=== PATIENT | female | born 1940 | race Caucasian/White ===

== ENCOUNTER → 2017-12-21 10:24 | Outpatient (CLI) | payer MEDICARE, OTHER, SELFPAY ==
--- NOTE | 2017-12-21 12:00 | BRBX_PTH ---
PATIENT: SMITA MANTILLA LOC: [facility] U#:[id number] AGE/SX: 85/F ROOM: RE12/21/[address]: Dr. Waldo Hoskins MD : 1940 BED: DIS: SPEC #: [id number] RECD: 12/21/17 14:39 STATUS: MARIA DE JESUS REGabe #: [id number] APTI: 12/21/17 12:[address]: Waldo Hoskins DEPT: SURGICAL PATHOLOGY RECD BY: Brandon Christianson ENTERED: 12/21/17 14:39 SP TYPE: BREAST BX OTHR DR: Dr. Montez Hernandez MD Tissues: Right breast, NOS Procedures: Surgery Specimen Level IV HEADER OPERATION: Right stereotactic needle core biopsy PRE-OP DIAGNOSIS: Microcalcifications TISSUE SUBMITTED: Right breast ISCHEMIC TIME: 2 minutes FIXATION TIME: 7.5 hours MICROSCOPIC DIAGNOSIS Right breast, stereotactic needle core biopsy: Fat necrosis, fibrosis and associated clustered microcalcifications. No evidence of malignancy. AM:colt 12/22/17 MICROSCOPIC DESCRIPTION Slides are reviewed. GROSS DESCRIPTION Received in fixative is one container labeled with the patient's name and designated right breast. The specimen consists of multiple irregular and elongated fragments of yellow-doty soft tissue that in aggregate measure 3 x 1.5 x 0.2 cm. The specimen is totally submitted in one cassette. / AM:colt 12/21/17 TC:5 CPT: 73369
--- NOTE | 2017-12-21 19:45 | PCM.OPRPT ---
Report of Operation Date of Procedure: 12/21/17 Pre-Operative Diagnosis: right breast microcalcification - superficial Post-Operative Diagnosis: right breast microcalcification - superficial Surgery/Procedure Performed:: right breast stereotactic biopsy, specimen radiograph-need to close skin with sutures due to bleeding. marker clip expelled due to bleeding Type of Anesthesia:: Local Specimen's removed: right breast tissue Description of Procedure: The patient was brought to the stereotactic suite and informed of the plan course of events. The right breast was positioned in the craniocaudal position on the Brooks stereotactic table. the area of abnormality was noted to be the mid aspect of the cluster when reviewed from the previous mammograms. Mammographic image demonstrated the area of abnormality to be located in the center of the radiograph. Stereotactic images were then obtained which demonstrated good positioning of the abnormality for biopsy with good stroke ricardo parameters- the abnormality being quite superficial The breast was cleaned with Betadine area did one percent lidocaine was used to anesthetize the skin and a small stab incision made. An 8-gauge mammotome needle was placed into the pre-fire position. Stereotactic images demonstrated good positioning around the planned biopsy site. Local anesthetic injected deeply in the breast. The needle was deployed. Post deployment images demonstrated good positioning of the planned biopsy site. Multiple vacuum-assisted samples were obtained and [id number] fashion. there was significant bleeding following the biopsies. Specimen radiograph demonstrated micro-calcifications in the sample. A gel marker clip was deployed. but this kept being ejected by the ongoing bleeding. multiple 4-0 nylon sutures were placed to both close the incision and placed more deeply to obtain hemostasis. Post procedure mammogram images were obtained. the patient was checked later and knowing to be doing fine with some though less bruising than expected
== END ==
PROVIDERS: Family Provider Family Medicine; PCP Family Medicine; Visit Provider Surgery
DX: N64.1 Fat necrosis of breast (principal); N60.31 Fibrosclerosis of right breast; R92.0 Mammographic microcalcification found on diagnostic imaging of breast; F41.9 Anxiety disorder, unspecified; J45.909 Unspecified asthma, uncomplicated; Z85.3 Personal history of malignant neoplasm of breast; E11.9 Type 2 diabetes mellitus without complications; K21.9 Gastro-esophageal reflux disease without esophagitis; E03.9 Hypothyroidism, unspecified; Z85.118 Personal history of other malignant neoplasm of bronchus and lung; M19.90 Unspecified osteoarthritis, unspecified site; Z85.828 Personal history of other malignant neoplasm of skin; I49.9 Cardiac arrhythmia, unspecified; R06.02 Shortness of breath; D64.9 Anemia, unspecified; Z90.89 Acquired absence of other organs; Z87.891 Personal history of nicotine dependence; Z79.899 Other long term (current) drug therapy
CPT/HCPCS: 19081; 88305; J7050

== ENCOUNTER → 2018-04-27 12:18 | Outpatient (CLI) | payer MEDICARE, OTHER, SELFPAY ==
--- NOTE | 2018-04-27 12:23 | RAD_ITS ---
STUDY: X-RAY CHEST REASON FOR EXAM: Female, 77 years old. Chest pain, shortness of breath, history of lung and breast cancer TECHNIQUE: PA and lateral views of the chest. COMPARISON: Prior study of 08/26/2016 FINDINGS: Left lung fibrosis is present. On the lateral view is noted a pleural-based density of the posterior left lower lobe measuring 5.3 x 2.1 cm. There is scarring of the left upper lobe. There is no pleural effusion. Normal size heart. Normal mediastinum and lon. Normal visualized pulmonary arteries. Normal visualized aortic arch and descending thoracic aorta. Normal visualized thoracic spine. Normal visualized ribs, clavicles, and shoulders. Surgical clips are seen in the right breast. RAD/Chest PA and Lateral IMPRESSION: 1. Pleural-based density of the posterior left lower lobe measuring 5.3 x 2.1 cm. Differential diagnosis would include postoperative scarring versus recurrent neoplasm. This was not seen on the prior study of 08/26/2016. Further evaluation is recommended. 2. Left upper lobe scarring. Electronically Signed: Jose Durham MD at 20:07 EDT , Service support ,
[2018-04-27 14:12] LABS: Absolute Lymphocyte Count 2.04 X10^3/ul (0.83-4.51); Absolute Neutrophil Count 5.5 X10^3/uL (2.0-7.7); Basophil# 0.06 X10^3/uL; Basophil% 0.7 % (0-1); Eosinophil# 0.18 X10^3/uL; Eosinophils% 2.1 % (0-5); Hematocrit 36.9 % (37-47); Lymphocyte # 2.04 X10^3/ul (4.0); Lymphocyte % 23.9 % (19-41); Mean Corp Hgb Conc 32.5 g/gl (32-36); Mean Corpuscular Hgb 27.6 pg (27.0-32.0); Mean Platelet Vol. 10.1 fl (6.2-12.0); Monocyte# 0.73 X10^3/uL; Monocyte% 8.6 % (0-10); Neutrophil % 64.6 % (47-70); Platelet Count 323 K/mm3 (150-450); RBC Distribution Width CV 13.6 % (11.6-14.6); RBC Distribution Width SD 42.5 fl (35.1-43.9); Red Blood Count 4.34 M/mm3 (4.2-5.4); White Blood Count 8.5 K/mm3 (4.4-11.0)
[2018-04-27 14:13] LABS: POSITIVE COUNT NO; POSITIVE DIFFERENTIAL NO; POSITIVE MORPHOLOGY NO
[2018-04-27 14:33] LABS: BUN 24 mg/dL (7-18); Creatinine, Serum 1.48 mg/dL (0.55-1.02); EST Glomerular Filtration Rate 36 mL/min (>60); Est Glom Filt Rate - Afr Amer 44 mL/min (>60); Glucose 77 mg/dL (74-106)
[2018-04-27 14:34] LABS: ALB/GLOB Ratio 0.9 RATIO (0.9-2.4); AST(SGOT) 17 U/L (15-37); Alanine Aminotransfer ALT/SGPT 24 U/L (13-56); Albumin, Serum 3.6 g/dL (3.2-5.0); Alkaline Phosphatase 68 U/L (45-117); Anion Gap 10 (5-15); BUN/Creat Ratio 16.2 RATIO (10-20); Calcium,Total 9.4 mg/dL (8.5-10.1); Chloride 109 mmol/L (98-107); Globulin 4.1 g/dL (2.2-4.2); Potassium 4.5 mmol/L (3.5-5.1); Protein, Total 7.7 g/dL (6.4-8.2); Sodium Level 142 mmol/L (136-145); Thyroid Stim Hormone (TSH) 1.26 uIU/mL (0.358-3.74)
[2018-04-28 08:55] LABS: Vitamin B12 902 pg/mL (211-911)
== END ==
PROVIDERS: Family Provider Family Medicine; PCP Family Medicine; Visit Provider Family Medicine
DX: R07.9 Chest pain, unspecified (principal); E53.8 Deficiency of other specified B group vitamins; E03.9 Hypothyroidism, unspecified
CPT/HCPCS: 36415; 71046; 80053; 82607; 83735; 84443; 85025

== ENCOUNTER → 2018-05-06 06:29 | Outpatient (CLI) | payer MEDICARE, OTHER, SELFPAY ==
--- NOTE | 2018-05-06 09:54 | STRESSREP ---
Stress Test Report Date: 05/06/2018 Procedure: Pharmacologic stress nuclear imaging study Indications: Chest pain; shortness of breath Consent: Per the patient Procedure: The patient underwent pharmacologic (Regadenoson) evaluation with a peak heart rate of 109 beats per minute (75 predicted maximal heart rate) and a peak blood pressure of 128/72 mmHg. The baseline ECG demonstrated sinus rhythm. The peak pharmacologic ECG demonstrated no obvious ECG changes. There were no cardiac dysrhythmias pretest, during pharmacologic infusion, or recovery. There was no complaint of chest discomfort during pharmacologic infusion or recovery. The examination was discontinued secondary to completion of protocol. Impression: 1. Pharmacologic (Regadenoson) evaluation 2. Peak pharmacologic ECG with no obvious ECG changes. 3. There were no cardiac dysrhythmias pretest, during pharmacologic infusion, or recovery 4. Nuclear images pending Myocardial perfusion imaging study: Technique: The patient was injected with 11.9 millicuries of technetium 99m Cardiolite and subsequently rest SPECT Cardiolite nuclear imaging was obtained in the horizontal long, vertical long, and short axis views. The patient underwent pharmacologic (Regadenoson) evaluation with a peak heart rate of 109 beats per minute (75 % percent predicted maximal heart rate) and a peak blood pressure of 128/72 mmHg. The patient was injected with 32.6 millicuries of technetium 99m Cardiolite and subsequently stress SPECT Cardiolite nuclear imaging was obtained in the horizontal long, vertical long, and short axis views. A gated Cardiolite study at peak stress was obtained. Interpretation: Rest and stress SPECT Cardiolite nuclear imaging status post realignment, normalization, and attenuation correction demonstrate rest the appearance of relative uniform tracer uptake and status post stress notation of diminished tracer uptake in portions of the mid to distal inferolateral segments. There is end systolic thickening and brightening. The gated Cardiolite study demonstrates myocardial thickening and inward wall motion. The reported LVEF is 75 %. Impression: 1. Rest and stress SPECT Cardiolite nuclear imaging demonstrate relative uniform tracer uptake at rest and status post stress and area of diminished tracer uptake in portions of the mid to distal inferolateral segments appearing compatible with an area of stress-induced myocardial ischemia. 2. The gated Cardiolite study reports an LVEF of 75 %. This note was generated with [employer] software. It may contain incorrect words, spelling, and punctuation that were not noted in checking the note before signing.
== END ==
PROVIDERS: Family Provider Family Medicine; PCP Family Medicine; Visit Provider Family Medicine
DX: R07.9 Chest pain, unspecified (principal)
CPT/HCPCS: 78452; 93017; A9500; A4216; J2785

== ENCOUNTER → 2018-05-27 12:26 | Outpatient (CLI) | payer MEDICARE, OTHER, SELFPAY ==
[2018-05-27 12:20] LABS: Absolute Neutrophil Count 4.8 X10^3/uL (2.0-7.7); Basophil# 0.06 X10^3/uL; Basophil% 0.8 % (0-1); Eosinophils% 2.8 % (0-5); Hematocrit 35.5 % (37-47); Hemoglobin 11.3 g/dl (12.0-15.0); Lymphocyte % 23.4 % (19-41); Mean Corp Hgb Conc 31.8 g/gl (32-36); Mean Corpuscular Hgb 28.2 pg (27.0-32.0); Mean Corpuscular Volume 88.5 fL (81-99); Mean Platelet Vol. 10.1 fl (6.2-12.0); Monocyte# 0.53 X10^3/uL; Monocyte% 7.3 % (0-10); Neutrophil # 4.75 X10^3/uL (2.7-7.7); Neutrophil % 65.6 % (47-70); Platelet Count 285 K/mm3 (150-450); RBC Distribution Width CV 14.1 % (11.6-14.6); RBC Distribution Width SD 45.9 fl (35.1-43.9); Red Blood Count 4.01 M/mm3 (4.2-5.4); White Blood Count 7.3 K/mm3 (4.4-11.0)
--- NOTE | 2018-05-27 12:30 | ECHOD_ITS ---
Version 2 Reason For Study: CAD Procedure This was a 2D Doppler, Color Flow transthoracic echocardiogram. Exam performed in department. Left Ventricle Normal LV size. Left ventricular systolic function is normal. The estimated ejection fraction is 60 %. Transmitral diastolic flow velocities suggest mild (stage 1) diastolic dysfunction (reversed pattern). No regional wall motion abnormalities noted. Right Ventricle Normal RV size. Normal systolic function. Atria Normal left atrium. Normal right atrium. Mitral Valve Normal mitral valve. Tricuspid Valve Normal tricuspid valve. Mild tricuspid valve insufficiency. Pulmonary artery systolic pressure is 29 mmHg. Aortic Valve Trisinus/trileaflet aortic valve. Mild focal aortic valve calcification. Pulmonic Valve Normal pulmonic valve. Great Vessels Normal aortic root. The pulmonary artery is normal size. Normal inferior vena cava. Pericardium/Pleural No pericardial effusion. MMode/2D Measurements & Calculations LVIDd: 3.9 cm IVSd: 0.67 cm Ao root diam: 3.1 cm LVIDs: 2.5 cm LVPWd: 0.82 cm RVDd: 3.5 cm FS: 35.1 % LAV(MOD-bp): 38.9 ml LA A4 area: 15.8 cm2 RA A4 area: 10.3 cm2 LAV(MOD-bp) Indexed: 23.9 ml/m2 LAV(MOD-sp2): 31.4 ml LAV(MOD-sp4): 41.7 ml Time Measurements MV dec time: 0.29 sec Doppler Measurements & Calculations MV E max aguilar: 71.3 cm/sec Lat Peak E' Aguilar: 6.6 cm/sec Med Peak E' Aguilar: 5.9 cm/sec MV A max aguilar: 109.0 cm/sec E/E' lat: 10.8 E/E' med: 12.1 MV E/A: 0.65 Ao V2 max: 134.0 cm/sec LV V1 max: 124.1 cm/sec PA V2 max: 85.5 cm/sec Ao max P.2 mmHg LV V1 max P.2 mmHg TR max aguilar: 255.6 cm/sec TR max P.8 mmHg Interpretation Summary Normal LV size. Left ventricular systolic function is normal. The estimated ejection fraction is 60 %. No regional wall motion abnormalities noted. Mild tricuspid valve insufficiency. Pulmonary artery systolic pressure is 29 mmHg. Transmitral diastolic flow velocities suggest mild (stage 1) diastolic dysfunction (reversed pattern). Ordering Physician: Magnus Mcrathur Referring Physician: PAZ ARCE Performed By: Amisha Lopez, BANDAR, RVT
[2018-05-27 12:35] LABS: POSITIVE COUNT NO; POSITIVE DIFFERENTIAL NO; POSITIVE MORPHOLOGY NO
[2018-05-27 12:40] LABS: Anion Gap 6 (5-15); BUN 26 mg/dL (7-18); BUN/Creat Ratio 15.8 RATIO (10-20); Calcium,Total 8.6 mg/dL (8.5-10.1); Chloride 109 mmol/L (98-107); Creatinine, Serum 1.65 mg/dL (0.55-1.02); EST Glomerular Filtration Rate 32 mL/min (>60); Est Glom Filt Rate - Afr Amer 39 mL/min (>60); Glucose 192 mg/dL (74-106); Potassium 4.6 mmol/L (3.5-5.1); Sodium Level 137 mmol/L (136-145)
== END ==
PROVIDERS: Family Provider Family Medicine; PCP Family Medicine; Visit Provider Internal Medicine Cardiovascular Disease
DX: R06.00 Dyspnea, unspecified (principal); R94.39 Abnormal result of other cardiovascular function study
CPT/HCPCS: 36415; 80048; 85025; 93306

== ENCOUNTER → 2018-06-07 06:53 | Day surgery (SDC) | payer MEDICARE, OTHER, SELFPAY ==
[2018-06-04 12:33] VITALS: BMI 27.3
[2018-06-07 07:16] LABS: Bedside Glucose 130 mg/dL (70-110)
--- NOTE | 2018-06-07 10:10 | CL.D_ITS ---
Patient Name: SMITA MANTILLA Study Date: 06/07/2018 Performing: Magnus Mcarthur MD Ht: 61.02 inches 155 cm : 1940 Wt: 145.51 lbs 66 kg Age: 77 Gender: female BSA: 1.65 PROCEDURE(S) PERFORMED [id number] CLINICAL PROFILE AND INDICATIONS Indications: Suspected CAD Heart Failure: None Stress/Imaging Stress Test w/SPECT MPI: Yes Result: Positive Intermediate RiskStress Test with SP ECT MPI: Positive Intermediate Risk Angina Classification Anginal Classification w/in 2 Weeks: CCS III CAD Presentations: Other: Shortness of breath CONCLUSIONS Severe disease involving the proximal and mid left anterior descending artery, and the proximal and d istal right coronary artery and a dominant vessel. Patient has preserved ejection fraction and a kno wn diabetic with moderate renal dysfunction. RECOMMENDATIONS Surgery consult for coronary revascularization DESCRIPTION OF PROCEDURE The patient arrived to the procedure lab. The risks and benefits of the procedure as well as a full d escription of our services here and current unavailability of surgical backup were fully explained to the patient and/or their significant other prior to the catheterization. The Timeout was completed, verifying the correct patient and procedure. The patient's procedural site was prepped and draped in the usual fashion. Local anesthetic was given subcutaneously to right groin region with Lidocaine 2%. Using a modified Seldinger technique, arterial access was obtained via the right femoral artery, a 5 Fr sheath was inserted. Left Coronary Artery selective angiography was performed in multiple views u sing a 5 Fr. JL4 catheter. Right Coronary Artery selective angiography was then performed in multiple views using a 5 Fr. 3DRC (Morgan) catheter. LV to AO pullback pressures were then recorded.Contras t was injected through the sheath and the Right Iliac and Femoral artery were assessed for possible c losure device.The arterial sheath was pulled and manual compression applied until hemostasis is achie rebecca. CORONARY ANGIOGRAPHY DOMINANCE: Right Dominant LEFT HEART ASSESSMENT Left Ventricular Ejection Fraction: by Echo 60 % Normal LV wall motion Normal Left Ventricular systolic function LVEDP: 16 mmHg LEFT MAIN: Mild calcification, Angiographically normal LEFT ANTERIOR DECENDING ARTERY: PROX LAD: Moderate calcification, 40 % Stenosis MID LAD: 80 % Stenosis CIRCUMFLEX ARTERY: Mild luminal irregularities less than 30% RIGHT CORONARY ARTERY: PROX RCA: Diffusely diseased up to 70 % DISTAL RCA: 90 % Stenosis RT PDA: Ostial - 90 % Stenosis COMPLICATIONS No Complications PROCEDURE MEDICATIONS Versed 1 mg IV Versed 1 mg IV Oxygen: 2 L/min via nasal cannula SUMMARY OF HEMODYNAMIC DATA Time AIR REST ECG 07:16:42 AO 133/58 (84) SA 09:42:40 LV 134/0, 13 09:48:49 LV 144/2, 16 09:48:55 LVp 146/0, 15 09:48:59 AOp 141/58 (93) 09:49:04 ECG 10:04:28 Signed By Magnus Mcarthur MD On 06/07/2018 10:09:49 Magnus Mcarthur MD
== END ==
PROVIDERS: Family Provider Family Medicine; PCP Family Medicine; Visit Provider Internal Medicine Cardiovascular Disease
DX: I25.10 Atherosclerotic heart disease of native coronary artery without angina pectoris (principal); R94.39 Abnormal result of other cardiovascular function study; J44.9 Chronic obstructive pulmonary disease, unspecified; E78.5 Hyperlipidemia, unspecified; J45.909 Unspecified asthma, uncomplicated; F32.9 Major depressive disorder, single episode, unspecified; K21.9 Gastro-esophageal reflux disease without esophagitis; E03.9 Hypothyroidism, unspecified; E11.9 Type 2 diabetes mellitus without complications; Z85.3 Personal history of malignant neoplasm of breast; Z85.118 Personal history of other malignant neoplasm of bronchus and lung; Z92.3 Personal history of irradiation; Z90.710 Acquired absence of both cervix and uterus; Z96.649 Presence of unspecified artificial hip joint; Z79.4 Long term (current) use of insulin; Z79.82 Long term (current) use of aspirin; Z79.899 Other long term (current) drug therapy; Z87.891 Personal history of nicotine dependence
CPT/HCPCS: 82962; 93454; 99152; 99153; J7040; Q9967

== ENCOUNTER → 2018-08-11 14:27 | Outpatient (CLI) | payer MEDICARE, OTHER, SELFPAY ==
[2018-08-11 15:35] LABS: Absolute Lymphocyte Count 2.11 X10^3/ul (0.83-4.51); Absolute Neutrophil Count 5.7 X10^3/uL (2.0-7.7); Basophil# 0.06 X10^3/uL; Basophil% 0.7 % (0-1); Eosinophil# 0.37 X10^3/uL; Eosinophils% 4.1 % (0-5); Hematocrit 34.2 % (37-47); Hemoglobin 10.5 g/dl (12.0-15.0); Lymphocyte # 2.11 X10^3/ul (4.0); Lymphocyte % 23.6 % (19-41); Mean Corp Hgb Conc 30.7 g/gl (32-36); Mean Corpuscular Hgb 26.5 pg (27.0-32.0); Mean Corpuscular Volume 86.4 fL (81-99); Mean Platelet Vol. 10.6 fl (6.2-12.0); Monocyte# 0.66 X10^3/uL; Monocyte% 7.4 % (0-10); Neutrophil # 5.72 X10^3/uL (2.7-7.7); Platelet Count 338 K/mm3 (150-450); RBC Distribution Width CV 15.4 % (11.6-14.6); RBC Distribution Width SD 48.8 fl (35.1-43.9); Red Blood Count 3.96 M/mm3 (4.2-5.4); White Blood Count 8.9 K/mm3 (4.4-11.0)
[2018-08-11 15:38] LABS: POSITIVE COUNT NO; POSITIVE DIFFERENTIAL NO; POSITIVE MORPHOLOGY NO
[2018-08-11 16:01] LABS: ALB/GLOB Ratio 0.8 RATIO (0.9-2.4); AST(SGOT) 105 U/L (15-37); Alanine Aminotransfer ALT/SGPT 145 U/L (13-56); Albumin, Serum 3.1 g/dL (3.2-5.0); Alkaline Phosphatase 164 U/L (45-117); Anion Gap 13 (5-15); BUN 19 mg/dL (7-18); Calcium,Total 8.8 mg/dL (8.5-10.1); Chloride 103 mmol/L (98-107); Cholesterol 129 mg/dL (200); Creatinine, Serum 1.27 mg/dL (0.55-1.02); EST Glomerular Filtration Rate 43 mL/min (>60); Est Glom Filt Rate - Afr Amer 53 mL/min (>60); Globulin 3.7 g/dL (2.2-4.2); Glucose 196 mg/dL (74-106); High Density Lipoprotein 69 mg/dL; Potassium 4.1 mmol/L (3.5-5.1); Protein, Total 6.8 g/dL (6.4-8.2); Sodium Level 138 mmol/L (136-145); T4 Free Direct 1.42 ng/dL (0.76-1.46); Thyroid Stim Hormone (TSH) 0.11 uIU/mL (0.358-3.74); Triglycerides 113 mg/dL; Very Low Density Lipoprotein 23 mg/dL (5-40)
== END ==
PROVIDERS: Family Provider Family Medicine; PCP Family Medicine; Visit Provider Family Medicine
DX: E03.9 Hypothyroidism, unspecified (principal); D64.9 Anemia, unspecified; E11.9 Type 2 diabetes mellitus without complications
CPT/HCPCS: 36415; 80053; 80061; 84439; 84443; 85025

== ENCOUNTER → 2018-12-14 12:57 | Outpatient (CLI) | payer MEDICARE, OTHER, SELFPAY ==
[2018-08-20 14:50] VITALS: BMI 25.3
--- NOTE | 2018-12-14 13:06 | RAD_ITS ---
STUDY: X-RAY CHEST REASON FOR EXAM: Female, 78 years old. Bronchitis. TECHNIQUE: PA and lateral views of the chest. COMPARISON: Comparison is made with prior study dated April 27, 2018. FINDINGS: Surgical clips are seen overlying the inferior lateral portion of the right hemithorax. The patient is status post surgery in the left upper lobe with resultant postoperative scarring. The previously seen density in the left midlung has markedly decreased in size. This most like represents postoperative scarring. Stable blunting of the left costophrenic angle. Sternal cerclage wires and vascular clips are present from a prior sternotomy and coronary artery bypass graft procedure (CABG). Normal mediastinum and lon. Normal visualized pulmonary arteries. Normal visualized aortic arch and descending thoracic aorta. Normal visualized thoracic spine. Healing fracture of the anterolateral aspect of the left seventh rib most likely following surgery. There is no demonstrated abnormality of the visualized soft tissue structures of the upper abdomen. RAD/Chest PA and Lateral IMPRESSION: Status post surgery in the left upper lobe with resultant scarring and healing left rib fracture secondary to surgery. The previously seen focal density in the posterior left mid lung has markedly decreased in size. Electronically Signed: Soy Ken MD at 9:37 EST , Service support ,
[2018-12-14 14:05] LABS: Erythrocyte Sedimentation Rate 9 mm/hr (0-30)
[2018-12-14 14:08] LABS: Absolute Lymphocyte Count 1.67 X10^3/ul (0.83-4.51); Absolute Neutrophil Count 4.5 X10^3/uL (2.0-7.7); Basophil# 0.04 X10^3/uL; Basophil% 0.6 % (0-1); Eosinophil# 0.18 X10^3/uL; Eosinophils% 2.5 % (0-5); Hematocrit 35.8 % (37-47); Hemoglobin 11.6 g/dl (12.0-15.0); Lymphocyte # 1.67 X10^3/ul (4.0); Lymphocyte % 23.6 % (19-41); Mean Corp Hgb Conc 32.4 g/gl (32-36); Mean Corpuscular Hgb 28.8 pg (27.0-32.0); Mean Corpuscular Volume 88.8 fL (81-99); Mean Platelet Vol. 10.2 fl (6.2-12.0); Monocyte% 9.9 % (0-10); Neutrophil # 4.48 X10^3/uL (2.7-7.7); Neutrophil % 63.3 % (47-70); POSITIVE COUNT NO; POSITIVE DIFFERENTIAL NO; POSITIVE MORPHOLOGY NO; Platelet Count 256 K/mm3 (150-450); RBC Distribution Width CV 14.2 % (11.6-14.6); RBC Distribution Width SD 46.2 fl (35.1-43.9); Red Blood Count 4.03 M/mm3 (4.2-5.4); White Blood Count 7.1 K/mm3 (4.4-11.0)
[2018-12-14 14:23] LABS: ALB/GLOB Ratio 0.9 RATIO (0.9-2.4); AST(SGOT) 21 U/L (15-37); Alanine Aminotransfer ALT/SGPT 34 U/L (13-56); Albumin, Serum 3.3 g/dL (3.2-5.0); Alkaline Phosphatase 95 U/L (45-117); Anion Gap 11 (5-15); BUN 30 mg/dL (7-18); BUN/Creat Ratio 19.4 RATIO (10-20); Calcium,Total 8.6 mg/dL (8.5-10.1); Chloride 106 mmol/L (98-107); Creatinine, Serum 1.55 mg/dL (0.55-1.02); EST Glomerular Filtration Rate 34 mL/min (>60); Est Glom Filt Rate - Afr Amer 42 mL/min (>60); Globulin 3.8 g/dL (2.2-4.2); Glucose 304 mg/dL (74-106); Potassium 3.9 mmol/L (3.5-5.1); Protein, Total 7.1 g/dL (6.4-8.2); Sodium Level 138 mmol/L (136-145); T4 Free Direct 1.07 ng/dL (0.76-1.46); Thyroid Stim Hormone (TSH) 1.26 uIU/mL (0.358-3.74)
== END ==
PROVIDERS: Family Provider Family Medicine; PCP Family Medicine; Referring Provider Family Medicine; Visit Provider Family Medicine
DX: J40 Bronchitis, not specified as acute or chronic (principal); E03.9 Hypothyroidism, unspecified; R19.7 Diarrhea, unspecified
CPT/HCPCS: 36415; 71046; 80053; 84439; 84443; 85025; 85652

== ENCOUNTER → 2018-12-30 10:44 | Outpatient (CLI) | payer MEDICARE, OTHER, SELFPAY ==
[2018-12-23 14:55] VITALS: BMI 26.8
[2018-12-31 17:17] LABS: Giardia Lamblia, Stool EIA Negative (Negative)
== END ==
PROVIDERS: Family Provider Family Medicine; PCP Family Medicine; Referring Provider Family Medicine; Visit Provider Family Medicine
DX: R19.7 Diarrhea, unspecified (principal)
CPT/HCPCS: 82274; 83630; 87177; 87209; 87329; 87493

== ENCOUNTER → 2019-01-18 12:05 | Outpatient (CLI) | payer MEDICARE, OTHER, SELFPAY ==
[2018-12-23 14:55] VITALS: BMI 26.8
== END ==
PROVIDERS: Family Provider Family Medicine; PCP Family Medicine; Referring Provider Family Medicine; Visit Provider Family Medicine
DX: R19.7 Diarrhea, unspecified (principal)
CPT/HCPCS: 87506

== ENCOUNTER 2019-10-30 12:05 | Inpatient (IN) | payer MEDICARE, OTHER, SELFPAY ==
[2018-12-23 14:55] VITALS: BMI 26.8
[2019-10-30 12:07] VITALS: BP 143/76; PULSE 72; RESP 17; TEMP 36.8; O2SAT 99; BMI 28.7
--- NOTE | 2019-10-30 12:39 | CT_ITS ---
STUDY: CT ABDOMEN AND PELVIS WITHOUT CONTRAST REASON FOR EXAM: Female, 79 years old. ABD PAIN, N/V SINCE THIS AM, GERD,DB, HX-BREAST CA WITH LUMPECTOMY, CHEMO AND RAD TX, LUNG CA WITH SURG AND GAMMA KNIFE TX, HUMA/BSO, APPY RADIATION DOSAGE (If Supplied By Facility): CTDIvol = ( 11.24 ) mGy, DLP = ( 488.61 ) mGycm TECHNIQUE: Transaxial images were obtained from the dome of the diaphragm to the symphysis pubis without oral contrast, and without intravenous contrast. Sagittal and coronal images were reconstructed. Individualized dose optimization techniques were used for this CT. COMPARISON: None. FINDINGS: The lung bases demonstrate no evidence for consolidative process. Bibasilar platelike atelectasis. Moderate size hiatal hernia. No pericardial effusion. Liver and spleen demonstrate no focal lesions. The gallbladder slightly distended. Parenchymal calcifications in the spleen and liver seen likely prior granulomatous disease. Mild atrophy of the pancreas Adrenal glands appear unremarkable. Nonobstructive bowel gas pattern. No evidence for acute appendicitis. No evidence for acute diverticulitis. Uncomplicated colonic diverticulosis. No free fluid in the pelvis. No drainable fluid collections. Degenerative changes of the sacroiliac joints. No evidence for hydronephrosis. No evidence for ureterolithiasis. Left-sided hip prostheses. IMPRESSION: No evidence for acute appendicitis. No evidence for acute diverticulitis. No evidence for obstructive uropathy. Uncomplicated diverticulosis. Somewhat heterogeneous appearance of the head of the pancreas likely a chronic changes however subtle acute pancreatitis is not excluded. Please correlate with amylase and lipase. Electronically Signed: Greg Doty, at 13:37 EST Tel , Service support , CT/Abdomen/Pelvis without Cont
--- NOTE | 2019-10-30 12:41 | ED.VISSUMM ---
- ER Visit Summary Date of Service: 10/30/19 Chief Complaint: Abdominal pain History of Present Illness: The patient is a 79 F who presents with right upper abdominal pain that began today. Patient states the pain is worse over the upper abdomen. Patient states her pain is diffuse however. Patient admits to an episode of nausea and vomiting today. Patient denies any hematemesis or coffee-ground emesis. Patient states her pain is worse when she lays down. Patient states nothing has improved her pain. Patient denies any diarrhea, melena, or hematochezia. Patient denies any dysuria or hematuria. Physical Examination: Vital signs are stable. Patient is afebrile. Patient is in no acute distress. Oral mucosa is pink and moist. Neck is supple. Trachea is midline. There is no JVD. Heart was regular rate and rhythm. Lungs are clear and equal bilaterally. Abdomen is soft. Bowel sounds are normal. There is upper abdominal tenderness, worse on the right. There is no rebound or guarding noted. Cranial nerves II through XII are intact. There are no focal motor or sensory deficits noted. Test Results: CBC shows a leukocytosis of 20.1. Creatinine was slightly elevated at 1.54 and BUN was 30. Lipase was elevated at 35,323. CT scan of the abdomen pelvis shows heterogeneous appearance of the head of the pancreas. Emergency Department Course and Treatment: Patient was given morphine, and Zofran. Patient was given a repeat dose of morphine. Patient was advised of her results. Case was discussed with the hospitalist. She will admit the patient to her service. Patient and family understood and were agreeable with the plan. All questions were answered. Disposition: Admit to hospital Impression: 1. Acute pancreatitis This note was generated with [employer] dictation software. It may contain incorrect words, spelling, and punctuation that were not noted in review of the chart prior to signing ED Disposition - Plan for ED Patient: Disposition: Acute Care Hospital [facility] Diagnosis: Acute pancreatitis Referrals: Jez Hernandez MD [Primary Care Provider] -
[2019-10-30] MEDS: Ondansetron 4 MG/2 ML Vial IV ×2 (12:50→17:23)
[2019-10-30] MEDS: Morphine 4 MG/ML Syringe IV ×2 (12:51→14:30)
[2019-10-30 12:59] LABS: Absolute Lymphocyte Count 3.54 X10^3/uL (0.83-4.51); Absolute Neutrophil Count 14.5 X10^3/uL (2.0-7.7); Basophil# 0.12 X10^3/uL; Basophil% 0.6 % (0-1); Eosinophil# 0.36 X10^3/uL; Eosinophils% 1.8 % (0-5); Hematocrit 38.2 % (37-47); Hemoglobin 12.8 g/dL (12.0-15.0); Lymphocyte # 3.54 X10^3/ul (4.0); Lymphocyte % 17.6 % (19-41); Mean Corp Hgb Conc 33.5 g/dL (32-36); Mean Corpuscular Hgb 29.2 pg (27.0-32.0); Mean Platelet Vol. 10.1 fl (6.2-12.0); Monocyte# 1.45 X10^3/uL; Monocyte% 7.2 % (0-10); NRBC Flagged by Analyzer 0 % (0-5); Neutrophil # 14.53 X10^3/uL (2.7-7.7); Neutrophil % 72.1 % (47-70); Platelet Count 311 K/mm3 (150-450); RBC Distribution Width CV 13.2 % (11.6-14.6); RBC Distribution Width SD 42.1 fl (35.1-43.9); Red Blood Count 4.39 M/mm3 (4.2-5.4); White Blood Count 20.1 K/mm3 (4.4-11.0)
[2019-10-30 13:28] LABS: ALB/GLOB Ratio 1.1 RATIO (0.9-2.4); AST(SGOT) 30 U/L (15-37); Alanine Aminotransfer ALT/SGPT 24 U/L (13-56); Albumin, Serum 3.9 g/dL (3.2-5.0); Alkaline Phosphatase 108 U/L (45-117); Anion Gap 9 (5-15); BUN 30 mg/dL (7-18); BUN/Creat Ratio 19.5 RATIO (10-20); Calcium,Total 9.6 mg/dL (8.5-10.1); Chloride 112 mmol/L (98-107); Creatinine, Serum 1.54 mg/dL (0.55-1.02); EST Glomerular Filtration Rate 35 mL/min (>60); Est Glom Filt Rate - Afr Amer 42 mL/min (>60); Estimated Creatinine Clearance 21.63 ml/min; Globulin 3.7 g/dL (2.2-4.2); Glucose 105 mg/dL (74-106); Lipase 35323 U/L (73-393); Potassium 3.9 mmol/L (3.5-5.1); Protein, Total 7.6 g/dL (6.4-8.2); Sodium Level 141 mmol/L (136-145)
[2019-10-30 14:40] VITALS: BP 142/68; PULSE 68; RESP 18; O2SAT 99
--- NOTE | 2019-10-30 15:11 | NURSING ---
MED SURG YENNI ACUTE PANCREATITIS
--- NOTE | 2019-10-30 15:12 | US_ITS ---
STUDY: ABDOMINAL ULTRASOUND - RIGHT UPPER QUADRANT REASON FOR VISIT: Female, 79 years old N/V SINCE THIS MORNING TECHNIQUE: Ultrasound evaluation of the right upper quadrant was performed with real-time and static mooney-scale imaging. TECHNICAL QUALITY: Limited. Examination limited by bowel gas. COMPARISON: None. FINDINGS: Liver: The liver measures 14 cm. There is normal echogenicity of the liver. The bile ducts are within normal limits. There is hepatic color flow. The direction of portal flow is hepatopetal. There is no demonstrated mass lesion. Gallbladder: Normal distended gallbladder. The gallbladder wall measures 4.2 mm. There is a positive sonographic Urbina''s sign. There is pericholecystic fluid. There is biliary sludge dependent within the gallbladder. Common Bile Duct (C.B.D.): The common bile duct measures 2.2 mm. Pancreas: There is diffuse atrophy of the pancreas. There is increased echogenicity of the pancreas. Hypoechoic area adjacent to the head of the pancreas measuring 2 x 2.1 x 1.5 cm. Right Kidney: There is atrophy of the right kidney. The right kidney measures 8.8 cm. There is thinning of the renal cortex. The right cortex measures 0.8 cm. There is no demonstrated renal mass or cyst. There is no right hydronephrosis. US/Abdomen Limited IMPRESSION: Dilated gallbladder with positive sonographic Urbina and surrounding pericholecystic fluid as well as gallbladder sludge with wall thickening. Findings are suggestive of acute cholecystitis. Hypoechoic area in the region of head of the pancreas. Echogenic pancreas. Possible pancreatitis. Electronically Signed: Fab Jenkins DO at 18:49 EST Tel , Service support ,
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
[2019-10-30 15:47] LABS: Cholesterol 167 mg/dL (200); High Density Lipoprotein 106 mg/dL; Triglycerides 70 mg/dL; Very Low Density Lipoprotein 14 mg/dL (5-40)
[2019-10-30 16:31] VITALS: BMI 29.1
[2019-10-30] MEDS: HYDROmorphone 0.5 MG/0.5 ML SYRINGE IV (17:22)
[2019-10-30] MEDS: Lactated Ringers 1,000 ML 150 ML IV (17:23)
[2019-10-30 18:00] LABS: Bedside Glucose 166 mg/dL (70-110)
[2019-10-30] MEDS: HYDROmorphone 1 MG/ML Syringe IV ×2 (18:26→22:34)
[2019-10-30 18:56] VITALS: BP 142/68; PULSE 68
[2019-10-30] MEDS: Metoprolol Tartrate 5 MG/5 ML Vial 2.5 MG IV (18:56)
[2019-10-30] MEDS: Insulin Lispro 100 UNIT/ML INSULN.PEN SC (19:04)
[2019-10-30 20:30] VITALS: BP 137/69; PULSE 97; RESP 18; TEMP 36.8; O2SAT 88
[2019-10-30 20:35] VITALS: RESP 18; O2SAT 95
[2019-10-30 20:56] VITALS: O2SAT 97
[2019-10-30] MEDS: Fluticasone 0.05% 1 SPRAY NASAL.SRY NASAL (21:21)
[2019-10-30] MEDS: 0.9% Saline Lock 10 ML Syringe IV ×2 (21:21→22:38)
[2019-10-30] MEDS: Heparin Injection (Vial) 5,000 UNIT/ML VIAL 5000 UNIT SC (21:26)
[2019-10-30 21:41] LABS: Bacteria 0 SEEN /hpf (None Seen); Mucous, Urine 0 SEEN /hpf (<or=2+); White Blood Cells 0 SEEN /hpf (0-5)
[2019-10-30 21:43] LABS: Color, Urine Yellow (Yellow); Glucose, Dipstick 50 mg/dl (Normal); Ketone-Dipstick 5 mg/dl (Negative); Leukocyte Esterase-Dipstick Negative /ul (Negative); Nitrite-Dipstick Negative (Negative); Occult Blood-Urine 10 /ul (Negative); Protein-Dipstick 30 mg/dl (Negative); Specific Gravity, Urine 1.025 (1.002-1.030); Urine Bilirubin Dipstick Negative (Negative); Urine Clarity Sl. Cloudy (Clear); Urine Urobilinogen 1 mg/dl (Normal)
[2019-10-30 21:54] LABS: Red Blood Cells-Urine 0-5 SEEN /hpf (0-5); Squamous Epithelial Cells - UA 0-5 SEEN /hpf (5-10)
[2019-10-31] VITALS (23 sets, daily range): BP systolic 98–142; BP diastolic 51–68; PULSE 90–117; RESP 16–28; TEMP 36.8–37.3; O2SAT 92–96; BMI 29.5; BMI 29.1
--- NOTE | 2019-10-31 | GALL_PTH ---
PATIENT: SMITA MANTILLA LOC: MS3 U#:[id number] AGE/SX: 79/F ROOM: MS312 RE10/30/[address]: Dr. Rufina Gamboa MD : 1940 BED: 1 DIS: 11/04/2019 SPEC #: [id number] RECD: 10/31/19 15:38 STATUS: MARIA DE JESUS REGabe #: [id number] PATI: 10/31/19 00:[address]: Oly Avery DEPT: SURGICAL PATHOLOGY RECD BY: Brandon Christianson ENTERED: 11/01/19 08:41 SP TYPE: GALLBLADDE OTHR DR: MD Dr. Montez Belle MD Dr. Kathryn Lee, DO Dr. Tamera Robotham, MD Tissues: Gallbladder, NOS Procedures: Surgery Specimen Level III Comments: @ Ordering doctor for SUIII edited from to @ by ANIL at 11/01/19923 @ Submitting doctor edited from to @ by RGOOD at 11/01/19923 HEADER OPERATION: Laparoscopic cholecystectomy PRE-OP DIAGNOSIS: Acute cholecystitis, pancreatitis TISSUE SUBMITTED: Gallbladder MICROSCOPIC DIAGNOSIS Gallbladder, cholecystectomy: Chronic cholecystitis. Acute serositis with fat necrosis. AM:colt 11/03/19 COMMENT Clinical correlation is necessary. MICROSCOPIC DESCRIPTION Slides are reviewed. GROSS DESCRIPTION Received is one container labeled with the patient's name and designated gallbladder. The specimen consists of a gallbladder measuring 6 cm in length and 3 cm in diameter. The external surface is pink-doty, smooth and glistening for the most part. Focally it is granular, hemorrhagic and contains cautery artifact. The gallbladder contains small amount of green-yellow mucoid bile. No stones are identified in the container or in the gallbladder. The mucosa is bile-stained and without any mass lesions. The gallbladder wall measures up to 0.3 cm in thickness. Machine Package Sealer sections from the gallbladder and the cystic duct are submitted in one cassette. / SJ:colt 11/01/19 TC:2 CPT: 47814
[2019-10-31] MEDS: Metoprolol Tartrate 5 MG/5 ML Vial 2.5 MG IV ×3 (01:07→17:33)
[2019-10-31] MEDS: Insulin Lispro 100 UNIT/ML INSULN.PEN SC ×4 (01:22→23:57)
[2019-10-31] MEDS: Lactated Ringers 1,000 ML 150 ML IV ×3 (01:35→14:43)
[2019-10-31 02:41] LABS: Bedside Glucose 199 mg/dL (70-110)
[2019-10-31] MEDS: HYDROmorphone 1 MG/ML Syringe IV ×5 (02:42→22:03)
[2019-10-31] MEDS: 0.9% Saline Lock 10 ML Syringe IV ×6 (02:45→22:02)
[2019-10-31 06:01] LABS: Absolute Lymphocyte Count 1.25 X10^3/uL (0.83-4.51); Absolute Neutrophil Count 22.6 X10^3/uL (2.0-7.7); Basophil# 0.04 X10^3/uL; Basophil% 0.2 % (0-1); Eosinophil# 0.09 X10^3/uL; Eosinophils% 0.3 % (0-5); Hemoglobin 12.4 g/dL (12.0-15.0); Lymphocyte # 1.25 X10^3/ul (4.0); Lymphocyte % 4.8 % (19-41); Mean Corp Hgb Conc 31.8 g/dL (32-36); Mean Corpuscular Hgb 29.2 pg (27.0-32.0); Mean Corpuscular Volume 91.8 fL (81-99); Mean Platelet Vol. 10.3 fl (6.2-12.0); Monocyte% 7.3 % (0-10); NRBC Flagged by Analyzer 0 % (0-5); Neutrophil # 22.58 X10^3/uL (2.7-7.7); Neutrophil % 86.7 % (47-70); POSITIVE DIFFERENTIAL YES; POSITIVE MORPHOLOGY YES; Platelet Count 263 K/mm3 (150-450); RBC Distribution Width CV 13.3 % (11.6-14.6); RBC Distribution Width SD 44.8 fl (35.1-43.9); Red Blood Count 4.25 M/mm3 (4.2-5.4); White Blood Count 26.1 K/mm3 (4.4-11.0)
[2019-10-31 06:18] LABS: International Normalized Ratio 1.2; Prothrombin Time (Protime)PT. 14.9 SECONDS (11.7-14.9)
[2019-10-31 06:20] LABS: ALB/GLOB Ratio 0.9 RATIO (0.9-2.4); AST(SGOT) 59 U/L (15-37); Alanine Aminotransfer ALT/SGPT 44 U/L (13-56); Albumin, Serum 3.1 g/dL (3.2-5.0); Alkaline Phosphatase 67 U/L (45-117); Anion Gap 8 (5-15); BUN 30 mg/dL (7-18); BUN/Creat Ratio 16.5 RATIO (10-20); Calcium,Total 8.1 mg/dL (8.5-10.1); Chloride 108 mmol/L (98-107); Creatinine, Serum 1.82 mg/dL (0.55-1.02); EST Glomerular Filtration Rate 29 mL/min (>60); Est Glom Filt Rate - Afr Amer 35 mL/min (>60); Globulin 3.3 g/dL (2.2-4.2); Glucose 218 mg/dL (74-106); Lipase 6910 U/L (73-393); Magnesium 1.7 mg/dL (1.6-2.6); Potassium 4.9 mmol/L (3.5-5.1); Protein, Total 6.4 g/dL (6.4-8.2); Sodium Level 139 mmol/L (136-145)
[2019-10-31 06:35] LABS: Differential Indicated SCAN CRITERIA MET
[2019-10-31 07:01] LABS: Bedside Glucose 195 mg/dL (70-110)
[2019-10-31 07:15] LABS: Differential Comment SCANNED
--- NOTE | 2019-10-31 08:11 | PN_ITS ---
Patient Problems: Active and Suspected Problems (Last Reviewed 10/30/19 @ 16:17 by Rekha Dumont DO) Acute pancreatitis (Acute) Subjective: Pain is a bit better today. No longer radiating to her back but is having R shoulder pain. Suspect some of her R shld pain is related to her GB. Still requiring Dilaudid every 4 hrs and pain is not controlled in the last hour. Denies SOB/CP. Not much flatus and c/o a lot of belching and some nausea. Vitals/I&O's: Vital Signs Temp Pulse Resp BP Pulse Ox 99.2 F H 102 H 20 H 118/59 L 93 10/31/19 05:00 10/31/19 05:24 10/31/19 05:00 10/31/19 05:24 10/31/19 07:50 Oxygen Flow Rate (L/min) 1 Oxygen Delivery Method Nasal Cannula Weight: 68.2 kg Body Mass Index (BMI) 29.1 Intake and Output for Last 24 Hours 10/29/19 10/30/19 10/31/19 23:59 23:59 23:59 Intake Total 160 / 160 1000 / 1000 Output Total 150 / 150 Balance 160 / 160 850 / 850 General: Alert, Oriented x3, Cooperative, No apparent distress - but looks uncomfortable, Well developed, Well nourished HEENT: Atraumatic, PERRLA, EOMI, Normocephalic, EAC Clear Oral: No Gingival or Mucosal Lesions/ Ulcerations, Dry Mucosa Neck: Supple, No JVD, Negative Carotid Bruits, Negative Hepatojugular Reflux, No Nodes, No Nuchal Rigidity, Trachea Midline, Thyroid Normal Size and Texture Lungs: Normal air movement, No rhonchi, No wheeze, No rales, - - Few crackles at bases that improve with deep breathing Cardiovascular: Regular rate, Regular Rhythm, Normal S1, Normal S2, Murmur - 2/6 SM, No rub noted, No Gallop Abdomen: Bowel Sounds Present, Soft, Non-Distended, Hypoactive Bowel Sounds, Guarding, Rebound Tenderness - RUQ, Tender, No hernias noted Extremities: No clubbing, No cyanosis, No edema, Capillary Refill Less than 3 Seconds Skin: No rashes, No breakdown Musculoskeletal: No Tenderness to Palpation of Joints or Extremities, No Muscle Wasting, Arthritic Changes Lymphatic: No Cervical, Supraclavicular, or Inguinal Adenopathy Neurological: Cranial nerves II-XII grossly intact, Deep Tendon Reflexes 2+/4 and Symmetrical, Neuro grossly intact, Motor Exam 5/5 strength throughout Psych/Mental Status: Normal Affect, - - pleasant but appears uncomfortable, Alert and oriented to time, place, person, mood and affect Laboratory Results 10/30/19 12:49: WBC 20.1 H, RBC 4.39, Hgb 12.8, Hct 38.2, MCV 87.0, MCH 29.2, MCHC 33.5, RDW Std Deviation 42.1, RDW Coeff of Katelyn 13.2, Plt Count 311, MPV 10.1, Immature Gran % (Auto) 0.700, Neut % (Auto) 72.1 H, Lymph % (Auto) 17.6 L, [place] % (Auto) 7.2, Eos % (Auto) 1.8, Baso % (Auto) 0.6, Absolute Neuts (auto) 14.5 H, Absolute Lymphs (auto) 3.54, Nucleated RBC % 0 10/30/19 12:49: Sodium 141, Potassium 3.9, Chloride 112 H, Carbon Dioxide 20.0 L , Anion Gap 9, BUN 30 H, Creatinine 1.54 H, Estim Creat Clear Calc 21.63, Est GFR (MDRD) Af Amer 42 L, Est GFR (MDRD) Non-Af 35 L, BUN/Creatinine Ratio 19.5, Glucose 105, Calcium 9.6, Total Bilirubin 0.40, AST 30, ALT 24, Alkaline Phosphatase 108, Total Protein 7.6, Albumin 3.9, Globulin 3.7, Albumin/Globulin Ratio 1.1, Lipase 67809 H 10/30/19 12:49: Triglycerides 70, Cholesterol 167, LDL Cholesterol 47, VLDL Cholesterol 14, HDL Cholesterol 106 10/30/19 17:05: POC Glucose 166 H 10/30/19 21:00: Urine Color Yellow, Urine Clarity Sl. Cloudy, Urine pH 5.0, Ur Specific [place] 1.025, Urine Protein 30 H, Urine Glucose (UA) 50 H, Urine Ketones 5 H, Urine Occult Blood 10 H, Urine Nitrite Negative, Urine Bilirubin Negative, Urine Urobilinogen 1 H, Ur Leukocyte Esterase Negative, Urine RBC 0-5 SEEN, Urine WBC 0 SEEN, Ur Squamous Epith Cells 0-5 SEEN, Urine Bacteria 0 SEEN, Urine Mucus 0 SEEN 10/31/19 01:21: POC Glucose 199 H 10/31/19 05:29: POC Glucose 195 H 10/31/19 05:34: WBC 26.1 H, RBC 4.25, Hgb 12.4, Hct 39.0, MCV 91.8 D, MCH 29.2, MCHC 31.8 L, RDW Std Deviation 44.8 H, RDW Coeff of Katelyn 13.3, Plt Count 263, MPV 10.3, Immature Gran % (Auto) 0.700, Neut % (Auto) 86.7 H, Lymph % (Auto) 4.8 L, [place] % (Auto) 7.3, Eos % (Auto) 0.3, Baso % (Auto) 0.2, Absolute Neuts (auto) 22.6 H, Absolute Lymphs (auto) 1.25, Nucleated RBC % 0, Differential Comment SCANNED, Diff Path Review March10/31/19 05:34: PT 14.9, INR 1.2 10/31/19 05:34: Sodium 139, Potassium 4.9, Chloride 108 H, Carbon Dioxide 23.0, Anion Gap 8, BUN 30 H, Creatinine 1.82 H, Estim Creat Clear Calc 18.30, Est GFR (MDRD) Af Amer 35 L, Est GFR (MDRD) Non-Af 29 L, BUN/Creatinine Ratio 16.5, Glucose 218 H, Calcium 8.1 L, Phosphorus 5.0 H, Magnesium 1.7, Total Bilirubin 0.80, AST 59 H, ALT 44, Alkaline Phosphatase 67, Total Protein 6.4, Albumin 3.1 L, Globulin 3.3, Albumin/Globulin Ratio 0.9, Lipase 6910 H Current Medications Aspirin (Ecotrin) 81 mg PO DAILYCM [facility] Atorvastatin Calcium (Lipitor) 40 mg PO QHS [facility] Last Admin: 10/30/19 21:22 Dose: Not Given Documented by: Citalopram Hydrobromide (Celexa) 20 mg PO DAILY [facility] Fluticasone Propionate (Flonase Nasal [place]) 1 spray NASAL BID [facility] Last Admin: 10/30/19 21:21 Dose: 1 spray Documented by: Glucagon () 1 mg IM .X1 PRN PRN Reason: Hypoglycemia Heparin Sodium (Porcine) (Heparin Na) 5,000 unit SC Q12 [facility] Last Admin: 10/30/19 21:26 Dose: 5,000 unit Documented by: Hydralazine HCl (Apresoline Iv) 5 mg IV Q6H PRN PRN PRN Reason: SBP GREATER THAN 170 Hydromorphone HCl (Dilaudid Inj) 1 mg IV Q3H PRN PRN PRN Reason: Pain Score 4-10/10 Pantoprazole Sodium 40 mg/ (Sodium Chloride) 110 mls @ 330 mls/hr IV Q24 [facility] Last Infusion: 10/30/19 17:36 Dose: Infused Documented by: Lactated Ringer's () 1,000 mls @ 150 mls/hr IV .Q6H40M [facility] Last Admin: 10/31/19 01:35 Dose: 150 mls/hr Documented by: Sodium Chloride () 250 mls @ 15 mls/hr IV .E30S28G PRN PRN Reason: Saline Flush Sodium Chloride () 250 mls @ 15 mls/hr IV .[id number] PRN PRN Reason: Additional IVPB Infusion Piperacillin Sod/Tazobactam (Sod 3.375 gm/ Sodium Chloride) 50 mls @ 12.5 mls/hr IV Q12 [facility] Last Infusion: 10/30/19 23:00 Dose: Infused Documented by: Dextrose (Dextrose 10%-Water) 250 mls @ 999 mls/hr IV .Q16M PRN; Protocol PRN Reason: HYPOGLYCEMIA Insulin Glargine (Lantus (Bk)) 30 units SC DAILY@1000 FABRIZIO Insulin Human Lispro (Humalog Kwikpen ([facility])) 0 unit SC Q6 [facility]; Protocol Last Admin: 10/31/19 05:31 Dose: 1 units Documented by: Ipratropium [place] (Atrovent) 0.5 mg INHALATION Q6HWA.RT [facility] Last Admin: 10/31/19 07:49 Dose: Not Given Documented by: Levothyroxine Sodium (Synthroid) 88 mcg PO DAILY@0600 [facility] Last Admin: 10/31/19 05:19 Dose: Not Given Documented by: Metoprolol Tartrate (Lopressor (Beta Nisha)) 2.5 mg IV Q6 [facility] Last Admin: 10/31/19 05:24 Dose: 2.5 mg Documented by: Ondansetron HCl (Zofran) 4 mg IV Q8H PRN PRN PRN Reason: NAUSEA/VOMITING Last Admin: 10/30/19 17:23 Dose: 4 mg Documented by: Sodium Chloride () 10 - 40 ml IV UD PRN PRN Reason: SALINE FLUSH Last Admin: 10/31/19 02:45 Dose: 10 ml Documented by: Tamoxifen Citrate (Nolvadex) 20 mg PO DAILY FABRIZIO STROKE Vital Signs/Narrative: Vital Signs Temp Pulse Resp BP Pulse Ox 10/31/19 07:50 93 10/31/19 05:24 102 H 118/59 L 10/31/19 05:00 99.2 F H 102 H 20 H 118/59 L 95 Medical Necessity - Tobacco Use Smoking Status: Former smoker Assessment/Plan All Active Problems (Last Reviewed 10/30/19 @ 16:17 by Rekha Dumont DO) Acute pancreatitis (Acute) H/O coronary artery bypass surgery (Resolved 06/25/18) Acute blood loss anemia (Resolved) Subcapital fracture of left femur (Resolved) Urinary retention (Resolved) Acute Pancreatitis 2/2 suspect gallstone -continue LR at 150 cc/hr and hold home diuretic -NPO except for occasional ice chips and meds -increase dilaudid to 1 mg q 3 hrs for pain -was on 1 mg q 4 and the last hour was getting bad for her -Lipids done and Trig is 70 -pt doesn't drink EtOH -RUQ US showed acute cholecystitis with normal caliber CBD and pancreas with diffuse atrophy and hypoechoic area adjacent to pancreatic head -consult Dr. Carvalho for General Surgery -IS to prevent BLL atelectasis -lipase down to 6910 from 35,323 -no need to trend any further -with that rapid of a drop suspect gallstone passed -trend calciums and bolus as needed->8.1 this am -LFT stable Leukocytosis -up to 26.1 but suspect all reactive -will continue Zosyn for now to cover intraabdominal infections shiela with US read of GB Nausea and Belching -BS are hypoactive -concern for developing ileus with acute abdominal issues -check KUB ROSEANNA on CKD stage 3-4 -creatinine up a bit today -continue LR at 150 for now -monitor creatinine and UO -avoid nephrotoxins--> Zosyn is renally dosed -use Dilaudid rather than morphine DM-2 -on 60 units of basal insulin at baseline -increase basal insulin to 40 units and change to Mod-high dosed SSI GERD -IV protonix for now HTN/HPL/CAD s/p CABG x 4 06/2018 -hold statin as long as lipids ok -IV metoprolol 2.5 q 6 hrs -hold ACEI for now -prn hydralazine for SBP > 170 Hypothyroidism -continue Synthroid H/O Breast Cancer -restart tamoxifen for now H/O lung cancer -no current issues Depression -restart citalopram Asthma -continue inhalers DVT Prophylaxis -Heparin q 12 hrs CODE STATUS: FULL CODE Code Visit Inpatient E&M: 35078 Subs Hosp L3
--- NOTE | 2019-10-31 08:50 | RAD_ITS ---
STUDY: X-RAY - ABDOMEN/PELVIS REASON FOR EXAM: Female, 79 years old. ABDOMINAL PAIN TECHNIQUE: Single AP view of the abdomen / pelvis. COMPARISON: None. FINDINGS: Normal visualized lung bases. There is an unremarkable bowel gas pattern. The visualized liver, spleen and kidneys are grossly normal in size and morphology. Normal soft tissue structures. Left hip hemiarthroplasty. RAD/Abdomen Single View (Portable) IMPRESSION: Normal x-ray examination of the abdomen and pelvis. Electronically Signed: Waldo Reynoso MD at 13:26 EST Tel , Service support ,
[2019-10-31] MEDS: 0.9% Normal Saline 1,000 ML 999 ML IV (09:11)
--- NOTE | 2019-10-31 10:01 | NURSING ---
[address] RENDON, INFORMED BLADDER SCAN WAS DONE FOR 428, HAVE AN ORDER TO PLACE A ZARAGOZA, DO YOU WANT THE BOLUS GIVEN. SHE ORDERED TO GIVE ONLY A 500 CC BOLUS.
--- NOTE | 2019-10-31 10:03 | NURSING ---
Daughter, Rachel Dominguez called in requesting update on patient's plan of care. Notified that primary RN was busy and unable to speak at that time. This RN called Rachel back, after consent from patient. Notified of surgery time today of 1235. Daughter was surprised and states she had no idea surgery was even an option. Dr. Avery texted and notified of family request to have return call. Dr. Avery responded that she will but is coming to speak with pt now.
--- NOTE | 2019-10-31 10:07 | EKG12_ITS ---
Test Reason : PRE OP Blood Pressure : / mmHG Vent. Rate : 113 BPM Atrial Rate : 113 BPM P-R Int : 160 ms QRS Dur : 054 ms QT Int : 310 ms P-R-T Axes : 072 071 090 degrees QTc Int : 425 ms Sinus tachycardia Nonspecific ST abnormality Abnormal ECG Confirmed by MICHELLE MORA, JIM ([id number]), video tape editor GARCÍA ASTORGA ([id number]) on 11/01/2019 9:48:09 AM Referred By: Rekha Dumont Confirmed By:JIM MARTINEZ MD
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
[2019-10-31 11:31] LABS: Bedside Glucose 212 mg/dL (70-110)
--- NOTE | 2019-10-31 11:38 | NURSING ---
Pt taken from unit at this time for surgery with Dr. Avery.
[2019-10-31 11:58] LABS: Partial Thromboplast Time 27.9 Seconds (24.1-36.2)
[2019-10-31 12:03] LABS: Hemoglobin A1c 9.9 % (4.2-6.3)
[2019-10-31 12:07] LABS: Thyroid Stim Hormone (TSH) 9.58 uIU/mL (0.358-3.74)
--- NOTE | 2019-10-31 12:50 | CASEMGMT ---
Case Management Progress Note: This junior underwriter went to patient bedside to complete initial assessment, patient currently at procedure and not at bedside. RNCM to continue to follow for assessment and DC care coordination needs. Esther Krishna RNCM
[2019-10-31] MEDS: Bupivacaine Mpf 0.5% 30 ML VIAL (13:30)
--- NOTE | 2019-10-31 13:30 | PCA ---
pt off floor
--- NOTE | 2019-10-31 13:53 | OP.PCM_ITS ---
Report of Operation Date of Procedure: 10/31/19 Pre-Operative Diagnosis: Acute cholecystitis, gallstone pancreatitis Post-Operative Diagnosis: Acute perforated gangrenous cholecystitis, gallstone pancreatitis Surgery/Procedure Performed:: Laparoscopic cholecystectomy Type of Anesthesia:: General/Supplemental Anesthesiologist: Kevin Vu Special Medications: Zosyn 3.375 g IV x1, patient is also on Zosyn on the floor for acute cholecystitis Specimen's removed: Gallbladder Drains: UOP- 100 cc Estimated Blood Loss (mL): <10 cc Fluids Replaced: 1100 Description of Procedure: Indications this is a 79 year-old male who developed abdominal pain/nausea/vomiting and on workup was found to have acute cholecystitis, gallbladder sludge, white blood count 26, with a normal common bile duct. Laparoscopic cholecystectomy was elected. Description procedure: The patient was placed on operating table in supine position. General Anesthesia was induced. A timeout was completed verifying correct patient, procedure, site, position and special equipment prior to begin alexei procedure. The abdomen was prepped and draped in usual sterile fashion. An incision was made in the natural skin line above the umbilicus. The fascia was elevated and incised. The peritoneum was elevated and incised. Entry into the peritoneum was confirmed visually and no bowel was noted in the vicinity of the incision. Olsen trocar was placed. The abdomen was insufflated with carbon dioxide to a pressure of 12-15 mmHg. Patient tolerated insufflation well. The laparoscope was then inserted and abdomen inspected. No injuries from initial trocar placement were noted. There is noted to be free bile in the right upper quadrant and some in the right lower quadrant. Additional trochars were then inserted in the following locations 5 mm trocar in the epigastrium and 2 more 5 mm trochars along the right costal margin. The bile was suctioned irrigated. The gallbladder is noted to be gangrenous at the medial fundus and mid gallbladder. The table is placed in reverse Trendelenburg position with the right side up. The adhesions between the gallbladder and omentum were lysed sharply. The dome of the gallbladder was grasped with atraumatic grasper passed through the later al port and retracted over the dome of the liver. Infundibulum was then grasped with atraumatic grasper through the midclavicular port and retracted to the right lower quadrant. This maneuver exposed Calot's triangle. The peritoneum overlying the gallbladder infundibulum was then incised and cystic duct and artery identified and circumferentially dissected. Did attempt to do cholangiogram with a Rodriguez catheter however due to leakage of the contrast unable to obtain possibly due to the gangrenous gallbladder.. The gallbladder then dissected from its peritoneal attachments by electrocautery . Hemostasis was checked and the gallbladder was removed using the endoscopic retrieval bag through the umbilical port. The gallbladder is passed off table as specimen. The gallbladder fossa was copiously irrigated with saline and hemostasis obtained. There is no evidence of bleeding from the gallbladder fossa or cystic artery leakage of bile from the cystic duct stump. 15 [place]i round NANDO was placed in the gallbladder fossa exiting from the lateral trocar site. It was sutured with 3-0 nylon. Secondary trochars removed under direct vision. No bleeding was noted the trocar sites. The laparoscope was withdrawn and umbilical trocar removed. The abdomen was allowed to collapse. The fascia of the 12 mm trocar was closed with a [id number] 0 Vicryl suture. The skin was closed with sutures of 4-0 Monocryl and Steri-Strips. The orogastric tube was removed and the patient was extubated. The patient tolerated procedure well and was taken to the postanesthesia care unit in stable condition. - Complications None
[2019-10-31 14:41] LABS: Bedside Glucose 188 mg/dL (70-110)
--- NOTE | 2019-10-31 15:40 | PCA ---
pt off floor
--- NOTE | 2019-10-31 16:35 | RAD_ITS ---
STUDY: X-RAY CHEST REASON FOR EXAM: Female, 79 years old. SHORTNESS OF BREATH, ACUTE PANCREATITIS TECHNIQUE: Single AP portable view of the chest. COMPARISON: December 14, 2018 FINDINGS: Mild hazy edema is present in the right lower lobe. Chronic interstitial scarring and postoperative suture material and related changes reidentified in the left upper lobe. Surgical clips of the bilateral breast reidentified There is no demonstrated pleural abnormality. Sternal cerclage wires and vascular clips are present from a prior sternotomy and coronary artery bypass graft procedure (CABG). Stable visualized osseous and mediastinal structures. A catheter is seen in the right upper quadrant. RAD/Chest 1 View (Portable) IMPRESSION: Mild pulmonary edema of the right lower lobe Electronically Signed: Diogenes Mcdonald MD at 21:48 EST , Service support ,
[2019-10-31] MEDS: Ipratropium 0.5 MG/2.5 ML SOLUTION INHALATION (17:07)
[2019-10-31] MEDS: Furosemide 40 MG/4 ML Vial IV (17:17)
[2019-10-31] MEDS: Ondansetron 4 MG/2 ML Vial IV (17:41)
[2019-10-31 18:20] LABS: Bedside Glucose 231 mg/dL (70-110)
[2019-10-31] MEDS: Lactated Ringers 1,000 ML 100 ML IV (21:50)
[2019-10-31] MEDS: Heparin Injection (Vial) 5,000 UNIT/ML VIAL 5000 UNIT SC (21:50)
[2019-10-31] MEDS: Fluticasone 0.05% 1 SPRAY NASAL.SRY NASAL (21:50)
[2019-10-31] MEDS: Atorvastatin Calcium 40 MG Tablet PO (21:50)
[2019-11-01] VITALS (22 sets, daily range): BP systolic 99–136; BP diastolic 48–67; PULSE 100–131; RESP 18–24; TEMP 36.7–37.2; O2SAT 93–97
[2019-11-01 00:06] LABS: Bedside Glucose 180 mg/dL (70-110)
[2019-11-01] MEDS: HYDROmorphone 1 MG/ML Syringe IV (02:32)
[2019-11-01] MEDS: Metoprolol Tartrate 5 MG/5 ML Vial 2.5 MG IV ×3 (05:11→17:38)
[2019-11-01 05:16] LABS: Absolute Lymphocyte Count 1.01 X10^3/uL (0.83-4.51); Absolute Neutrophil Count 9.2 X10^3/uL (2.0-7.7); Basophil# 0.02 X10^3/uL; Basophil% 0.2 % (0-1); Eosinophil# 0.07 X10^3/uL; Eosinophils% 0.6 % (0-5); Hematocrit 33.1 % (37-47); Hemoglobin 10.9 g/dL (12.0-15.0); Lymphocyte # 1.01 X10^3/ul (4.0); Lymphocyte % 9.2 % (19-41); Mean Corp Hgb Conc 32.9 g/dL (32-36); Mean Corpuscular Volume 91.2 fL (81-99); Mean Platelet Vol. 10.2 fl (6.2-12.0); Monocyte# 0.63 X10^3/uL; Monocyte% 5.7 % (0-10); NRBC Flagged by Analyzer 0 % (0-5); Neutrophil # 9.23 X10^3/uL (2.7-7.7); POSITIVE MORPHOLOGY YES; Platelet Count 206 K/mm3 (150-450); RBC Distribution Width CV 13.5 % (11.6-14.6); RBC Distribution Width SD 44.8 fl (35.1-43.9); Red Blood Count 3.63 M/mm3 (4.2-5.4)
[2019-11-01 05:18] LABS: Differential Indicated SCAN CRITERIA MET
[2019-11-01 05:39] LABS: ALB/GLOB Ratio 0.6 RATIO (0.9-2.4); AST(SGOT) 75 U/L (15-37); Alanine Aminotransfer ALT/SGPT 49 U/L (13-56); Alkaline Phosphatase 35 U/L (45-117); Anion Gap 6 (5-15); BUN 33 mg/dL (7-18); BUN/Creat Ratio 17.6 RATIO (10-20); Calcium,Total 7.6 mg/dL (8.5-10.1); Chloride 111 mmol/L (98-107); Creatinine, Serum 1.87 mg/dL (0.55-1.02); EST Glomerular Filtration Rate 28 mL/min (>60); Est Glom Filt Rate - Afr Amer 34 mL/min (>60); Estimated Creatinine Clearance 17.81 ml/min; Globulin 3.2 g/dL (2.2-4.2); Glucose 163 mg/dL (74-106); Lipase 359 U/L (73-393); Potassium 4.2 mmol/L (3.5-5.1); Protein, Total 5.2 g/dL (6.4-8.2); Sodium Level 141 mmol/L (136-145)
--- NOTE | 2019-11-01 05:55 | RAD_ITS ---
STUDY: X-RAY CHEST REASON FOR EXAM: Female, 79 years old. sob -- cough TECHNIQUE: Single AP portable view of the chest. COMPARISON: 10/31/2019 FINDINGS: Mild bibasilar subsegmental atelectasis versus infiltrate, improved on the right and new since prior on the left. Prior left upper lung surgery. Unremarkable pulmonary vascularity. There is no demonstrated pleural effusion on the chest radiograph. Normal size heart. Prior median sternotomy. Normal mediastinum and lon. Normal visualized pulmonary arteries. Normal visualized aortic arch and descending thoracic aorta. There are diffuse degenerative changes of the visualized thoracic spine. Normal visualized ribs, clavicles, and shoulders. There is no demonstrated abnormality of the visualized soft tissue structures of the upper abdomen. RAD/Chest 1 View (Portable) IMPRESSION: Mild bibasilar subsegmental atelectasis versus infiltrate, improved on the right and new since prior on the left. No evidence of pulmonary vascular congestion. Prior left upper lung surgery. Electronically Signed: Elmo Lan MD at 9:44 EST Tel [phone], Service support ,
[2019-11-01] MEDS: Insulin Lispro 100 UNIT/ML INSULN.PEN SC ×2 (06:10→16:49)
[2019-11-01] MEDS: Levothyroxine 88 MCG Tablet PO (06:10)
[2019-11-01] MEDS: Lactated Ringers 1,000 ML 100 ML IV (06:11)
[2019-11-01 06:26] LABS: Bedside Glucose 171 mg/dL (70-110)
[2019-11-01 06:33] LABS: Differential Comment SCANNED
--- NOTE | 2019-11-01 06:38 | PCM.PN.SRG ---
Patient Problems: Active and Suspected Problems (Last Reviewed 10/30/19 @ 16:17 by Rekha Dumont DO) Acute pancreatitis (Acute) Subjective: Patient's pain is improved, tolerating sips of clears, white blood count down to 11 from 26, LFTs within normal limits except for a slight elevation in the AST, lipase within normal limits. - Physical Exam Vitals/I&O's: Vital Signs Temp Pulse Resp BP Pulse Ox 98.1 F 101 H 24 H 115/57 L 95 11/01/19 05:58 11/01/19 05:58 11/01/19 05:58 11/01/19 05:58 11/01/19 05:58 Oxygen Flow Rate (L/min) 2 Oxygen Delivery Method Nasal Cannula Weight: 152 lb 8.958 oz Body Mass Index (BMI) 29.5 Finger Stick Blood Glucose 188 Intake and Output for Last 24 Hours 10/30/19 10/31/19 11/01/19 23:59 23:59 23:59 Intake Total 160 / 160 5005.42 / 5035.42 1015 / 1015 Output Total 710 / 1520 1065 / 1065 Balance 160 / 160 4295.42 / 3515.42 -50 / -50 General: Alert, Oriented x3, Cooperative, No apparent distress Lungs: Normal air movement Cardiovascular: Tachycardic Abdomen: Soft, Distended - Mild, Tender - Mild diffuse increase near incisions, incision clean dry and intact, NANDO site slight bilious drainage around with serosanguineous in the drain Laboratory Results 10/31/19 05:29: POC Glucose 195 H 10/31/19 05:34: Differential Comment SCANNED, Diff Path Review March10/31/19 05:34: PT 14.9, INR 1.2 10/31/19 11:07: POC Glucose 212 H 10/31/19 11:30: APTT 27.9 10/31/19 11:30: Hemoglobin A1c 9.9 H 10/31/19 11:30: TSH 9.58 H 10/31/19 14:35: POC Glucose 188 H 10/31/19 17:11: POC Glucose 231 H 10/31/19 23:57: POC Glucose 180 H 11/01/19 05:04: WBC 11.0, RBC 3.63 L, Hgb 10.9 L, Hct 33.1 L, MCV 91.2, MCH 30.0, MCHC 32.9, RDW Std Deviation 44.8 H, RDW Coeff of Katelyn 13.5, Plt Count 206, MPV 10.2, Immature Gran % (Auto) 0.300, Neut % (Auto) 84.0 H, Lymph % (Auto) 9.2 L, [place] % (Auto) 5.7, Eos % (Auto) 0.6, Baso % (Auto) 0.2, Absolute Neuts (auto) 9.2 H, Absolute Lymphs (auto) 1.01, Nucleated RBC % 0, Differential Comment SCANNED 11/01/19 05:04: Sodium 141, Potassium 4.2, Chloride 111 H, Carbon Dioxide 24.0, Anion Gap 6, BUN 33 H, Creatinine 1.87 H, Estim Creat Clear Calc 17.81, Est GFR (MDRD) Af Amer 34 L, Est GFR (MDRD) Non-Af 28 L, BUN/Creatinine Ratio 17.6, Glucose 163 H, Calcium 7.6 L, Total Bilirubin 0.80, AST 75 H, ALT 49, Alkaline Phosphatase 35 L, Total Protein 5.2 L, Albumin 2.0 L, Globulin 3.2, Albumin/Globulin Ratio 0.6 L, Lipase 359 11/01/19 06:09: POC Glucose 171 H Current Medications Acetaminophen (Tylenol) 650 mg PO Q6H PRN PRN PRN Reason: Pain Score 1-3/10 Aspirin (Ecotrin) 81 mg PO DAILYCM [facility] Last Admin: 10/31/19 08:54 Dose: Not Given Documented by: Atorvastatin Calcium (Lipitor) 40 mg PO QHS [facility] Last Admin: 10/31/19 21:50 Dose: 40 mg Documented by: Citalopram Hydrobromide (Celexa) 20 mg PO DAILY [facility] Last Admin: 10/31/19 08:54 Dose: Not Given Documented by: Fluticasone Propionate (Flonase Nasal [place]) 1 spray NASAL BID [facility] Last Admin: 10/31/19 21:50 Dose: 1 spray Documented by: Glucagon () 1 mg IM .X1 PRN PRN Reason: Hypoglycemia Heparin Sodium (Porcine) (Heparin Na) 5,000 unit SC Q12 [facility] Last Admin: 10/31/19 21:50 Dose: 5,000 unit Documented by: Hydralazine HCl (Apresoline Iv) 5 mg IV Q6H PRN PRN PRN Reason: SBP GREATER THAN 170 Hydromorphone HCl (Dilaudid Inj) 0.5 - 1 mg IV Q3H PRN PRN PRN Reason: Pain Score 4-10/10 Last Admin: 11/01/19 02:32 Dose: 0.5 mg Documented by: Hydromorphone HCl (Dilaudid Inj) 0.25 - 0.5 mg IV Q3H PRN PRN PRN Reason: Pain Score 4-10/10 Pantoprazole Sodium 40 mg/ (Sodium Chloride) 110 mls @ 330 mls/hr IV Q24 [facility] Last Infusion: 10/31/19 13:56 Dose: Infused Documented by: Sodium Chloride () 250 mls @ 15 mls/hr IV .[id number] PRN PRN Reason: Saline Flush Last Infusion: 11/01/19 01:50 Dose: 15 mls/hr Documented by: Sodium Chloride () 250 mls @ 15 mls/hr IV .[id number] PRN PRN Reason: Additional IVPB Infusion Piperacillin Sod/Tazobactam (Sod 3.375 gm/ Sodium Chloride) 50 mls @ 12.5 mls/hr IV Q12 [facility] Last Infusion: 11/01/19 01:50 Dose: Infused Documented by: Dextrose (Dextrose 10%-Water) 250 mls @ 999 mls/hr IV .Q16M PRN; Protocol PRN Reason: HYPOGLYCEMIA Lactated Ringer's () 1,000 mls @ 100 mls/hr IV .Q10H [facility] Last Admin: 11/01/19 06:11 Dose: 100 mls/hr Documented by: Insulin Glargine (Lantus (Bk)) 40 units SC DAILY@1000 [facility] Last Admin: 10/31/19 11:35 Dose: Not Given Documented by: Insulin Human Lispro (Humalog Kwikpen ([facility])) 0 unit SC Q6 [facility]; Protocol Last Admin: 11/01/19 06:10 Dose: 2 units Documented by: Ipratropium [place] (Atrovent) 0.5 mg INHALATION Q6HWA.RT [facility] Last Admin: 10/31/19 23:22 Dose: Not Given Documented by: Levothyroxine Sodium (Synthroid) 88 mcg PO DAILY@0600 [facility] Last Admin: 11/01/19 06:10 Dose: 88 mcg Documented by: Metoprolol Tartrate (Lopressor (Beta Nisha)) 2.5 mg IV Q6 [facility] Last Admin: 11/01/19 05:11 Dose: 2.5 mg Documented by: Ondansetron HCl (Zofran) 4 mg IV Q8H PRN PRN PRN Reason: NAUSEA/VOMITING Last Admin: 10/31/19 17:41 Dose: 4 mg Documented by: Oxycodone HCl (Oxyir) 5 - 10 mg PO Q4H PRN PRN PRN Reason: Pain Score 6-10/10 Sodium Chloride () 10 - 40 ml IV UD PRN PRN Reason: SALINE FLUSH Last Admin: 10/31/19 22:02 Dose: 10 ml Documented by: Tamoxifen Citrate (Nolvadex) 20 mg PO DAILY [facility] Last Admin: 10/31/19 11:24 Dose: Not Given Documented by: Medical Necessity - Tobacco Use Smoking Status: Former smoker Assessment/Plan All Active Problems (Last Reviewed 10/30/19 @ 16:17 by Rekha Dumont DO) Acute pancreatitis (Acute) H/O coronary artery bypass surgery (Resolved 06/25/18) Acute blood loss anemia (Resolved) Subcapital fracture of left femur (Resolved) Urinary retention (Resolved) 79-year-old female with acute cholecystitis/perforated gangrenous cholecystitis/bile peritonitis, acute pancreatitis-resolved, postop day 1 laparoscopic cholecystectomy 1. Patient's white blood cell count is improved patient is on IV Zosyn due to bowel peritonitis from perforated gangrenous gallbladder. 2. Patient on sips of clears continue clears until patient has bowel function. 3. Continue pain control 4. Elevated creatinine continue to monitor continue IV fluids. Patient did need Lasix yesterday for rhonchi. 5. LFTs within normal limits except for slight elevation AST, NANDO serosanguineous with just some bilious drainage around the drain likely from surgery unable to be completely evacuated. Does not look like patient would need an ERCP. Oly Avery M.D. Pager: [phone] [facility] [address] [place] [address], [facility], [address] [place] [address] Office: [phone]
[2019-11-01] MEDS: Acetaminophen 325 MG Tablet 650 MG PO (07:14)
[2019-11-01] MEDS: Ipratropium 0.5 MG/2.5 ML SOLUTION INHALATION ×2 (07:49→13:39)
[2019-11-01] MEDS: Citalopram 20 MG Tablet PO (08:21)
[2019-11-01] MEDS: Fluticasone 0.05% 1 SPRAY NASAL.SRY NASAL ×2 (08:21→21:31)
[2019-11-01] MEDS: Aspirin E.C. 81 MG Tablet PO (08:21)
[2019-11-01] MEDS: Tamoxifen 10 MG Tablet 20 MG PO (08:23)
--- NOTE | 2019-11-01 10:21 | PN_ITS ---
Patient Problems: Active and Suspected Problems (Last Reviewed 10/30/19 @ 16:17 by Rekha Dumont DO) Acute pancreatitis (Acute) Cholecystitis with gangrene of gallbladder (Acute) Reason for Visit: Acute gallstone pancreatitis/perforated gangrenous cholecystitis Subjective: Patient was seen and examined. No acute events overnight. Denies any fever or chills. 2 L of oxygen. Pain is controlled. Objective: Physical exam: Vitals/I&O's: Vital Signs Temp Pulse Resp BP Pulse Ox 98.6 F 100 20 H 136/56 H 94 11/01/19 08:25 11/01/19 08:32 11/01/19 08:25 11/01/19 08:25 11/01/19 08:25 Oxygen Flow Rate (L/min) 3 Oxygen Delivery Method Nasal Cannula Weight: 69.2 kg Body Mass Index (BMI) 29.5 Finger Stick Blood Glucose 188 Intake and Output for Last 24 Hours 10/30/19 10/31/19 11/01/19 23:59 23:59 23:59 Intake Total 160 / 160 5005.42 / 5035.42 1383.33 / 1383.33 Output Total 710 / 1520 1065 / 1065 Balance 160 / 160 4295.42 / 3515.42 318.33 / 318.33 General: Alert, Oriented x3, Cooperative, No apparent distress, - - On 2 L of oxygen HEENT: Atraumatic, PERRLA, EOMI, Normocephalic Oral: Moist Mucosa Neck: Supple Lungs: Diminished - at the lung bases Cardiovascular: Regular rate, Regular Rhythm, Normal S1, Normal S2, No murmurs Abdomen: Bowel Sounds Present, Soft, Non-Distended, No Hepato-splenomegaly, Tender - Over the right upper quadrant, dressing in place, NANDO drain contains serosanguineous fluid Extremities: No edema Skin: No rashes Musculoskeletal: No Tenderness to Palpation of Joints or Extremities Lymphatic: No Cervical, Supraclavicular, or Inguinal Adenopathy Neurological: Cranial nerves II-XII grossly intact, Neuro grossly intact Psych/Mental Status: Normal Affect, Appropriate Laboratory Results 10/31/19 11:07: POC Glucose 212 H 10/31/19 11:30: APTT 27.9 10/31/19 11:30: Hemoglobin A1c 9.9 H 10/31/19 11:30: TSH 9.58 H 10/31/19 14:35: POC Glucose 188 H 10/31/19 17:11: POC Glucose 231 H 10/31/19 23:57: POC Glucose 180 H 11/01/19 05:04: WBC 11.0, RBC 3.63 L, Hgb 10.9 L, Hct 33.1 L, MCV 91.2, MCH 30.0, MCHC 32.9, RDW Std Deviation 44.8 H, RDW Coeff of Katelyn 13.5, Plt Count 206, MPV 10.2, Immature Gran % (Auto) 0.300, Neut % (Auto) 84.0 H, Lymph % (Auto) 9.2 L, [place] % (Auto) 5.7, Eos % (Auto) 0.6, Baso % (Auto) 0.2, Absolute Neuts (auto) 9.2 H, Absolute Lymphs (auto) 1.01, Nucleated RBC % 0, Differential Comment SCANNED 11/01/19 05:04: Sodium 141, Potassium 4.2, Chloride 111 H, Carbon Dioxide 24.0, Anion Gap 6, BUN 33 H, Creatinine 1.87 H, Estim Creat Clear Calc 17.81, Est GFR (MDRD) Af Amer 34 L, Est GFR (MDRD) Non-Af 28 L, BUN/Creatinine Ratio 17.6, Glucose 163 H, Calcium 7.6 L, Total Bilirubin 0.80, AST 75 H, ALT 49, Alkaline Phosphatase 35 L, Total Protein 5.2 L, Albumin 2.0 L, Globulin 3.2, Albumin/Globulin Ratio 0.6 L, Lipase 359 11/01/19 06:09: POC Glucose 171 H Current Medications Acetaminophen (Tylenol) 650 mg PO Q6H PRN PRN PRN Reason: Pain Score 1-3/10 Last Admin: 11/01/19 07:14 Dose: 650 mg Documented by: [facility] Last Admin: 11/01/19 08:21 Dose: 81 mg Documented by: Atorvastatin Calcium (Lipitor) 40 mg PO QHS [facility] Last Admin: 10/31/19 21:50 Dose: 40 mg Documented by: Citalopram Hydrobromide (Celexa) 20 mg PO DAILY [facility] Last Admin: 11/01/19 08:21 Dose: 20 mg Documented by: Fluticasone Propionate (Flonase Nasal [place]) 1 spray NASAL BID [facility] Last Admin: 11/01/19 08:21 Dose: 1 spray Documented by: Glucagon () 1 mg IM .X1 PRN PRN Reason: Hypoglycemia Heparin Sodium (Porcine) (Heparin Na) 5,000 unit SC Q12 [facility] Last Admin: 10/31/19 21:50 Dose: 5,000 unit Documented by: Hydralazine HCl (Apresoline Iv) 5 mg IV Q6H PRN PRN PRN Reason: SBP GREATER THAN 170 Hydromorphone HCl (Dilaudid Inj) 0.5 - 1 mg IV Q3H PRN PRN PRN Reason: Pain Score 4-10/10 Last Admin: 11/01/19 02:32 Dose: 0.5 mg Documented by: Hydromorphone HCl (Dilaudid Inj) 0.25 - 0.5 mg IV Q3H PRN PRN PRN Reason: Pain Score 4-10/10 Pantoprazole Sodium 40 mg/ (Sodium Chloride) 110 mls @ 330 mls/hr IV Q24 [facility] Last Infusion: 11/01/19 09:05 Dose: Infused Documented by: Sodium Chloride () 250 mls @ 15 mls/hr IV .[id number] PRN PRN Reason: Saline Flush Last Infusion: 11/01/19 01:50 Dose: 15 mls/hr Documented by: Sodium Chloride () 250 mls @ 15 mls/hr IV .[id number] PRN PRN Reason: Additional IVPB Infusion Piperacillin Sod/Tazobactam (Sod 3.375 gm/ Sodium Chloride) 50 mls @ 12.5 mls/hr IV Q12 [facility] Last Infusion: 11/01/19 01:50 Dose: Infused Documented by: Dextrose (Dextrose 10%-Water) 250 mls @ 999 mls/hr IV .Q16M PRN; Protocol PRN Reason: HYPOGLYCEMIA Lactated Ringer's () 1,000 mls @ 100 mls/hr IV .Q10H [facility] Last Infusion: 11/01/19 09:05 Dose: 100 mls/hr Documented by: Insulin Glargine (Lantus (Bkc)) 40 units SC DAILY@1000 [facility] Last Admin: 10/31/19 11:35 Dose: Not Given Documented by: Insulin Human Lispro (Humalog Kwikpen (Bkc)) 0 unit SC Q6 [facility]; Protocol Last Admin: 11/01/19 06:10 Dose: 2 units Documented by: Ipratropium [place] (Atrovent) 0.5 mg INHALATION Q6HWA.RT [facility] Last Admin: 11/01/19 07:49 Dose: 0.5 mg Documented by: Levothyroxine Sodium (Synthroid) 88 mcg PO DAILY@0600 [facility] Last Admin: 11/01/19 06:10 Dose: 88 mcg Documented by: Metoprolol Tartrate (Lopressor (Beta Nisha)) 2.5 mg IV Q6 [facility] Last Admin: 11/01/19 05:11 Dose: 2.5 mg Documented by: Nutritional Formula (Lactose Free) (Ensure Clear) 120 ml PO TIDCM [facility] Ondansetron HCl (Zofran) 4 mg IV Q8H PRN PRN PRN Reason: NAUSEA/VOMITING Last Admin: 10/31/19 17:41 Dose: 4 mg Documented by: Oxycodone HCl (Oxyir) 5 - 10 mg PO Q4H PRN PRN PRN Reason: Pain Score 6-10/10 Sodium Chloride () 10 - 40 ml IV UD PRN PRN Reason: SALINE FLUSH Last Admin: 10/31/19 22:02 Dose: 10 ml Documented by: Tamoxifen Citrate (Nolvadex) 20 mg PO DAILY [facility] Last Admin: 11/01/19 08:23 Dose: 20 mg Documented by: STROKE Vital Signs/Narrative: Vital Signs Temp Pulse Resp BP Pulse Ox 11/01/19 08:32 100 11/01/19 08:25 98.6 F 106 H 20 H 136/56 H 94 11/01/19 07:49 103 H 21 H 94 Medical Necessity - Tobacco Use Smoking Status: Former smoker Assessment/Plan All Active Problems (Last Reviewed 10/30/19 @ 16:17 by Rekha Dumont DO) Acute pancreatitis (Acute) Cholecystitis with gangrene of gallbladder (Acute) H/O coronary artery bypass surgery (Resolved 06/25/18) Acute blood loss anemia (Resolved) Subcapital fracture of left femur (Resolved) Urinary retention (Resolved) 1. POD #1 status post emergent laparoscopic cholecystectomy for acute per forated gangrenous cholecystitis Patient remains stable, WBC count 11.0, continue on clear liquid diet On IV Zosyn, ID following 2. Acute gallstone pancreatitis, improving 3. ROSEANNA on CKD stage III, creatinine seems to have plateaued, continue on gentle IV fluids and oral intake With I's and O's, repeat blood work in a.m. 4. Type II DM, blood sugars are fairly controlled, Will hold long-acting insulin until oral intake is established Continue with blood glucose checks and insulin sliding scale 5. GERD, on PPI 6. Hypertension/hyperlipidemia/CAD status post CABG, continue on aspirin, sta tin 7. Hypothyroidism, continue on Synthroid 8. History of breast CA, continue tamoxifen 9. DVT PPx- on Heparin SC Code Visit Inpatient E&M: 25865 Subs Hosp L2
[2019-11-01] MEDS: Heparin Injection (Vial) 5,000 UNIT/ML VIAL 5000 UNIT SC ×2 (10:32→21:29)
[2019-11-01 10:36] LABS: Bedside Glucose 139 mg/dL (70-110)
[2019-11-01] MEDS: Ensure Clear 120 ML Liquid PO (10:40)
[2019-11-01] MEDS: oxyCODONE 5 MG Tablet PO ×2 (10:40→16:46)
--- NOTE | 2019-11-01 10:40 | CASEMGMT ---
RN TOM Face to Face with patient for initial transition planning/care coordination assessment. RN CM introduced self and role at [facility]. Patient lying in bed, alert and oriented, family at bedside. Patient willing to participate in assessment and is able to answer all questions appropriately. Care providers, pharmacy, and demographics verified. Patient wishes to discharge home, denies need for home health at this time. Patient states she has no further needs or concerns at this time. CM to follow for discharge planning needs that may arise. PCP: David Ramos Pharmacy: [facility] Insurance: [facility] [place], [place]IR[place] Prescription Benefit: yes Living Will/HPOA: yes, daughter Natasha Gallegos LNOK: daughter, son, DIL Living Arrangements: Patient lives alone in single story home with 3-4 steps and railing to enter the home. Transportation: self/family DME/HHC: Patient has shower chair, BSC, Cane, grab bars, wlaker, nebulizer at home. [facility] HHC in the past. Patient is denying HHC at this time but if therapy is recommending would like [facility] Disposition Plan: Patient to discharge home with family support and follow-up plans in place. Will monitor for HHC. Aileen LOVELACE, RN, CM
--- NOTE | 2019-11-01 11:00 | CASEMGMT ---
Social Work Note Advanced directives are not on file at [facility]. SW asked RN CM to update pt that advanced directives are not on file when RN CM does assessment. Aileen Scott HEAD OF INSIGHT, SMALL BOAT ENGINEER
[2019-11-01 11:30] LABS: Pathologist Review Reviewed
--- NOTE | 2019-11-01 12:23 | PCM.HP.ID ---
Problem List (1) Cholecystitis with gangrene of gallbladder Status: Acute Reason for Consult: cholecystitis Consulted by: Dr. Dumont History of Present Illness: The patient is a 79 year old F with breast cancer, on tamoxifen, presented 2 days ago with sudden onset of severe RUQ pain, associated with chills, nausea. No prior gallbladder problems. Came to ED, found to have gangrenous cholecystitis. Started on zosyn, taken to OR 10/[address] Avery for lap david. Feeling better, eating some sips of clears, mild pain and nausea. Family at bedside. Full ROS performed and neg except as noted above. - Medical History Past Medical History (Chronic Problems): Chronic Problems (Last Reviewed 10/30/19 @ 16:17 by Rekha Dumont DO) Atherosclerosis of coronary artery of [place] heart without angina pectoris (Chronic) CABG x 4 MATTHEW-LAD, SVG-D1, SVG-PDA, SVG-RPLB 06/25/18 Hyperlipidemia (Chronic) Allergies/Adverse Reactions: Allergies azithromycin [From Zithromax] Adverse Reaction (Verified 10/30/19 12:06) DOES NOT WORK-EVER FOR ME STATES JUST DOESNT WORK FOR ME Home Medications: Ambulatory Orders Medication Instructions Recorded Cholecalciferol (VIT D3) [Vitamin 1,000 unit PO DAILY 08/26/16 D3] Fluticasone 0.05% [Flonase Nasal 1 spray NASAL BID 08/26/16 [place]] Montelukast [Singulair] 10 mg PO DAILY 08/26/16 Omeprazole [Prilosec] 20 mg PO DAILY 08/26/16 Saxagliptin Hydrochloride [Onglyza] 2.5 mg PO DAILY 08/26/16 Acetaminophen [Tylenol Tablet] 650 mg PO Q6H PRN PRN #0 tab 08/31/16 Iron Polysaccharide Complex 150 mg PO DAILYCM #30 cap 09/11/16 [Ferrex 150] aspirin 81 mg tablet,delayed 81 mg PO QDAY #30 tab 05/19/18 release tamoxifen 20 mg tablet 20 mg PO QDAY 05/19/18 atorvastatin 40 mg tablet 40 mg PO QHS tab 08/19/18 citalopram 20 mg tablet 20 mg PO DAILY 08/19/18 furosemide 20 mg tablet 20 mg PO DAILY PRN 08/20/18 levothyroxine 88 mcg capsule 88 mcg PO DAILY 08/20/18 lisinopril 2.5 mg tablet 2.5 mg PO DAILY #90 tab 08/29/19 metoprolol tartrate 25 mg tablet 25 mg PO BID #180 tab 10/14/19 Fluticasone/Salmeterol [Advair Hfa 2 puff IH DAILY 10/30/19 230-21 Mcg Inhaler] Insulin Aspart [Novolog Flexpen] See Protocol SUBCUT BREAKFAST 10/30/19 Insulin Detemir [Levemir FlexPen] 60 units SUBCUT DAILY@1000 10/30/19 Tiotropium [place] [Spiriva 18 MCG] 1 puff INHALATION DAILY 10/30/19 - Social History SMOKING STATUS:: Former smoker Vital Signs Temp Pulse Resp BP Pulse Ox 98.6 F 100 20 H 136/56 H 94 11/01/19 08:25 11/01/19 08:32 11/01/19 08:25 11/01/19 08:25 11/01/19 08:25 Oxygen Flow Rate (L/min) 3 Oxygen Delivery Method Nasal Cannula Weight: 69.2 kg Body Mass Index (BMI) 29.5 Finger Stick Blood Glucose 188 Laboratory Tests Past 24 Hrs 10/31/19 11/01/19 11/01/19 05:34 05:04 05:04 WBC 11.0 RBC 3.63 L Hgb 10.9 L Hct 33.1 L MCV 91.2 MCH 30.0 MCHC 32.9 RDW Std Deviation 44.8 H RDW Coeff of Katelyn 13.5 Plt Count 206 MPV 10.2 Immature Gran % (Auto) 0.300 Neut % (Auto) 84.0 H Lymph % (Auto) 9.2 L [place] % (Auto) 5.7 Eos % (Auto) 0.6 Baso % (Auto) 0.2 Absolute Neuts (auto) 9.2 H Absolute Lymphs (auto) 1.01 Nucleated RBC % 0 Differential Comment SCANNED Diff Path Review Reviewed Sodium 141 Potassium 4.2 Chloride 111 H Carbon Dioxide 24.0 Anion Gap 6 BUN 33 H Creatinine 1.87 H Estim Creat Clear Calc 17.81 Est GFR (MDRD) Af Amer 34 L Est GFR (MDRD) Non-Af 28 L BUN/Creatinine Ratio 17.6 Glucose 163 H Calcium 7.6 L Total Bilirubin 0.80 AST 75 H ALT 49 Alkaline Phosphatase 35 L Total Protein 5.2 L Albumin 2.0 L Globulin 3.2 Albumin/Globulin Ratio 0.6 L Lipase 359 - Other Studies Radiology: [] reviewed Other Studies: [] Route of nutrition/ use of supplements: [] Nutritional Intake: [] IV Site: [] Concepcion Catheter: [] - Physical Exam General: Alert, Oriented x3, Cooperative, No apparent distress HEENT: Atraumatic, PERRLA, EOMI Neck: Supple, No Nodes Lungs: Clear to auscultation, Normal air movement Cardiovascular: Regular rate, Regular Rhythm Abdomen: Soft, Non Tender, Non-Distended Extremities: No edema Skin: Incision - incisions and drain in abd IV Site: Peripheral, without redness Musculoskeletal: No Tenderness to Palpation of Joints or Extremities Neurological: Cranial nerves II-XII grossly intact - Assessment/Plan Antibiotics: [] Assessment/Plan: [] Active and Suspected Problems (Last Reviewed 10/30/19 @ 16:17 by Rekha Dumont DO) Acute pancreatitis (Acute) gangrenous cholecystitis, now s/p lap david by Dr. Avery 10/31. Feeling better, wbc much improved. Has had good source control, but given complicated infection and concern for peritonitis, plan on 4-5 days of iv abx post-op, planned stop date 11/04. Will follow, thank you.
[2019-11-01] MEDS: Lactated Ringers 1,000 ML 75 ML IV (16:47)
[2019-11-01] MEDS: 0.9% Saline Lock 10 ML Syringe IV (17:40)
[2019-11-01 17:51] LABS: Bedside Glucose 180 mg/dL (70-110)
[2019-11-01] MEDS: Atorvastatin Calcium 40 MG Tablet PO (21:32)
[2019-11-01 21:40] LABS: Bedside Glucose 127 mg/dL (70-110)
[2019-11-02] VITALS (14 sets, daily range): BP systolic 139–149; BP diastolic 66–73; PULSE 79–100; RESP 16–20; TEMP 36.8–37.3; O2SAT 95–99
[2019-11-02] MEDS: Metoprolol Tartrate 5 MG/5 ML Vial 2.5 MG IV ×2 (00:38→06:16)
[2019-11-02] MEDS: 0.9% Saline Lock 10 ML Syringe IV ×6 (00:40→22:39)
--- NOTE | 2019-11-02 03:22 | NURSING ---
This nurse has encouraged pt to get out of bed and walk several times this shift. pt has responded to leave her alone. Pt states she wants to sleep and she will do whatever we want her to do later. Pt did walk to the bathroom several times this shift. Will continue to try to get pt to walk in the diaz. Encouraged IS & fluid intake.
[2019-11-02 03:41] LABS: Bedside Glucose 119 mg/dL (70-110)
[2019-11-02] MEDS: Lactated Ringers 1,000 ML 75 ML IV (06:10)
[2019-11-02] MEDS: Levothyroxine 88 MCG Tablet PO (06:16)
[2019-11-02 06:19] LABS: Absolute Lymphocyte Count 1.45 X10^3/uL (0.83-4.51); Absolute Neutrophil Count 8.8 X10^3/uL (2.0-7.7); Basophil# 0.02 X10^3/uL; Basophil% 0.2 % (0-1); Eosinophil# 0.05 X10^3/uL; Eosinophils% 0.5 % (0-5); Hematocrit 30.3 % (37-47); Hemoglobin 9.8 g/dL (12.0-15.0); Lymphocyte # 1.45 X10^3/ul (4.0); Lymphocyte % 13.1 % (19-41); Mean Corp Hgb Conc 32.3 g/dL (32-36); Mean Corpuscular Hgb 29.2 pg (27.0-32.0); Mean Corpuscular Volume 90.2 fL (81-99); Mean Platelet Vol. 10.5 fl (6.2-12.0); Monocyte# 0.66 X10^3/uL; NRBC Flagged by Analyzer 0 % (0-5); Neutrophil % 79.7 % (47-70); Platelet Count 195 K/mm3 (150-450); RBC Distribution Width CV 13.3 % (11.6-14.6); Red Blood Count 3.36 M/mm3 (4.2-5.4)
[2019-11-02 06:36] LABS: Bedside Glucose 96 mg/dL (70-110)
[2019-11-02 06:45] LABS: ALB/GLOB Ratio 0.5 RATIO (0.9-2.4); AST(SGOT) 66 U/L (15-37); Alanine Aminotransfer ALT/SGPT 42 U/L (13-56); Albumin, Serum 1.8 g/dL (3.2-5.0); Alkaline Phosphatase 49 U/L (45-117); Anion Gap 7 (5-15); BUN 22 mg/dL (7-18); BUN/Creat Ratio 16.8 RATIO (10-20); Calcium,Total 7.8 mg/dL (8.5-10.1); Chloride 110 mmol/L (98-107); Creatinine, Serum 1.31 mg/dL (0.55-1.02); EST Glomerular Filtration Rate 42 mL/min (>60); Est Glom Filt Rate - Afr Amer 51 mL/min (>60); Estimated Creatinine Clearance 25.42 ml/min; Globulin 3.5 g/dL (2.2-4.2); Glucose 88 mg/dL (74-106); Potassium 3.6 mmol/L (3.5-5.1); Protein, Total 5.3 g/dL (6.4-8.2); Sodium Level 141 mmol/L (136-145)
--- NOTE | 2019-11-02 07:30 | PN.SURG_ITS ---
Patient Problems: Active and Suspected Problems (Last Reviewed 10/30/19 @ 16:17 by Rekha Dumont DO) Acute pancreatitis (Acute) Cholecystitis with gangrene of gallbladder (Acute) Subjective: Patient tolerating clears, denies any flatus, denies any abdominal pain, NANDO serosanguineous - Physical Exam Vitals/I&O's: Vital Signs Temp Pulse Resp BP Pulse Ox 98.2 F 91 20 H 145/68 H 98 11/02/19 06:13 11/02/19 06:16 11/02/19 06:13 11/02/19 06:16 11/02/19 06:13 Oxygen Flow Rate (L/min) 1 Oxygen Delivery Method Nasal Cannula Weight: 156 lb 4.924 oz Body Mass Index (BMI) 29.5 Finger Stick Blood Glucose 188 Intake and Output for Last 24 Hours 10/31/19 11/01/19 11/02/19 23:59 23:59 23:59 Intake Total 5005.42 / 5035.42 3143.58 / 3143.58 1323.75 / 1323.75 Output Total 710 / 1520 1555 / 1555 515 / 515 Balance 4295.42 / 3515.42 1588.58 / 1588.58 808.75 / 808.75 General: Alert, Oriented x3, Cooperative, No apparent distress HEENT: Atraumatic Lungs: Normal air movement Cardiovascular: Regular rate Abdomen: Soft, Distended - Mild, Tender - At incisions clean dry and intact, NANDO serosanguineous Neurological: Cranial nerves II-XII grossly intact Psych/Mental Status: Normal Affect Laboratory Results 10/31/19 05:34: Diff Path Review Reviewed 11/01/19 10:26: POC Glucose 139 H 11/01/19 16:44: POC Glucose 180 H 11/01/19 21:26: POC Glucose 127 H 11/02/19 00:35: POC Glucose 119 H 11/02/19 05:20: WBC 11.0, RBC 3.36 L, Hgb 9.8 L, Hct 30.3 L, MCV 90.2, MCH 29.2, MCHC 32.3, RDW Std Deviation 44.0 H, RDW Coeff of Katelyn 13.3, Plt Count 195, MPV 10.5, Immature Gran % (Auto) 0.500, Neut % (Auto) 79.7 H, Lymph % (Auto) 13.1 L, [place] % (Auto) 6.0, Eos % (Auto) 0.5, Baso % (Auto) 0.2, Absolute Neuts (auto) 8.8 H, Absolute Lymphs (auto) 1.45, Nucleated RBC % 0 11/02/19 05:20: Sodium 141, Potassium 3.6, Chloride 110 H, Carbon Dioxide 24.0, Anion Gap 7, BUN 22 H, Creatinine 1.31 H, Estim Creat Clear Calc 25.42, Est GFR (MDRD) Af Amer 51 L, Est GFR (MDRD) Non-Af 42 L, BUN/Creatinine Ratio 16.8, Glucose 88, Calcium 7.8 L, Total Bilirubin 0.50, AST 66 H, ALT 42, Alkaline Phosphatase 49, Total Protein 5.3 L, Albumin 1.8 L, Globulin 3.5, Albumin/Brandy bulin Ratio 0.5 L 11/02/19 06:12: POC Glucose 96 Current Medications Acetaminophen (Tylenol) 650 mg PO Q6H PRN PRN PRN Reason: Pain Score 1-3/10 Last Admin: 11/01/19 07:14 Dose: 650 mg Documented by: [facility] ([facility]) [facility] Last Admin: 11/01/19 08:21 Dose: 81 mg Documented by: Atorvastatin Calcium (Lipitor) 40 mg PO QHS [facility] Last Admin: 11/01/19 21:32 Dose: 40 mg Documented by: Citalopram Hydrobromide (Celexa) 20 mg PO DAILY [facility] Last Admin: 11/01/19 08:21 Dose: 20 mg Documented by: Fluticasone Propionate (Flonase Nasal [place]) 1 spray NASAL BID [facility] Last Admin: 11/01/19 21:31 Dose: 1 spray Documented by: Glucagon () 1 mg IM .X1 PRN PRN Reason: Hypoglycemia Heparin Sodium (Porcine) (Heparin Na) 5,000 unit SC Q12 [facility] Last Admin: 11/01/19 21:29 Dose: 5,000 unit Documented by: Hydralazine HCl (Apresoline Iv) 5 mg IV Q6H PRN PRN PRN Reason: SBP GREATER THAN 170 Hydromorphone HCl (Dilaudid Inj) 0.5 - 1 mg IV Q3H PRN PRN PRN Reason: Pain Score 4-10/10 Last Admin: 11/01/19 02:32 Dose: 0.5 mg Documented by: Hydromorphone HCl (Dilaudid Inj) 0.25 - 0.5 mg IV Q3H PRN PRN PRN Reason: Pain Score 4-10/10 Pantoprazole Sodium 40 mg/ (Sodium Chloride) 110 mls @ 330 mls/hr IV Q24 FABRIZIO Last Infusion: 11/01/19 09:05 Dose: Infused Documented by: Sodium Chloride () 250 mls @ 15 mls/hr IV .[id number] PRN PRN Reason: Saline Flush Last Infusion: 11/02/19 06:18 Dose: 0 mls/hr Documented by: Sodium Chloride () 250 mls @ 15 mls/hr IV .[id number] PRN PRN Reason: Additional IVPB Infusion Piperacillin Sod/Tazobactam (Sod 3.375 gm/ Sodium Chloride) 50 mls @ 12.5 mls/hr IV Q12 FABRIZIO Last Infusion: 11/02/19 01:23 Dose: Infused Documented by: Dextrose (Dextrose 10%-Water) 250 mls @ 999 mls/hr IV .Q16M PRN; Protocol PRN Reason: HYPOGLYCEMIA Lactated Ringer's () 1,000 mls @ 75 mls/hr IV .[id number] FABRIZIO Last Admin: 11/02/19 06:10 Dose: 75 mls/hr Documented by: Insulin Human Lispro (Humalog Kwikpen (Bkc)) 0 unit SC Q6 [facility]; Protocol Last Admin: 11/02/19 06:12 Dose: Not Given Documented by: Ipratropium [place] (Atrovent) 0.5 mg INHALATION Q6HWA.RT [facility] Last Admin: 11/01/19 13:39 Dose: 0.5 mg Documented by: Levothyroxine Sodium (Synthroid) 88 mcg PO DAILY@0600 [facility] Last Admin: 11/02/19 06:16 Dose: 88 mcg Documented by: Metoprolol Tartrate (Lopressor (Beta Nisha)) 2.5 mg IV Q6 [facility] Last Admin: 11/02/19 06:16 Dose: 2.5 mg Documented by: Nutritional Formula (Lactose Free) (Ensure Clear) 120 ml PO TIDCM [facility] Last Admin: 11/01/19 16:46 Dose: Not Given Documented by: Ondansetron HCl (Zofran) 4 mg IV Q8H PRN PRN PRN Reason: NAUSEA/VOMITING Last Admin: 10/31/19 17:41 Dose: 4 mg Documented by: Oxycodone HCl (Oxyir) 5 - 10 mg PO Q4H PRN PRN PRN Reason: Pain Score 6-10/10 Last Admin: 11/01/19 16:46 Dose: 5 mg Documented by: Sodium Chloride () 10 - 40 ml IV UD PRN PRN Reason: SALINE FLUSH Last Admin: 11/02/19 06:18 Dose: 10 ml Documented by: Tamoxifen Citrate (Nolvadex) 20 mg PO DAILY [facility] Last Admin: 11/01/19 08:23 Dose: 20 mg Documented by: Medical Necessity - Tobacco Use Smoking Status: Former smoker Assessment/Plan All Active Problems (Last Reviewed 10/30/19 @ 16:17 by Rekha Dumont DO) Acute pancreatitis (Acute) Cholecystitis with gangrene of gallbladder (Acute) H/O coronary artery bypass surgery (Resolved 06/25/18) Acute blood loss anemia (Resolved) Subcapital fracture of left femur (Resolved) Urinary retention (Resolved) 79-year-old female with acute cholecystitis/perforated gangrenous cholecystitis/bile peritonitis, acute pancreatitis-resolved, postop day 2 laparoscopic cholecystectomy 1. Continue the IV Zosyn due to bile peritonitis/perforated gangrenous gallbladder, ID consulted recommend antibiotics until the 2. Patient on clears continue clears until patient has bowel function. 3. Continue pain control, encourage ambulation in the halls 4. Creatinine improved to 1.3 patient's baseline may be about 1.5 5. Continue NANDO likely removed tomorrow. Oly Avery M.D. Pager: [phone] [facility] [address] [place] [address], [facility], [address] [place] [address] Office: [phone]
--- NOTE | 2019-11-02 07:51 | PCM.PROGNOTE ---
Patient Problems: Active and Suspected Problems (Last Reviewed 10/30/19 @ 16:17 by Rekha Dumont DO) Acute pancreatitis (Acute) Cholecystitis with gangrene of gallbladder (Acute) Subjective: Postoperative day #2-cholecystectomy for acute pancreatitis and cholecystitis with gangrene of the gallbladder Zosyn day #4 Afebrile. Vital signs are stable. Current blood pressure is 145/68. She is 95% saturated on a 2 L nasal cannula. Fluid balance is positive almost 7 L since admission. Urine output for 11/01/2019 was 1480. The weight has increased from 149 pounds and 4 ounces at admission to 156 pounds and 4 ounces. All lab was personally reviewed. The white blood cell count today is 11 with 79.7% neutrophils. Hemoglobin is 9.8 and platelets are within normal limits. Creatinine has improved and is 1.31 today, down from 1.87 on 11/01/2019. Hemoglobin A1c was 9.9. TSH was elevated at 9.58. Calcium corrected for hypoalbuminemia is within normal limits. The blood sugar record was reviewed and blood sugars are well managed. She has been advanced to a clear liquid diet by Dr. Avery. Medication list was reviewed. She is on heparin 5000 units IV every 12 hours for DVT prophylaxis. IV rate is been decreased by Dr. Avery. - Physical Exam Vitals/I&O's: Vital Signs Temp Pulse Resp BP Pulse Ox 98.2 F 91 20 H 145/68 H 95 11/02/19 06:13 11/02/19 06:16 11/02/19 06:13 11/02/19 06:16 11/02/19 07:40 Oxygen Flow Rate (L/min) 2 Oxygen Delivery Method Nasal Cannula Weight: 156 lb 4.924 oz Body Mass Index (BMI) 29.5 Finger Stick Blood Glucose 188 Intake and Output for Last 24 Hours 10/31/19 11/01/19 11/02/19 23:59 23:59 23:59 Intake Total 5005.42 / 5035.42 3143.58 / 3143.58 1323.75 / 1323.75 Output Total 710 / 1520 1555 / 1555 515 / 515 Balance 4295.42 / 3515.42 1588.58 / 1588.58 808.75 / 808.75 General: Alert, Oriented x3, Cooperative, - - Sitting in the recliner at the bedside, does not appear to be in any distress. Not pASSING any flatus HEENT: Atraumatic, PERRLA, Normocephalic Oral: Dry Mucosa Neck: Supple, No JVD, No Nodes, Trachea Midline Lungs: Clear to auscultation, No rhonchi, No wheeze, No rales Cardiovascular: Regular rate, Regular Rhythm, Normal S1, Normal S2, No Gallop Abdomen: Soft, Distended, Tender, - - very quiet...I did not hear any BS's Extremities: No edema, No Calf Tenderness Skin: No rashes Neurological: Cranial nerves II-XII grossly intact, Neuro grossly intact Psych/Mental Status: Normal Affect, Appropriate Laboratory Results 10/31/19 05:34: Diff Path Review Reviewed 11/01/19 10:26: POC Glucose 139 H 11/01/19 16:44: POC Glucose 180 H 11/01/19 21:26: POC Glucose 127 H 11/02/19 00:35: POC Glucose 119 H 11/02/19 05:20: WBC 11.0, RBC 3.36 L, Hgb 9.8 L, Hct 30.3 L, MCV 90.2, MCH 29.2, MCHC 32.3, RDW Std Deviation 44.0 H, RDW Coeff of Katelyn 13.3, Plt Count 195, MPV 10.5, Immature Gran % (Auto) 0.500, Neut % (Auto) 79.7 H, Lymph % (Auto) 13.1 L, [place] % (Auto) 6.0, Eos % (Auto) 0.5, Baso % (Auto) 0.2, Absolute Neuts (auto) 8.8 H, Absolute Lymphs (auto) 1.45, Nucleated RBC % 0 11/02/19 05:20: Sodium 141, Potassium 3.6, Chloride 110 H, Carbon Dioxide 24.0, Anion Gap 7, BUN 22 H, Creatinine 1.31 H, Estim Creat Clear Calc 25.42, Est GFR (MDRD) Af Amer 51 L, Est GFR (MDRD) Non-Af 42 L, BUN/Creatinine Ratio 16.8, Glucose 88, Calcium 7.8 L, Total Bilirubin 0.50, AST 66 H, ALT 42, Alkaline Phosphatase 49, Total Protein 5.3 L, Albumin 1.8 L, Globulin 3.5, Albumin/Globulin Ratio 0.5 L 11/02/19 06:12: POC Glucose 96 Current Medications Acetaminophen (Tylenol) 650 mg PO Q6H PRN PRN PRN Reason: Pain Score 1-3/10 Last Admin: 11/01/19 07:14 Dose: 650 mg Documented by: Aspirin (Ecotrin) 81 mg PO DAILYCM [facility] Last Admin: 11/01/19 08:21 Dose: 81 mg Documented by: Atorvastatin Calcium (Lipitor) 40 mg PO QHS [facility] Last Admin: 11/01/19 21:32 Dose: 40 mg Documented by: Citalopram Hydrobromide (Celexa) 20 mg PO DAILY [facility] Last Admin: 11/01/19 08:21 Dose: 20 mg Documented by: Fluticasone Propionate (Flonase Nasal [place]) 1 spray NASAL BID [facility] Last Admin: 11/01/19 21:31 Dose: 1 spray Documented by: Glucagon () 1 mg IM .X1 PRN PRN Reason: Hypoglycemia Heparin Sodium (Porcine) (Heparin Na) 5,000 unit SC Q12 [facility] Last Admin: 11/01/19 21:29 Dose: 5,000 unit Documented by: Hydralazine HCl (Apresoline Iv) 5 mg IV Q6H PRN PRN PRN Reason: SBP GREATER THAN 170 Pantoprazole Sodium 40 mg/ (Sodium Chloride) 110 mls @ 330 mls/hr IV Q24 [facility] Last Infusion: 11/01/19 09:05 Dose: Infused Documented by: Sodium Chloride () 250 mls @ 15 mls/hr IV .[id number] PRN PRN Reason: Saline Flush Last Infusion: 11/02/19 06:18 Dose: 0 mls/hr Documented by: Sodium Chloride () 250 mls @ 15 mls/hr IV .[id number] PRN PRN Reason: Additional IVPB Infusion Piperacillin Sod/Tazobactam (Sod 3.375 gm/ Sodium Chloride) 50 mls @ 12.5 mls/hr IV Q12 [facility] Last Infusion: 11/02/19 01:23 Dose: Infused Documented by: Dextrose (Dextrose 10%-Water) 250 mls @ 999 mls/hr IV .Q16M PRN; Protocol PRN Reason: HYPOGLYCEMIA Lactated Ringer's () 1,000 mls @ 50 mls/hr IV .Q20H [facility] Last Admin: 11/02/19 06:10 Dose: 75 mls/hr Documented by: Insulin Human Lispro (Humalog Kwikpen (Bkc)) 0 unit SC Q6 [facility]; Protocol Last Admin: 11/02/19 06:12 Dose: Not Given Documented by: Ipratropium [place] (Atrovent) 0.5 mg INHALATION Q6HWA.RT [facility] Last Admin: 11/02/19 07:41 Dose: Not Given Documented by: Levothyroxine Sodium (Synthroid) 88 mcg PO DAILY@0600 [facility] Last Admin: 11/02/19 06:16 Dose: 88 mcg Documented by: Metoprolol Tartrate (Lopressor (Beta Nisha)) 2.5 mg IV Q6 [facility] Last Admin: 11/02/19 06:16 Dose: 2.5 mg Documented by: Nutritional Formula (Lactose Free) (Ensure Clear) 120 ml PO TIDCM [facility] Last Admin: 11/01/19 16:46 Dose: Not Given Documented by: Ondansetron HCl (Zofran) 4 mg IV Q8H PRN PRN PRN Reason: NAUSEA/VOMITING Last Admin: 10/31/19 17:41 Dose: 4 mg Documented by: Oxycodone HCl (Oxyir) 5 - 10 mg PO Q4H PRN PRN PRN Reason: Pain Score 6-10/10 Last Admin: 11/01/19 16:46 Dose: 5 mg Documented by: Sodium Chloride () 10 - 40 ml IV UD PRN PRN Reason: SALINE FLUSH Last Admin: 11/02/19 06:18 Dose: 10 ml Documented by: Tamoxifen Citrate (Nolvadex) 20 mg PO DAILY [facility] Last Admin: 11/01/19 08:23 Dose: 20 mg Documented by: Medical Necessity - Tobacco Use Smoking Status: Former smoker Assessment/Plan All Active Problems (Last Reviewed 10/30/19 @ 16:17 by Rekha Dumont DO) Acute pancreatitis (Acute) Cholecystitis with gangrene of gallbladder (Acute) H/O coronary artery bypass surgery (Resolved 06/25/18) Acute blood loss anemia (Resolved) Subcapital fracture of left femur (Resolved) Urinary retention (Resolved) Impressions 1. POD #2 S/P cholecystectomy with a gangrenous GB and gallstone pancreatitis 2. Acute gallstone pancreatitis 3. 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 HTN 5. DM II wth borderline hypoglycemia this AM - change the SSI to a medium scale. Change the IV to D5NS with KCL at 60 cc/hr. Transition to oral Lopressor today Continue Zosyn Enocurage use of the IS hourly while awake and also encourage ambulation Recheck the LAb in the AM, including Mag and phos Code Visit Inpatient E&M: 50224 Subs Hosp L2
[2019-11-02] MEDS: Citalopram 20 MG Tablet PO (08:32)
[2019-11-02] MEDS: Aspirin E.C. 81 MG Tablet PO (08:32)
[2019-11-02] MEDS: Fluticasone 0.05% 1 SPRAY NASAL.SRY NASAL ×2 (08:33→22:32)
[2019-11-02] MEDS: Tamoxifen 10 MG Tablet 20 MG PO (08:33)
[2019-11-02] MEDS: Metoprolol Tartrate 25 MG Tablet PO ×2 (10:49→22:32)
[2019-11-02] MEDS: Ondansetron 4 MG/2 ML Vial IV ×2 (10:49→18:29)
[2019-11-02] MEDS: Heparin Injection (Vial) 5,000 UNIT/ML VIAL 5000 UNIT SC ×2 (10:50→22:32)
--- NOTE | 2019-11-02 11:14 | NURSING ---
6 oz of cranberry juice given for blood glucose of 78.
[2019-11-02 11:15] LABS: Bedside Glucose 78 mg/dL (70-110)
[2019-11-02 12:35] LABS: Bedside Glucose 167 mg/dL (70-110)
[2019-11-02 16:41] LABS: Bedside Glucose 153 mg/dL (70-110)
[2019-11-02] MEDS: Potassium Chloride 10 MEQ in Dextrose 5%/0.9% NaCl 1,000 ML 60 MEQ IV (20:20)
[2019-11-02 21:03] LABS: Anion Gap 6 (5-15); BUN 18 mg/dL (7-18); BUN/Creat Ratio 15.1 RATIO (10-20); Calcium,Total 8.5 mg/dL (8.5-10.1); Chloride 108 mmol/L (98-107); Creatinine, Serum 1.19 mg/dL (0.55-1.02); EST Glomerular Filtration Rate 47 mL/min (>60); Est Glom Filt Rate - Afr Amer 56 mL/min (>60); Estimated Creatinine Clearance 27.99 ml/min; Glucose 186 mg/dL (74-106); Potassium 3.7 mmol/L (3.5-5.1); Sodium Level 140 mmol/L (136-145)
[2019-11-02] MEDS: Atorvastatin Calcium 40 MG Tablet PO (22:32)
--- NOTE | 2019-11-02 22:45 | NURSING ---
encouraged pt to walk in diaz, refused at this time-did ambulate to bathroom with cmo & president
[2019-11-02] MEDS: Insulin Lispro 100 UNIT/ML INSULN.PEN SC (22:51)
[2019-11-02 23:01] LABS: Bedside Glucose 202 mg/dL (70-110)
[2019-11-03] VITALS (9 sets, daily range): BP systolic 132–160; BP diastolic 53–83; PULSE 75–103; RESP 16–20; TEMP 36.7–37.1; O2SAT 93–99
[2019-11-03] MEDS: Ondansetron 4 MG/2 ML Vial IV ×2 (00:37→07:56)
[2019-11-03] MEDS: 0.9% Saline Lock 10 ML Syringe IV ×2 (00:37→07:56)
[2019-11-03 05:59] LABS: Hematocrit 32.5 % (37-47); Hemoglobin 10.7 g/dL (12.0-15.0); Mean Corp Hgb Conc 32.9 g/dL (32-36); Mean Corpuscular Hgb 29.5 pg (27.0-32.0); Mean Corpuscular Volume 89.5 fL (81-99); Mean Platelet Vol. 10.1 fl (6.2-12.0); Platelet Count 217 K/mm3 (150-450); RBC Distribution Width CV 12.9 % (11.6-14.6); RBC Distribution Width SD 42.4 fl (35.1-43.9); Red Blood Count 3.63 M/mm3 (4.2-5.4); White Blood Count 14.9 K/mm3 (4.4-11.0)
[2019-11-03 06:14] LABS: Phosphorus 1.6 mg/dL (2.5-4.9)
[2019-11-03] MEDS: Levothyroxine 88 MCG Tablet PO (06:31)
[2019-11-03] MEDS: Insulin Lispro 100 UNIT/ML INSULN.PEN SC ×4 (06:32→23:21)
[2019-11-03 06:40] LABS: Bedside Glucose 213 mg/dL (70-110)
[2019-11-03] MEDS: Ipratropium 0.5 MG/2.5 ML SOLUTION INHALATION (06:54)
--- NOTE | 2019-11-03 07:12 | RAD_ITS ---
STUDY: X-RAY - ABDOMEN/PELVIS REASON FOR EXAM: Female, 79 years old. ABD PAIN TECHNIQUE: 1 view COMPARISON: Prior abdomen of October 31, 2019. Prior abdomen and pelvic CT exam of October 30, 2019. FINDINGS: Normal visualized lung bases. Nondistended stomach. Mild gaseous distention of nondependent central portions of the colon and small bowel without substantial stool collection. Grossly negative for organomegaly. Normal soft tissue structures. Mild degenerative changes of the lumbar spine. Status post left hip arthroplasty. RAD/Abdomen Single View (Portable) IMPRESSION: Mild gaseous distention of nondependent portions of the colon and small bowel without substantial stool collection. Findings are compatible with a nonobstructive ileus. Electronically Signed: Marlena Medina MD at 19:54 EST , Service support ,
--- NOTE | 2019-11-03 07:19 | RAD_ITS ---
STUDY: X-RAY CHEST REASON FOR EXAM: Female, 79 years old. Abnormal WBC TECHNIQUE: Single frontal view of the chest. COMPARISON: November 01, 2019 FINDINGS: There is no new focal consolidation. There is minimal scarring and/or atelectasis within the right lower lung. There are surgical sutures projecting over the left upper lung. There are surgical clips projecting over the left mid and lower lung. Sternal cerclage wires are present from a prior sternotomy. The cardiac silhouette is within normal limits. Normal mediastinum and lon. Normal visualized pulmonary arteries. Normal visualized aortic arch and descending thoracic aorta. Normal visualized thoracic spine. There is a stable left posterior rib deformity consistent with a healed fracture. There is no demonstrated abnormality of the visualized soft tissue structures of the upper abdomen. RAD/Chest 1 View (Portable) IMPRESSION: No acute cardiopulmonary process. Electronically Signed: Isela Alston MD at 22:21 EST Tel , Service support ,
--- NOTE | 2019-11-03 07:35 | PCM.PN.SRG ---
Patient Problems: Active and Suspected Problems (Last Reviewed 10/30/19 @ 16:17 by Rekha Dumont DO) Acute pancreatitis (Acute) Cholecystitis with gangrene of gallbladder (Acute) Subjective: Pt had some N last night, denies this AM, +flatus/BM, denies abd pain, only walked a little in the diaz yesterday - Physical Exam Vitals/I&O's: Vital Signs Temp Pulse Resp BP Pulse Ox 98.1 F 81 20 H 160/83 H 99 11/03/19 07:17 11/03/19 07:17 11/03/19 07:17 11/03/19 07:17 11/03/19 07:17 Oxygen Flow Rate (L/min) 2 Oxygen Delivery Method Nasal Cannula Weight: 153 lb 7.068 oz Body Mass Index (BMI) 29.5 Finger Stick Blood Glucose 188 Intake and Output for Last 24 Hours 11/01/19 11/02/19 11/03/19 23:59 23:59 23:59 Intake Total 3143.58 / 3143.58 2994.58 / 2994.58 150 / 150 Output Total 1555 / 1555 1888 / 1888 460 / 460 Balance 1588.58 / 1588.58 1106.58 / 1106.58 -310 / -310 General: Alert, Oriented x3, Cooperative, No apparent distress Lungs: Rhonchi - in bases bilaterally Cardiovascular: Regular rate Abdomen: Soft, Non-Distended, Tender - mild at incisions c/d/i, NANDO serous- removed at bedside and gauze placed. Laboratory Results 11/02/19 10:57: POC Glucose 78 11/02/19 12:26: POC Glucose 167 H 11/02/19 16:37: POC Glucose 153 H 11/02/19 20:40: Sodium 140, Potassium 3.7, Chloride 108 H, Carbon Dioxide 26.0, Anion Gap 6, BUN 18, Creatinine 1.19 H, Estim Creat Clear Calc 27.99, Est GFR (MDRD) Af Amer 56 L, Est GFR (MDRD) Non-Af 47 L, BUN/Creatinine Ratio 15.1, Glucose 186 H, Calcium 8.5 11/02/19 22:51: POC Glucose 202 H 11/03/19 05:24: WBC 14.9 H, RBC 3.63 L, Hgb 10.7 L, Hct 32.5 L, MCV 89.5, MCH 29.5, MCHC 32.9, RDW Std Deviation 42.4, RDW Coeff of Katelyn 12.9, Plt Count 217, MPV 10.1 11/03/19 05:24: Phosphorus 1.6 L, Magnesium 2.0 11/03/19 05:24: Total Bilirubin Pending, Direct Bilirubin Pending, AST Pending, ALT Pending, Alkaline Phosphatase Pending, Total Protein Pending, Albumin Pending 11/03/19 06:32: POC Glucose 213 H Current Medications Acetaminophen (Tylenol) 650 mg PO Q6H PRN PRN PRN Reason: Pain Score 1-3/10 Last Admin: 11/01/19 07:14 Dose: 650 mg Documented by: Aspirin (Ecotrin) 81 mg PO DAILYCM [facility] Last Admin: 11/02/19 08:32 Dose: 81 mg Documented by: Atorvastatin Calcium (Lipitor) 40 mg PO QHS [facility] Last Admin: 11/02/19 22:32 Dose: 40 mg Documented by: Citalopram Hydrobromide (Celexa) 20 mg PO DAILY [facility] Last Admin: 11/02/19 08:32 Dose: 20 mg Documented by: Fluticasone Propionate (Flonase Nasal [place]) 1 spray NASAL BID [facility] Last Admin: 11/02/19 22:32 Dose: 1 spray Documented by: Glucagon () 1 mg IM .X1 PRN PRN Reason: Hypoglycemia Heparin Sodium (Porcine) (Heparin Na) 5,000 unit SC Q12 [facility] Last Admin: 11/02/19 22:32 Dose: 5,000 unit Documented by: Hydralazine HCl (Apresoline Iv) 5 mg IV Q6H PRN PRN PRN Reason: SBP GREATER THAN 170 Pantoprazole Sodium 40 mg/ (Sodium Chloride) 110 mls @ 330 mls/hr IV Q24 [facility] Last Infusion: 11/02/19 11:15 Dose: Infused Documented by: Sodium Chloride () 250 mls @ 15 mls/hr IV .[id number] PRN PRN Reason: Saline Flush Last Infusion: 11/03/19 02:32 Dose: 15 mls/hr Documented by: Sodium Chloride () 250 mls @ 15 mls/hr IV .[id number] PRN PRN Reason: Additional IVPB Infusion Piperacillin Sod/Tazobactam (Sod 3.375 gm/ Sodium Chloride) 50 mls @ 12.5 mls/hr IV Q12 [facility] Last Infusion: 11/03/19 02:32 Dose: Infused Documented by: Dextrose (Dextrose 10%-Water) 250 mls @ 999 mls/hr IV .Q16M PRN; Protocol PRN Reason: HYPOGLYCEMIA Potassium Chloride 10 meq/ (Dextrose/Sodium Chloride) 1,005 mls @ 60 mls/hr IV .[id number] [facility] Last Admin: 11/02/19 20:20 Dose: 60 mls/hr Documented by: Insulin Human Lispro (Humalog Kwikpen (Bkc)) 0 unit SC Q6 [facility]; Protocol Last Admin: 11/03/19 06:32 Dose: 2 units Documented by: Ipratropium [place] (Atrovent) 0.5 mg INHALATION Q6HWA.RT [facility] Last Admin: 11/03/19 06:54 Dose: 0.5 mg Documented by: Levothyroxine Sodium (Synthroid) 88 mcg PO DAILY@0600 [facility] Last Admin: 11/03/19 06:31 Dose: 88 mcg Documented by: Metoprolol Tartrate (Lopressor (Beta Nisha)) 25 mg PO BID [facility] Last Admin: 11/02/19 22:32 Dose: 25 mg Documented by: Nutritional Formula (Lactose Free) (Ensure Clear) 120 ml PO TIDCM [facility] Last Admin: 11/02/19 16:38 Dose: Not Given Documented by: Ondansetron HCl (Zofran) 4 mg IV Q6H PRN PRN PRN Reason: NAUSEA/VOMITING Last Admin: 11/03/19 00:37 Dose: 4 mg Documented by: Oxycodone HCl (Oxyir) 5 - 10 mg PO Q4H PRN PRN PRN Reason: Pain Score 6-10/10 Last Admin: 11/01/19 16:46 Dose: 5 mg Documented by: Sodium Chloride () 10 - 40 ml IV UD PRN PRN Reason: SALINE FLUSH Last Admin: 11/03/19 00:37 Dose: 10 ml Documented by: Tamoxifen Citrate (Nolvadex) 20 mg PO DAILY [facility] Last Admin: 11/02/19 08:33 Dose: 20 mg Documented by: Medical Necessity - Tobacco Use Smoking Status: Former smoker Assessment/Plan All Active Problems (Last Reviewed 10/30/19 @ 16:17 by Rekha Dumont DO) Acute pancreatitis (Acute) Cholecystitis with gangrene of gallbladder (Acute) H/O coronary artery bypass surgery (Resolved 06/25/18) Acute blood loss anemia (Resolved) Subcapital fracture of left femur (Resolved) Urinary retention (Resolved) 79-year-old female with acute cholecystitis/perforated gangrenous cholecystitis/bile peritonitis, acute pancreatitis-resolved, postop day 3 laparoscopic cholecystectomy 1. Continue the IV Zosyn due to bile peritonitis/perforated gangrenous gallbladder, ID consulted recommend antibiotics until the 2. Patient on clears continue clears patient have flatus and small bowel movement likely advance we will check KUB first 3. Continue pain control, encourage ambulation in the halls 4. Elevated white blood cell count 14.9 we will check chest x-ray, KUB, UA--addendum: CXR & KUB ok- +additional BM this AM, UA pending 5. NANDO was serous removed this morning. Oly Avery M.D. Pager: [phone] [facility] [address] [place] [address], [facility], [address] [place] [address] Office: [phone]
[2019-11-03 07:41] LABS: AST(SGOT) 46 U/L (15-37); Alanine Aminotransfer ALT/SGPT 37 U/L (13-56); Albumin, Serum 1.8 g/dL (3.2-5.0); Alkaline Phosphatase 61 U/L (45-117); Bilirubin, Direct 0.23 mg/dL (0.00-0.30); Globulin 3.6 g/dL (2.2-4.2); Protein, Total 5.4 g/dL (6.4-8.2)
[2019-11-03] MEDS: Ensure Clear 120 ML Liquid PO (07:51)
[2019-11-03] MEDS: Aspirin E.C. 81 MG Tablet PO (07:51)
--- NOTE | 2019-11-03 08:57 | PCM.PN.HOSP ---
Patient Problems: Active and Suspected Problems (Last Reviewed 10/30/19 @ 16:17 by Rekha Dumont DO) Acute pancreatitis (Acute) Cholecystitis with gangrene of gallbladder (Acute) Reason for Visit: Follow-up on acute gallstone pancreatitis Subjective: Was seen and examined. Denied any new complaints. She feels much improved. No fevers or chills. Objective: Physical exam: General: Alert, Oriented x3, Cooperative, No apparent distress, - - On 2 L of oxygen HEENT: Atraumatic, PERRLA, EOMI, Normocephalic Oral: Moist Mucosa Neck: Supple Lungs: Diminished - at the lung bases Cardiovascular: Regular rate, Regular Rhythm, Normal S1, Normal S2, No murmurs Abdomen: Bowel Sounds Present, Soft, Non-Distended, No Hepato-splenomegaly, Tender - Over the right upper quadrant, dressing in place Extremities: No edema Skin: No rashes Musculoskeletal: No Tenderness to Palpation of Joints or Extremities Lymphatic: No Cervical, Supraclavicular, or Inguinal Adenopathy Neurological: Cranial nerves II-XII grossly intact, Neuro grossly intact Psych/Mental Status: Normal Affect, Appropriate Vitals/I&O's: Vital Signs Temp Pulse Resp BP Pulse Ox 98.1 F 81 20 H 160/83 H 95 11/03/19 07:17 11/03/19 07:17 11/03/19 07:17 11/03/19 07:17 11/03/19 07:47 Oxygen Flow Rate (L/min) 2 Oxygen Delivery Method Nasal Cannula Weight: 69.6 kg Body Mass Index (BMI) 29.5 Finger Stick Blood Glucose 188 Intake and Output for Last 24 Hours 11/01/19 11/02/19 11/03/19 23:59 23:59 23:59 Intake Total 3143.58 / 3143.58 2994.58 / 2994.58 150 / 150 Output Total 1555 / 1555 1888 / 1888 460 / 460 Balance 1588.58 / 1588.58 1106.58 / 1106.58 -310 / -310 Laboratory Results 11/02/19 10:57: POC Glucose 78 11/02/19 12:26: POC Glucose 167 H 11/02/19 16:37: POC Glucose 153 H 11/02/19 20:40: Sodium 140, Potassium 3.7, Chloride 108 H, Carbon Dioxide 26.0, Anion Gap 6, BUN 18, Creatinine 1.19 H, Estim Creat Clear Calc 27.99, Est GFR (MDRD) Af Amer 56 L, Est GFR (MDRD) Non-Af 47 L, BUN/Creatinine Ratio 15.1, Glucose 186 H, Calcium 8.5 11/02/19 22:51: POC Glucose 202 H 11/03/19 05:24: WBC 14.9 H, RBC 3.63 L, Hgb 10.7 L, Hct 32.5 L, MCV 89.5, MCH 29.5, MCHC 32.9, RDW Std Deviation 42.4, RDW Coeff of Katelyn 12.9, Plt Count 217, MPV 10.1 11/03/19 05:24: Phosphorus 1.6 L, Magnesium 2.0 11/03/19 05:24: Total Bilirubin 0.60, Direct Bilirubin 0.23, AST 46 H, ALT 37, Alkaline Phosphatase 61, Total Protein 5.4 L, Albumin 1.8 L, Globulin 3.6 11/03/19 06:32: POC Glucose 213 H Current Medications Acetaminophen (Tylenol) 650 mg PO Q6H PRN PRN PRN Reason: Pain Score 1-3/10 Last Admin: 11/01/19 07:14 Dose: 650 mg Documented by: [facility]) [facility] Last Admin: 11/03/19 07:51 Dose: 81 mg Documented by: Atorvastatin Calcium (Lipitor) 40 mg PO QHS [facility] Last Admin: 11/02/19 22:32 Dose: 40 mg Documented by: Citalopram Hydrobromide (Celexa) 20 mg PO DAILY [facility] Last Admin: 11/02/19 08:32 Dose: 20 mg Documented by: Fluticasone Propionate (Flonase Nasal [place]) 1 spray NASAL BID [facility] Last Admin: 11/02/19 22:32 Dose: 1 spray Documented by: Glucagon () 1 mg IM .X1 PRN PRN Reason: Hypoglycemia Heparin Sodium (Porcine) (Heparin Na) 5,000 unit SC Q12 [facility] Last Admin: 11/02/19 22:32 Dose: 5,000 unit Documented by: Hydralazine HCl (Apresoline Iv) 5 mg IV Q6H PRN PRN PRN Reason: SBP GREATER THAN 170 Pantoprazole Sodium 40 mg/ (Sodium Chloride) 110 mls @ 330 mls/hr IV Q24 [facility] Last Infusion: 11/02/19 11:15 Dose: Infused Documented by: Sodium Chloride () 250 mls @ 15 mls/hr IV .[id number] PRN PRN Reason: Saline Flush Last Infusion: 11/03/19 02:32 Dose: 15 mls/hr Documented by: Sodium Chloride () 250 mls @ 15 mls/hr IV .[id number] PRN PRN Reason: Additional IVPB Infusion Piperacillin Sod/Tazobactam (Sod 3.375 gm/ Sodium Chloride) 50 mls @ 12.5 mls/hr IV Q12 [facility] Last Infusion: 11/03/19 02:32 Dose: Infused Documented by: Dextrose (Dextrose 10%-Water) 250 mls @ 999 mls/hr IV .Q16M PRN; Protocol PRN Reason: HYPOGLYCEMIA Potassium Chloride 10 meq/ (Dextrose/Sodium Chloride) 1,005 mls @ 60 mls/hr IV .[id number] [facility] Last Admin: 11/02/19 20:20 Dose: 60 mls/hr Documented by: Insulin Human Lispro (Humalog Kwikpen (Bkc)) 0 unit SC Q6 [facility]; Protocol Last Admin: 11/03/19 06:32 Dose: 2 units Documented by: Ipratropium [place] (Atrovent) 0.5 mg INHALATION Q6HWA.RT [facility] Last Admin: 11/03/19 06:54 Dose: 0.5 mg Documented by: Levothyroxine Sodium (Synthroid) 88 mcg PO DAILY@0600 [facility] Last Admin: 11/03/19 06:31 Dose: 88 mcg Documented by: Metoprolol Tartrate (Lopressor (Beta Nisha)) 25 mg PO BID [facility] Last Admin: 11/02/19 22:32 Dose: 25 mg Documented by: Nutritional Formula (Lactose Free) (Ensure Clear) 120 ml PO TIDCM [facility] Last Admin: 11/03/19 07:51 Dose: 120 ml Documented by: Ondansetron HCl (Zofran) 4 mg IV Q6H PRN PRN PRN Reason: NAUSEA/VOMITING Last Admin: 11/03/19 07:56 Dose: 4 mg Documented by: Oxycodone HCl (Oxyir) 5 - 10 mg PO Q4H PRN PRN PRN Reason: Pain Score 6-10/10 Last Admin: 11/01/19 16:46 Dose: 5 mg Documented by: Sodium Chloride () 10 - 40 ml IV UD PRN PRN Reason: SALINE FLUSH Last Admin: 11/03/19 07:56 Dose: 10 ml Documented by: Tamoxifen Citrate (Nolvadex) 20 mg PO DAILY [facility] Last Admin: 11/02/19 08:33 Dose: 20 mg Documented by: STROKE Vital Signs/Narrative: Vital Signs Temp Pulse Resp BP Pulse Ox 11/03/19 07:47 95 11/03/19 07:41 93 11/03/19 07:17 98.1 F 81 20 H 160/83 H 99 11/03/19 07:15 103 H 19 H Medical Necessity - Tobacco Use Smoking Status: Former smoker Assessment/Plan All Active Problems (Last Reviewed 10/30/19 @ 16:17 by Rekha Dumont DO) Acute pancreatitis (Acute) Cholecystitis with gangrene of gallbladder (Acute) H/O coronary artery bypass surgery (Resolved 06/25/18) Acute blood loss anemia (Resolved) Subcapital fracture of left femur (Resolved) Urinary retention (Resolved) 1. POD #2 status post emergent laparoscopic cholecystectomy for acute perforated gangrenous cholecystitis WBC slightly elevated, patient is clinically much improved, doubt any new source of infection, will monitor WBC Encourage use of incentive spirometer On IV Zosyn, ID following 2. Acute gallstone pancreatitis, improving 3. ROSEANNA on CKD stage III, creatinine is improved Baseline 1.22 to 1.5; Creatinine today is 1.19 Continue on gentle IV fluids and oral intake 4. Hypophosphatemia, replaced, recheck in am 6. Type II DM, blood sugars are fairly controlled, On Onglyza at home as well as ISS Will continue with blood glucose checks and med-high insulin sliding scale 7. GERD, on PPI 8. Hypertension/hyperlipidemia/CAD status post CABG, continue on aspirin, statin 9. Hypothyroidism, continue on Synthroid 10. History of breast CA, continue tamoxifen 11. DVT PPx- on Heparin SC Code Visit Inpatient E&M: 07550 Subs Hosp L2
--- NOTE | 2019-11-03 10:25 | CASEMGMT ---
YANIV SANTOS NOTE: PT/OT evals reviewed. Additional therapy recommended. To room to talk with pt. Pt agreeable to [facility] and states 1st choice is still [facility]. Call placed to Kavita @ [facility] and referral made. Made aware anticipate discharge tomorrow. She states they are able to accept pt. Iesha LOVELACE RN CM
[2019-11-03] MEDS: Fluticasone 0.05% 1 SPRAY NASAL.SRY NASAL ×2 (10:31→23:04)
[2019-11-03] MEDS: Heparin Injection (Vial) 5,000 UNIT/ML VIAL 5000 UNIT SC ×2 (10:31→23:04)
[2019-11-03] MEDS: Citalopram 20 MG Tablet PO (10:31)
[2019-11-03] MEDS: Metoprolol Tartrate 25 MG Tablet PO ×2 (10:32→23:05)
[2019-11-03] MEDS: Tamoxifen 10 MG Tablet 20 MG PO (10:34)
[2019-11-03 13:45] LABS: Bacteria 0 SEEN /hpf (None Seen); Mucous, Urine 0 SEEN /hpf (<or=2+); Red Blood Cells-Urine 0 SEEN /hpf (0-5); White Blood Cells 0 SEEN /hpf (0-5)
[2019-11-03 14:00] LABS: Bedside Glucose 267 mg/dL (70-110)
[2019-11-03] MEDS: Glucerna Shake 120 ML LIQUID PO ×2 (14:15→17:19)
[2019-11-03] MEDS: Na Biphos/Potassium Phosphate PACKET 1 PACKET PO ×3 (14:15→23:10)
[2019-11-03 14:17] LABS: Color, Urine Yellow (Yellow); Glucose, Dipstick 1000 mg/dl (Normal); Ketone-Dipstick Negative (Negative); Leukocyte Esterase-Dipstick Negative /ul (Negative); Nitrite-Dipstick Negative (Negative); Occult Blood-Urine 25 /ul (Negative); Protein-Dipstick 100 mg/dl (Negative); Urine Bilirubin Dipstick Negative (Negative); Urine Clarity Clear (Clear); Urine Urobilinogen Normal (Normal)
[2019-11-03 14:25] LABS: Squamous Epithelial Cells - UA 0-5 SEEN /hpf (5-10)
[2019-11-03 16:31] LABS: Bedside Glucose 259 mg/dL (70-110)
[2019-11-03] MEDS: Potassium Chloride 10 MEQ in Dextrose 5%/0.9% NaCl 1,000 ML 60 MEQ IV (18:08)
[2019-11-03] MEDS: Atorvastatin Calcium 40 MG Tablet PO (23:05)
[2019-11-04 02:16] LABS: Bedside Glucose 230 mg/dL (70-110)
[2019-11-04 03:19] VITALS: BP 147/85; PULSE 78; RESP 18; TEMP 36.7; O2SAT 99
[2019-11-04 06:23] LABS: Albumin, Serum 1.9 g/dL (3.2-5.0); BUN 13 mg/dL (7-18); BUN/Creat Ratio 10.7 RATIO (10-20); Calcium,Total 7.6 mg/dL (8.5-10.1); Chloride 109 mmol/L (98-107); Creatinine, Serum 1.22 mg/dL (0.55-1.02); EST Glomerular Filtration Rate 45 mL/min (>60); Est Glom Filt Rate - Afr Amer 55 mL/min (>60); Glucose 225 mg/dL (74-106); Phosphorus 1.7 mg/dL (2.5-4.9); Potassium 3.6 mmol/L (3.5-5.1); Sodium Level 141 mmol/L (136-145)
[2019-11-04] MEDS: Levothyroxine 88 MCG Tablet PO (06:54)
[2019-11-04] MEDS: Insulin Lispro 100 UNIT/ML INSULN.PEN SC ×3 (06:56→16:57)
[2019-11-04 07:10] LABS: Bedside Glucose 218 mg/dL (70-110)
--- NOTE | 2019-11-04 07:18 | PN.SURG_ITS ---
Patient Problems: Active and Suspected Problems (Last Reviewed 10/30/19 @ 16:17 by Rekha Dumont DO) Acute pancreatitis (Acute) Cholecystitis with gangrene of gallbladder (Acute) Subjective: Patient tolerated bolus, having bowel function denies abdominal pain and ambulating/up to the chair. Patient still on 1 L O2 - Physical Exam Vitals/I&O's: Vital Signs Temp Pulse Resp BP Pulse Ox 98.1 F 78 18 147/85 H 99 11/04/19 03:19 11/04/19 03:19 11/04/19 03:19 11/04/19 03:19 11/04/19 03:19 Oxygen Flow Rate (L/min) 1 Oxygen Delivery Method Nasal Cannula Weight: 153 lb 7.068 oz Body Mass Index (BMI) 29.5 Finger Stick Blood Glucose 188 Intake and Output for Last 24 Hours 11/02/19 11/03/19 11/04/19 23:59 23:59 23:59 Intake Total 2994.58 / 2994.58 1550.5 / 1550.5 150 / 150 Output Total 1888 / 1888 1010 / 1010 Balance 1106.58 / 1106.58 540.5 / 540.5 150 / 150 General: Alert, Oriented x3, Cooperative, No apparent distress HEENT: Atraumatic Lungs: Normal air movement Cardiovascular: Regular rate Abdomen: Soft, Non Tender, Non-Distended, - - Incision is clean dry and intact with Steri-Strips, lateral previous drain site still draining serous drainage on dressing Neurological: Cranial nerves II-XII grossly intact Psych/Mental Status: Normal Affect Laboratory Results 11/03/19 05:24: Total Bilirubin 0.60, Direct Bilirubin 0.23, AST 46 H, ALT 37, Alkaline Phosphatase 61, Total Protein 5.4 L, Albumin 1.8 L, Globulin 3.6 11/03/19 11:43: POC Glucose 267 H 11/03/19 13:35: Urine Color Yellow, Urine Clarity Clear, Urine pH 6.0, Ur Specific [place] 1.010, Urine Protein 100 H, Urine Glucose (UA) 1000 H, Urine Ketones Negative, Urine Occult Blood 25 H, Urine Nitrite Negative, Urine Bilirubin Negative, Urine Urobilinogen Normal, Ur Leukocyte Esterase Negative, Urine RBC 0 SEEN, Urine WBC 0 SEEN, Ur Squamous Epith Cells 0-5 SEEN, Urine Bacteria 0 SEEN, Urine Mucus 0 SEEN 11/03/19 16:18: POC Glucose 259 H 11/03/19 23:21: POC Glucose 230 H 11/04/19 05:25: Sodium 141, Potassium 3.6, Chloride 109 H, Carbon Dioxide 27.0, BUN 13, Creatinine 1.22 H, Estim Creat Clear Calc 27.30, Est GFR (MDRD) Af Amer 55 L, Est GFR (MDRD) Non-Af 45 L, BUN/Creatinine Ratio 10.7, Glucose 225 H, Calcium 7.6 L, Phosphorus 1.7 L, Albumin 1.9 L 11/04/19 06:55: POC Glucose 218 H Current Medications Acetaminophen (Tylenol) 650 mg PO Q6H PRN PRN PRN Reason: Pain Score 1-3/10 Last Admin: 11/01/19 07:14 Dose: 650 mg Documented by: Aspirin (Ecotrin) 81 mg PO DAILYCM [facility] Last Admin: 11/03/19 07:51 Dose: 81 mg Documented by: Atorvastatin Calcium (Lipitor) 40 mg PO QHS [facility] Last Admin: 11/03/19 23:05 Dose: 40 mg Documented by: Citalopram Hydrobromide (Celexa) 20 mg PO DAILY [facility] Last Admin: 11/03/19 10:31 Dose: 20 mg Documented by: Fluticasone Propionate (Flonase Nasal [place]) 1 spray NASAL BID [facility] Last Admin: 11/03/19 23:04 Dose: 1 spray Documented by: Glucagon () 1 mg IM .X1 PRN PRN Reason: Hypoglycemia Heparin Sodium (Porcine) (Heparin Na) 5,000 unit SC Q12 [facility] Last Admin: 11/03/19 23:04 Dose: 5,000 unit Documented by: Hydralazine HCl (Apresoline Iv) 5 mg IV Q6H PRN PRN PRN Reason: SBP GREATER THAN 170 Pantoprazole Sodium 40 mg/ (Sodium Chloride) 110 mls @ 330 mls/hr IV Q24 [facility] Last Infusion: 11/03/19 17:10 Dose: Infused Documented by: Sodium Chloride () 250 mls @ 15 mls/hr IV .[id number] PRN PRN Reason: Saline Flush Last Infusion: 11/03/19 18:38 Dose: Infused Documented by: Sodium Chloride () 250 mls @ 15 mls/hr IV .[id number] PRN PRN Reason: Additional IVPB Infusion Piperacillin Sod/Tazobactam (Sod 3.375 gm/ Sodium Chloride) 50 mls @ 12.5 mls/hr IV Q12 [facility] Last Infusion: 11/04/19 03:13 Dose: Infused Documented by: Dextrose (Dextrose 10%-Water) 250 mls @ 999 mls/hr IV .Q16M PRN; Protocol PRN Reason: HYPOGLYCEMIA Potassium Chloride 10 meq/ (Dextrose/Sodium Chloride) 1,005 mls @ 60 mls/hr IV .[id number] [facility] Last Admin: 11/03/19 18:08 Dose: 60 mls/hr Documented by: Insulin Human Lispro (Humalog Kwikpen (Bkc)) 0 unit SC ACHS [facility]; Protocol Last Admin: 11/04/19 06:56 Dose: 4 u Documented by: Ipratropium [place] (Atrovent) 0.5 mg INHALATION Q6HWA.RT [facility] Last Admin: 11/03/19 19:40 Dose: Not Given Documented by: Levothyroxine Sodium (Synthroid) 88 mcg PO DAILY@0600 [facility] Last Admin: 11/04/19 06:54 Dose: 88 mcg Documented by: Metoprolol Tartrate (Lopressor (Beta Nisha)) 25 mg PO BID [facility] Last Admin: 11/03/19 23:05 Dose: 25 mg Documented by: Nutritional Formula (Lactose Free) (Glucerna Shake) 120 ml PO 4X/DAY [facility] Last Admin: 11/03/19 23:12 Dose: Not Given Documented by: Ondansetron HCl (Zofran) 4 mg IV Q6H PRN PRN PRN Reason: NAUSEA/VOMITING Last Admin: 11/03/19 07:56 Dose: 4 mg Documented by: Oxycodone HCl (Oxyir) 5 - 10 mg PO Q4H PRN PRN PRN Reason: Pain Score 6-10/10 Last Admin: 11/01/19 16:46 Dose: 5 mg Documented by: Potassium Phos/Sodium Phos (Neutra-Phos Packet) 1 packet PO 4X/DAY [facility] Last Admin: 11/03/19 23:10 Dose: 1 packet Documented by: Sodium Chloride () 10 - 40 ml IV UD PRN PRN Reason: SALINE FLUSH Last Admin: 11/03/19 07:56 Dose: 10 ml Documented by: Tamoxifen Citrate (Nolvadex) 20 mg PO DAILY [facility] Last Admin: 11/03/19 10:34 Dose: 20 mg Documented by: Medical Necessity - Tobacco Use Smoking Status: Former smoker Assessment/Plan All Active Problems (Last Reviewed 10/30/19 @ 16:17 by Rekha Dumont DO) Acute pancreatitis (Acute) Cholecystitis with gangrene of gallbladder (Acute) H/O coronary artery bypass surgery (Resolved 06/25/18) Acute blood loss anemia (Resolved) Subcapital fracture of left femur (Resolved) Urinary retention (Resolved) 79-year-old female with acute cholecystitis/perforated gangrenous cholecystitis/ bile peritonitis, acute pancreatitis-resolved, postop day 3 laparoscopic cholecystectomy 1. Continue the IV Zosyn due to bile peritonitis/perforated gangrenous gallbladder, ID consulted recommend antibiotics until the 2. Steele to an ADA diet this morning 3. Continue pain control, encourage ambulation in the halls 4. Patient is able to be weaned from O2 tolerates diet would be okay for discharge today. Oly Avery M.D. Pager: [phone] [facility] [address] [place] [address], [facility], [address] [place] [address] Office: [phone]
[2019-11-04 07:30] VITALS: PULSE 80; RESP 20; O2SAT 98
[2019-11-04] MEDS: Ipratropium 0.5 MG/2.5 ML SOLUTION INHALATION ×2 (07:31→14:01)
[2019-11-04] MEDS: Potassium Chloride 10 MEQ in Dextrose 5%/0.9% NaCl 1,000 ML 60 MEQ IV (08:06)
[2019-11-04] MEDS: Fluticasone 0.05% 1 SPRAY NASAL.SRY NASAL (08:10)
[2019-11-04] MEDS: Citalopram 20 MG Tablet PO (08:10)
[2019-11-04] MEDS: Aspirin E.C. 81 MG Tablet PO (08:10)
[2019-11-04 08:11] VITALS: BP 143/69; PULSE 73
[2019-11-04] MEDS: Na Biphos/Potassium Phosphate PACKET 1 PACKET PO ×3 (08:11→17:49)
[2019-11-04] MEDS: Tamoxifen 10 MG Tablet 20 MG PO (08:11)
[2019-11-04] MEDS: Metoprolol Tartrate 25 MG Tablet PO (08:11)
[2019-11-04 08:16] VITALS: BP 143/69; PULSE 73; RESP 18; TEMP 36.6; O2SAT 99
--- NOTE | 2019-11-04 08:16 | NURSING ---
OXYGEN DC'D - WILL MONITOR O2 SAT
[2019-11-04 08:22] LABS: Absolute Lymphocyte Count 1.71 X10^3/uL (0.83-4.51); Absolute Neutrophil Count 9.9 X10^3/uL (2.0-7.7); Basophil# 0.07 X10^3/uL; Basophil% 0.5 % (0-1); Eosinophil# 0.19 X10^3/uL; Eosinophils% 1.4 % (0-5); Hematocrit 32.8 % (37-47); Hemoglobin 10.7 g/dL (12.0-15.0); Lymphocyte # 1.71 X10^3/ul (4.0); Mean Corp Hgb Conc 32.6 g/dL (32-36); Mean Corpuscular Volume 88.9 fL (81-99); Mean Platelet Vol. 10.6 fl (6.2-12.0); Monocyte# 1.19 X10^3/uL; Monocyte% 9.1 % (0-10); NRBC Flagged by Analyzer 0 % (0-5); Neutrophil # 9.86 X10^3/uL (2.7-7.7); Neutrophil % 75.2 % (47-70); Platelet Count 240 K/mm3 (150-450); RBC Distribution Width CV 12.9 % (11.6-14.6); RBC Distribution Width SD 42.5 fl (35.1-43.9); Red Blood Count 3.69 M/mm3 (4.2-5.4); White Blood Count 13.1 K/mm3 (4.4-11.0)
--- NOTE | 2019-11-04 10:33 | PCM.DC ---
- Discharge Diagnoses Current Active Problems: Current Active and Chronic Problems (Last Reviewed 10/30/19 @ 16:17 by Rekha Dumont DO) Acute pancreatitis (Acute) Cholecystitis with gangrene of gallbladder (Acute) Reason(s) for Visit for Discharge Instructions: Abdominal pain You will use the following diet at home:: Calorie/Carbohydrate Controlled (specify 1200, 1400, etc), Cardiac Your food should be the consistency of: Regular Your liquids should be the consistency of: Regular/Thin Discharge Activity: Return to Normal Activity Additional Instructions: Take note of changes to your medications. You are encouraged to continue to use your incentive spirometer. Follow-up with your primary care doctor within 1-2 weeks. Note changes to your medications. Your Onglyza has been stopped because it can be a cause of your pancreatitis. Your Levemir insulin has been decreased to 30 units. Follow-up with your primary care doctor to have that titrated up if your blood sugars remain uncontrolled. Allergies/Adverse Reactions: Allergies azithromycin [From Zithromax] Adverse Reaction (Verified 10/30/19 12:06) DOES NOT WORK-EVER FOR ME STATES JUST DOESNT WORK FOR ME Medications to take at Discharge Cholecalciferol (VIT D3) [Vitamin D3] 1,000 unit PO DAILY 08/26/16 Fluticasone 0.05% [Flonase Nasal [place]] 1 spray NASAL BID 08/26/16 Montelukast [Singulair] 10 mg PO DAILY 08/26/16 Omeprazole [Prilosec] 20 mg PO DAILY 08/26/16 Acetaminophen [Tylenol Tablet] 650 mg PO Q6H PRN PRN #0 tab 08/31/16 Iron Polysaccharide Complex [Ferrex 150] 150 mg PO DAILYCM #30 cap 09/11/16 aspirin 81 mg tablet,delayed release 81 mg PO QDAY #30 tab 05/19/18 tamoxifen 20 mg tablet 20 mg PO QDAY 05/19/18 atorvastatin 40 mg tablet 40 mg PO QHS tab 08/19/18 citalopram 20 mg tablet 20 mg PO DAILY 08/19/18 levothyroxine 88 mcg capsule 88 mcg PO DAILY 08/20/18 metoprolol tartrate 25 mg tablet 25 mg PO BID #180 tab 10/14/19 Fluticasone/Salmeterol [Advair Hfa 230-21 Mcg Inhaler] 2 puff IH DAILY 10/30/19 Insulin Aspart [Novolog Flexpen] See Protocol SUBCUT BREAKFAST 10/30/19 Tiotropium [place] [Spiriva 18 MCG] 1 puff INHALATION DAILY 10/30/19 Glucerna Shake 120 ml PO 4X/DAY #120 liquid 11/04/19 Insulin Detemir [Levemir (BKC)] 30 units SUBCUT DAILY #1 flexpen 11/04/19 Na Biphos/Potassium Phosphate [Neutra-Phos Packet] 1 packet PO 4X/DAY #8 packet 11/04/19 The following prescriptions were given: Glucerna Shake 120 ml PO 4X/DAY #120 liquid Transmission Status: Received by [id number] Insulin Detemir [Levemir (BKC)] 30 units SUBCUT DAILY #1 flexpen Transmission Status: Received by [id number] Na Biphos/Potassium Phosphate [Neutra-Phos Packet] 1 packet PO 4X/DAY #8 packet Transmission Status: Received by [id number] Primary Care Physician: Jez Hernandez MD [Primary Care Provider] - Please follow up with your Primary Care Physician in: within 1-2 weeks Test Results: Test results from this visit will be discussed in further detail at your follow-up appointment, if applicable. Please Follow Up With: Oly Avery MD When: in 2 weeks Proposed Discharge Date: 11/04/19
--- NOTE | 2019-11-04 10:38 | DS.PCM_ITS ---
Discharge Date and Diagnosis - Problem List Patient Problems: Active and Suspected Problems (Last Reviewed 10/30/19 @ 16:17 by Rekha Dumont DO) Acute pancreatitis (Acute) Cholecystitis with gangrene of gallbladder (Acute) Date of Admission: 10/30/19 Date of Discharge: 11/04/19 - Primary Discharge Diagnosis Active and Suspected Problems (Last Reviewed 10/30/19 @ 16:17 by Rekha Dumont DO) Acute pancreatitis (Acute) Cholecystitis with gangrene of gallbladder (Acute) - Secondary Discharge Diagnosis Chronic Problems (Last Reviewed 10/30/19 @ 16:17 by Rekha Dumont DO) Atherosclerosis of coronary artery of [place] heart without angina pectoris (Chronic) CABG x 4 MATTHEW-LAD, SVG-D1, SVG-PDA, SVG-RPLB 06/25/18 Hyperlipidemia (Chronic) Hospital Course and Treatment Imaging Results: Clinical Impression(s) from Imaging Studies Abdomen/Pelvis CT 10/30/19 12:39 Abdomen Ultrasound 10/30/19 15:12 IMPRESSION: Dilated gallbladder with positive sonographic [place] and surrounding pericholecystic fluid as well as gallbladder sludge with wall thickening. Findings are suggestive of acute cholecystitis. Hypoechoic area in the region of head of the pancreas. Echogenic pancreas. Possible pancreatitis. Electronically Signed: Fab Jenkins DO at 18:49 EST Tel , Service support , KUB X-Ray 10/31/19 08:50 IMPRESSION: Normal x-ray examination of the abdomen and pelvis. Electronically Signed: Waldo Reynoso MD at 13:26 EST Tel , Service support , Chest X-Ray 10/31/19 16:35 IMPRESSION: Mild pulmonary edema of the right lower lobe Electronically Signed: Diogenes Mcdonald MD at 21:48 EST , Service support , Chest X-Ray 11/01/19 05:55 IMPRESSION: Mild bibasilar subsegmental atelectasis versus infiltrate, improved on the right and new since prior on the left. No evidence of pulmonary vascular congestion. Prior left upper lung surgery. Electronically Signed: Elmo Lan MD at 9:44 EST Tel [phone], Service support , KUB X-Ray 11/03/19 07:12 IMPRESSION: Mild gaseous distention of nondependent portions of the colon and small bowel without substantial stool collection. Findings are compatible with a nonobstructive ileus. Electronically Signed: Marlena Medina MD at 19:54 EST , Service support , Chest X-Ray 11/03/19 07:19 IMPRESSION: No acute cardiopulmonary process. Electronically Signed: Isela Alston MD at 22:21 EST Tel , Service support , ID General surgery Operations: cholecystecomy - laparoscopic cystectomy done on 10/31/29, - - right lumpectomy SLNBx Procedures: None Summary of Care Provided: The patient is a 79 year old F has medical history of CAD status post CABG, hypertension, hyperlipidemia, hypothyroidism who was admitted with abdominal pain. Her pain has started in the right upper quadrant and epigastric region and later became diffuse. It was constant with no relieving factors. This radiated to her back. CT of the abdomen and pelvis showed pancreatitis. Her a dmitting lipase was 35,323. Her liver function tests was within normal limits. Patient denied any use of alcohol. [facility] and started on IV fluids. Her lipase was trending down. Upper quadrant ultrasound showed acute cholecystitis with normal caliber common bile duct, diffuse atrophy of the pancreas with a hypoechoic area adjacent to the pancreas. Patient had progressive pain 10 out of 10. General surgery was consulted. Patient underwent laparoscopic cholecystectomy and findings intraoperatively showed acute perforated gangrenous cholecystitis, gallstone pancreatitis. Postoperatively, patient continued to improve. She was on oxygen for short while and that was weaned off. She was continued on IV Zosyn. ID was consulted. Patient completed antibiotics on 11/04/19. Her surgical drains were removed. She was able to ambulate. Patient Problems: Active and Suspected Problems (Last Reviewed 10/30/19 @ 16:17 by Zenia Clarke) Acute pancreatitis (Acute) Cholecystitis with gangrene of gallbladder (Acute) Subjective: On the day of discharge, patient was seen and examined. Denied any new compl aints. No fevers or chills. Objective: Physical exam: General: Alert, Oriented x3, Cooperative, No apparent distress, - - On 2 L of oxygen HEENT: Atraumatic, PERRLA, EOMI, Normocephalic Oral: Moist Mucosa Neck: Supple Lungs: Diminished - at the lung bases Cardiovascular: Regular rate, Regular Rhythm, Normal S1, Normal S2, No murmurs Abdomen: Bowel Sounds Present, Soft, Non-Distended, No Hepato-splenomegaly, Tender - Over the right upper quadrant, dressing in place Extremities: No edema Skin: No rashes Musculoskeletal: No Tenderness to Palpation of Joints or Extremities Lymphatic: No Cervical, Supraclavicular, or Inguinal Adenopathy Neurological: Cranial nerves II-XII grossly intact, Neuro grossly intact Psych/Mental Status: Normal Affect, Appropriate - Physical Exam Vitals/I&O's: Vital Signs Temp Pulse Resp BP Pulse Ox 97.9 F 73 18 143/69 H 99 11/04/19 08:16 11/04/19 08:16 11/04/19 08:16 11/04/19 08:16 11/04/19 08:16 Oxygen Flow Rate (L/min) 1 Oxygen Delivery Method Nasal Cannula Weight: 69.6 kg Body Mass Index (BMI) 29.5 Finger Stick Blood Glucose 188 Intake and Output for Last 24 Hours 11/02/19 11/03/19 11/04/19 23:59 23:59 23:59 Intake Total 2994.58 / 2994.58 1550.5 / 1550.5 988 / 988 Output Total 1888 / 1888 1010 / 1010 Balance 1106.58 / 1106.58 540.5 / 540.5 988 / 988 Laboratory Results 11/03/19 11:43: POC Glucose 267 H 11/03/19 13:35: Urine Color Yellow, Urine Clarity Clear, Urine pH 6.0, Ur Specific [place] 1.010, Urine Protein 100 H, Urine Glucose (UA) 1000 H, Urine Ketones Negative, Urine Occult Blood 25 H, Urine Nitrite Negative, Urine Bilirubin Negative, Urine Urobilinogen Normal, Ur Leukocyte Esterase Negative, Urine RBC 0 SEEN, Urine WBC 0 SEEN, Ur Squamous Epith Cells 0-5 SEEN, Urine Bacteria 0 SEEN, Urine Mucus 0 SEEN 11/03/19 16:18: POC Glucose 259 H 11/03/19 23:21: POC Glucose 230 H 11/04/19 05:25: Sodium 141, Potassium 3.6, Chloride 109 H, Carbon Dioxide 27.0, BUN 13, Creatinine 1.22 H, Estim Creat Clear Calc 27.30, Est GFR (MDRD) Af Amer 55 L, Est GFR (MDRD) Non-Af 45 L, BUN/Creatinine Ratio 10.7, Glucose 225 H, Calcium 7.6 L, Phosphorus 1.7 L, Albumin 1.9 L 11/04/19 05:25: WBC 13.1 H, RBC 3.69 L, Hgb 10.7 L, Hct 32.8 L, MCV 88.9, MCH 29.0, MCHC 32.6, RDW Std Deviation 42.5, RDW Coeff of Katelyn 12.9, Plt Count 240, MPV 10.6, Immature Gran % (Auto) 0.800, Neut % (Auto) 75.2 H, Lymph % (Auto) 13.0 L, [place] % (Auto) 9.1, Eos % (Auto) 1.4, Baso % (Auto) 0.5, Absolute Neuts (auto) 9.9 H, Absolute Lymphs (auto) 1.71, Nucleated RBC % 0 11/04/19 06:55: POC Glucose 218 H Current Medications Acetaminophen (Tylenol) 650 mg PO Q6H PRN PRN PRN Reason: Pain Score 1-3/10 Last Admin: 11/01/19 07:14 Dose: 650 mg Documented by: [facility]ir[facility] (Ecot[facility]) [facility] Last Admin: 11/04/19 08:10 Dose: 81 mg Documented by: Atorvastatin Calcium (Lipitor) 40 mg PO QHS [facility] Last Admin: 11/03/19 23:05 Dose: 40 mg Documented by: Citalopram Hydrobromide (Celexa) 20 mg PO DAILY [facility] Last Admin: 11/04/19 08:10 Dose: 20 mg Documented by: Fluticasone Propionate (Flonase Nasal [place]) 1 spray NASAL BID [facility] Last Admin: 11/04/19 08:10 Dose: 1 spray Documented by: Glucagon () 1 mg IM .X1 PRN PRN Reason: Hypoglycemia Heparin Sodium (Porcine) (Heparin Na) 5,000 unit SC Q12 [facility] Last Admin: 11/03/19 23:04 Dose: 5,000 unit Documented by: Hydralazine HCl (Apresoline Iv) 5 mg IV Q6H PRN PRN PRN Reason: SBP GREATER THAN 170 Sodium Chloride () 250 mls @ 15 mls/hr IV .[id number] PRN PRN Reason: Saline Flush Last Admin: 11/04/19 08:07 Dose: 15 mls/hr Documented by: Sodium Chloride () 250 mls @ 15 mls/hr IV .[id number] PRN PRN Reason: Additional IVPB Infusion Piperacillin Sod/Tazobactam (Sod 3.375 gm/ Sodium Chloride) 50 mls @ 12.5 mls/hr IV Q12 [facility] Stop: 11/04/19 13:59 Last Infusion: 11/04/19 03:13 Dose: Infused Documented by: Dextrose (Dextrose 10%-Water) 250 mls @ 999 mls/hr IV .Q16M PRN; Protocol PRN Reason: HYPOGLYCEMIA Potassium Chloride 10 meq/ (Dextrose/Sodium Chloride) 1,005 mls @ 60 mls/hr IV .[id number] [facility] Last Admin: 11/04/19 08:06 Dose: 60 mls/hr Documented by: Piperacillin Sod/Tazobactam (Sod 3.375 gm/ Sodium Chloride) 50 mls @ 100 mls/hr IV X1 ONE Stop: 11/04/19 18:29 Insulin Human Lispro (Humalog Kwikpen (Bkc)) 0 unit SC ACHS [facility]; Protocol Last Admin: 11/04/19 06:56 Dose: 4 u Documented by: Ipratropium [place] (Atrovent) 0.5 mg INHALATION Q6HWA.RT [facility] Last Admin: 11/04/19 07:31 Dose: 0.5 mg Documented by: Levothyroxine Sodium (Synthroid) 88 mcg PO DAILY@0600 [facility] Last Admin: 11/04/19 06:54 Dose: 88 mcg Documented by: Metoprolol Tartrate (Lopressor (Beta Nisha)) 25 mg PO BID [facility] Last Admin: 11/04/19 08:11 Dose: 25 mg Documented by: Nutritional Formula (Lactose Free) (Glucerna Shake) 120 ml PO 4X/DAY [facility] Last Admin: 11/04/19 08:11 Dose: Not Given Documented by: Ondansetron HCl (Zofran) 4 mg IV Q6H PRN PRN PRN Reason: NAUSEA/VOMITING Last Admin: 11/03/19 07:56 Dose: 4 mg Documented by: Oxycodone HCl (Oxyir) 5 - 10 mg PO Q4H PRN PRN PRN Reason: Pain Score 6-10/10 Last Admin: 11/01/19 16:46 Dose: 5 mg Documented by: Pantoprazole Sodium (Protonix) 40 mg PO DAILY [facility] Potassium Phos/Sodium Phos (Neutra-Phos Packet) 1 packet PO 4X/DAY [facility] Last Admin: 11/04/19 08:11 Dose: 1 packet Documented by: Sodium Chloride () 10 - 40 ml IV UD PRN PRN Reason: SALINE FLUSH Last Admin: 11/03/19 07:56 Dose: 10 ml Documented by: Tamoxifen Citrate (Nolvadex) 20 mg PO DAILY [facility] Last Admin: 11/04/19 08:11 Dose: 20 mg Documented by: Discharge Diet: Low fat/ Low Cholesterol, 2000 mg Sodium Diet, Carb Control Diet Discharge Activity: Return to Normal Activity Home Medications: Medications to take at Discharge Cholecalciferol (VIT D3) [Vitamin D3] 1,000 unit PO DAILY 08/26/16 Fluticasone 0.05% [Flonase Nasal [place]] 1 spray NASAL BID 08/26/16 Montelukast [Singulair] 10 mg PO DAILY 08/26/16 Omeprazole [Prilosec] 20 mg PO DAILY 08/26/16 Acetaminophen [Tylenol Tablet] 650 mg PO Q6H PRN PRN #0 tab 08/31/16 Iron Polysaccharide Complex [Ferrex 150] 150 mg PO DAILYCM #30 cap 09/11/16 aspirin 81 mg tablet,delayed release 81 mg PO QDAY #30 tab 05/19/18 tamoxifen 20 mg tablet 20 mg PO QDAY 05/19/18 atorvastatin 40 mg tablet 40 mg PO QHS tab 08/19/18 citalopram 20 mg tablet 20 mg PO DAILY 08/19/18 levothyroxine 88 mcg capsule 88 mcg PO DAILY 08/20/18 metoprolol tartrate 25 mg tablet 25 mg PO BID #180 tab 10/14/19 Fluticasone/Salmeterol [Advair Hfa 230-21 Mcg Inhaler] 2 puff IH DAILY 10/30/19 Insulin Aspart [Novolog Flexpen] See Protocol SUBCUT BREAKFAST 10/30/19 Tiotropium [place] [Spiriva 18 MCG] 1 puff INHALATION DAILY 10/30/19 Glucerna Shake 120 ml PO 4X/DAY #120 liquid 11/04/19 Insulin Detemir [Levemir (BKC)] 30 units SUBCUT DAILY #1 flexpen 11/04/19 Na Biphos/Potassium Phosphate [Neutra-Phos Packet] 1 packet PO 4X/DAY #8 packet 11/04/19 Following Prescrptions Were Given to Patient: Glucerna Shake 120 ml PO 4X/DAY #120 liquid Transmission Status: Received by [id number] Insulin Detemir [Levemir (BKC)] 30 units SUBCUT DAILY #1 flexpen Transmission Status: Received by [id number] Na Biphos/Potassium Phosphate [Neutra-Phos Packet] 1 packet PO 4X/DAY #8 packet Transmission Status: Received by [id number] Primary Care Physician: Jez Hernandez MD [Primary Care Provider] - Please follow up with your Primary Care Physician in: within 1-2 weeks Please Follow Up With: Oly Avery MD When: in 2 weeks Disposition: Home with Home Health Minutes spent on discharge:: 40 Patient Condition:: Stable Medical Necessity - Tobacco Use Smoking Status: Former smoker Tobacco Use: Non-smoker Meaningful Use Info Meaningful Use Diagnoses (Choose all that apply): None applicable Code Visit Inpatient E&M: 51364 Disch Hosp
--- NOTE | 2019-11-04 11:04 | CASEMGMT ---
YANIV SANTOS in to confirm discharge needs with patient. Patient states that [facility] has already called her to confirm start of care. Patient denies further needs at this time. YANIV SANTOS updated [facility] of patient planned discharge, [facility] confimed start of care over the weekend.
[2019-11-04 11:56] LABS: Bedside Glucose 245 mg/dL (70-110)
[2019-11-04] MEDS: Heparin Injection (Vial) 5,000 UNIT/ML VIAL 5000 UNIT SC (12:17)
[2019-11-04] MEDS: Pantoprazole Sodium 40 MG Tablet PO (12:17)
--- NOTE | 2019-11-04 13:48 | PN.ID_ITS ---
Patient Problems: Active and Suspected Problems (Last Reviewed 10/30/19 @ 16:17 by Rekha Dumont DO) Acute pancreatitis (Acute) Cholecystitis with gangrene of gallbladder (Acute) Subjective: Feeling well, no fever, no abd pain, no nausea. Little appetite. - Physical Exam Vitals/I&O's: Vital Signs Temp Pulse Resp BP Pulse Ox 97.9 F 73 18 143/69 H 99 11/04/19 08:16 11/04/19 08:16 11/04/19 08:16 11/04/19 08:16 11/04/19 08:16 Oxygen Flow Rate (L/min) 1 Oxygen Delivery Method Nasal Cannula Weight: 69.6 kg Body Mass Index (BMI) 29.5 Finger Stick Blood Glucose 188 Intake and Output for Last 24 Hours 11/02/19 11/03/19 11/04/19 23:59 23:59 23:59 Intake Total 2994.58 / 2994.58 1550.5 / 1550.5 1392.5 / 1392.5 Output Total 1888 / 1888 1010 / 1010 Balance 1106.58 / 1106.58 540.5 / 540.5 1392.5 / 1392.5 General: Alert, Cooperative, No apparent distress Lungs: Clear to auscultation, Normal air movement Cardiovascular: Regular rate, Regular Rhythm Abdomen: Soft, Non Tender, Non-Distended Skin: No rashes, Incision Laboratory Results 11/03/19 11:43: POC Glucose 267 H 11/03/19 13:35: Urine Color Yellow, Urine Clarity Clear, Urine pH 6.0, Ur Specific [place] 1.010, Urine Protein 100 H, Urine Glucose (UA) 1000 H, Urine Ketones Negative, Urine Occult Blood 25 H, Urine Nitrite Negative, Urine Bilirubin Negative, Urine Urobilinogen Normal, Ur Leukocyte Esterase Negative, Urine RBC 0 SEEN, Urine WBC 0 SEEN, Ur Squamous Epith Cells 0-5 SEEN, Urine Bacteria 0 SEEN, Urine Mucus 0 SEEN 11/03/19 16:18: POC Glucose 259 H 11/03/19 23:21: POC Glucose 230 H 11/04/19 05:25: Sodium 141, Potassium 3.6, Chloride 109 H, Carbon Dioxide 27.0, BUN 13, Creatinine 1.22 H, Estim Creat Clear Calc 27.30, Est GFR (MDRD) Af Amer 55 L, Est GFR (MDRD) Non-Af 45 L, BUN/Creatinine Ratio 10.7, Glucose 225 H, Calcium 7.6 L, Phosphorus 1.7 L, Albumin 1.9 L 11/04/19 05:25: WBC 13.1 H, RBC 3.69 L, Hgb 10.7 L, Hct 32.8 L, MCV 88.9, MCH 29.0, MCHC 32.6, RDW Std Deviation 42.5, RDW Coeff of Katelyn 12.9, Plt Count 240, MPV 10.6, Immature Gran % (Auto) 0.800, Neut % (Auto) 75.2 H, Lymph % (Auto) 13.0 L, [place] % (Auto) 9.1, Eos % (Auto) 1.4, Baso % (Auto) 0.5, Absolute Neuts (auto) 9.9 H, Absolute Lymphs (auto) 1.71, Nucleated RBC % 0 11/04/19 06:55: POC Glucose 218 H 11/04/19 11:50: POC Glucose 245 H Current Medications Acetaminophen (Tylenol) 650 mg PO Q6H PRN PRN PRN Reason: Pain Score 1-3/10 Last Admin: 11/01/19 07:14 Dose: 650 mg Documented by: [facility] ([facility]) [facility] Last Admin: 11/04/19 08:10 Dose: 81 mg Documented by: Atorvastatin Calcium (Lipitor) 40 mg PO QHS [facility] Last Admin: 11/03/19 23:05 Dose: 40 mg Documented by: Citalopram Hydrobromide (Celexa) 20 mg PO DAILY [facility] Last Admin: 11/04/19 08:10 Dose: 20 mg Documented by: Fluticasone Propionate (Flonase Nasal [place]) 1 spray NASAL BID [facility] Last Admin: 11/04/19 08:10 Dose: 1 spray Documented by: Glucagon () 1 mg IM .X1 PRN PRN Reason: Hypoglycemia Heparin Sodium (Porcine) (Heparin Na) 5,000 unit SC Q12 [facility] Last Admin: 11/04/19 12:17 Dose: 5,000 unit Documented by: Hydralazine HCl (Apresoline Iv) 5 mg IV Q6H PRN PRN PRN Reason: SBP GREATER THAN 170 Sodium Chloride () 250 mls @ 15 mls/hr IV .[id number] PRN PRN Reason: Saline Flush Last Infusion: 11/04/19 11:45 Dose: 0 mls/hr Documented by: Sodium Chloride () 250 mls @ 15 mls/hr IV .[id number] PRN PRN Reason: Additional IVPB Infusion Piperacillin Sod/Tazobactam (Sod 3.375 gm/ Sodium Chloride) 50 mls @ 12.5 mls/hr IV Q12 [facility] Stop: 11/04/19 13:59 Last Admin: 11/04/19 11:43 Dose: 12.5 mls/hr Documented by: Dextrose (Dextrose 10%-Water) 250 mls @ 999 mls/hr IV .Q16M PRN; Protocol PRN Reason: HYPOGLYCEMIA Potassium Chloride 10 meq/ (Dextrose/Sodium Chloride) 1,005 mls @ 60 mls/hr IV .[id number] [facility] Last Admin: 11/04/19 08:06 Dose: 60 mls/hr Documented by: Piperacillin Sod/Tazobactam (Sod 3.375 gm/ Sodium Chloride) 50 mls @ 100 mls/hr IV X1 ONE Stop: 11/04/19 18:29 Insulin Human Lispro (Humalog Kwikpen (Bkc)) 0 unit SC ACHS [facility]; Protocol Last Admin: 11/04/19 12:18 Dose: 4 u Documented by: Ipratropium [place] (Atrovent) 0.5 mg INHALATION Q6HWA.RT [facility] Last Admin: 11/04/19 07:31 Dose: 0.5 mg Documented by: Levothyroxine Sodium (Synthroid) 88 mcg PO DAILY@0600 [facility] Last Admin: 11/04/19 06:54 Dose: 88 mcg Documented by: Metoprolol Tartrate (Lopressor (Beta Nisha)) 25 mg PO BID [facility] Last Admin: 11/04/19 08:11 Dose: 25 mg Documented by: Nutritional Formula (Lactose Free) (Glucerna Shake) 120 ml PO 4X/DAY [facility] Last Admin: 11/04/19 08:11 Dose: Not Given Documented by: Ondansetron HCl (Zofran) 4 mg IV Q6H PRN PRN PRN Reason: NAUSEA/VOMITING Last Admin: 11/03/19 07:56 Dose: 4 mg Documented by: Oxycodone HCl (Oxyir) 5 - 10 mg PO Q4H PRN PRN PRN Reason: Pain Score 6-10/10 Last Admin: 11/01/19 16:46 Dose: 5 mg Documented by: Pantoprazole Sodium (Protonix) 40 mg PO DAILY [facility] Last Admin: 11/04/19 12:17 Dose: 40 mg Documented by: Potassium Phos/Sodium Phos (Neutra-Phos Packet) 1 packet PO 4X/DAY [facility] Last Admin: 11/04/19 08:11 Dose: 1 packet Documented by: Sodium Chloride () 10 - 40 ml IV UD PRN PRN Reason: SALINE FLUSH Last Admin: 11/03/19 07:56 Dose: 10 ml Documented by: Tamoxifen Citrate (Nolvadex) 20 mg PO DAILY [facility] Last Admin: 11/04/19 08:11 Dose: 20 mg Documented by: Medical Necessity - Tobacco Use Smoking Status: Former smoker Route of nutrition/ use of supplements: [] Nutritional Intake: [] IV Site: [] Concepcion Catheter: [] - Assessment/Plan Antibiotics: [] Assessment/Plan: [] Active and Suspected Problems (Last Reviewed 10/30/19 @ 16:17 by Rekha Dumont DO) Acute pancreatitis (Acute) gangrenous cholecystitis, now s/p lap david by Dr. Avery 10/31. Feeling better, wbc much improved. Has had good source control, but given complicated infection and concern for peritonitis, plan on 4 days of iv abx post-op, planned stop date 11/04. Ok for discharge today from ID perspective. Will follow as needed
[2019-11-04 14:00] VITALS: BP 135/70; PULSE 78; RESP 18; TEMP 36.7; O2SAT 96
[2019-11-04 14:06] VITALS: PULSE 73; RESP 20
[2019-11-04 17:05] LABS: Bedside Glucose 252 mg/dL (70-110)
== END 2019-11-04 19:32 | disposition home health service (06) | DRG 417 ==
LOC: ED 14:47 → MS3 15:30
PROVIDERS: Internal Medicine; Surgery; Admitting Provider Internal Medicine; Emergency Provider Emergency Medicine; Family Provider Family Medicine; PCP Family Medicine; Referring Provider Internal Medicine; Visit Provider Internal Medicine
PROC: 0FT44ZZ Resection of Gallbladder, Percutaneous Endoscopic Approach (ICD-10-PCS; CPT 47610; principal; 2019-10-31 12:15)
DX: K81.0 Acute cholecystitis (principal); K85.10 Biliary acute pancreatitis without necrosis or infection; K82.A2 Perforation of gallbladder in cholecystitis; N17.9 Acute kidney failure, unspecified; K82.A1 Gangrene of gallbladder in cholecystitis; E03.9 Hypothyroidism, unspecified; K21.9 Gastro-esophageal reflux disease without esophagitis; E11.22 Type 2 diabetes mellitus with diabetic chronic kidney disease; N18.3 Chronic kidney disease, stage 3 (moderate); I12.9 Hypertensive chronic kidney disease with stage 1 through stage 4 chronic kidney disease, or unspecified chronic kidney disease; E78.5 Hyperlipidemia, unspecified; I25.10 Atherosclerotic heart disease of native coronary artery without angina pectoris; C50.919 Malignant neoplasm of unspecified site of unspecified female breast; Z87.891 Personal history of nicotine dependence; Z85.118 Personal history of other malignant neoplasm of bronchus and lung; Z79.810 Long term (current) use of selective estrogen receptor modulators (SERMs); Z79.4 Long term (current) use of insulin; Z95.1 Presence of aortocoronary bypass graft
CPT/HCPCS: 36415; 71045; 74018; 74176; 76705; 80048; 80053; 80061; 80069; 80076; 81001; 82962; 83036; 83690; 83735; 84100; 84443; 85025; 85027; 85610; 85730; 88304; 93005; 94640; 94667; 97116; 97162; 97166; 97530; 97535; 99251; 99284; J7030; J7050; J7120; A4216; G0463; J1940; J2405

== ENCOUNTER → 2020-08-28 13:33 | Outpatient (CLI) | payer MEDICARE, OTHER, SELFPAY ==
[2020-02-10 10:56] VITALS: BMI 26.4
[2020-08-28 15:06] LABS: Hematocrit 35.7 % (37-47); Hemoglobin 11.4 g/dL (12.0-15.0); Mean Corp Hgb Conc 31.9 g/dL (32-36); Mean Corpuscular Hgb 29.6 pg (27.0-32.0); Mean Corpuscular Volume 92.7 fL (81-99); Mean Platelet Vol. 10.6 fl (6.2-12.0); Platelet Count 303 K/mm3 (150-450); RBC Distribution Width CV 12.6 % (11.6-14.6); RBC Distribution Width SD 42.8 fl (35.1-43.9); Red Blood Count 3.85 M/mm3 (4.2-5.4); White Blood Count 9.4 K/mm3 (4.4-11.0)
[2020-08-28 15:20] LABS: Vitamin D,25 Hydroxy 40.4 ng/mL
[2020-08-28 15:29] LABS: ALB/GLOB Ratio 0.9 RATIO (0.9-2.4); AST(SGOT) 18 U/L (15-37); Alanine Aminotransfer ALT/SGPT 22 U/L (13-56); Albumin, Serum 3.2 g/dL (3.2-5.0); Alkaline Phosphatase 91 U/L (45-117); Anion Gap 8 (5-15); BUN 23 mg/dL (7-18); BUN/Creat Ratio 15.2 RATIO (10-20); Calcium,Total 9.2 mg/dL (8.5-10.1); Chloride 104 mmol/L (98-107); Cholesterol 150 mg/dL (200); Creatinine, Serum 1.51 mg/dL (0.55-1.02); EST Glomerular Filtration Rate 35 mL/min (>60); Est Glom Filt Rate - Afr Amer 43 mL/min (>60); Globulin 3.4 g/dL (2.2-4.2); Glucose 314 mg/dL (74-106); High Density Lipoprotein 83 mg/dL; Potassium 4.8 mmol/L (3.5-5.1); Protein, Total 6.6 g/dL (6.4-8.2); Sodium Level 135 mmol/L (136-145); Thyroid Stim Hormone (TSH) 1.87 uIU/mL (0.358-3.74); Triglycerides 138 mg/dL; Very Low Density Lipoprotein 28 mg/dL (5-40)
== END ==
PROVIDERS: PCP Family Medicine; Referring Provider Family Medicine; Visit Provider Family Medicine
DX: R53.83 Other fatigue (principal); E11.9 Type 2 diabetes mellitus without complications; E03.9 Hypothyroidism, unspecified; E55.9 Vitamin D deficiency, unspecified
CPT/HCPCS: 36415; 80053; 80061; 82306; 84443; 85027

== ENCOUNTER 2020-09-27 15:32 | Emergency (ER) | payer MEDICARE, OTHER, SELFPAY ==
[2020-02-10 10:56] VITALS: BMI 26.4
[2020-09-27] VITALS (7 sets, daily range): BP systolic 110–126; BP diastolic 54–63; PULSE 71–79; RESP 11–18; TEMP 36.3; O2SAT 96–100; BMI 29.8
[2020-09-27 16:51] LABS: Bedside Glucose 59 mg/dL (70-110)
[2020-09-27] MEDS: dexAMETHasone 10 MG/ML Vial IV (17:29)
[2020-09-27 17:35] LABS: Absolute Lymphocyte Count 2.56 X10^3/uL (0.83-4.51); Absolute Neutrophil Count 5.7 X10^3/uL (2.0-7.7); Basophil# 0.14 X10^3/uL; Basophil% 1.2 % (0-1); Eosinophils% 20.5 % (0-5); Hematocrit 35.9 % (37-47); Hemoglobin 11.6 g/dL (12.0-15.0); Lymphocyte # 2.56 X10^3/ul (4.0); Lymphocyte % 21.1 % (19-41); Mean Corp Hgb Conc 32.3 g/dL (32-36); Mean Corpuscular Hgb 29.7 pg (27.0-32.0); Mean Corpuscular Volume 92.1 fL (81-99); Mean Platelet Vol. 10.2 fl (6.2-12.0); Monocyte# 1.15 X10^3/uL; Monocyte% 9.5 % (0-10); NRBC Flagged by Analyzer 0 % (0-5); Neutrophil # 5.74 X10^3/uL (2.7-7.7); Neutrophil % 47.4 % (47-70); POSITIVE DIFFERENTIAL YES; Platelet Count 262 K/mm3 (150-450); RBC Distribution Width CV 12.7 % (11.6-14.6); RBC Distribution Width SD 42.4 fl (35.1-43.9); White Blood Count 12.1 K/mm3 (4.4-11.0)
[2020-09-27 17:35] LABS: Bedside Glucose 107 mg/dL (70-110)
--- NOTE | 2020-09-27 17:45 | RAD_ITS ---
STUDY: X-RAY CHEST REASON FOR EXAM: Female, 80 years old. C/O SOB, COUGH FOR 3-4 WEEKS, PT WAS PLACED ON PREDNISONE 2 WEEKS AGO FOR ALLERGIES. C/O CONGESTION and amp; FATIGUE. TECHNIQUE: Single AP portable view of the chest. COMPARISON: 11/03/2019. FINDINGS: The lungs are clear and expanded. Prior surgery to the left upper lobe. There is no demonstrated pleural abnormality. Normal size heart. Sternotomy wires are present. Normal mediastinum and lon. Normal visualized pulmonary arteries. Normal visualized aortic arch and descending thoracic aorta. Old healed left rib fracture versus thoracotomy defect. Soft tissues and bony structures are otherwise unremarkable. RAD/Chest 1 View (Portable) IMPRESSION: No acute findings. Electronically Signed: Candy Mayorga MD at 19:15 EST Tel , Service support ,
[2020-09-27 17:52] LABS: ALB/GLOB Ratio 0.9 RATIO (0.9-2.4); AST(SGOT) 22 U/L (15-37); Alanine Aminotransfer ALT/SGPT 26 U/L (13-56); Albumin, Serum 3.2 g/dL (3.2-5.0); Alkaline Phosphatase 80 U/L (45-117); Anion Gap 4 (5-15); BUN 27 mg/dL (7-18); BUN/Creat Ratio 15.3 RATIO (10-20); Calcium,Total 9.2 mg/dL (8.5-10.1); Chloride 111 mmol/L (98-107); Creatinine, Serum 1.77 mg/dL (0.55-1.02); EST Glomerular Filtration Rate 29 mL/min (>60); Est Glom Filt Rate - Afr Amer 36 mL/min (>60); Estimated Creatinine Clearance 18.51 ml/min; Globulin 3.6 g/dL (2.2-4.2); Glucose 108 mg/dL (74-106); Potassium 5.1 mmol/L (3.5-5.1); Protein, Total 6.8 g/dL (6.4-8.2); Sodium Level 140 mmol/L (136-145)
[2020-09-27] MEDS: Ipratropium/Albuterol Sulfate 3 ML AMPUL.NEB INHALATION (17:56)
[2020-09-27] MEDS: Albuterol 2.5 MG/3 ML VIAL.NEB. INHALATION (17:56)
[2020-09-27 17:58] LABS: Eosinophil# 2.49 X10^3/uL
[2020-09-27 17:59] LABS: Differential Indicated SCAN CRITERIA MET
[2020-09-27 18:06] LABS: Anisocytosis RARE; Macrocytosis RARE; Platelet Estimate ADEQUATE (ADEQ); Red Cell Morphology N CHROM NORMAL (NORM C&C)
--- NOTE | 2020-09-27 18:09 | ED.VIS.GEN ---
History of Present Illness Chief Complaint: Shortness of Breath Informant: Patient, Family Onset: Weeks - Onset of illness 3 to 4 weeks Context: Sudden Onset Timing: Continuous Quality: Shortness of breath, dyspnea exertion and wheezing Location: Respiratory Current Severity: Mild Maximum Severity: Severe Worsened by: Cough, exertion Relieved by: Better after burst of prednisone Associated Symptoms: No constitutional symptoms, no URI symptoms and no chest pain Narrative: Patient is a 80-year-old woman with history of asthma/COPD who presents with shortness of breath, wheezing, dyspnea on exertion for the past 3 to 4 weeks. She completed a 5-day burst of prednisone approximately 1 to 2 weeks ago. She states she got better but did not have returned to baseline. She denies headache. Denies visual, ocular auditory symptoms. She denies rhinorrhea, congestion or postnasal drainage. Denies sore throat. She denies exposure to anyone with Covid to her knowledge. She denies nausea, vomiting diarrhea. She denies leg pain, swelling discoloration. She has not noted a rash. Prior similar symptoms: Yes Recent Illness/Hospitalization: Yes - Past Medical History (1) History of COPD Status: Chronic (2) Atherosclerosis of coronary artery of circle heart without angina pectoris Status: Chronic (3) Breast cancer Status: Chronic (4) Hyperlipidemia Status: Chronic (5) Lung cancer Status: Chronic (6) H/O coronary artery bypass surgery Status: Resolved Comment: CABG x 4 MATTHEW-LAD, SVG-D1, SVG-PDA, SVG-RPLB 06/25/18 @ [facility] Past Medical History - Allergies and Home Meds Allergies/Adverse Reactions: Allergies azithromycin [From Zithromax] Adverse Reaction (Verified 02/10/20 10:57) DOES NOT WORK-EVER FOR ME STATES JUST DOESNT WORK FOR ME Primary Care Physician: Jez Hernandez MD [Primary Care Provider] - Prior records reviewed: Yes Surgical History: appendectomy, hysterectomy, - Lives: Alone Smoking Status: Never smoker Alcohol: None Drugs: None - Family History Paternal Family History: Family History (Last Reviewed 02/10/20 @ 11:[address] Magnus Mcarthur MD) Father Heart disease Family History: Reports: Heart Disease Maternal Family History: Family History (Last Reviewed 02/10/20 @ 11:[address] Magnus Mcarthur MD) Father Heart disease Family History: Reports: - - Noncontributory Review of Systems General: Denies: Chills, Fever, Malaise, Subjective, Sweats Eyes: Denies: Visual changes - bilaterally, Blurred Vision - bilaterally ENT: Denies: Bilateral ear pain, Rhinorrhea, Sore throat Cardiovascular: Denies: Chest pain, Palpitations Respiratory: Reports: Dyspnea, Cough, Dyspnea on exertion. Denies: Sputum, Orthopnea, Paroxysmal nocturnal dyspnea Gastrointestinal: Denies: Abdominal pain, Nausea, Vomiting, Diarrhea, Melena, Hematochezia Genitourinary: Denies: Dysuria, Hematuria, Frequency Musculoskeletal: Denies: Myalgias, Arthralgias, Neck pain, Back pain, Swelling, Extremity Pain, -, - Skin: Denies: Rash, Wounds Neurological: Denies: Headache, Parasthesia, Numbness Endocrine: Denies: Polyuria, Polydipsia Hematologic: Denies: Easy bruising, Easy bleeding Physical Exam Vital Signs/Narrative: Vital Signs Temp Pulse Resp BP Pulse Ox 09/27/20 18:06 73 11 L 110/61 100 09/27/20 17:33 71 12 115/54 L 98 09/27/20 15:36 97.3 F L 72 16 126/63 H 97 09/27/20 15:33 97.3 F L 79 16 126/63 H 97 Inital Vital Signs reviewed: Yes General: Well nourished, Well developed, No Acute Distress Head: Normocephalic, Atraumatic Eyes: Perrl, EOMI. Negative for: Pale conjunctiva, Scleral icterus ENT: Moist mucous membranes, No rhinorrhea, TM's clear Neck: Supple, Nontender, No lymphadenopathy, No JVD, - - Trachea is midline. There is no inspiratory expiratory stridor. Cardiovascular: Regular rate, Regular rhythm, No murmurs, Normal S1 Respiratory: No distress, Rales - Also noted both the right and left base. Greater left base., Diminished, Decreased Air Movement. Negative for: CTA bilaterally, Chest nontender Abdomen: Soft, Nontender, Nondistended, Normal bowel sounds Back: Nontender, Normal Inspection Extremities: Nontender, No edema Skin: Normal color, No rash, No Trauma. Negative for: Cyanosis, Diaphoresis, Jaundice Neurological: Alert, Oriented x3, Cranial nerves II-XII grossly intact, Normal Strength, Normal Sensation Psychological: Normal affect Diagnostic/Tx/Re-eval Chest X-Ray - ED: 1 View, Read by ED Physician, Normal, Heart, Lungs - There is no infiltrate, effusion or evidence of congestive heart failure., Mediastinum, Bony Structures - There is evidence of a prior left rib fracture., No Acute Disease, - - Single view chest x-ray was interpreted by me at 1809 Impressions Chest X-Ray 09/27/20 17:45 IMPRESSION: No acute findings. Electronically Signed: Candy Mayorga MD at 19:15 EST Tel , Service support , 09/27/20 17:45 Chest 1 View (Portable) [RAD] Stat Laboratory Results 09/27/20 09/27/20 09/27/20 16:44 17:15 17:15 WBC 12.1 H RBC 3.90 L Hgb 11.6 L Hct 35.9 L MCV 92.1 MCH 29.7 MCHC 32.3 RDW Std Deviation 42.4 RDW Coeff of Katelyn 12.7 Plt Count 262 MPV 10.2 Immature Gran % (Auto) 0.300 Neut % (Auto) 47.4 Lymph % (Auto) 21.1 [place] % (Auto) 9.5 Eos % (Auto) 20.5 H Baso % (Auto) 1.2 H Absolute Neuts (auto) 5.7 Absolute Lymphs (auto) 2.56 Nucleated RBC % 0 Differential Comment SEE COMMENT Diff Path Review May foll Platelet Estimate ADEQUATE RBC Morphology N CHROM Anisocytosis RARE Macrocytosis RARE Sodium 140 Potassium 5.1 Chloride 111 H Carbon Dioxide 25.0 Anion Gap 4 L BUN 27 H Creatinine 1.77 H Estim Creat Clear Calc 18.51 Est GFR (MDRD) Af Amer 36 L Est GFR (MDRD) Non-Af 29 L BUN/Creatinine Ratio 15.3 Glucose 108 H Lactic Acid Calcium 9.2 Total Bilirubin 0.20 AST 22 ALT 26 Alkaline Phosphatase 80 Total Protein 6.8 Albumin 3.2 Globulin 3.6 Albumin/Globulin Ratio 0.9 COVID-19 (VAISHNAVI) POC Glucose 59 L 09/27/20 09/27/20 09/27/20 17:15 17:26 17:29 WBC RBC Hgb Hct MCV MCH MCHC RDW Std Deviation RDW Coeff of Katelyn Plt Count MPV Immature Gran % (Auto) Neut % (Auto) Lymph % (Auto) [place] % (Auto) Eos % (Auto) Baso % (Auto) Absolute Neuts (auto) Absolute Lymphs (auto) Nucleated RBC % Differential Comment Diff Path Review Platelet Estimate RBC Morphology Anisocytosis Macrocytosis Sodium Potassium Chloride Carbon Dioxide Anion Gap BUN Creatinine Estim Creat Clear Calc Est GFR (MDRD) Af Amer Est GFR (MDRD) Non-Af BUN/Creatinine Ratio Glucose Lactic Acid 1.5 Calcium Total Bilirubin AST ALT Alkaline Phosphatase Total Protein Albumin Globulin Albumin/Globulin Ratio COVID-19 (VAISHNAVI) Negative POC Glucose 107 White count is slightly elevated. Lactate is normal. Covid test is negative. Chest x-ray reveals no obvious abnormality. Plan doxycycline and long tapering dose of prednisone since she is still wheezing. - Medical Decision Making Patient presents with respiratory symptoms with audible wheezing. She was given a dose of Decadron in the event this is Covid. Also to treat her COPD. She also received DuoNeb and albuterol. [facility] blood work was obtained to assess white count, rule out anemia, rule out renal dysfunction and chest x-ray to evaluate for pneumonia, pneumothorax and congestive heart failure. ED Disposition - Plan for ED Patient: Disposition: Home or Assisted Living Diagnosis: COPD with acute exacerbation, Bronchospasm, acute Instructions: ED COPD Flare Prescriptions: Doxycycline 100 mg PO BID #14 cap Transmission Status: Pending to [id number] Prednisone 10 mg PO UD #33 tab Transmission Status: Pending to [id number] Referrals: Jez Hernandez MD [Primary Care Provider] - 1 Week if not improving
[2020-09-27 18:13] LABS: Lactic Acid 1.5 mmol/L (0.4-1.9)
[2020-09-27 19:13] LABS: Probe Check PASS; Specimen Processing Control PASS
[2020-09-27] MEDS: Doxycycline 100 MG CAPSULE PO (20:03)
[2020-09-28 13:49] LABS: Pathologist Review Reviewed
== END 2020-09-27 20:07 | disposition home or self-care (01) ==
PROVIDERS: Emergency Provider Emergency Medicine; PCP Family Medicine
DX: J44.1 Chronic obstructive pulmonary disease with (acute) exacerbation (principal); J98.01 Acute bronchospasm; I25.10 Atherosclerotic heart disease of native coronary artery without angina pectoris; E78.5 Hyperlipidemia, unspecified; Z85.3 Personal history of malignant neoplasm of breast; Z85.118 Personal history of other malignant neoplasm of bronchus and lung; Z95.1 Presence of aortocoronary bypass graft; Z79.82 Long term (current) use of aspirin; Z79.899 Other long term (current) drug therapy
CPT/HCPCS: 71045; 80053; 82962; 83605; 85025; 87633; 87635; 96374; 99284; A4216; U0002

== ENCOUNTER 2022-01-22 15:14 | Outpatient (CLI) | payer MEDICARE, OTHER, SELFPAY ==
[2022-01-22 18:07] LABS: Vitamin B12 1162 pg/mL (211-911)
[2022-01-22 18:16] LABS: AST(SGOT) 24 U/L (15-37); Alanine Aminotransfer ALT/SGPT 24 U/L (13-56); Albumin, Serum 3.5 g/dL (3.2-5.0); Alkaline Phosphatase 76 U/L (45-117); Anion Gap 7 (5-15); BUN 30 mg/dL (7-18); BUN/Creat Ratio 16.9 RATIO (10-20); Calcium,Total 9.3 mg/dL (8.5-10.1); Chloride 108 mmol/L (98-107); Cholesterol 165 mg/dL (200); Creatinine, Serum 1.78 mg/dL (0.55-1.02); EST Glomerular Filtration Rate 29 mL/min (>60); Est Glom Filt Rate - Afr Amer 35 mL/min (>60); Globulin 3.5 g/dL (2.2-4.2); Glucose 113 mg/dL (74-106); High Density Lipoprotein 97 mg/dL; Potassium 4.5 mmol/L (3.5-5.1); Sodium Level 140 mmol/L (136-145); Thyroid Stim Hormone (TSH) 4.92 uIU/mL (0.358-3.74); Triglycerides 71 mg/dL; Very Low Density Lipoprotein 14 mg/dL (5-40)
== END 2022-01-22 23:59 | disposition home or self-care (01) ==
LOC: MFPLAB 15:18
PROVIDERS: PCP Family Medicine; Referring Provider Family Medicine; Visit Provider Family Medicine
DX: E11.22 Type 2 diabetes mellitus with diabetic chronic kidney disease (principal); N18.9 Chronic kidney disease, unspecified
CPT/HCPCS: 36415; 80053; 80061; 82607; 84443

== ENCOUNTER → 2022-05-06 | Outpatient (CLI) | payer MEDICARE, OTHER, SELFPAY ==
--- NOTE | 2022-05-06 16:40 | RAD_ITS ---
STUDY: XR Chest 2 Views 05/06/2022 4:42 PM REASON FOR EXAM: Female, 81 years old. CHEST PAIN Dyspnea, Cough COMPARISON: None TECHNIQUE: XR Chest 2 Views FINDINGS: There is no demonstrated pleural abnormality. There are multiple median sternotomy wires. Right-sided electronic device. Normal heart size. Normal mediastinum. Normal lon. Prominent appearing increased interstitial lung markings. Normal visualized pulmonary arteries. There is atherosclerotic calcification of the aortic arch with tortuosity. There are diffuse degenerative changes of the visualized thoracic spine. There is degenerative osteoarthritis of the bilateral shoulders. There is no demonstrated abnormality of the visualized soft tissue structures of the upper abdomen. RAD/Chest PA and Lateral IMPRESSION: There are no acute findings. Electronically Signed: Kenji Bailey MD at 16:57 EDT ,
[2022-05-06 17:23] LABS: Absolute Lymphocyte Count 3.73 X10^3/uL (0.83-4.51); Absolute Neutrophil Count 6.2 X10^3/uL (2.0-7.7); Basophil% 0.9 % (0-1); Eosinophil# 0.04 X10^3/uL; Eosinophils% 0.4 % (0-5); Hematocrit 35.7 % (37-47); Hemoglobin 11.7 g/dL (12.0-15.0); Lymphocyte # 3.73 X10^3/ul (0.83-4.51); Lymphocyte % 33.2 % (19-41); Mean Corp Hgb Conc 32.8 g/dL (32-36); Mean Corpuscular Hgb 29.4 pg (27.0-32.0); Mean Corpuscular Volume 89.7 fL (81-99); Mean Platelet Vol. 9.7 fl (6.2-12.0); Monocyte# 1.15 X10^3/uL; Monocyte% 10.2 % (0-10); NRBC Flagged by Analyzer 0 % (0-5); Neutrophil # 6.17 X10^3/uL (2.7-7.7); Platelet Count 318 K/mm3 (150-450); RBC Distribution Width CV 13.2 % (11.6-14.6); RBC Distribution Width SD 43.5 fl (35.1-43.9); Red Blood Count 3.98 M/mm3 (4.2-5.4); White Blood Count 11.2 K/mm3 (4.4-11.0)
[2022-05-06 17:44] LABS: BNP,B-Type NATRIURETIC PEPTIDE 123.5 pg/mL (0-100)
[2022-05-06 18:25] LABS: Anion Gap 8 (5-15); BUN 27 mg/dL (7-18); BUN/Creat Ratio 18.8 RATIO (10-20); Chloride 112 mmol/L (98-107); Creatinine, Serum 1.44 mg/dL (0.55-1.02); EST Glomerular Filtration Rate 37 mL/min (>60); Est Glom Filt Rate - Afr Amer 45 mL/min (>60); Glucose 66 mg/dL (74-106); Potassium 3.9 mmol/L (3.5-5.1); Sodium Level 141 mmol/L (136-145)
== END | disposition home or self-care (01) ==
PROVIDERS: PCP Family Medicine; Referring Provider Nurse Practitioner Gerontology; Visit Provider Nurse Practitioner Gerontology
DX: R06.00 Dyspnea, unspecified (principal)
CPT/HCPCS: 36415; 71046; 80048; 83880; 85025

== ENCOUNTER 2022-06-04 14:24 | Outpatient (CLI) | payer MEDICARE, OTHER, SELFPAY ==
[2022-06-04 18:08] LABS: Anion Gap 5 (5-15); BUN 29 mg/dL (7-18); BUN/Creat Ratio 18.8 RATIO (10-20); Calcium,Total 9.4 mg/dL (8.5-10.1); Chloride 107 mmol/L (98-107); Creatinine, Serum 1.54 mg/dL (0.55-1.02); EST Glomerular Filtration Rate 34 mL/min (>60); Est Glom Filt Rate - Afr Amer 42 mL/min (>60); Glucose 295 mg/dL (74-106); Sodium Level 137 mmol/L (136-145); T4 Free Direct 1.32 ng/dL (0.76-1.46); Thyroid Stim Hormone (TSH) 1.08 uIU/mL (0.358-3.74)
[2022-06-04 18:10] LABS: Hemoglobin A1c 7.8 % (3.8-5.6)
== END 2022-06-04 23:59 | disposition home or self-care (01) ==
LOC: MFPLAB 14:28
PROVIDERS: PCP Family Medicine; Referring Provider Family Medicine; Visit Provider Family Medicine
DX: E11.9 Type 2 diabetes mellitus without complications (principal); E03.9 Hypothyroidism, unspecified
CPT/HCPCS: 36415; 80048; 83036; 84439; 84443

== ENCOUNTER → 2022-09-10 | Outpatient (CLI) | payer MEDICARE, OTHER, SELFPAY ==
--- NOTE | 2022-09-10 15:55 | RAD_ITS ---
INDICATION: Pneumonia, unspecified organism EXAMINATION/TECHNIQUE: X-RAY - XR Chest 2 Views COMPARISON: May 06 2022. FINDINGS: LINES/DEVICES: None. LUNGS: No consolidation, edema or effusion. Lungs are mildly hyperexpanded. Medial left upper lung pulmonary suture noted. No pneumothorax. MEDIASTINUM AND CARDIOVASCULAR STRUCTURES: Cardiac silhouette not enlarged. BONES AND SOFT TISSUES: Sternotomy wires are midline and intact. Left lateral mid rib sequela of old fracture or postsurgical change. RAD/Chest PA and Lateral IMPRESSION: No radiographic evidence of acute cardiopulmonary disease. Findings compatible with chronic obstructive pulmonary disease. Electronically Signed: Nikhil Holguin MD at 16:14 EDT Reading Location ID and State: [facility] / [place] Tel , Service support ,
[2022-09-10 17:58] LABS: Absolute Lymphocyte Count 1.83 X10^3/uL (0.83-4.51); Absolute Neutrophil Count 9.6 X10^3/uL (2.0-7.7); Basophil# 0.06 X10^3/uL; Basophil% 0.5 % (0-1); Hematocrit 37.3 % (37-47); Hemoglobin 12.2 g/dL (12.0-15.0); Lymphocyte # 1.83 X10^3/ul (0.83-4.51); Lymphocyte % 14.3 % (19-41); Mean Corp Hgb Conc 32.7 g/dL (32-36); Mean Corpuscular Hgb 30.2 pg (27.0-32.0); Mean Corpuscular Volume 92.3 fL (81-99); Mean Platelet Vol. 10.4 fl (6.2-12.0); Monocyte# 1.28 X10^3/uL; NRBC Flagged by Analyzer 0 % (0-5); Neutrophil # 9.56 X10^3/uL (2.7-7.7); Neutrophil % 74.9 % (47-70); Platelet Count 290 K/mm3 (150-450); RBC Distribution Width CV 12.5 % (11.6-14.6); RBC Distribution Width SD 42.6 fl (35.1-43.9); Red Blood Count 4.04 M/mm3 (4.2-5.4); White Blood Count 12.8 K/mm3 (4.4-11.0)
== END | disposition home or self-care (01) ==
LOC: MTLAB 15:49
PROVIDERS: PCP Family Medicine; Referring Provider Family Medicine; Visit Provider Family Medicine
DX: J18.9 Pneumonia, unspecified organism (principal); R05.9 Cough, unspecified
CPT/HCPCS: 36415; 71046; 85025

== ENCOUNTER → 2022-12-30 | Outpatient (CLI) | payer MEDICARE, OTHER, SELFPAY ==
--- NOTE | 2022-12-30 14:25 | RAD_ITS ---
INDICATION: chronic obstructive asthma EXAMINATION/TECHNIQUE: X-RAY - XR Chest 2 Views COMPARISON: 09/10/2022 FINDINGS: The lungs are clear. Sternal cerclage wires and vascular clips are present from a prior sternotomy and coronary artery bypass graft procedure (CABG). The heart is not enlarged. Tortuous and calcified thoracic aorta. No pleural effusion or pneumothorax. Degenerative changes of the thoracic spine and shoulders. Left lateral mid rib sequela of old fracture or postsurgical change. RAD/Chest PA and Lateral IMPRESSION: No acute radiographic abnormalities. COPD. Electronically Signed: Montez Parikh MD at 17:59 EST ,
[2022-12-30 17:31] LABS: Absolute Lymphocyte Count 2.02 X10^3/uL (0.83-4.51); Absolute Neutrophil Count 6.9 X10^3/uL (2.0-7.7); Basophil# 0.06 X10^3/uL; Basophil% 0.6 % (0-1); Eosinophil# 0.09 X10^3/uL; Eosinophils% 0.9 % (0-5); Hematocrit 33.9 % (37-47); Hemoglobin 10.6 g/dL (12.0-15.0); Lymphocyte # 2.02 X10^3/ul (0.83-4.51); Lymphocyte % 20.2 % (19-41); Mean Corp Hgb Conc 31.3 g/dL (32-36); Mean Corpuscular Hgb 29.4 pg (27.0-32.0); Mean Corpuscular Volume 93.9 fL (81-99); Mean Platelet Vol. 10.1 fl (6.2-12.0); Monocyte# 0.91 X10^3/uL; Monocyte% 9.1 % (0-10); NRBC Flagged by Analyzer 0 % (0-5); Neutrophil # 6.87 X10^3/uL (2.7-7.7); Neutrophil % 68.7 % (47-70); Platelet Count 299 K/mm3 (150-450); RBC Distribution Width CV 13.1 % (11.6-14.6); RBC Distribution Width SD 44.8 fl (35.1-43.9); Red Blood Count 3.61 M/mm3 (4.2-5.4)
[2022-12-30 18:05] LABS: BNP,B-Type NATRIURETIC PEPTIDE 67.3 pg/mL (0-100)
[2022-12-30 18:12] LABS: AST(SGOT) 20 U/L (15-37); Alanine Aminotransfer ALT/SGPT 33 U/L (13-56); Albumin, Serum 3.2 g/dL (3.2-5.0); Alkaline Phosphatase 70 U/L (45-117); Anion Gap 9 (5-15); BUN 42 mg/dL (7-18); BUN/Creat Ratio 25.6 RATIO (10-20); Calcium,Total 9.1 mg/dL (8.5-10.1); Chloride 106 mmol/L (98-107); Cholesterol 167 mg/dL (200); Creatinine, Serum 1.64 mg/dL (0.55-1.02); EST Glomerular Filtration Rate 32 mL/min (>60); Est Glom Filt Rate - Afr Amer 39 mL/min (>60); Globulin 3.1 g/dL (2.2-4.2); Glucose 273 mg/dL (74-106); High Density Lipoprotein 92 mg/dL; Potassium 4.9 mmol/L (3.5-5.1); Protein, Total 6.3 g/dL (6.4-8.2); Sodium Level 137 mmol/L (136-145); Thyroid Stim Hormone (TSH) 1.92 uIU/mL (0.358-3.74); Triglycerides 128 mg/dL; Very Low Density Lipoprotein 26 mg/dL (5-40)
[2022-12-31 10:45] LABS: Ferritin 34 ng/mL (8-252); Iron 157 ug/dL (50-170); Iron Binding Capacity,Total 283 ug/dL (250-450); PERCENT IRON SATURATION 55.5 % (15.0-55.0)
== END | disposition home or self-care (01) ==
LOC: MTLAB 14:21
PROVIDERS: PCP Family Medicine; Referring Provider Family Medicine; Visit Provider Family Medicine
DX: Z95.1 Presence of aortocoronary bypass graft (principal); J44.9 Chronic obstructive pulmonary disease, unspecified; E11.9 Type 2 diabetes mellitus without complications; D64.9 Anemia, unspecified; R06.02 Shortness of breath
CPT/HCPCS: 36415; 71046; 80053; 80061; 82728; 83540; 83550; 83880; 84443; 85025

== ENCOUNTER → 2023-01-01 | Outpatient (CLI) | payer MEDICARE, OTHER, SELFPAY ==
[2023-01-01 10:17] LABS: Platelet Count 324 K/mm3 (150-450); Reticulocyte Count 2.21 % (0.5-1.5)
[2023-01-01 10:52] LABS: Ferritin 33 ng/mL (8-252); Iron 52 ug/dL (50-170); Iron Binding Capacity,Total 326 ug/dL (250-450)
== END | disposition home or self-care (01) ==
LOC: LAB 09:16
PROVIDERS: PCP Family Medicine; Referring Provider Family Medicine; Visit Provider Family Medicine
DX: D64.9 Anemia, unspecified (principal)
CPT/HCPCS: 36415; 82728; 83540; 83550; 85045

== ENCOUNTER → 2023-01-19 | Outpatient (CLI) | payer MEDICARE, OTHER, SELFPAY ==
--- NOTE | 2023-01-19 12:51 | ECHOD_ITS ---
Reason For Study: CHF Procedure This was a 2D Doppler, Color Flow transthoracic echocardiogram. Exam performed in department. Left Ventricle Normal LV size. Left ventricular systolic function is normal. The estimated ejection fraction is 65 %. Stage 1 diastolic dysfunction. No regional wall motion abnormalities noted. Right Ventricle Normal RV size. Normal systolic function. Atria Normal left atrium. Normal right atrium. Mitral Valve Normal mitral valve. Tricuspid Valve Normal tricuspid valve. Moderate (2+) tricuspid valve insufficiency. Pulmonary artery systolic pressure is 60 mmHg. Moderate pulmonary hypertension. Aortic Valve Normal aortic valve. Pulmonic Valve Normal pulmonic valve. Great Vessels Normal aortic root. The pulmonary artery is normal size. Normal inferior vena cava. Pericardium/Pleural No pericardial effusion. MMode/2D Measurements & Calculations LVIDd: 4.1 cm IVSd: 1.0 cm Ao root diam: 2.9 cm LVIDs: 2.1 cm LVPWd: 0.94 cm FS: 47.3 % LAV(MOD-sp4): 53.7 ml RVOT diam: 2.9 cm LVAd ap4: 17.5 cm2 LVLd ap4: 6.7 cm EDV(MOD-sp4): 38.0 ml EDV(sp4-el): 39.0 ml LVAs ap4: 8.3 cm2 LVLs ap4: 5.3 cm ESV(MOD-sp4): 11.5 ml ESV(sp4-el): 11.1 ml EF(MOD-sp4): 69.8 % EF(sp4-el): 71.6 % SV(MOD-sp4): 26.6 ml SV(sp4-el): 27.9 ml LA A4 area: 18.6 cm2 LA dimension(2D): 3.7 cm RA A4 area: 10.0 cm2 Time Measurements MV dec time: 0.20 sec Doppler Measurements & Calculations MV E max aguilar: 90.3 cm/sec Lat Peak E' Aguilar: 11.1 cm/sec Med Peak E' Aguilar: 6.6 cm/sec MV A max aguilar: 118.6 cm/sec E/E' lat: 8.1 E/E' med: 13.6 MV E/A: 0.76 MV V2 max: 118.2 cm/sec Ao V2 max: 179.1 cm/sec MV max P.6 mmHg MV dec slope: 485.0 cm/sec2 Ao max P.8 mmHg MV V2 mean: 80.0 cm/sec Ao V2 mean: 124.8 cm/sec MV mean P.8 mmHg Ao mean P.0 mmHg MV V2 VTI: 28.0 cm Ao V2 VTI: 33.6 cm AV (velocity ratio): 0.70 LV V1 max: 141.3 cm/sec PA V2 max: 127.7 cm/sec TR max aguilar: 369.5 cm/sec LV V1 max P.0 mmHg PA V2 mean: 92.9 cm/sec TR max P.6 mmHg LV V1 mean P.4 mmHg LV V1 mean: 99.5 cm/sec LV V1 VTI: 23.4 cm ECHO/Echo Complete Interpretation Summary Normal LV size. Left ventricular systolic function is normal. The estimated ejection fraction is 65 %. Stage 1 diastolic dysfunction. Pulmonary artery systolic pressure is 60 mmHg. Moderate pulmonary hypertension. Ordering Physician: Paulino Ferro Referring Physician: Paulino Ferro Performed By: [facility]CS
== END | disposition home or self-care (01) ==
PROVIDERS: PCP Family Medicine; Referring Provider Internal Medicine Critical Care Medicine; Visit Provider Internal Medicine Critical Care Medicine
DX: I25.10 Atherosclerotic heart disease of native coronary artery without angina pectoris (principal); J44.9 Chronic obstructive pulmonary disease, unspecified
CPT/HCPCS: 93306

== ENCOUNTER → 2023-01-22 | Outpatient (CLI) | payer MEDICARE, OTHER, SELFPAY ==
[2023-01-22 15:35] LABS: Anion Gap 6 (5-15); BUN 30 mg/dL (7-18); Calcium,Total 9.8 mg/dL (8.5-10.1); Chloride 108 mmol/L (98-107); Creatinine, Serum 1.76 mg/dL (0.55-1.02); EST Glomerular Filtration Rate 29 mL/min (>60); Est Glom Filt Rate - Afr Amer 36 mL/min (>60); Glucose 124 mg/dL (74-106); Potassium 4.6 mmol/L (3.5-5.1); Sodium Level 141 mmol/L (136-145)
[2023-01-22 15:40] LABS: BNP,B-Type NATRIURETIC PEPTIDE 52.6 pg/mL (0-100)
== END | disposition home or self-care (01) ==
LOC: LAB 14:25
PROVIDERS: PCP Family Medicine; Referring Provider Internal Medicine Cardiovascular Disease; Visit Provider Internal Medicine Cardiovascular Disease
DX: R06.00 Dyspnea, unspecified (principal); Z95.1 Presence of aortocoronary bypass graft
CPT/HCPCS: 36415; 80048; 83880

== ENCOUNTER → 2023-02-02 | Outpatient (CLI) | payer MEDICARE, OTHER, SELFPAY ==
--- NOTE | 2023-02-02 17:51 | STRESSREP ---
Stress Test Report Pharmacologic myocardial perfusion stress test. 82-year-old lady with a history of coronary artery disease Resting EKG demonstrates normal sinus rhythm with a rate of 82 bpm. Resting blood pressure is 118/58 mmHg. 0.4 mg of regadenoson was infused per usual protocol followed by rapid intravenous saline flush injection. Continuous EKG monitoring was performed. The maximum heart rate was 106 bpm which was 76% of max impacted heart rate the maximum workload was 1 metabolic equivalent. At rest there were no ST or T wave changes noted to suggest ischemia and at peak infusion nonspecific ST changes were noted which did not meet the criteria for ischemia. No clinical angina is noted. The final blood pressure was 128/58 mmHg. Myocardial perfusion protocol. 11.8 mCi of technetium 99m sestamibi was injected at rest. 0.4 mg of regadenoson was infused per usual protocol. At peak infusion 33.7 mCi of technetium 99m sestamibi was injected stress images were obtained stress and rest images were reconstructed and compared in the short axis vertical long and horizontal long axis. Gated images were also obtained. Perfusion SPECT analysis: Review of the stress images demonstrate normal uptake of tracer noted in all areas of the myocardium. The resting images similar demonstrated normal uptake of tracer noted in all areas of the myocardium. No areas of reversibility are noted to suggest ischemia and no previous infarct is noted. Gated SPECT analysis: The gated ejection fraction is 51%. Conclusion: Normal pharmacologic myocardial perfusion stress test. Preserved ejection fraction.
== END | disposition home or self-care (01) ==
LOC: CVS 07:14
PROVIDERS: PCP Family Medicine; Visit Provider Internal Medicine Cardiovascular Disease
DX: Z95.1 Presence of aortocoronary bypass graft (principal)
CPT/HCPCS: 78452; 93017; A9500; A4216; J2785

== ENCOUNTER → 2023-02-09 | Outpatient (CLI) | payer MEDICARE, OTHER, SELFPAY ==
--- NOTE | 2023-02-09 12:32 | CT_ITS ---
INDICATION: Dyspnea. EXAMINATION: CT Chest W/ Contrast Injection TECHNIQUE: Helically acquired images were obtained of the chest following IV contrast. A radiation dose optimization technique was used for this scan. IV Contrast dosage and agent: 75 mL Isovue-300. COMPARISON: CT chest November 15, 2013. PET/CT imaging march 20, 2014. . December 30, 2022 chest x-ray, report only FINDINGS: LUNGS, PLEURA AND LARGE AIRWAYS: Surgical clip in the left midlung-lung base, staple line in the left perihilar region and upper lobe, and scarring in the left upper lobe and left lower lobe. There is asymmetric soft tissue density in the right suprahilar region/medial upper lobe with a spiculated appearance. This measures approximately 2.3 x 1.8 x 1.8 cm. Centrilobular emphysematous changes. No pleural effusion or thickening. No pneumothorax. THYROID: No thyroid lesions. HEART AND PERICARDIUM: Median sternotomy, CABG. Normal heart size. No pericardial effusion. [place] coronary artery calcification. VESSELS: Thoracic aorta is not dilated. No aortic dissection. No obvious central pulmonary embolism although this study was not performed with the pulmonary embolism protocol. MEDIASTINUM AND HELIO: No mediastinal or hilar adenopathy. Esophagus is unremarkable. Moderate sized hiatal hernia. UPPER ABDOMEN: No acute pathology. BONES: No suspicious lytic or blastic abnormality. Degenerative changes without acute osseous injury. CT/Chest WITH Contrast IMPRESSION: Postoperative changes, centrilobular emphysematous changes, and new spiculated density in the right upper lobe concerning for neoplasm. PET/CT imaging is recommended. Moderate-sized hiatal hernia. CABG. Electronically Signed: Donnell Garcia MD at 12:41 EDT ,
[2023-02-09 12:42] VITALS: BP 115/85; PULSE 86; RESP 14; TEMP 36.3; O2SAT 96; BMI 31.2
== END | disposition home or self-care (01) ==
PROVIDERS: PCP Family Medicine; Referring Provider Radiology Radiation Oncology; Visit Provider Family Medicine
DX: R06.00 Dyspnea, unspecified (principal)
CPT/HCPCS: 71260; J7040; Q9967

== ENCOUNTER → 2023-03-23 | Outpatient (CLI) | payer MEDICARE, OTHER, SELFPAY ==
--- NOTE | 2023-03-24 07:24 | PFT ---
INTRODUCTION: The patient is an 82-year-old female who presents for pulmonary function studies secondary to a diagnosis of COPD. Respiratory therapy reported good patient effort. Bronchodilators were used during testing. INTERPRETATION: Forced expiration spirometry demonstrates the presence of a mild large airways obstructive ventilatory defect. There was no significant response to aerosolized bronchodilators. Spirograms are of good quality but do not plateau indicating slow emptying of the lungs. Body plethysmography was performed and revealed lung volumes to be within normal limits. Diffusing capacity by single breath CO was reduced to 56% of predicted. IMPRESSION: Irreversible mild large airways obstructive ventilatory defect with symmetric reduction in diffusing capacity.
== END | disposition home or self-care (01) ==
PROVIDERS: PCP Family Medicine; Referring Provider Internal Medicine Critical Care Medicine; Visit Provider Internal Medicine Critical Care Medicine
DX: J44.9 Chronic obstructive pulmonary disease, unspecified (principal)
CPT/HCPCS: 94060; 94726; 94729

== ENCOUNTER → 2023-04-15 | Outpatient (CLI) | payer MEDICARE, OTHER, SELFPAY ==
[2023-04-15 14:08] LABS: Platelet Count 358 K/mm3 (150-450)
[2023-04-15 14:41] LABS: International Normalized Ratio 1.2
[2023-04-15 14:42] LABS: Partial Thromboplast Time 28.3 Seconds (24.1-36.2)
== END | disposition home or self-care (01) ==
LOC: LAB 13:37
PROVIDERS: PCP Family Medicine; Visit Provider Nurse Practitioner Acute Care
DX: I48.91 Unspecified atrial fibrillation (principal); R06.00 Dyspnea, unspecified
CPT/HCPCS: 36415; 85049; 85610; 85730

== ENCOUNTER → 2023-07-16 | Outpatient (CLI) | payer MEDICARE, OTHER, SELFPAY ==
[2023-07-16 15:34] LABS: Absolute Lymphocyte Count 2.55 X10^3/uL (0.83-4.51); Absolute Neutrophil Count 6.9 X10^3/uL (2.0-7.7); Basophil# 0.13 X10^3/uL; Basophil% 1.2 % (0-1); Eosinophil# 0.33 X10^3/uL; Hematocrit 36.7 % (37-47); Hemoglobin 11.6 g/dL (12.0-15.0); Lymphocyte # 2.55 X10^3/ul (0.83-4.51); Lymphocyte % 23.4 % (19-41); Mean Corp Hgb Conc 31.6 g/dL (32-36); Mean Corpuscular Hgb 29.1 pg (27.0-32.0); Mean Platelet Vol. 10.4 fl (6.2-12.0); Monocyte# 0.99 X10^3/uL; Monocyte% 9.1 % (0-10); NRBC Flagged by Analyzer 0 % (0-5); Neutrophil # 6.86 X10^3/uL (2.7-7.7); Neutrophil % 62.8 % (47-70); Platelet Count 377 K/mm3 (150-450); RBC Distribution Width CV 13.3 % (11.6-14.6); RBC Distribution Width SD 45.1 fl (35.1-43.9); Red Blood Count 3.99 M/mm3 (4.2-5.4); White Blood Count 10.9 K/mm3 (4.4-11.0)
[2023-07-16 15:47] LABS: AST(SGOT) 25 U/L (15-37); Alanine Aminotransfer ALT/SGPT 29 U/L (13-56); Albumin, Serum 3.9 g/dL (3.2-5.0); Alkaline Phosphatase 86 U/L (45-117); Anion Gap 7 (5-15); BUN 42 mg/dL (7-18); BUN/Creat Ratio 21.6 RATIO (10-20); Calcium,Total 9.9 mg/dL (8.5-10.1); Chloride 108 mmol/L (98-107); Creatinine, Serum 1.94 mg/dL (0.55-1.02); EST Glomerular Filtration Rate 26 mL/min (>60); Est Glom Filt Rate - Afr Amer 32 mL/min (>60); Ferritin 38 ng/mL (8-252); Glucose 51 mg/dL (74-106); Iron 189 ug/dL (50-170); Protein, Total 7.9 g/dL (6.4-8.2); Sodium Level 139 mmol/L (136-145)
== END | disposition home or self-care (01) ==
LOC: MFPLAB 12:28
PROVIDERS: PCP Family Medicine; Visit Provider Family Medicine
DX: R11.2 Nausea with vomiting, unspecified (principal); D64.9 Anemia, unspecified
CPT/HCPCS: 36415; 80053; 82728; 83540; 85025

== ENCOUNTER → 2024-01-11 | Outpatient (CLI) | payer MEDICARE, OTHER, SELFPAY ==
[2024-01-11 15:51] LABS: Vitamin D,25 Hydroxy 38.6 ng/mL
[2024-01-11 16:05] LABS: AST(SGOT) 19 U/L (15-37); Alanine Aminotransfer ALT/SGPT 23 U/L (13-56); Albumin, Serum 3.7 g/dL (3.2-5.0); Alkaline Phosphatase 94 U/L (45-117); Anion Gap 7 (5-15); BUN 45 mg/dL (7-18); Calcium,Total 9.7 mg/dL (8.5-10.1); Chloride 108 mmol/L (98-107); Cholesterol 175 mg/dL (200); Creatinine, Serum 1.96 mg/dL (0.55-1.02); EST Glomerular Filtration Rate 26 mL/min (>60); Est Glom Filt Rate - Afr Amer 31 mL/min (>60); Globulin 3.8 g/dL (2.2-4.2); Glucose 137 mg/dL (74-106); High Density Lipoprotein 85 mg/dL; Potassium 3.9 mmol/L (3.5-5.1); Protein, Total 7.5 g/dL (6.4-8.2); Sodium Level 139 mmol/L (136-145); Thyroid Stim Hormone (TSH) 3.56 uIU/mL (0.358-3.74); Triglycerides 83 mg/dL; Very Low Density Lipoprotein 17 mg/dL (5-40)
--- OUTSIDE RECORDS SUMMARY | 2024-01-11 16:15 | XMS RPT_ITS | CCD ---
Author Name Unknown Address [address] [place] [address] Organization [facility] Care Team Providers Care Soil Conservation Aide Name Role Phone Paz Hernandez MD Primary Care Provider Tim MORA MD, Calderonesung Unavailable Blue, Magnus S Unavailable Paz Hernandez MD Primary Care Provider Tim MORA MD, Calderonesung Unavailable Blue, Chadwick S Unavailable Paulino Ferro Unavailable Paz Hernandez MD Primary Care Provider Blue, Chadwick S Unavailable Paulino Ferro Unavailable Paulino Ferro MD Unavailable [phone] Blue MORA, Chadwick S Unavailable PAZ HERNANDEZ Primary Care Unavailnathanael THOMPSON SEE-GHANSHYAM Referring Unavailable JESE HAMLIN Attending Unavailable PAZ HERNANDEZ Primary Care Unavailabl ron THOMPSON SEE-GHANSHYAM Referring Unavailable JESE HAMLIN Attending Unavailable PAZ HERNANDEZ Primary Care Unavailabl JESE Del Real Referring Unavailable PAZ HERNANDEZ Primary Care Unavailabl JESE Del Real Referring Unavailable JESE HAMLIN Attending Unavailable PAZ HERNANDEZ Primary Care Unavailabl e MICHELE RIVERA Attending Unavailable Paz Hernandez MD Primary Care Provider Kira Hyman MD Unavailable KIRA HYMAN Referring Unavailable KIRA HYMAN Attending Unavailable [facility] Unavailabl e [facility] Unavailabl e LOW, SEE-GHANSHYAM Admitting Unavailable LOW, SEE-GHANSHYAM Attending Unavailable TIM DAYASHIRAUNG Referring Unavailable [facility] Unavailabl e [facility] Unavailabl e JESE HAMLIN Referring Unavailable TIMKIRA Attending Unavailable [facility] Unavailabl e MACHUZAK, CAROL S Referring Unavailable [facility] Unavailabl e MACHUZAK, CAROL S Referring Unavailable MACHUZAK, CAROL S Referring Unavailable [facility] Unavailabl e LOW, SEE-GHANSHYAM Attending Unavailable [facility] Unavailabl e POP ALLISON A Referring Unavailable [facility] Unavailabl e ALLISONPOP A Attending Unavailable [facility] Unavailabl e MAURO, LAURA Referring Unavailable [facility] Unavailabl e JUANITA, LAURA Attending Unavailable MAURO, LAURA Referring Unavailable [facility] Unavailabl e TIM DADIXON Attending Unavailable [facility] Unavailabl e Allergies Allergy Classification Reported Allergen(s) Allergy Type Date of Onset Reaction(s) Facility (20 sources) Cat; Translations: [CATS] Propensity to adverse reactions 07-19-2014 Intolerance [facility] (20 sources) House dust mite; Translations: [DUST MITES] Propensity to adverse reactions 07-19-2014 Intolerance [facility] Medications Completed/Discontinued Medications Medication Drug Class(es) Dates Sig (Normalized) Sig (Original) [id number] 200 actuat albuterol 0.09 mg/actuat metered dose inhaler (20 sources) beta2-Adrenergic Agonist Start: 09-13-2020 End: 03-03-2023 take 2 puff(s) by inhalation every four hours as needed for cough albuterol HFA (PROVENTIL HFA, VENTOLIN HFA) 90 mcg/actuation inhaler Inhale 2 Puffs as instructed every 4 hours as needed (for cough, wheezing, chest tightness or shortness of breath. Use with a spacer.). 18 g 1 03/03/2023 Active Problems Active Problems Problem Classification Problem Date Documented Da te Episodic/Chronic Anxiety disorders (20 sources) Anxiety; Translations: [Anxiety disorder, unspecified] Onset: 08-22-2014 Chronic Asthma (20 sources) Uncomplicated severe persistent asthma; Translations: [Severe persistent asthma, uncomplicated] Onset: 06-21-2014 Chronic Cancer of breast (20 sources) Primary malignant neoplasm of breast; Translations: [Malignant neoplasm of unspecified site of unspecified female breast] Onset: 05-23-2015 11-04-2021 Chronic Cancer of bronchus; lung (20 sources) Malignant tumor of lung; Translations: [Malignant neoplasm of unspecified part of unspecified bronchus or lung] Onset: 08-21-2014 12-02-2016 Chronic Chronic obstructive pulmonary disease and bronchiectasis (20 sources) Chronic obstructive lung disease; Translations: [Chronic obstructive pulmonary disease, unspecified] Onset: 06-06-2013 11-04-2021 Chronic Coronary atherosclerosis and other heart disease (20 sources) Coronary arteriosclerosis; Translations: [Atherosclerotic heart disease of [place] coronary artery without angina pectoris] Onset: 06-07-2018 07-05-2018 Chronic Diabetes mellitus without complication (20 sources) Type 2 diabetes mellitus; Translations: [Type 2 diabetes mellitus without complications] Onset: 08-22-2014 11-04-2021 Chronic E Codes: Natural/environment (1 source) Bitten by cat, initial encounter; Translations: [Cat bite of left hand, initial encounter] Onset: 08-31-2023 Episodic Mood disorders (20 sources) Depressive disorder; Translations: [Depression] Onset: 07-13-2018 07-13-2018 Chronic Open wounds of extremities (1 source) Open bite of left hand, initial encounter; Translations: [Cat bite of left hand, initial encounter] Onset: 08-31-2023 Episodic Other aftercare (1 source) Radiotherapy follow-up; Translations: [Encounter for follow-up examination after completed treatment for conditions other than malignant neoplasm] 12-10-2023 Episodic Other lower respiratory disease (3 sources) Asthma; 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] Episodic Other lower respiratory disease (1 source) Multiple nodules of lung; Translations: [Other nonspecific abnormal finding of lung field] Episodic Other upper respiratory disease (20 sources) Allergic rhinitis; Translations: [Allergic rhinitis, unspecified] Onset: 05-24-2014 05-24-2014 Chronic Other upper respiratory disease (20 sources) Allergic rhinitis due to house dust mite; Translations: [Other allergic rhinitis] Onset: 05-10-2019 05-10-2019 Chronic Other upper respiratory disease (20 sources) Allergic rhinitis due to animals; Translations: [Allergic rhinitis due to animal (cat) (dog) hair and dander] Onset: 05-10-2019 05-10-2019 Chronic Thyroid disorders (20 sources) Hypothyroidism; Translations: [Hypothyroidism, unspecified] Onset: 08-22-2014 11-04-2021 Chronic Unclassified (20 sources) DISPOSITION AND FOLLOW-UP Onset: 08-22-2014 Past or Other Problems Problem Classification Problem Date Documented Date Episodic/Chronic Abdominal hernia (20 sources) Paraesophageal hernia; Translations: [Diaphragmatic hernia without obstruction or gangrene] Onset: 04-16-2016 04-16-2016 Episodic Cancer of bronchus; lung (3 sources) History of malignant neoplasm of thoracic cavity structure; Translations: [Personal history of other malignant neoplasm of bronchus and lung] Onset: 05-14-2023 Episodic Immunizations and screening for infectious disease (20 sources) Increased immunoglobulin; Translations: [Other specified abnormal immunological findings in serum] Onset: 01-02-2021 01-02-2021 Episodic Other aftercare (20 sources) Drug therapy finding; Translations: [Other ferry terminal agent (current) drug therapy] Onset: 08-22-2014 Episodic Other lower respiratory disease (20 sources) Nodule of lung; Translations: [Solitary pulmonary nodule] Onset: 08-08-2014 Episodic Other lower respiratory disease (3 sources) Solitary pulmonary nodule; Translations: [Nodule of right lung] Onset: 11-05-2021 Episodic Other nervous system disorders (20 sources) Postoperative pain ; Translations: [Other acute postprocedural pain] Onset: 08-23-2014 11-04-2021 Episodic Other screening for suspected conditions (not mental disorders or infectious disease) (20 sources) Mammography abnormal; Translations: [Other abnormal and inconclusive findings on diagnostic imaging of breast] Onset: 08-14-2014 08-14-2014 Episodic Other upper respiratory disease (1 source) Other diseases of bronchus, not elsewhere classified; Translations: [Bronchiolar disease] Onset: 05-18-2023 Episodic Residual codes; unclassified (15 sources) Patient encounter status; Translations: [Encounter for prophylactic measures, unspecified] Onset: 08-22-2014 Episodic Skin and subcutaneous tissue infections (20 sources) Cellulitis of left ankle; Translations: [Cellulitis of left lower limb] Onset: 07-13-2018 07-13-2018 Episodic Results Test Name Value Interpretation Reference Range Facil ity Vital Signs Date Time Vital Sign Value Performing Clinician Faci lity 08-24-2023 13:29-0400 Body temperature 97.39 [degF] Kira Hyman MD, MD Work Phone: [facility] 08-24-2023 13:29-0400 Body weight 69.17 kg Kira Hyman MD, MD Work Phone: [facility] 08-24-2023 13:29-0400 Diastolic blood pressure 71 mm[Hg] Kira Hyman MD, MD Work Phone: [facility] 08-24-2023 13:29-0400 Heart rate 74 /min Kira Hyman MD, MD Work Phone: [facility] 08-24-2023 13:29-0400 Respiratory rate 19 /min Kira Hyman MD, MD Work Phone: [facility] 08-24-2023 13:29-0400 SaO2% (BldA) [Mass fraction] 95 % Kira Hyman MD, MD Work Phone: [facility] 08-24-2023 13:29-0400 Systolic blood pressure 124 mm[Hg] Kira Hyman MD, MD Work Phone: [facility] 08-19-2023 13:24-0400 Body height 152.4 cm Jese Hamlin MD Work Phone: [facility] 08-19-2023 13:24-0400 Body temperature 96.91 [degF] Jese Hamlin MD Work Phone: [facility] 08-19-2023 13:24-0400 Body weight 69.58 kg Jese Hamlin MD Work Phone: [facility] 08-19-2023 13:24-0400 Diastolic blood pressure 59 mm[Hg] Jese Hamlin MD Work Phone: [facility] 08-19-2023 13:24-0400 Heart rate 78 /min Jese Hamlin MD Work Phone: [facility] 08-19-2023 13:24-0400 Respiratory rate 18 /min Jese Hamlin MD Work Phone: [facility] 08-19-2023 13:24-0400 SaO2% (BldA) [Mass fraction] 98 % Jese Hamlin MD Work Phone: [facility] 08-19-2023 13:24-0400 Systolic blood pressure 125 mm[Hg] Jese Hamlin MD Work Phone: [facility] 05-14-2023 12:40-0400 Body height 153.7 cm Umm Thompson MD Work Phone: [facility] 05-14-2023 12:40-0400 Body temperature 98.2 [degF] Umm Thompson MD Work Phone: [facility] 05-14-2023 12:40-0400 Body weight 70.76 kg Umm Thompson MD Work Phone: [facility] 05-14-2023 12:40-0400 Diastolic blood pressure 50 mm[Hg] Umm Thompson MD Work Phone: [facility] 05-14-2023 12:40-0400 Heart rate 71 /min Umm Thompson MD Work Phone: [facility] 05-14-2023 12:40-0400 Respiratory rate 14 /min Umm Thompson MD Work Phone: [facility] 05-14-2023 12:40-0400 SaO2% (BldA) [Mass fraction] 96 % Umm Thompson MD Work Phone: [facility] 05-14-2023 12:40-0400 Systolic blood pressure 130 mm[Hg] Umm Thompson MD Work Phone: [facility] 03-03-2023 14:26-0400 Body weight 74.93 kg Pop Allison MD Work Phone: [facility] 03-03-2023 14:26-0400 Diastolic blood pressure 64 mm[Hg] Pop Allison MD Work Phone: [facility] 03-03-2023 14:26-0400 Heart rate 80 /min Pop Allison MD Work Phone: [facility] 03-03-2023 14:26-0400 SaO2% (BldA) [Mass fraction] 94 % Pop Allison MD Work Phone: [facility] 03-03-2023 14:26-0400 Systolic blood pressure 128 mm[Hg] Pop Allison MD Work Phone: [facility] 02-20-2023 09:42-0400 Body height 154 cm [place] Mauro BOILER TESTER.COMMERCIAL LOAN ANALYST Work Phone: [facility] 02-20-2023 09:42-0400 Body temperature 97.7 [degF] Laura Mauro BOILER TESTER.COMMERCIAL LOAN ANALYST Work Phone: [facility] 02-20-2023 09:42-0400 Body weight 73.03 kg Laura Mauro BOILER TESTER.COMMERCIAL LOAN ANALYST Work Phone: [facility] 02-20-2023 09:42-0400 Diastolic blood pressure 56 mm[Hg] [place] Mauro BOILER TESTER.COMMERCIAL LOAN ANALYST Work Phone: [facility] 02-20-2023 09:42-0400 Heart rate 79 /min [place] Mauro BOILER TESTER.COMMERCIAL LOAN ANALYST Work Phone: [facility] 02-20-2023 09:42-0400 SaO2% (BldA) [Mass fraction] 98 % Laura Mauro BOILER TESTER.COMMERCIAL LOAN ANALYST Work Phone: [facility] 02-20-2023 09:42-0400 Systolic blood pressure 111 mm[Hg] Laura Mauro BOILER TESTER.COMMERCIAL LOAN ANALYST Work Phone: [facility] 02-18-2023 13:22-0400 Body temperature 99 [degF] Kira Hyman MD, MD Work Phone: [facility] 02-18-2023 13:22-0400 Body weight 72.8 kg Kira Hyman MD, MD Work Phone: [facility] 02-18-2023 13:22-0400 Diastolic blood pressure 59 mm[Hg] Kira Hyman MD, MD Work Phone: [facility] 02-18-2023 13:22-0400 Heart rate 86 /min Kira Hyman MD, MD Work Phone: [facility] 02-18-2023 13:22-0400 SaO2% (BldA) [Mass fraction] 98 % Kira Hyman MD, MD Work Phone: [facility] 02-18-2023 13:22-0400 Systolic blood pressure 124 mm[Hg] Kira Hyman MD, MD Work Phone: [facility] 11-04-2022 13:21-0500 Diastolic blood pressure 69 mm[Hg] Nurse Work Phone: [facility] 11-04-2022 13:21-0500 Heart rate 80 /min Nurse Work Phone: [facility] 11-04-2022 13:21-0500 SaO2% (BldA) [Mass fraction] 98 % Nurse Work Phone: [facility] 11-04-2022 13:21-0500 Systolic blood pressure 134 mm[Hg] Nurse Mc Work Phone: [facility] 07-03-2022 13:25-0400 Diastolic blood pressure 68 mm[Hg] Nurse Mc Work Phone: [facility] 07-03-2022 13:25-0400 Heart rate 106 /min Nurse Mc Work Phone: [facility] 07-03-2022 13:25-0400 SaO2% (BldA) [Mass fraction] 96 % Nurse Mc Work Phone: [facility] 07-03-2022 13:25-0400 Systolic blood pressure 144 mm[Hg] Nurse Work Phone: [facility] 06-05-2022 16:11-0400 Body weight 72.12 kg Pop Allison MD Work Phone: [facility] 06-05-2022 16:11-0400 Diastolic blood pressure 59 mm[Hg] Pop Allison MD Work Phone: [facility] 06-05-2022 16:11-0400 SaO2% (BldA) [Mass fraction] 96 % Pop Allison MD Work Phone: [facility] 06-05-2022 16:11-0400 Systolic blood pressure 140 mm[Hg] Pop Allison MD Work Phone: [facility] 05-07-2022 13:46-0400 Diastolic blood pressure 62 mm[Hg] Nurse Work Phone: [facility] 05-07-2022 13:46-0400 Heart rate 84 /min Nurse Work Phone: [facility] 05-07-2022 13:46-0400 SaO2% (BldA) [Mass fraction] 96 % Nurse Work Phone: [facility] 05-07-2022 13:46-0400 Systolic blood pressure 135 mm[Hg] Nurse Work Phone: [facility] 03-26-2022 13:19-0400 Diastolic blood pressure 49 mm[Hg] Nurse Work Phone: [facility] 03-26-2022 13:19-0400 Heart rate 84 /min Nurse Work Phone: [facility] 03-26-2022 13:19-0400 SaO2% (BldA) [Mass fraction] 98 % Nurse Work Phone: [facility] 03-26-2022 13:19-0400 Systolic blood pressure 137 mm[Hg] Nurse Work Phone: [facility] 02-19-2022 13:25-0400 Diastolic blood pressure 48 mm[Hg] Nurse Work Phone: [facility] 02-19-2022 13:25-0400 Heart rate 74 /min Nurse Work Phone: [facility] 02-19-2022 13:25-0400 SaO2% (BldA) [Mass fraction] 97 % Nurse Work Phone: [facility] 02-19-2022 13:25-0400 Systolic blood pressure 113 mm[Hg] Nurse Work Phone: [facility] Encounters Encounter Date Encounter Type Care Provider Facility Start: 12-10-2023 End: 12-10-2023 ambulatory KIRA HYMAN Facility:[facility] Start: 12-10-2023 End: 12-10-2023 Follow-up encounter Kira Hyman MD Work Phone: Radiation Oncology Procedures Date Procedure Procedure Detail Performing Clinician Start: 02-20-2023 Screening mammograph y bi 2-view breast inc david Mauro BOILER TESTER.COMMERCIAL LOAN ANALYST Work Phone: Start: 04-17-2022 Ct thorax w/o contra st material Jese Hamlin MD Work Phone: Start: 07-05-2018 History of coronary artery bypass grafting S/P CABG (coronary artery bypass graft) Nurse Work Phone: Plan of Treatment Date Care Activity Detail Author Start: 08-31-2033 Urine microalbumin profile DTaP,Tdap,Td Vaccine (2 - Td or Tdap) [facility] Start: 06-09-2024 End: 01-08-2025 Ct thorax w/o contrast material CT CHEST WO IVCON Radiology Routine Malignant neoplasm of unspecified part of unspecified bronchus or lung (HCC) Expected: 06/09/2024 (Approximate), Expires: 01/08/2025 [facility] Work Phone: Immunizations Immunization Date Immunization Notes Care Provider Fa cili 08-31-2023 tetanus toxoid, redu virginie diphtheria toxoid, and acellular pertussis vaccine, adsorbed Kira Hyman MD, MD Work Phone: [place] [id number] influenza virus vacc ine, unspecified formulation Pop Allison MD Work Phone: [facility] 12-27-2020 COVID-19 vaccine, ag e 12+ yr (PFIZER-BIONTECH - PURPLE TOP) Nurse Work Phone: [facility] 12-07-2020 COVID-19 vaccine, ag e 12+ yr (PFIZER-BIONTECH - PURPLE TOP) Nurse Work Phone: [facility] 08-23-2019 influenza, high dose seasonal, preservative-free Nurse Work Phone: [facility] 08-21-2018 influenza, high dose seasonal, preservative-free Nurse Work Phone: [facility] 08-24-2014 influenza, injectabl e, quadrivalent, preservative free Nurse Work Phone: [facility] 08-09-2013 pneumococcal polysaccharide vaccine, 23 valent Nurse Work Phone: [facility] Work Phone: 2010 pneumococcal polysaccharide vaccine, 23 valent Nurse Work Phone: [facility] Payers Date Payer Category Payer Private Health Insurance [facility] SUPPLEMENT [id number] 2017-Present [phone] [address] [place] [address] Indemnity [id number] 2017 Private Health Insurance [facility] AARP SUPPLEMENT [id number] 2017-Present [phone] [address] [place] [address] Indemnity [id number] 2017 Unknown [id number] 2006 Medicare MEDICARE MEDICAR E A AND B [id number] 2006-Present [phone] [place] [address] Medicare [id number] 2006 Medicare MEDICARE MEDICAR E A AND B [id number] 2006-Present [phone] [place] [address] Medicare [id number] 2006 Medicare [id number] Social History Date Type Detail Facility Start: 02-02-2014 End: 03-03-2023 Tobacco smoking status NHIS Ex-smoker [facility] Start: 11-09-1956 End: 11-09-2003 History of tobacco use Current smoker [facility] Start: [birth year]-09-1957 End: 11-09-2003 History of tobacco use Cigarette Smoker [facility] Start: 02-02-2014 End: 03-31-2023 Cigarettes smoked current (pack per day) - Reported 1 [facility] Start: 02-02-2014 End: 03-03-2023 Tobacco use and exposure Smokeless tobacco non-user [facility] Start: 08-22-2021 End: 08-31-2023 Alcohol intake Current drinker of alcohol (finding) [facility] Start: 07-19-2014 History SDOH Alcohol Comment Occasionally. 1x/month [facility] Start: 02-02-2014 End: 03-03-2023 Tobacco Comment Both parents smoked in childhood home. 1st spouse of 21 years was smoker. 2nd spouse non-smoker. [facility] Start: 1940 Sex Assigned At Female [facility] Start: 02-08-2022 End: 07-03-2022 Exposure to SARS-CoV-2 (event) Not sure [facility] Start: 04-08-2022 End: 04-18-2022 Exposure to SARS-CoV-2 (event) Unable to assess [facility] Work Phone: Start: 03-31-2023 End: 05-14-2023 Tobacco use panel [facility] PHQ2 Score [facility] Start: 02-19-2022 Gender identity Identifies as female gender (finding) [facility] Clinical Notes 08-17-2014 to 12-10-2023 Kira Hyman MD, - 12/10/2023 3:09 PM ESTTelephone Encounter - Lizzette Long - 12/09/2023 12:04 PM Kira Iqbal MD, - 08/24/2023 1:40 PM EDTStoHanh avila RN - 08/24/2023 1:31 PM EDT Note Date & Type Note Facility 12-10-2023 Note HNO ID: [id number] Author: KIRA HYMAN MD Service: ? Author Type: Physician Type: Progress Notes Filed: 12/10/2023 15:15 Note Text: AMBULATORY TELEPHONE VISIT Mildred Dover has consented to this telephone encounter. Persons Present: patient Chief Complaint/Reason: follow-up HPI: 1. Clinical stage I right upper lung cancer, s/p SBRT finished on 08/14/21. Now with suspicious local recurrence. 2. 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 3. history of stage IA adenocarcinoma of the lung and an adenocarcinoma in situ in 2013 and underwent a left VATS upper lobe wedge resection x 2 on 08/11/14. 4. history of Stage I, T1bN0, invasive ductal carcinoma of the right breast s/p lumpectomy and sentinel node biopsy, s/p adjuvant chemotherapy with TC x 4 cycles, s/p radiation treatment to the right breast with 50Gy in 25 fractions finished on 03/28/15. She is doing well without any specific new complaints. She denies any changes in her respiratory symptoms. CT chest on 12/02/23 showed, Unchanged size of a treated mass in the right upper lobe. Unchanged posttreatment appearance of the left lung.Stable appearance of bilateral groundglass nodules. No new suspicious pulmonary nodules.No thoracic lymphadenopathy Data Reviewed: Most recent imaging Assessment: Clinically stable. Plan: Follow-up CT in six months. Total Time Spent: 5 minutes Kira Hyman MD [facility] 12-10-2023 History of Presen t illness Narrative AMBULATORY TELEPHONE VISIT Mildred Dover has consented to this telephone encounter. Persons Present: patient Chief Complaint/Reason: follow-up HPI: 1. Clinical stage I right upper lung cancer, s/p SBRT finished on 08/14/21. Now with suspicious local recurrence. 2. 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 3. history of stage IA adenocarcinoma of the lung and an adenocarcinoma in situ in 2013 and underwent a left VATS upper lobe wedge resection x 2 on 08/11/14. 4. history of Stage I, T1bN0, invasive ductal carcinoma of the right breast s/p lumpectomy and sentinel node biopsy, s/p adjuvant chemotherapy with TC x 4 cycles, s/p radiation treatment to the right breast with 50Gy in 25 fractions finished on 03/28/15. She is doing well without any specific new complaints. She denies any changes in her respiratory symptoms. CT chest on 12/02/23 showed, Unchanged size of a treated mass in the right upper lobe. Unchanged posttreatment appearance of the left lung.Stable appearance of bilateral groundglass nodules. No new suspicious pulmonary nodules.No thoracic lymphadenopathy Data Reviewed: Most recent imaging Assessment: Clinically stable. Plan: Follow-up CT in six months. Total Time Spent: 5 minutes Kira Hyman MD documented in this encounter [facility] 12-09-2023 Miscellaneous Notes Per phone conversation, needs a phone follow up on 12/10 or 12/[address] results with the patient. Left message for patient to return call. Lizzette Long documented in this encounter [facility] 12-02-2023 Note HNO ID: [id number] Author: ANDREW BOURNE, RT(R) Service: ? Author Type: Travelift Operator Type: Progress Notes Filed: 12/02/2023 15:58 Note Text: Radiology Service Progress Note PATIENT NAME: Mildred Dover DATE OF SERVICE: December 02, 2023 TIME: 3:58 PM PATIENT IDENTITY VERIFICATION COMPLETED USING TWO (2) IDENTIFIERS: Name and Date of confirmed by patient verbally. FALL SCREENING: Has the patient had 2 falls in the last year or 1 fall with injury or currently using an Ambulatory Assistive Device (Walker, Cane, Wheelchair, Crutches, etc.)? No PATIENT GENDER DATA: Female. status: : No status: NO. PATIENT RELEVANT IMPLANT DATA REVIEWED: Yes RADIOLOGY DEPARTMENT: CT; Exam(s) Completed: Chest PERIPHERAL IV DATA: Not applicable SIGNED BY: RT Chris(R) December 02, 2023 3:58 PM [facility] 08-24-2023 Note HNO ID: [id number] Author: Kira Hyman MD, MD Service: ? Author Type: Physician Type: Progress Notes Filed: 08/27/2023 10:27 AM Note Text: Radiation Oncology - New Patient/Consult Note PATIENT NAME: Mildred Dover PATIENT REQUESTING PROVIDER: Dr. Jese Hamlin DIAGNOSIS: 1. Clinical stage I right upper lung cancer, s/p SBRT finished on 08/14/21. Now with suspicious local recurrence. 2. 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 3. history of stage IA adenocarcinoma of the lung and an adenocarcinoma in situ in 2013 and underwent a left VATS upper lobe wedge resection x 2 on 08/11/14. 4. history of Stage I, T1bN0, invasive ductal carcinoma of the right breast s/p lumpectomy and sentinel node biopsy, s/p adjuvant chemotherapy with TC x 4 cycles, s/p radiation treatment to the right breast with 50Gy in 25 fractions finished on 03/28/15. Cancer Staging Lung cancer (HCC) Staging form: Cancer of the Lung - Clinical: No stage assigned - Unsigned - Pathologic: Stage IA (T1a, N0, cM0) - Signed by Donnell Farias on 09/12/2014 HPI: 82 year old female who presents with above diagnosis, for an opinion regarding the role of radiation therapy in the management of the patient's disease. Final recommendations will be communicated back to the requesting physician by way of the shared medical record, or letter to requesting physician via [place] mail. 82 year old woman with history of stage IA adenocarcinoma of the left upper lung and an adenocarcinoma in situ in 2013 and underwent a left VATS upper lobe wedge resection x 2 on 08/11/14. She also has history of Stage I, T1bN0, invasive ductal carcinoma of the right breast s/p lumpectomy and sentinel node biopsy, s/p adjuvant chemotherapy with TC x 4 cycles, s/p radiation treatment to the right breast with 50Gy in 25 fractions finished on 03/28/15. 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 breast cancer. . Chronic rhinitis 06/16/2013 05/24/2014 documented as of this encounter (statuses as of 04/27/2023) [facility] of Past illness Narrative* Problem Noted Date Resolved Date Breast cancer, right 08/17/2014 05/23/2015 Overview: Followed by Dr. Hoskins (last seen 08/17/14). Abnormal mammogram on 07/26/14 showed a 1 x 1.1cm spiculated lesion at right breast. Ultrasound guided core biopsy of the right breast nodule was positive for invasive ductal carcinoma, intermediate grade, ER and MI receptor positive, HER-2/osvaldo-equivocal. Because of the simultaneous diagnosis of lung cancer, it was decided that she proceed with lung resection first. She is now status post VATS lung wedge resection 08/21/14. PLAN: -Follow up on lung pathology results -Follow up with Dr. Hoskins after discharge to discuss treatment options for breast cancer. . Chronic rhinitis 06/16/2013 05/24/2014 documented as of this encounter (statuses as of 04/29/2023) [facility] of Past illness Narrative* Problem Noted Date Resolved Date Breast cancer, right 08/17/2014 05/23/2015 Overview: Followed by Dr. Hoskins (last seen 08/17/14). Abnormal mammogram on 07/26/14 showed a 1 x 1.1cm spiculated lesion at right breast. Ultrasound guided core biopsy of the right breast nodule was positive for invasive ductal carcinoma, intermediate grade, ER and MI receptor positive, HER-2/osvaldo-equivocal. Because of the simultaneous diagnosis of lung cancer, it was decided that she proceed with lung resection first. She is now status post VATS lung wedge resection 08/21/14. PLAN: -Follow up on lung pathology results -Follow up with Dr. Hoskins after discharge to discuss treatment options for breast cancer. . Chronic rhinitis 06/16/2013 05/24/2014 documented as of this encounter (statuses as of 05/15/2023) [facility] of Past illness Narrative* Problem Noted Date Resolved Date Breast cancer, right 08/17/2014 05/23/2015 Overview: Followed by Dr. Hoskins (last seen 08/17/14). Abnormal mammogram on 07/26/14 showed a 1 x 1.1cm spiculated lesion at right breast. Ultrasound guided core biopsy of the right breast nodule was positive for invasive ductal carcinoma, intermediate grade, ER and MI receptor positive, HER-2/osvaldo-equivocal. Because of the simultaneous diagnosis of lung cancer, it was decided that she proceed with lung resection first. She is now status post VATS lung wedge resection 08/21/14. PLAN: -Follow up on lung pathology results -Follow up with Dr. Hoskins after discharge to discuss treatment options for breast cancer. . Chronic rhinitis 06/16/2013 05/24/2014 documented as of this encounter (statuses as of 05/15/2023) [facility] of Past illness Narrative* Problem Noted Date Diagnosed Date Resolved Date Breast cancer, right 08/17/2014 015 Overview: Followed by Dr. Hoskins (last seen 08/17/14). Abnormal mammogram on 07/26/14 showed a 1 x 1.1cm spiculated lesion at right breast. Ultrasound guided core biopsy of the right breast nodule was positive for invasive ductal carcinoma, intermediate grade, ER and MI receptor positive, HER-2/osvaldo-equivocal. Because of the simultaneous diagnosis of lung cancer, it was decided that she proceed with lung resection first. She is now status post VATS lung wedge resection 08/21/14. PLAN: -Follow up on lung pathology results -Follow up with Dr. Hoskins after discharge to discuss treatment options for breast cancer. . Chronic rhinitis 06/16/2013 05/24/2014 documented as of this encounter (statuses as of 05/21/2023) [facility] of Past illness Narrative* Problem Noted Date Diagnosed Date Resolved Date Breast cancer, right 08/17/2014 015 Overview: Followed by Dr. Hoskins (last seen 08/17/14). Abnormal mammogram on 07/26/14 showed a 1 x 1.1cm spiculated lesion at right breast. Ultrasound guided core biopsy of the right breast nodule was positive for invasive ductal carcinoma, intermediate grade, ER and MI receptor positive, HER-2/osvaldo-equivocal. Because of the simultaneous diagnosis of lung cancer, it was decided that she proceed with lung resection first. She is now status post VATS lung wedge resection 08/21/14. PLAN: -Follow up on lung pathology results -Follow up with Dr. Hoskins after discharge to discuss treatment options for breast cancer. . Chronic rhinitis 06/16/2013 05/24/2014 documented as of this encounter (statuses as of 05/22/2023) [facility] History of Past illness Narrative* Problem Noted Date Diagnosed Date Resolved Date Breast cancer, right 08/17/2014 015 Overview: Followed by Dr. Hoskins (last seen 08/17/14). Abnormal mammogram on 07/26/14 showed a 1 x 1.1cm spiculated lesion at right breast. Ultrasound guided core biopsy of the right breast nodule was positive for invasive ductal carcinoma, intermediate grade, ER and MI receptor positive, HER-2/osvaldo-equivocal. Because of the simultaneous diagnosis of lung cancer, it was decided that she proceed with lung resection first. She is now status post VATS lung wedge resection 08/21/14. PLAN: -Follow up on lung pathology results -Follow up with Dr. Hoskins after discharge to discuss treatment options for breast cancer. . Chronic rhinitis 06/16/2013 05/24/2014 documented as of this encounter (statuses as of 06/23/2023) [facility] of Past illness Narrative* Problem Noted Date Diagnosed Date Resolved Date Breast cancer, right 08/17/2014 015 Overview: Followed by Dr. Hoskins (last seen 08/17/14). Abnormal mammogram on 07/26/14 showed a 1 x 1.1cm spiculated lesion at right breast. Ultrasound guided core biopsy of the right breast nodule was positive for invasive ductal carcinoma, intermediate grade, ER and MI receptor positive, HER-2/osvaldo-equivocal. Because of the simultaneous diagnosis of lung cancer, it was decided that she proceed with lung resection first. She is now status post VATS lung wedge resection 08/21/14. PLAN: -Follow up on lung pathology results -Follow up with Dr. Hoskins after discharge to discuss treatment options for breast cancer. . Chronic rhinitis 06/16/2013 05/24/2014 documented as of this encounter (statuses as of 07/09/2023) [facility] of Past illness Narrative* Problem Noted Date Diagnosed Date Resolved Date Breast cancer, right 08/17/2014 015 Overview: Followed by Dr. Hoskins (last seen 08/17/14). Abnormal mammogram on 07/26/14 showed a 1 x 1.1cm spiculated lesion at right breast. Ultrasound guided core biopsy of the right breast nodule was positive for invasive ductal carcinoma, intermediate grade, ER and MI receptor positive, HER-2/osvaldo-equivocal. Because of the simultaneous diagnosis of lung cancer, it was decided that she proceed with lung resection first. She is now status post VATS lung wedge resection 08/21/14. PLAN: -Follow up on lung pathology results -Follow up with Dr. Hoskins after discharge to discuss treatment options for breast cancer. . Chronic rhinitis 06/16/2013 05/24/2014 documented as of this encounter (statuses as of 07/20/2023) [facility] Past illness Narrative* Problem Noted Date Diagnosed Date Resolved Date Breast cancer, right 08/17/2014 015 Overview: Followed by Dr. Hoskins (last seen 08/17/14). Abnormal mammogram on 07/26/14 showed a 1 x 1.1cm spiculated lesion at right breast. Ultrasound guided core biopsy of the right breast nodule was positive for invasive ductal carcinoma, intermediate grade, ER and MI receptor positive, HER-2/osvaldo-equivocal. Because of the simultaneous diagnosis of lung cancer, it was decided that she proceed with lung resection first. She is now status post VATS lung wedge resection 08/21/14. PLAN: -Follow up on lung pathology results -Follow up with Dr. Hoskins after discharge to discuss treatment options for breast cancer. . Chronic rhinitis 06/16/2013 05/24/2014 documented as of this encounter (statuses as of 08/13/2023) [facility] Past illness Narrative* Problem Noted Date Diagnosed Date Resolved Date Breast cancer, right 08/17/2014 015 Overview: Followed by Dr. Hoskins (last seen 08/17/14). Abnormal mammogram on 07/26/14 showed a 1 x 1.1cm spiculated lesion at right breast. Ultrasound guided core biopsy of the right breast nodule was positive for invasive ductal carcinoma, intermediate grade, ER and MI receptor positive, HER-2/osvaldo-equivocal. Because of the simultaneous diagnosis of lung cancer, it was decided that she proceed with lung resection first. She is now status post VATS lung wedge resection 08/21/14. PLAN: -Follow up on lung pathology results -Follow up with Dr. Hoskins after discharge to discuss treatment options for breast cancer. . Chronic rhinitis 06/16/2013 05/24/2014 documented as of this encounter (statuses as of 08/20/2023) [facility] of Past illness Narrative* Problem Noted Date Diagnosed Date Resolved Date Breast cancer, right 08/17/2014 015 Overview: Followed by Dr. Hoskins (last seen 08/17/14). Abnormal mammogram on 07/26/14 showed a 1 x 1.1cm spiculated lesion at right breast. Ultrasound guided core biopsy of the right breast nodule was positive for invasive ductal carcinoma, intermediate grade, ER and MI receptor positive, HER-2/osvaldo-equivocal. Because of the simultaneous diagnosis of lung cancer, it was decided that she proceed with lung resection first. She is now status post VATS lung wedge resection 08/21/14. PLAN: -Follow up on lung pathology results -Follow up with Dr. Hoskins after discharge to discuss treatment options for breast cancer. . Chronic rhinitis 06/16/2013 05/24/2014 documented as of this encounter (statuses as of 08/20/2023) [facility] Narrative* Problem Noted Date Diagnosed Date Resolved Date Breast cancer, right 08/17/2014 015 Overview: Followed by Dr. Hoskins (last seen 08/17/14). Abnormal mammogram on 07/26/14 showed a 1 x 1.1cm spiculated lesion at right breast. Ultrasound guided core biopsy of the right breast nodule was positive for invasive ductal carcinoma, intermediate grade, ER and MI receptor positive, HER-2/osvaldo-equivocal. Because of the simultaneous diagnosis of lung cancer, it was decided that she proceed with lung resection first. She is now status post VATS lung wedge resection 08/21/14. PLAN: -Follow up on lung pathology results -Follow up with Dr. Hoskins after discharge to discuss treatment options for breast cancer. . Chronic rhinitis 06/16/2013 05/24/2014 documented as of this encounter (statuses as of 08/20/2023) [facility] of Past illness Narrative* Problem Noted Date Diagnosed Date Resolved Date Breast cancer, right 08/17/2014 015 Overview: Followed by Dr. Hoskins (last seen 08/17/14). Abnormal mammogram on 07/26/14 showed a 1 x 1.1cm spiculated lesion at right breast. Ultrasound guided core biopsy of the right breast nodule was positive for invasive ductal carcinoma, intermediate grade, ER and MI receptor positive, HER-2/osvaldo-equivocal. Because of the simultaneous diagnosis of lung cancer, it was decided that she proceed with lung resection first. She is now status post VATS lung wedge resection 08/21/14. PLAN: -Follow up on lung pathology results -Follow up with Dr. Hoskins after discharge to discuss treatment options for breast cancer. . Chronic rhinitis 06/16/2013 05/24/2014 documented as of this encounter (statuses as of 08/27/2023) [facility] Past illness Narrative* Problem Noted Date Diagnosed Date Resolved Date Breast cancer, right 08/17/2014 015 Overview: Followed by Dr. Hoskins (last seen 08/17/14). Abnormal mammogram on 07/26/14 showed a 1 x 1.1cm spiculated lesion at right breast. Ultrasound guided core biopsy of the right breast nodule was positive for invasive ductal carcinoma, intermediate grade, ER and MI receptor positive, HER-2/osvaldo-equivocal. Because of the simultaneous diagnosis of lung cancer, it was decided that she proceed with lung resection first. She is now status post VATS lung wedge resection 08/21/14. PLAN: -Follow up on lung pathology results -Follow up with Dr. Hoskins after discharge to discuss treatment options for breast cancer. . Chronic rhinitis 06/16/2013 05/24/2014 documented as of this encounter (statuses as of 09/14/2023) [facility] Narrative* Problem Noted Date Diagnosed Date Resolved Date Breast cancer, right 08/17/2014 015 Overview: Followed by Dr. Hoskins (last seen 08/17/14). Abnormal mammogram on 07/26/14 showed a 1 x 1.1cm spiculated lesion at right breast. Ultrasound guided core biopsy of the right breast nodule was positive for invasive ductal carcinoma, intermediate grade, ER and MI receptor positive, HER-2/osvaldo-equivocal. Because of the simultaneous diagnosis of lung cancer, it was decided that she proceed with lung resection first. She is now status post VATS lung wedge resection 08/21/14. PLAN: -Follow up on lung pathology results -Follow up with Dr. Hoskins after discharge to discuss treatment options for breast cancer. . Chronic rhinitis 06/16/2013 05/24/2014 documented as of this encounter (statuses as of 12/11/2023) [facility] Narrative* Problem Noted Date Diagnosed Date Resolved Date Breast cancer, right 08/17/2014 015 Overview: Followed by Dr. Hoskins (last seen 08/17/14). Abnormal mammogram on 07/26/14 showed a 1 x 1.1cm spiculated lesion at right breast. Ultrasound guided core biopsy of the right breast nodule was positive for invasive ductal carcinoma, intermediate grade, ER and MI receptor positive, HER-2/osvaldo-equivocal. Because of the simultaneous diagnosis of lung cancer, it was decided that she proceed with lung resection first. She is now status post VATS lung wedge resection 08/21/14. PLAN: -Follow up on lung pathology results -Follow up with Dr. Hoskins after discharge to discuss treatment options for breast cancer. . Chronic rhinitis 06/16/2013 05/24/2014 documented as of this encounter (statuses as of 12/28/2023) [facility] E[facility]- Primary Pulmonary eosinophilia Severe persistent asthma without complication [facility] Severe [facility] without complication- Primary [facility] Diagnosis Malignant neoplasm of unspecified part of unspecified bronchus or lung (HCC) [facility] Diagnosis Severe persistent asthma without complication- Primary [facility] Diagnosis Severe persistent asthma without complication- Primary 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 Allergic rhinitis due to animal (cat) (dog) hair and dander Allergic rhinitis due to dust mite [facility] Diagnosis Severe persistent asthma without complication- Primary [facility] Diagnosis Severe persistent asthma without complication- Primary [facility] Diagnosis Lung nodules- Primary Other nonspecific abnormal finding of lung field [facility] Diagnosis Invasive ductal carcinoma of right breast in female (HCC)- Primary Encounter for screening mammogram for high-risk patient Personal history of lung cancer Personal history of malignant neoplasm of bronchus and lung [facility] Diagnosis Severe persistent asthma without complication- Primary 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 Allergic rhinitis due to animal (cat) (dog) hair and dander Allergic rhinitis due to dust mite [facility] Diagnosis Nodule of right lung- Primary Solitary pulmonary nodule [facility] Diagnosis Right upper lobe pulmonary nodule- Primary Uncontrolled persistent asthma Unspecified asthma Bronchiolar disease Other diseases of trachea and bronchus [facility] Diagnosis Lung nodule Solitary pulmonary nodule History of lung cancer Personal history of malignant neoplasm of bronchus and lung Pre-op chest exam Pre-operative respiratory examination Bronchiolar disease Other diseases of trachea and bronchus [facility] Diagnosis Right upper lobe pulmonary nodule- Primary [facility] Diagnosis Nodule of right lung- Primary Solitary pulmonary nodule 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) Chronic obstructive pulmonary disease, unspecified COPD type (HCC) Atherosclerosis of coronary artery of [place] heart with angina pectoris, unspecified vessel or lesion type (HCC) Controlled diabetes mellitus type 2 with complications, unspecified whether custodial insulin use (HCC) Malignant neoplasm of unspecified part of unspecified bronchus or lung (HCC) [facility] Eosinophilic asthma- Primary Pulmonary eosinophilia [facility] Diagnosis Nodule of right lung Solitary pulmonary nodule 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) [facility] Diagnosis Nodule of right lung- Primary Solitary pulmonary nodule Chronic obstructive pulmonary disease, unspecified COPD type (HCC) Controlled diabetes mellitus type 2 with complications, unspecified whether custodial insulin use (HCC) Atherosclerosis of coronary artery of [place] heart with angina pectoris, unspecified vessel or lesion type (HCC) [facility] Nodule of right lung Solitary pulmonary nodule [facility] Diagnosis Invasive ductal carcinoma of right breast in female (HCC) Encounter for screening mammogram for high-risk patient documented in this encounter [facility] note* Diagnosis Radiotherapy follow-up- Primary Radiotherapy follow-up examination Malignant neoplasm of unspecified part of unspecified bronchus or lung (HCC) documented in this encounter [facility] for referral (narrative)* Outpatient Procedure (Routine) - Pending Review Specialty Diagnoses / Procedures Referred By Contac t Referred To Contact [facility] Diagnoses Severe persistent asthma without complication Procedures NITRIC OXIDE, EXHALED NITRIC OXIDE GAS DETERMINATION Pop Allison MD [address] [address] [address] Referral ID Status Reason Start Date Expiration Date Visits Requested Visits Authorized [id number] Pending Review Auto-Generat ed Referral 12/06/2022 07/05/2023 1 1 * Outpatient Procedure (Routine) - Pending Review Specialty Diagnoses / Procedures Referred By Contac t Referred To Contact [facility] Diagnoses Severe persistent asthma without complication Procedures SPIROMETRY - BASELINE AND POST DILATOR BRNCDILAT RSPSE SPMTRY PRE&POST-BRNCDILAT ADMPop Arndt MD [address] [address] Referral ID Status Reason Start Date Expiration Date Visits Requested Visits Authorized [id number] Pending Review Auto-Generat ed Referral 12/06/2022 07/05/2023 1 1 [facility] for referral (narrative)* Diagnostic Procedure Only (Routine) - Authorized Specialty Diagnoses / Procedures Referred By Contac t Referred To Contact [facility] Diagnoses Lung nodules Procedures NM PET/CT SKULL-THIGH SUBSEQUENT PET IMAGING CT ATTENUATION SKULL BASE MID-THIGH Kira Hyman MD, [address] [facility] [place] [address] [facility] [address] [place] [address] Referral ID Status Reason Start Date Expiration Date Visits Requested Visits Authorized [id number] Authorized Auto-Generat ed Referral 02/18/2023 03/19/2024 1 1 [facility] for referral (narrative)* Diagnostic Procedure Only (Routine) - Closed Specialty Diagnoses / Procedures Referred By Contac t Referred To Contact [facility] Diagnoses Invasive ductal carcinoma of right breast in female (HCC) Encounter for screening mammogram for high-risk patient Procedures BULMARO SCREENING SCREENING MAMMOGRAPHY [facility] Laura Barnes APRN.COMMERCIAL LOAN ANALYST [address] [place] [address] Br [facility] [address] [place] [address] Referral ID Status Reason Start Date Expiration Date V isits Requested Visits Authorized [id number] Closed Auto-Generate d Referral 02/20/2023 03/21/2024 1 1 [facility] for referral (narrative)* Outpatient Procedure (Routine) - Pending Review Specialty Diagnoses / Procedures Referred By Contac t Referred To Contact [facility] Diagnoses Eosinophilic asthma Procedures NITRIC OXIDE, EXHALED NITRIC OXIDE GAS DETERMINATION Pop Allison MD [address] [place] [address] Respiratory [place] [address] [place] [address] Referral ID Status Reason Start Date Expiration Date Visits Requested Visits Authorized [id number] Pending Review Auto-Generat ed Referral 3 08/18/2024 1 1 * Outpatient Procedure (Routine) - Pending Review Specialty Diagnoses / Procedures Referred By Contac t Referred To Contact [facility] Diagnoses Eosinophilic asthma Procedures SPIROMETRY - BASELINE AND POST DILATOR BRNCDILAT RSPSE SPMTRY PRE&POST-BRNCDILAT Pop Fuentes MD [address] [place] [address] Respiratory [place] [address] [place] [address] Referral ID Status Reason Start Date Expiration Date Visits Requested Visits Authorized [id number] Pending Review Auto-Generat ed Referral 3 08/18/2024 1 1 [facility] for referral (narrative)* Diagnostic Procedure Only (Routine) - Closed Specialty Diagnoses / Procedures Referred By Contac t Referred To Contact [facility] Diagnoses Invasive ductal carcinoma of right breast in female (HCC) Encounter for screening mammogram for high-risk patient Procedures BULMARO SCREENING SCREENING MAMMOGRAPHY [facility] [employer] Laura Barnes APRN.COMMERCIAL LOAN ANALYST [address] [place] [address] [facility] [address] [place] [address] Referral ID Status Reason Start Date Expiration Date V isits Requested Visits Authorized [id number] Closed Auto-Generate d Referral 02/20/2023 03/21/2024 1 1 [facility] for visit Narrative* Diagnostic Procedure Only (Routine) - Closed Specialty Diagnoses / Procedures Referred By Carolac tiffanie Referred To Contact [facility] Diagnoses Invasive ductal carcinoma of right breast in female (HCC) Encounter for screening mammogram for high-risk patient Procedures BULMARO SCREENING SCREENING MAMMOGRAPHY [facility] [employer] Laura Barnes, BOILER TESTER.COMMERCIAL LOAN ANALYST [address] [place] [address] [facility] [address] [place] [address] Referral ID Status Reason Start Date Expiration Date V isits Requested Visits Authorized [id number] Closed Auto-Generate d Referral 02/20/2023 03/21/2024 1 1 [facility] Summary Purpose Family History No Family History Records FoundNo Family History Records FoundNo Family History Records FoundNo Family History Records Found Advance Directives No Advanced Directives Records FoundDocuments on File Type Date 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 Advance Directive(s) 10/05/2018 12:29 PM Advance Directive(s) 07/05/2018 6:52 PM Advance Directive(s) 06/28/2018 6:38 AM Advance Directive(s) 06/09/2018 12:48 PM Advance Directive(s) 03/28/2018 12:03 PM Documents on File Type Date 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 It is recommended that the individual 100 mg injections be administered at least 5 cm (approximately 2 inches) apart if more than 1 injection is administered at the same site.100 mg doses should be administered into the upper arm, thigh, or abdomen. Given 02/19/2022 1:15 PM EDT 100 mg Arm, Right Active Administered Medications - up to 3 most recent administrations Medication Order MAR Action Action Date Dose Rate Site mepolizumab 100 mg injection (NUCALA) 100 mg, SUBCUTANEOUS, EVERY 4 WEEKS, First dose on Thu01/14/22 at 1330, Until Discontinued, 300 mg doses should be administered as 3 separate injections into the upper arm, thigh, or abdomen. It is recommended that the individual 100 mg injections be administered at least 5 cm (approximately 2 inches) apart if more than 1 injection is administered at the same site.100 mg doses should be administered into the upper arm, thigh, or abdomen. Given 03/26/2022 1:03 PM EDT 100 mg Arm, Left Active Administered Medications - up to 3 most recent administrations Medication Order MAR Action Action Date Dose Rate Site mepolizumab 100 mg injection (NUCALA) 100 mg, SUBCUTANEOUS, EVERY 4 WEEKS, First dose on Thu01/14/22 at 1330, Until Discontinued, 300 mg doses should be administered as 3 separate injections into the upper arm, thigh, or abdomen. It is recommended that the individual 100 mg injections be administered at least 5 cm (approximately 2 inches) apart if more than 1 injection is administered at the same site.100 mg doses should be administered into the upper arm, thigh, or abdomen. Given 05/07/2022 1:05 PM EDT 100 mg Arm, Right Active Administered Medications - up to 3 most recent administrations Medication Order MAR Action Action Date Dose Rate Site mepolizumab 100 mg injection (NUCALA) 100 mg, SUBCUTANEOUS, EVERY 4 WEEKS, First dose on Thu01/14/22 at 1330, Until Discontinued, 300 mg doses should be administered as 3 separate injections into the upper arm, thigh, or abdomen. It is recommended that the individual 100 mg injections be administered at least 5 cm (approximately 2 inches) apart if more than 1 injection is administered at the same site.100 mg doses should be administered into the upper arm, thigh, or abdomen. Given 06/05/2022 4:05 PM EDT 100 mg Arm, Left Active Administered Medications - up to 3 most recent administrations Medication Order MAR Action Action Date Dose Rate Site mepolizumab 100 mg injection (NUCALA) 100 mg, SUBCUTANEOUS, EVERY 4 WEEKS, First dose on Thu01/14/22 at 1330, Until Discontinued, 300 mg doses should be administered as 3 separate injections into the upper arm, thigh, or abdomen. It is recommended that the individual 100 mg injections be administered at least 5 cm (approximately 2 inches) apart if more than 1 injection is administered at the same site.100 mg doses should be administered into the upper arm, thigh, or abdomen. Given 07/03/2022 1:10 PM EDT 100 mg Arm, Right Active Administered Medications - up to 3 most recent administrations Medication Order MAR Action Action Date Dose Rate Site mepolizumab 100 mg injection (NUCALA) 100 mg, SUBCUTANEOUS, EVERY 4 WEEKS, First dose on Thu01/14/22 at 1330, Until Discontinued, 300 mg doses should be administered as 3 separate injections into the upper arm, thigh, or abdomen. It is recommended that the individual 100 mg injections be administered at least 5 cm (approximately 2 inches) apart if more than 1 injection is administered at the same site.100 mg doses should be administered into the upper arm, thigh, or abdomen. Given 11/04/2022 1:22 PM EST 100 mg Arm, Right Reason for Referral Specialty Diagnoses / Procedures Referred By Contac t Referred To Contact CT IMAGING Diagnoses Lung nodule History of lung cancer Pre-op chest exam Procedures CT CHEST WO IVCON DIAGNOSTIC COMPUTED TOMOGRAPHY THORAX W/O Carol Stephens MD [address] [facility] [place] [id number] Ct Imaging Referral ID Status Reason Start Date Expiration Date V isits Requested Visits Authorized [id number] Closed Auto-Generate d Referral 04/23/2023 05/22/2024 1 1 Specialty Diagnoses / Procedures Referred By Contac t Referred To Contact CT IMAGING Diagnoses Right upper lobe pulmonary nodule Procedures CT CHEST WO IVCON DIAGNOSTIC COMPUTED TOMOGRAPHY THORAX W/O CNTUmm Forman MD [address] [place] [address] Ct Imaging Referral ID Status Reason Start Date Expiration Date Visits Requested Visits Authorized [id number] Pending Review Auto-Generat ed Referral 11/20/2023 06/18/2024 1 1 Specialty Diagnoses / Procedures Referred By Contac t Referred To Contact CT IMAGING Diagnoses Nodule of right lung 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) Procedures CT CHEST WO IVCON DIAGNOSTIC COMPUTED TOMOGRAPHY THORAX W/O CNTCHAYOT Jese Hamlin MD [address] [facility] [place] [id number] [facility] [place] [address] Referral ID Status Reason Start Date Expiration Date Visits Requested Visits Authorized [id number] Authorized Auto-Generat ed Referral 08/08/2023 08/07/2024 1 1 Specialty Diagnoses / Procedures Referred By Contac t Referred To Contact Radiation Oncology Diagnoses Nodule of right lung Procedures RAD/ONC CONSULT OFFICE/OUTPATIENT NEW HIGH MDM 60-74 MINUTES Jese Hamlin MD [address] [facility] [place] [id number] Kira Hyman MD, [address] [place] [address] Referral ID Status Reason Start Date Expiration Date Visits Requested Visits Authorized [id number] Authorized PCP Requested Referral 3 08/19/2024 1 1 Specialty Diagnoses / Procedures Referred By Contac t Referred To Contact CT IMAGING Diagnoses Malignant neoplasm of unspecified part of unspecified bronchus or lung (HCC) Procedures CT CHEST WO IVCON DIAGNOSTIC COMPUTED TOMOGRAPHY THORAX W/O CNTRST Kira Hyman MD, [address] [place] [address] [place] [address] Referral ID Status Reason Start Date Expiration Date Visits Requested Visits Authorized [id number] Pending Review Auto-Generat ed Referral 06/09/2024 01/08/2025 1 1 Additional Source Comments INFORMATION SOURCE (unrecogn ized section and content) DATE CREATED AUTHOR AUTHOR'S ORGANIZ ATION 08/25/2023 [facility] DATE CREATED AUTHOR AUTHOR'S ORGANIZ ATION 09/01/2023 [facility] DATE CREATED AUTHOR AUTHOR'S ORGANIZ ATION 12/29/2023 [facility] Source Comments (unrecognize d section and content) In the event this informatio n is protected by the Federal Confidentiality of Alcohol and Drug Abuse Patient Records regulations: The Federal rules restrict any use of the information to criminally investigate or prosecute any alcohol or drug abuse patient.[facility] the event this information is protected by the Federal Confidentiality of Alcohol and Drug Abuse Patient Records regulations: The Federal rules restrict any use of the information to criminally investigate or prosecute any alcohol or drug abuse patient.[facility] the event this information is protected by the Federal Confidentiality of Alcohol and Drug Abuse Patient Records regulations: The Federal rules restrict any use of the information to criminally investigate or prosecute any alcohol or drug abuse patient.[facility] the event this information is protected by the Federal Confidentiality of Alcohol and Drug Abuse Patient Records regulations: The Federal rules restrict any use of the information to criminally investigate or prosecute any alcohol or drug abuse patient.[facility] Center[facility] the event this information is protected by the Federal Confidentiality of Alcohol and Drug Abuse Patient Records regulations: The Federal rules restrict any use of the information to criminally investigate or prosecute any alcohol or drug abuse patient.[facility] the event this information is protected by the Federal Confidentiality of Alcohol and Drug Abuse Patient Records regulations: The Federal rules restrict any use of the information to criminally investigate or prosecute any alcohol or drug abuse patient.[facility] Center[facility] the event this information is protected by the Federal Confidentiality of Alcohol and Drug Abuse Patient Records regulations: The Federal rules restrict any use of the information to criminally investigate or prosecute any alcohol or drug abuse patient.[facility] CenterIn the event this information is protected by the Federal Confidentiality of Alcohol and Drug Abuse Patient Records regulations: The Federal rules restrict any use of the information to criminally investigate or prosecute any alcohol or drug abuse patient.[facility] CenterIn the event this information is protected by the Federal Confidentiality of Alcohol and Drug Abuse Patient Records regulations: The Federal rules restrict any use of the information to criminally investigate or prosecute any alcohol or drug abuse patient.[facility] CenterIn the event this information is protected by the Federal Confidentiality of Alcohol and Drug Abuse Patient Records regulations: The Federal rules restrict any use of the information to criminally investigate or prosecute any alcohol or drug abuse patient.[facility] CenterIn the event this information is protected by the Federal Confidentiality of Alcohol and Drug Abuse Patient Records regulations: The Federal rules restrict any use of the information to criminally investigate or prosecute any alcohol or drug abuse patient.[facility] CenterIn the event this information is protected by the Federal Confidentiality of Alcohol and Drug Abuse Patient Records regulations: The Federal rules restrict any use of the information to criminally investigate or prosecute any alcohol or drug abuse patient.[facility] CenterIn the event this information is protected by the Federal Confidentiality of Alcohol and Drug Abuse Patient Records regulations: The Federal rules restrict any use of the information to criminally investigate or prosecute any alcohol or drug abuse patient.[facility] CenterIn the event this information is protected by the Federal Confidentiality of Alcohol and Drug Abuse Patient Records regulations: The Federal rules restrict any use of the information to criminally investigate or prosecute any alcohol or drug abuse patient.[facility] CenterIn the event this information is protected by the Federal Confidentiality of Alcohol and Drug Abuse Patient Records regulations: The Federal rules restrict any use of the information to criminally investigate or prosecute any alcohol or drug abuse patient.[facility] CenterIn the event this information is protected by the Federal Confidentiality of Alcohol and Drug Abuse Patient Records regulations: The Federal rules restrict any use of the information to criminally investigate or prosecute any alcohol or drug abuse patient.[facility] CenterIn the event this information is protected by the Federal Confidentiality of Alcohol and Drug Abuse Patient Records regulations: The Federal rules restrict any use of the information to criminally investigate or prosecute any alcohol or drug abuse patient.[facility] CenterIn the event this information is protected by the Federal Confidentiality of Alcohol and Drug Abuse Patient Records regulations: The Federal rules restrict any use of the information to criminally investigate or prosecute any alcohol or drug abuse patient.[facility] CenterIn the event this information is protected by the Federal Confidentiality of Alcohol and Drug Abuse Patient Records regulations: The Federal rules restrict any use of the information to criminally investigate or prosecute any alcohol or drug abuse patient.[facility] CenterIn the event this information is protected by the Federal Confidentiality of Alcohol and Drug Abuse Patient Records regulations: The Federal rules restrict any use of the information to criminally investigate or prosecute any alcohol or drug abuse patient.[facility] CenterIn the event this information is protected by the Federal Confidentiality of Alcohol and Drug Abuse Patient Records regulations: The Federal rules restrict any use of the information to criminally investigate or prosecute any alcohol or drug abuse patient.[facility] CenterIn the event this information is protected by the Federal Confidentiality of Alcohol and Drug Abuse Patient Records regulations: The Federal rules restrict any use of the information to criminally investigate or prosecute any alcohol or drug abuse patient.[facility] CenterIn the event this information is protected by the Federal Confidentiality of Alcohol and Drug Abuse Patient Records regulations: The Federal rules restrict any use of the information to criminally investigate or prosecute any alcohol or drug abuse patient.[facility] CenterIn the event this information is protected by the Federal Confidentiality of Alcohol and Drug Abuse Patient Records regulations: The Federal rules restrict any use of the information to criminally investigate or prosecute any alcohol or drug abuse patient.[facility] CenterIn the event this information is protected by the Federal Confidentiality of Alcohol and Drug Abuse Patient Records regulations: The Federal rules restrict any use of the information to criminally investigate or prosecute any alcohol or drug abuse patient.[facility] CenterIn the event this information is protected by the Federal Confidentiality of Alcohol and Drug Abuse Patient Records regulations: The Federal rules restrict any use of the information to criminally investigate or prosecute any alcohol or drug abuse patient.[facility] CenterIn the event this information is protected by the Federal Confidentiality of Alcohol and Drug Abuse Patient Records regulations: The Federal rules restrict any use of the information to criminally investigate or prosecute any alcohol or drug abuse patient.[facility] CenterIn the event this information is protected by the Federal Confidentiality of Alcohol and Drug Abuse Patient Records regulations: The Federal rules restrict any use of the information to criminally investigate or prosecute any alcohol or drug abuse patient.[facility] CenterIn the event this information is protected by the Federal Confidentiality of Alcohol and Drug Abuse Patient Records regulations: The Federal rules restrict any use of the information to criminally investigate or prosecute any alcohol or drug abuse patient.[facility] CenterIn the event this information is protected by the Federal Confidentiality of Alcohol and Drug Abuse Patient Records regulations: The Federal rules restrict any use of the information to criminally investigate or prosecute any alcohol or drug abuse patient.[facility] CenterIn the event this information is protected by the Federal Confidentiality of Alcohol and Drug Abuse Patient Records regulations: The Federal rules restrict any use of the information to criminally investigate or prosecute any alcohol or drug abuse patient.[facility] CenterIn the event this information is protected by the Federal Confidentiality of Alcohol and Drug Abuse Patient Records regulations: The Federal rules restrict any use of the information to criminally investigate or prosecute any alcohol or drug abuse patient.[facility] CenterIn the event this information is protected by the Federal Confidentiality of Alcohol and Drug Abuse Patient Records regulations: The Federal rules restrict any use of the information to criminally investigate or prosecute any alcohol or drug abuse patient.[facility] CenterIn the event this information is protected by the Federal Confidentiality of Alcohol and Drug Abuse Patient Records regulations: The Federal rules restrict any use of the information to criminally investigate or prosecute any alcohol or drug abuse patient.[facility] CenterIn the event this information is protected by the Federal Confidentiality of Alcohol and Drug Abuse Patient Records regulations: The Federal rules restrict any use of the information to criminally investigate or prosecute any alcohol or drug abuse patient.[facility] CenterIn the event this information is protected by the Federal Confidentiality of Alcohol and Drug Abuse Patient Records regulations: The Federal rules restrict any use of the information to criminally investigate or prosecute any alcohol or drug abuse patient.[facility] CenterIn the event this information is protected by the Federal Confidentiality of Alcohol and Drug Abuse Patient Records regulations: The Federal rules restrict any use of the information to criminally investigate or prosecute any alcohol or drug abuse patient.[facility] CenterIn the event this information is protected by the Federal Confidentiality of Alcohol and Drug Abuse Patient Records regulations: The Federal rules restrict any use of the information to criminally investigate or prosecute any alcohol or drug abuse patient.[facility] CenterIn the event this information is protected by the Federal Confidentiality of Alcohol and Drug Abuse Patient Records regulations: The Federal rules restrict any use of the information to criminally investigate or prosecute any alcohol or drug abuse patient.[facility] CenterIn the event this information is protected by the Federal Confidentiality of Alcohol and Drug Abuse Patient Records regulations: The Federal rules restrict any use of the information to criminally investigate or prosecute any alcohol or drug abuse patient.[facility] Reason for Visit (unrecogniz ed section and content) Specialty Diagnoses / Procedures Referred By Carolac t Referred To Contact Radiation Oncology Diagnoses Nodule of right lung Procedures RAD/ONC CONSULT OFFICE/OUTPATIENT [facility] MDM 60-74 MINUTES Jese Hamlin MD [address] [facility] [address] Kira Hyman MD, [address] [place] [address] Referral ID Status Reason Start Date Expiration Date V isits Requested Visits Authorized [id number] Closed PCP Requested Referral 08/20/2023 08/19/2024 1 1 Reason Comments Nucala injection Reason Comments nucala injection Reason Onset Date Comments Refill Request Refill Request 04/10/[address] Reason Comments Refill Request Reason Comments handicap placard Reason Comments Imm/Inj Reason Comments Established Patient annual f/u and nucal a injection Reason Comments Injections Nucala injection Reason Comments Recheck Reason Comments Established Patient Reason Comments Established Patient Annual visit. Last N ucala in 10/2022 Reason Comments dupixent issues Reason Onset Date Comments dupixent copay 04/03/2023 Reason Comments Student Life Coordinator - Other Appointment Orders Reason Comments Patient Question Reason Comments Appointment PreOp Bronch Specialty Diagnoses / Procedures Referred By Contac t Referred To Contact CT IMAGING Diagnoses Lung nodule History of lung cancer Pre-op chest exam Procedures CT CHEST WO IVCON DIAGNOSTIC COMPUTED TOMOGRAPHY THORAX W/O CRISTIANT Carol Vincent MD [address] [place] [address] Ct Imaging Referral ID Status Reason Start Date Expiration Date V isits Requested Visits Authorized [id number] Closed Auto-Generate d Referral 04/23/2023 05/22/2024 1 1 Reason Comments Appointment Student Life Coordinator - Other Reason Comments Dupixent Start Reason Comments Lung Cancer Reason Onset Date Comments Refill Request 07/20/2023 Specialty Diagnoses / Procedures Referred By Contac t Referred To Contact CT IMAGING Diagnoses Nodule of right lung 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) Procedures CT CHEST WO IVCON DIAGNOSTIC COMPUTED TOMOGRAPHY THORAX W/O Jese Sanchez MD [address] [place] [address] [place] [address] Referral ID Status Reason Start Date Expiration Date V isits Requested Visits Authorized [id number] Closed Auto-Generate d Referral 08/08/2023 08/07/2024 1 1 Reason Comments Established Patient Follow-Up Reason Comments Future Appointment Care Teams (unrecognized sec tion and content) Soil Conservation Aide Relationship Specialty Start Date End Date Paz Hernandez MD [address] [facility] [place] [address] PCP - General Family Practice 05/10/13 Kira Hyman MD, [address] [place] [address] Physician Radiation Oncology 12/10/17 Blue, Magnus S [address] [place] [address] Cardiology 07/13/18 Soil Conservation Aide Relationship Specialty Start Date End Date Paz Hernandez MD [address] [place] [address] PCP - General Family Practice 05/10/13 Kira Hyman MD, [address] [place] [address] Physician Radiation Oncology 12/10/17 Blue, Chadwick S [address] [place] [address] Cardiology 07/13/18 Soil Conservation Aide Relationship Specialty Start Date End Date Paz Hernandez MD [address] [place] [address] PCP - General Family Practice 05/10/13 Kira Hyman MD, [address] [place] [address] Physician Radiation Oncology 12/10/17 Blue, Magnus S [address] [place] [address] Cardiology 07/13/18 Soil Conservation Aide Relationship Specialty Start Date End Date Paz Hernandez MD [address] [place] [address] PCP - General Family Practice 05/10/13 Kira Hyman MD, [address] [place] [address] Physician Radiation Oncology 12/10/17 Blue, Chadwick S [address] [place] [address] Cardiology 07/13/18 Soil Conservation Aide Relationship Specialty Start Date End Date Paz Hernandez MD [address] [place] [address] PCP - General Family Practice 05/10/13 Kira Hyman MD, [address] [place] [address] Physician Radiation Oncology 12/10/17 Blue, Chadwick S [address] [place] [address] Cardiology 07/13/18 Soil Conservation Aide Relationship Specialty Start Date End Date Paz Hernandez MD [address] [place] [address] PCP - General Family Practice 05/10/13 Kira Hyman MD, [address] [place] [address] Physician Radiation Oncology 12/10/17 Blue, Chadwick S [address] [place] [address] Cardiology 07/13/18 Soil Conservation Aide Relationship Specialty Start Date End Date Paz Hernandez MD [address] [place] [address] PCP - General Family Practice 05/10/13 Kira Hyman MD, [address] [place] [address] Physician Radiation Oncology 12/10/17 Blue, Chadwick S [address] [place] [address] Cardiology 07/13/18 Soil Conservation Aide Relationship Specialty Start Date End Date Paz Hernandez MD [address] [place] [address] PCP - General Family Practice 05/10/13 Kira Hyman MD, [address] [place] [address] Physician Radiation Oncology 12/10/17 Blue, Chadwick S [address] [place] [address] Cardiology 07/13/18 Soil Conservation Aide Relationship Specialty Start Date End Date Paz Hernandez MD [address] [place] [address] PCP - General Family Practice 05/10/13 Kira Hyman MD, [address] [place] [address] Physician Radiation Oncology 12/10/17 Blue, Chadwick S [address] [place] [address] Cardiology 07/13/18 Soil Conservation Aide Relationship Specialty Start Date End Date Paz Hernandez MD [address] [place] [address] PCP - General Family Medicine 05/10/13 Kira Hyman MD, [address] [place] [address] Physician Radiation Oncology 12/10/17 Blue, Chadwick S [address] [place] [address] Cardiology 07/13/18 Soil Conservation Aide Relationship Specialty Start Date End Date Paz Hernandez MD [address] [place] [address] PCP - General Family Medicine 05/10/13 Kira Hyman MD, [address] [place] [address] Physician Radiation Oncology 12/10/17 Blue, Magnus S [address] [place] [address] Cardiology 07/13/18 Soil Conservation Aide Relationship Specialty Start Date End Date Paz Hernandez MD [address] [place] [address] PCP - General Family Medicine 05/10/13 Kira Hyman MD, [address] [place] [address] Physician Radiation Oncology 12/10/17 Blue, Magnus S [address] [place] [address] Cardiology 07/13/18 Soil Conservation Aide Relationship Specialty Start Date End Date Paz Hernandez MD [address] [place] [address] PCP - General Family Medicine 05/10/13 Kira Hyman MD, [address] [place] [address] Physician Radiation Oncology 12/10/17 Blue, Chadwick S [address] [place] [address] Cardiology 07/13/18 Soil Conservation Aide Relationship Specialty Start Date End Date Paz Hernandez MD [address] [place] [address] PCP - General Family Medicine 05/10/13 Kira Hyman MD, [address] [place] [address] Physician Radiation Oncology 12/10/17 Blue, Magnus S [address] [place] [address] Cardiology 07/13/18 Soil Conservation Aide Relationship Specialty Start Date End Date Paz Hernandez MD [address] [place] [address] PCP - General Family Medicine 05/10/13 Kira Hyman MD, [address] [place] [address] Physician Radiation Oncology 12/10/17 Blue, Magnus S [address] [place] [address] Cardiology 07/13/18 Soil Conservation Aide Relationship Specialty Start Date End Date Paz Hernandez MD [address] [place] [address] PCP - General Family Medicine 05/10/13 Kira Hyman MD, [address] [place] [address] Physician Radiation Oncology 12/10/17 Blue, Chadwick S [address] [place] [address] Cardiology 07/13/18 Paulino Ferro [address] [place] [address] Pulmonary Disease 04/17/23 Soil Conservation Aide Relationship Specialty Start Date End Date Paz Hernandez MD [address] [place] [address] PCP - General Family Medicine 05/10/13 Kira Hyman MD, [address] [place] [address] Physician Radiation Oncology 12/10/17 Blue, Chadwick S [address] [place] [address] Cardiology 07/13/18 Paulino Ferro [address] [place] [address] Pulmonary Disease 04/17/23 Soil Conservation Aide Relationship Specialty Start Date End Date Paz Hernandez MD [address] [place] [address] PCP - General Family Medicine 05/10/13 Kira Hyman MD, [address] [place] [address] Physician Radiation Oncology 12/10/17 Blue, Magnus S [address] [place] [address] Cardiology 07/13/18 Paulino Ferro [address] [place] [address] Pulmonary Disease 04/17/23 Soil Conservation Aide Relationship Specialty Start Date End Date Paz Hernandez MD [address] [place] [address] PCP - General Family Medicine 05/10/13 Kira Hyman MD, [address] [place] [address] Physician Radiation Oncology 12/10/17 Blue, Chadwick S [address] [place] [address] Cardiology 07/13/18 Paulino Ferro [address] [place] [address] Pulmonary Disease 04/17/23 Soil Conservation Aide Relationship Specialty Start Date End Date Paz Hernandez MD [address] [place] [address] PCP - General Family Medicine 05/10/13 Kira Hyman MD, [address] [place] [address] Physician Radiation Oncology 12/10/17 Blue, Magnus S [address] [place] [address] Cardiology 07/13/18 Paulino Ferro [address] [place] [address] Pulmonary Disease 04/17/23 Soil Conservation Aide Relationship Specialty Start Date End Date Paz Hernandez MD [address] [place] [address] PCP - General Family Medicine 05/10/13 Kira Hyman MD, [address] [place] [address] Physician Radiation Oncology 12/10/17 Magnus Mcarthur S [address] [place] [address] Cardiology 07/13/18 Paulino Ferro [address] [place] [address] Pulmonary Disease 04/17/23 Soil Conservation Aide Relationship Specialty Start Date End Date Paz Hernandez MD [address] [place] [address] PCP - General Family Medicine 05/10/13 Kira Hyman MD, [address] [place] [address] Physician Radiation Oncology 12/10/17 Rogelio Mcarthurril S [address] [place] [address] Cardiology 07/13/18 Paulino Ferro [address] [place] [address] Pulmonary Disease 04/17/23 Soil Conservation Aide Relationship Specialty Start Date End Date Paz Hernandez MD [address] [place] [address] PCP - General Family Medicine 05/10/13 Kira Hyman MD, [address] [place] [address] Physician Radiation Oncology 12/10/17 Blue, Magnus S [address] [place] [address] Cardiology 07/13/18 Paulino Ferro [address] [place] [address] Pulmonary Disease 04/17/23 Soil Conservation Aide Relationship Specialty Start Date End Date Paz Hernandez MD [address] [place] [address] PCP - General Family Medicine 05/10/13 Kira Hyman MD, [address] [place] [address] Physician Radiation Oncology 12/10/17 Blue, Magnus S [address] [place] [address] Cardiology 07/13/18 Paulino Ferro MD [address] [place] [address] Pulmonary Disease 04/17/23 Soil Conservation Aide Relationship Specialty Start Date End Date Paz Hernandez MD [address] [place] [address] PCP - General Family Medicine 05/10/13 Kira Hyman MD, [address] [place] [address] Physician Radiation Oncology 12/10/17 Magnus Mcarthur MD [address] [place] [address] Cardiology 07/13/18 Paulino Ferro MD [address] [place] [address] Pulmonary Disease 04/17/23 Soil Conservation Aide Relationship Specialty Start Date End Date Paz Hernandez MD [address] [place] [address] PCP - General Family Medicine 05/10/13 Kira Hyman MD, [address] [place] [address] Physician Radiation Oncology 12/10/17 Magnus Mcarthur MD [address] [place] [address] Cardiology 07/13/18 Paulino Ferro MD [address] [place] [address] Pulmonary Disease 04/17/23 Soil Conservation Aide Relationship Specialty Start Date End Date Paz Hernandez MD [address] [place] [address] PCP - General Family Medicine 05/10/13 Kira Hyman MD, [address] [place] [address] Physician Radiation Oncology 12/10/17 Magnus Mcarthur MD [address] [place] [address] Cardiology 07/13/18 Paulino Ferro MD [address] [place] [address] Pulmonary Disease 04/17/23 Soil Conservation Aide Relationship Specialty Start Date End Date Paz Hernandez MD [address] [place] [address] PCP - General Family Medicine 05/10/13 Kira Hyman MD, [address] [place] [address] Physician Radiation Oncology 12/10/17 Magnus Mcarthur MD [address] [place] [address] Cardiology 07/13/18 Paulino Ferro MD [address] [place] [address] Pulmonary Disease 04/17/23 Soil Conservation Aide Relationship Specialty Start Date End Date Paz Hernandez MD [address] [place] [address] PCP - General Family Medicine 05/10/13 Kira Hyman MD, [address] [place] [address] Physician Radiation Oncology 12/10/17 Magnus Mcarthur MD [address] [place] [address] Cardiology 07/13/18 Paulino Ferro MD [address] [place] [address] Pulmonary Disease 04/17/23 Soil Conservation Aide Relationship Specialty Start Date End Date Paz Hernandez MD [address] [place] [address] PCP - General Family Medicine 05/10/13 Kira Hyman MD, [address] [place] [address] Physician Radiation Oncology 12/10/17 Magnus Mcarthur MD [address] [place] [address] Cardiology 07/13/18 Soil Conservation Aide Relationship Specialty Start Date End Date Paz Hernandez MD [address] [place] [address] PCP - General Family Medicine 05/10/13 Kira Hyman MD, [address] [place] [address] Physician Radiation Oncology 12/10/17 Magnus Mcarthur MD [address] [place] [address] Cardiology 07/13/18 Paulino Ferro MD [address] [place] [address] Pulmonary Disease 04/17/23 Soil Conservation Aide Relationship Specialty Start Date End Date Paz Hernandez MD [address] [place], [place] [address] PCP - General Family Medicine 05/10/13 Kira Hyman MD [address] [facility] [address] [place], [place] [address] Physician Radiation Oncology 12/10/17 Magnus Mcarthur MD [address] [place], [place] [address] Cardiology 07/13/18 Paulino Ferro MD [address] [place], [place] [address] Pulmonary Disease 04/17/23 FOR RECORDS PERTAINING TO PATIENTS WHO ARE OR HAVE BEEN ENROLLED IN A CHEMICAL DEPENDENCY/SUBSTANCEABUSE PROGRAM, SOME INFORMATION MAY BE OMITTED. This clinical summary was aggregated from multiple sources. Caution should be exercised in using it in the provision of clinical care. This summary normalizes information from multiple sources, and as a consequence, information in this document may materially change the coding, format and clinical context of patient data. In addition, data may be omitted in some cases. CLINICAL DECISIONS SHOULD BE BASED ON THE PRIMARY CLINICAL RECORDS. [employer] provides no warranty or guarantee of the accuracy or completeness of information in this document.
== END | disposition home or self-care (01) ==
LOC: MFPLAB 13:54
PROVIDERS: PCP Family Medicine; Visit Provider Family Medicine
DX: E11.9 Type 2 diabetes mellitus without complications (principal); E55.9 Vitamin D deficiency, unspecified
CPT/HCPCS: 36415; 80048; 80053; 80061; 82306; 83036; 84443

== ENCOUNTER → 2024-10-21 | Outpatient (CLI) | payer MEDICARE, OTHER, SELFPAY ==
[2024-10-21 12:41] LABS: Albumin, Serum 3.8 g/dL (3.2-5.0); BUN 47 mg/dL (7-18); BUN/Creat Ratio 23.9 RATIO (10-20); Calcium,Total 9.8 mg/dL (8.5-10.1); Chloride 108 mmol/L (98-107); Creatinine, Serum 1.97 mg/dL (0.55-1.02); EST Glomerular Filtration Rate 26 mL/min (>60); Est Glom Filt Rate - Afr Amer 31 mL/min (>60); Glucose 54 mg/dL (74-106); Phosphorus 3.1 mg/dL (2.5-4.9); Potassium 4.3 mmol/L (3.5-5.1); Sodium Level 137 mmol/L (136-145)
[2024-10-24 22:16] LABS: PTHIN 94.5 pg/mL (18.4-80.1)
== END | disposition home or self-care (01) ==
LOC: LAB 11:41
PROVIDERS: PCP Family Medicine; Referring Provider Internal Medicine Nephrology; Visit Provider Internal Medicine Nephrology
DX: E11.22 Type 2 diabetes mellitus with diabetic chronic kidney disease (principal); N18.4 Chronic kidney disease, stage 4 (severe)
CPT/HCPCS: 36415; 80069; 83970

== ENCOUNTER → 2024-10-26 | Outpatient (CLI) | payer MEDICARE, OTHER, SELFPAY ==
[2024-10-26 11:12] LABS: Mucous, Urine 0 SEEN /hpf (<or=2+); Red Blood Cells-Urine 0 SEEN /hpf (0-5); White Blood Cells 0 SEEN /hpf (0-5)
[2024-10-26 11:36] LABS: Color, Urine Yellow (Yellow); Glucose, Dipstick Normal (Normal); Ketone-Dipstick Negative (Negative); Leukocyte Esterase-Dipstick Negative /ul (Negative); Nitrite-Dipstick Negative (Negative); Occult Blood-Urine Negative /ul (Negative); Protein-Dipstick 30 mg/dl (Negative); Specific Gravity, Urine 1.015 (1.002-1.030); Urine Bilirubin Dipstick Negative (Negative); Urine Clarity Clear (Clear); Urine Urobilinogen Normal (Normal)
[2024-10-26 11:42] LABS: Microalbumin,Random Urine 75.1 mg/L (NO RANGE EST.)
[2024-10-26 11:46] LABS: Bacteria RARE /hpf (None Seen); Squamous Epithelial Cells - UA 0-5 SEEN /hpf (5-10)
== END | disposition home or self-care (01) ==
LOC: POLAB3 11:10
PROVIDERS: PCP Family Medicine; Visit Provider Internal Medicine Nephrology
DX: E11.22 Type 2 diabetes mellitus with diabetic chronic kidney disease (principal); N18.4 Chronic kidney disease, stage 4 (severe)
CPT/HCPCS: 81001; 82043; 82570

== ENCOUNTER 2024-10-28 10:28 | Observation (INO) | payer MEDICARE, OTHER, SELFPAY ==
[2024-10-28] VITALS (13 sets, daily range): BP systolic 88–120; BP diastolic 49–84; PULSE 77–133; RESP 16–94; TEMP 36.5–36.8; O2SAT 95–100; BMI 64.8; BMI 29.1; BMI 26.6
--- NOTE | 2024-10-28 10:31 | ED.VIS.CHEST ---
HPI History of Present Illness Chief Complaint: Chest Pain Informant: patient and family Onset/Context/Timing Onset: Today Activity at onset: sudden Timing: Continuous Quality: Positive for Heaviness Location: Left Chest Worsened By: Nothing Relieved By: Oxygen Associated Symptoms: Positive for Nausea, Dyspnea, Lightheadedness, Acid Reflux and Palpitations; Negative for Vomiting, Diaphoresis, Cough or Fever Narrative Narrative: Patient presents with chest pain and palpitations that began this morning. Patient states she felt like her heart racing. 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 Patient states she has been having some heaviness in her chest with this. Patient states it is over the left upper chest. Patient states nothing makes it worse. Patient states that oxygen did help with it. Patient admits to some nausea but denies any vomiting. Patient admits to some shortness of breath. Patient admits to some lightheadedness and reflux symptoms. Patient denies any fevers or chills. CVD Risk Factors: Positive for Diabetes and Family History 1' </=55; Negative for Hypertension, Hypercholesterolemia or Smoking PE Risk Factors: Positive for Cancer; Negative for Recent Travel/Surgery, Recent Immobilization, Prior DVT or PE or OCP + Smoking + >/=35 PFSH PFSH Medical History Sinus tachycardia CKD (chronic kidney disease), stage IV Former tobacco use COPD with asthma Atherosclerosis of coronary artery of [place] heart without angina pectoris Status post gamma knife treatment Tobacco use Depression Breast cancer Lung cancer Hypothyroidism GERD (gastroesophageal reflux disease) Type 2 diabetes mellitus without complications Hyperlipidemia Home Medications ?Medication ?Instructions ?Recorded ?Last Taken ?Type cholecalciferol (vitamin D3) 25 1,000 unit PO DAILY 08/26/16 08/31/16 History mcg (1,000 unit) tablet fluticasone propionate 50 1 spray NASAL BID 08/26/16 08/31/16 History mcg/actuation nasal spray,suspension montelukast 10 mg tablet 10 mg PO DAILY 08/26/16 08/31/16 History aspirin 81 mg tablet,delayed 81 mg PO QDAY #30 tabs 05/19/18 06/07/18 Rx release (Adult Low Dose Aspirin) citalopram 20 mg tablet (Celexa) 20 mg PO DAILY 08/19/18 Unknown History fluticasone propionate 230 2 puff IH DAILY 10/30/19 Unknown History mcg-salmeterol 21 mcg/actuation HFA inhaler insulin aspart U-100 100 unit/mL See Protocol subcut BREAKFAST 10/30/19 Unknown History (3 mL) subcutaneous pen diabetes insulin detemir U-100 100 unit/mL 30 units subcut DAILY ##1 11/04/19 Unknown Rx (3 mL) subcutaneous pen cyanocobalamin (vitamin B-12) 1,000 mcg PO DAILY 02/10/20 Unknown History 1,000 mcg capsule levothyroxine 88 mcg capsule 100 mcg PO DAILY 05/06/22 Unknown History albuterol sulfate 2.5 mg/3 mL 2.5 mg inhalation Q4H PRN 01/01/23 Unknown History (0.083 %) solution for nebulization shortness of breath or wheezing umeclidinium 62.5 mcg/actuation 1 inh inhalation DAILY 01/01/23 Unknown History blister powder for inhalation (Incruse Ellipta) omeprazole 20 mg capsule,delayed 20 mg PO DAILY 01/22/23 Unknown History release dupilumab 300 mg/2 mL subcutaneous 300 mg subcut Q2W 07/20/23 Unknown History pen injector (Dupixent) atorvastatin 40 mg tablet See Rx Instructions .Route 11/18/23 Unknown Rx .COMPLEX #90 tabs lisinopril 2.5 mg tablet 2.5 mg PO DAILY #90 tabs 12/22/23 Unknown Rx furosemide 40 mg tablet (Lasix) 40 mg PO DAILY #90 tabs 01/13/24 Unknown Rx metoprolol tartrate 25 mg tablet 25 mg PO BID #180 tabs 01/13/24 Unknown Rx Allergy/AdvReac Type Severity Reaction Status Date / Time azithromycin (From Zithromax) AdvReac DOES NOT Verified 10/28/24 10:29 WORK-EVER FOR OR Family History Father Heart disease CAD (coronary artery disease) Hypertension Myocardial infarction Mother Anxiety and depression Thyroid disorder Alzheimer dementia Surgical History History of cholecystectomy (2018) H/O coronary artery bypass surgery (06/25/18) History of left heart catheterization (06/07/18) History of lung surgery (2013) H/O lumpectomy History of lung biopsy (2013) History of hip replacement H/O total hysterectomy History of appendectomy History of tonsillectomy Social History household members: other details: Her grand-daughter has been living with her. Smoking Status: Former smoker how long ago did patient quit smoking: Quit 2002, smoked 1 ppd since teen until quit. alcohol intake: never substance use type: does not use ROS ROS ED Constitutional Constitutional ED: Denies chills or fever(s) Eyes Eyes: Denies blurry vision or change in vision ENT ENT ED: Reports rhinorrhea; Denies sore throat Cardiovascular Cardiovascular: Reports chest pain and palpitations Respiratory/Chest Respiratory/Chest: Reports dyspnea; Denies cough Gastrointestinal Gastrointestinal: Reports nausea; Denies abdominal pain or vomiting Genitourinary Genitourinary ED: Denies dysuria or hematuria Musculoskeletal Musculoskeletal: Reports neck pain; Denies back pain Integumentary Denies abscess or rash Neurologic Neurologic: Denies headache(s) or weakness Allergic/Immunologic Allergic/Immunologic ED: Denies mouth swelling or urticaria EXAM Physical Exam Const Vital Signs: 10/28/24 10:29 10/28/24 10:32 10/28/24 11:20 Temperature 98.2 F Temperature Source Oral Pulse Rate 133 H Respiratory Rate 19 H Blood Pressure 120/57 L Blood Pressure Mean 78 Pulse Ox 95 Oxygen Delivery Method Room Air Room Air 10/28/24 11:29 10/28/24 11:36 10/28/24 12:00 Temperature Temperature Source Pulse Rate 104 H 114 H Respiratory Rate 22 H 18 Blood Pressure 119/64 94/64 99/69 Blood Pressure Mean 82 74 79 Pulse Ox 100 97 Oxygen Delivery Method 10/28/24 13:00 10/28/24 14:00 10/28/24 14:56 Temperature 98.1 F Temperature Source Pulse Rate 120 H 123 H 122 H Respiratory Rate 18 94 H 19 H Blood Pressure 98/84 H Blood Pressure Mean 88 Pulse Ox 98 98 99 Oxygen Delivery Method 10/28/24 15:04 Temperature Temperature Source Pulse Rate 124 H Respiratory Rate 20 H Blood Pressure 91/63 Blood Pressure Mean 72 Pulse Ox 99 Oxygen Delivery Method Positive well nourished and well developed General Appearance ED: well developed and NAD Eyes PERRL and EOMs intact bilaterally Eyes Narrative: There is a small subconjunctival hemorrhage on the right lateral sclera. Neck supple and no JVD Resp normal respiratory effort and clear to auscultation bilaterally Cardio regular rhythm Rate: tachycardic GI soft to palpation, non-tender and non-distended Extremity normal to inspection General Extremety ED: Negative for edema or tenderness General Extremity: Negative for edema Neuro oriented x3, CN's II-XII intact bilaterally and no sensory deficits noted Sensorium / Orientation: awake and alert Motor Exam: strength 5/5 throughout Psych mental status grossly normal Heart Score History: Moderately Suspicious ECG: Nonspecific Repolarization Age: >/= 65 years Risk Factors: >/= 3 Risk Factors or History of CAD Troponin: </= Normal Limit Score: 6 MDM MDM MDM Narrative Medical decision making narrative: Differential diagnosis includes cardiac dysrhythmia, cardiac ischemia, pneumonia, pneumothorax, electrolyte abnormality, pulmonary embolism, and gastroesophageal reflux disease. EKG will be obtained to assess for cardiac dysrhythmia and cardiac ischemia. Chest x-ray will be obtained to assess for pneumonia and pneumothorax. CBC will be obtained to assess for leukocytosis and anemia. Basic metabolic profile will be obtained to assess for electrolyte abnormality and renal function. High-sensitivity troponin will be obtained to assess for cardiac ischemia. 2-hour repeat high-sensitivity troponin will be obtained to assess for ongoing cardiac ischemia. D-dimer will be obtained to assess for pulmonary embolism. Lab Data Attestation: I reviewed the patient's lab results. Lab results narrative: CBC was reviewed. There is a slight anemia with a hemoglobin of 10.4 and hematocrit 32.2. Basic metabolic profile was reviewed. BUN was 52 and creatinine was 1.86. These are consistent with previous results. High-sensitivity troponin was reviewed and was normal at 11. D-dimer was reviewed and was slightly elevated at 0.88. PT with INR and PTT were reviewed. Pro time was 14.7 and INR is 1.2. PTT was normal at 26.6. 2-hour repeat high-sensitivity troponin was reviewed and was normal at 14. Urinalysis was reviewed. There is no evidence of urinary tract infection or hematuria. Labs: Laboratory Results - last 24 hr 10/28/24 10/28/24 10/28/24 10:40 13:18 13:33 WBC 9.0 RBC 3.66 L Hgb 10.4 L Hct 32.2 L MCV 88.0 MCH 28.4 MCHC 32.3 RDW Std Deviation 48.6 H RDW Coeff of Katelyn 15.0 H Plt Count 337 MPV 10.0 Immature Gran % (Auto) 0.300 Neut % (Auto) 57.0 Lymph % (Auto) 25.1 [place] % (Auto) 13.1 H Eos % (Auto) 3.1 Baso % (Auto) 1.4 H Absolute Neuts (auto) 5.1 Absolute Lymphs (auto) 2.26 Nucleated RBC % 0 PT 14.7 INR 1.2 APTT 26.6 D-Dimer Quant (PE/DVT) 0.88 H* Sodium 134 L Potassium 4.6 Chloride 106 Carbon Dioxide 22.0 Anion Gap 7 BUN 52 H Creatinine 1.86 H Estim Creat Clear Calc 31.68 Est GFR (MDRD) Af Amer 33 L Est GFR (MDRD) Non-Af 28 L BUN/Creatinine Ratio 28.0 H Glucose 143 H Calcium 9.6 Magnesium 2.1 Troponin I High Sens 11 14 Urine Color Straw Urine Clarity Clear Urine pH 6.0 Ur Specific [place] 1.010 Urine Protein Negative Urine Glucose (UA) Normal Urine Ketones Negative Urine Occult Blood 10 H Urine Nitrite Negative Urine Bilirubin Negative Urine Urobilinogen Normal Ur Leukocyte Esterase Negative Urine RBC 0-5 SEEN Urine WBC 0-5 SEEN Ur Squamous Epith Cells 0 SEEN Urine Bacteria 1+ Urine Mucus 0 SEEN Radiography Chest X-Ray - ED: 1 View, Read by ED Physician, Read by Radiologist and Chronic Changes Diagnostic Testing: Clinical Impression(s) from Imaging Studies Chest X-Ray 10/28/24 11:24 IMPRESSION: Left pleural thickening or small effusion. Postoperative change. Hiatal hernia. Electronically Signed: Ulysses Mills MD at 11:40 EST , Portable 1 view chest x-ray was obtained. On my independent interpretation, lung piper show chronic changes. There is normal cardiac silhouette. Bony thorax is normal. There is no acute process noted. Radiologist also interpreted the x-ray and agrees. EKG Initial EKG: Attestation: I personally reviewed and interpreted this EKG as follows: Interpretation: Sinus Tachycardia (128) and Non-Specific ST Changes Comments: EKG was obtained. On my independent interpretation, it showed a sinus tachycardia with a rate of 128. VA interval, QRS interval, and QTc intervals were all normal. [place] was normal. There are nonspecific ST-T wave changes. Prior EKG tracings: available for review Prior: Unchanged (08/08/2024) Follow-up EKG: Attestation: I personally reviewed and interpreted this EKG as follows: Interpretation: Sinus Tachycardia (122) and Non-Specific ST Changes Comments: Repeat EKG was obtained. On my independent interpretation, shows sinus tachycardia with a rate of 122. QRS interval was normal at 62 ms. QTc interval is normal at 475 ms. There are no acute ST or T wave changes noted. Prior EKG tracings: available for review Prior: Unchanged Treatment and Re-Evaluation :: Patient was given aspirin. Patient was given sublingual nitroglycerin. Patient's blood pressure dropped to 94/64 after this. Patient was given IV fluids. Patient's blood pressure remained soft in the 90s. Patient did have an episode where her blood pressure dropped to 79/63. This improved to 99/69. Patient was given a second liter of IV fluids. Patient remained afebrile. Patient remained alert and oriented. Patient was advised of her findings. Patient has a HEART score of 6. Case was discussed with the hospitalist. She will admit the patient to PCU. Patient and family understand and are agreeable with the plan. All questions were answered. Discharge Plan Dx/Rx/DC Orders Clinical Impression: Tachycardia, Chest pain, Lung cancer Disposition Disposition: Acute Care Hospital [facility]
--- NOTE | 2024-10-28 11:09 | EKG12_ITS ---
Test Reason : CP Blood Pressure : */* mmHG Vent. Rate : 128 BPM Atrial Rate : * BPM P-R Int : * ms QRS Dur : 60 ms QT Int : 352 ms P-R-T Axes : * 57 90 degrees QTcB Int : 513 ms Accelerated Junctional rhythm Nonspecific ST abnormality Abnormal ECG Confirmed by MICHELLE MORA, JIM ([id number]), tape editor TANVI AMANDA ([id number]) on 10/31/2024 6:35:40 AM Referred By: Confirmed By: JIM MARTINEZ MD
[2024-10-28] MEDS: 0.9% Normal Saline (1000mL) 1,000 ML 999 ML IV (11:18)
[2024-10-28] MEDS: Nitroglycerin SL (ED/IMG/CATH) 0.4 MG TABLET SL (11:18)
[2024-10-28] MEDS: Aspirin 81 MG TAB.CHEW 324 MG PO (11:19)
--- NOTE | 2024-10-28 11:24 | RAD_ITS ---
STUDY: X-RAY CHEST REASON FOR EXAM: Female, 84 years old. Chest pain TECHNIQUE: Single AP portable view of the chest. COMPARISON: December 30, 2022 FINDINGS: There is postoperative change in the left upper lung. There is no focal infiltrate. There is left pleural thickening or small effusion. Sternal cerclage wires are present from a prior sternotomy. There is retrocardiac hiatal hernia. Normal visualized pulmonary arteries. Normal visualized aortic arch and descending thoracic aorta. Normal visualized thoracic spine. There is a stable healed left rib fracture. There is no demonstrated abnormality of the visualized soft tissue structures of the upper abdomen. RAD/Chest 1 View (Portable) IMPRESSION: Left pleural thickening or small effusion. Postoperative change. Hiatal hernia. Electronically Signed: Ulysses Mills MD at 11:40 EST ,
[2024-10-28 11:32] LABS: Absolute Lymphocyte Count 2.26 X10^3/uL (0.83-4.51); Absolute Neutrophil Count 5.1 X10^3/uL (2.0-7.7); Basophil# 0.13 X10^3/uL; Basophil% 1.4 % (0-1); Eosinophil# 0.28 X10^3/uL; Eosinophils% 3.1 % (0-5); Hematocrit 32.2 % (37-47); Hemoglobin 10.4 g/dL (12.0-15.0); Lymphocyte # 2.26 X10^3/ul (0.83-4.51); Lymphocyte % 25.1 % (19-41); Mean Corp Hgb Conc 32.3 g/dL (32-36); Mean Corpuscular Hgb 28.4 pg (27.0-32.0); Monocyte# 1.18 X10^3/uL; Monocyte% 13.1 % (0-10); NRBC Flagged by Analyzer 0 % (0-5); Neutrophil # 5.14 X10^3/uL (2.7-7.7); Platelet Count 337 K/mm3 (150-450); RBC Distribution Width SD 48.6 fl (35.1-43.9); Red Blood Count 3.66 M/mm3 (4.2-5.4)
[2024-10-28 11:39] LABS: International Normalized Ratio 1.2; Partial Thromboplast Time 26.6 Seconds (24.1-36.2); Prothrombin Time (Protime)PT. 14.7 SECONDS (11.7-14.9)
[2024-10-28 11:46] LABS: Anion Gap 7 (5-15); BUN 52 mg/dL (7-18); Calcium,Total 9.6 mg/dL (8.5-10.1); Chloride 106 mmol/L (98-107); Creatinine, Serum 1.86 mg/dL (0.55-1.02); EST Glomerular Filtration Rate 28 mL/min (>60); Est Glom Filt Rate - Afr Amer 33 mL/min (>60); Estimated Creatinine Clearance 31.68 ml/min; Glucose 143 mg/dL (74-106); Potassium 4.6 mmol/L (3.5-5.1); Sodium Level 134 mmol/L (136-145); Troponin-I HS (w/2H Reflex) 11 pg/mL (3.0-54.0)
[2024-10-28 11:49] LABS: D-Dimer Quantitative (DVT/PE) 0.88 FEU/ug/m (0.27-0.49)
[2024-10-28 13:23] LABS: Reflex Troponin-HS? (from REC) Y
[2024-10-28 13:32] LABS: Mucous, Urine 0 SEEN /hpf (<or=2+); Squamous Epithelial Cells - UA 0 SEEN /hpf (5-10)
[2024-10-28] MEDS: 0.9% Normal Saline (1000mL) 1,000 ML 1000 ML IV (13:39)
[2024-10-28 13:48] LABS: Color, Urine Straw (Yellow); Glucose, Dipstick Normal (Normal); Ketone-Dipstick Negative (Negative); Leukocyte Esterase-Dipstick Negative /ul (Negative); Nitrite-Dipstick Negative (Negative); Occult Blood-Urine 10 /ul (Negative); Protein-Dipstick Negative (Negative); Urine Bilirubin Dipstick Negative (Negative); Urine Clarity Clear (Clear); Urine Urobilinogen Normal (Normal)
[2024-10-28 14:06] LABS: Bacteria 1+ /hpf (None Seen); Red Blood Cells-Urine 0-5 SEEN /hpf (0-5); White Blood Cells 0-5 SEEN /hpf (0-5)
[2024-10-28 14:08] LABS: Troponin-I HS 14 pg/mL (3.0-54.0)
--- NOTE | 2024-10-28 14:25 | HP.PCM.HOS_ITS ---
HPI - General General Date of Admission: 10/28/24 Date of Service: 10/28/24 Chief Complaint: Chest pain, dyspnea HPI Narrative The patient is an 84 y/o F w/ PMHx:Chronic sinus tachycardia, CKD stage IV, Chronic anemia, COPD/Asthma with allergic rhinitis, Anxiety and Depression, GERD, Hypothyroidism, HTN, HLD, Diabetes mellitus type II, CAD s/p CABG, Former tobacco use, Hx Breast cancer status postlumpectomy unclear exact location or type found incidentally with evaluation of Lung Cancer with reportedly positive sputum sample with squamous cells in 2013 with gamma knife x [address] [facility] ED on 10/28/2024 with onset of chest discomfort and palpitations starting morning on day of presentation with sensation of heart racing with onset of heaviness primarily in the left upper chest with some improvement with ED initiated oxygen with associated mild nausea without emesis, dyspnea, lightheadedness, dyspepsia prompting eventual ED evaluation. Patient did report upon ED arrival that she was actually supposed to have a cardiology appointment on day of presentation when the symptoms began. Patient notes that initially the pressure was rated 8-9 out of 10 in severity at its worst but currently it is completely resolved. Workup in the ED included T98.2, heart rate 133, BP 120/57, respiratory rate 19, 95% room air with most recent repeat vitals heart rate 120, BP 99/69-->most recent with SBP in the 70s following NG administration-->IVF administration now BP improved into the 90s, respiratory rate 18, 98% on room air, CBC with WBC 9.0, hemoglobin 10.4, MCV 88, platelet 337 without marked shift, coags with D-dimer 0.88 consistent with age, BMP with sodium 134, BUN/creatinine 52/1.82, GFR 28, glucose 143, troponin 11 with repeat delta 14, unremarkable urinalysis, EKG with sinus tachycardia with nonspecific ST-T wave changes unchanged from previous, chest x-ray with left pleural thickening or small effusion with postoperative change with hiatal hernia with no acute cardiopulmonary findings otherwise. In the ED patient ministered 2 L normal saline, full-strength aspirin and sublingual nitroglycerin. [facility] Medical History Sinus tachycardia CKD (chronic kidney disease), stage IV Former tobacco use COPD with asthma Atherosclerosis of coronary artery of [place] heart without angina pectoris Status post gamma knife treatment Tobacco use Depression Breast cancer Lung cancer Hypothyroidism GERD (gastroesophageal reflux disease) Type 2 diabetes mellitus without complications Hyperlipidemia Home Medications ?Medication ?Instructions ?Recorded ?Last Taken ?Type cholecalciferol (vitamin D3) 25 1,000 unit PO DAILY 08/26/16 08/31/16 History mcg (1,000 unit) tablet fluticasone propionate 50 1 spray NASAL BID 08/26/16 08/31/16 History mcg/actuation nasal spray,suspension montelukast 10 mg tablet 10 mg PO DAILY 08/26/16 08/31/16 History aspirin 81 mg tablet,delayed 81 mg PO QDAY #30 tabs 05/19/18 06/07/18 Rx release (Adult Low Dose Aspirin) citalopram 20 mg tablet (Celexa) 20 mg PO DAILY 08/19/18 Unknown History fluticasone propionate 230 2 puff IH DAILY 10/30/19 Unknown History mcg-salmeterol 21 mcg/actuation HFA inhaler insulin aspart U-100 100 unit/mL See Protocol subcut BREAKFAST 10/30/19 Unknown History (3 mL) subcutaneous pen diabetes insulin detemir U-100 100 unit/mL 30 units subcut DAILY ##1 11/04/19 Unknown Rx (3 mL) subcutaneous pen cyanocobalamin (vitamin B-12) 1,000 mcg PO DAILY 02/10/20 Unknown History 1,000 mcg capsule levothyroxine 88 mcg capsule 100 mcg PO DAILY 05/06/22 Unknown History albuterol sulfate 2.5 mg/3 mL 2.5 mg inhalation Q4H PRN 01/01/23 Unknown History (0.083 %) solution for nebulization shortness of breath or wheezing umeclidinium 62.5 mcg/actuation 1 inh inhalation DAILY 01/01/23 Unknown History blister powder for inhalation (Incruse Ellipta) omeprazole 20 mg capsule,delayed 20 mg PO DAILY 01/22/23 Unknown History release dupilumab 300 mg/2 mL subcutaneous 300 mg subcut Q2W 07/20/23 Unknown History pen injector (Dupixent) atorvastatin 40 mg tablet See Rx Instructions .Route 11/18/23 Unknown Rx .COMPLEX #90 tabs lisinopril 2.5 mg tablet 2.5 mg PO DAILY #90 tabs 12/22/23 Unknown Rx furosemide 40 mg tablet (Lasix) 40 mg PO DAILY #90 tabs 01/13/24 Unknown Rx metoprolol tartrate 25 mg tablet 25 mg PO BID #180 tabs 01/13/24 Unknown Rx Allergy/AdvReac Type Severity Reaction Status Date / Time azithromycin (From Zithromax) AdvReac DOES NOT Verified 10/28/24 10:29 [employer] Family History Father Heart disease CAD (coronary artery disease) Hypertension Myocardial infarction Mother Anxiety and depression Thyroid disorder Alzheimer dementia Surgical History History of cholecystectomy (2018) H/O coronary artery bypass surgery (06/25/18) History of left heart catheterization (06/07/18) History of lung surgery (2013) H/O lumpectomy History of lung biopsy (2013) History of hip replacement H/O total hysterectomy History of appendectomy History of tonsillectomy Social History household members: other details: Her grand-daughter has been living with her. Smoking Status: Former smoker how long ago did patient quit smoking: Quit 2002, smoked 1 ppd since teen until quit. alcohol intake: never substance use type: does not use ROS ROS Narrative Admission Review of Systems: CONSTITUTIONAL: No weight loss, fever, chills, + weakness or fatigue. HEENT: + Lightheadedness. Eyes: No visual loss, blurred vision, double vision or yellow sclerae. Ears, Nose, Throat: No hearing loss, sneezing, congestion, runny nose or sore throat. SKIN: No rash or itching, lesions, wounds. CARDIOVASCULAR: + Chest pain, palpitations, lightheadedness. No edema, orthopnea, syncopal events. RESPIRATORY:+ Dyspnea. No marked cough or sputum, wheezing, hemoptysis. GASTROINTESTINAL: + Anorexia, nausea without emesis. No diarrhea, abdominal pain, melena, BRBPR. GENITOURINARY: No dysuria, frequency, urgency or retention. NEUROLOGICAL: + Lightheadedness. No headache, dizziness, syncope, paralysis, ataxia, numbness or tingling in the extremities, focal weakness, change in bowel or bladder control, seizure. MUSCULOSKELETAL: No muscle, back pain, joint pain or stiffness. HEMATOLOGIC: + Chronic anemia, easy bleeding/bruising. LYMPHATICS: No enlarged nodes. No history of splenectomy. PSYCHIATRIC: + History anxiety and depression. ENDOCRINOLOGIC: No reports of sweating, cold or heat intolerance. No polyuria or polydipsia. ALLERGIES: + History of asthma, allergic rhinitis. Vital Signs Vital Signs Vital Signs: 10/28/24 10:29 10/28/24 10:32 10/28/24 11:20 Temperature 98.2 F Temperature Source Oral Pulse Rate 133 H Respiratory Rate 19 H Blood Pressure 120/57 L Blood Pressure Mean 78 Pulse Ox 95 Oxygen Delivery Method Room Air Room Air 10/28/24 11:29 10/28/24 11:36 10/28/24 12:00 Temperature Temperature Source Pulse Rate 104 H 114 H Respiratory Rate 22 H 18 Blood Pressure 119/64 94/64 99/69 Blood Pressure Mean 82 74 79 Pulse Ox 100 97 Oxygen Delivery Method 10/28/24 13:00 Temperature Temperature Source Pulse Rate 120 H Respiratory Rate 18 Blood Pressure Blood Pressure Mean Pulse Ox 98 Oxygen Delivery Method Weight Weight: 332 lb 3.786 oz Body Mass Index (BMI) 64.8 Physical Exam Narrative Physical Examination: General: Awake, alert, oriented x 3 and cooperative, seated upright in the ED bed in no apparent distress, notes chest pain now resolved, notes she feels as though she is back to her baseline. Skin: Normal color, normal turgor, no icterus, no cyanosis. HEENT: AT/NC, EOMI, PERRLA, MMM, no carotid bruits or JVD noted. Lungs: Diminished, greater bases, mildly increased respiratory rate but no distress, no rales, ronchi or wheezing. Heart: Tachycardic with regular rhythm; no gallop, rub audible. Abdomen: Soft, NTTP, ND, mildly hyperactive BS, no HSM. Extremities: No cyanosis, clubbing, or edema. Neurological: Patient awake, alert, oriented as noted, cognitive function intact; pupils equally reactive to light and accommodation, cranial nerves grossly normal, moving all 4 extremities, no focal deficits, strength moderately global decreased Psychiatric: Affect appears mildly fatigued otherwise normal, no acute evidence of depressive or anxiety feelings but does have underlying history. Results Lab / Micro Data 10/28/24 10:40 10/28/24 10:40 Labs: Laboratory Results - last 24 hr 10/28/24 10:40: WBC 9.0, RBC 3.66 L, Hgb 10.4 L, Hct 32.2 L, MCV 88.0, MCH 28.4, MCHC 32.3, RDW Std Deviation 48.6 H, RDW Coeff of Katelyn 15.0 H, Plt Count 337, MPV 10.0, Immature Gran % (Auto) 0.300, Neut % (Auto) 57.0, Lymph % (Auto) 25.1, M edwin % (Auto) 13.1 H, Eos % (Auto) 3.1, Baso % (Auto) 1.4 H, Absolute Neuts (auto) 5.1, Absolute Lymphs (auto) 2.26, Nucleated RBC % 0, PT 14.7, INR 1.2, APTT 26.6, D-Dimer Quant (PE/DVT) 0.88 H*, Sodium 134 L, Potassium 4.6, Chloride 106, Carbon Dioxide 22.0, Anion Gap 7, BUN 52 H, Creatinine 1.86 H, Estim Creat Clear Calc 31.68, Est GFR (MDRD) Af Amer 33 L, Est GFR (MDRD) Non-Af 28 L, B UN/Creatinine Ratio 28.0 H, Glucose 143 H, Calcium 9.6, Troponin I High Sens 11 10/28/24 13:18: Urine Color Straw, Urine Clarity Clear, Urine pH 6.0, Ur Specific [place] 1.010, Urine Protein Negative, Urine Glucose (UA) Normal, Urine Ketones Negative, Urine Occult Blood 10 H, Urine Nitrite Negative, Urine Bilirubin Negative, Urine Urobilinogen Normal, Ur Leukocyte Esterase Negative, Urine RBC 0-5 SEEN, Urine WBC 0-5 SEEN, Ur Squamous Epith Cells 0 SEEN, Urine Bacteria 1+, Urine Mucus 0 SEEN 10/28/24 13:33: Troponin I High Sens 14 Imaging Radiology Impression Chest X-Ray 10/28/24 11:24 IMPRESSION: Left pleural thickening or small effusion. Postoperative change. Hiatal hernia. Electronically Signed: Ulysses Mills MD at 11:40 EST , Assessment & Plan Assessment/Plan (1) Chest pain: PLAN: Plan The patient is an 84 y/o F w/ PMHx: Chronic sinus tachycardia (rate 90-100 baseline), CKD stage IV, Chronic anemia, COPD/Asthma with allergic rhinitis, Anxiety and Depression, GERD, Hypothyroidism, HTN, HLD, Diabetes mellitus type II, CAD s/p CABG, Former tobacco use, Hx Breast cancer status postlumpectomy unclear exact location or type found incidentally with evaluation of Lung Cancer with reportedly positive sputum sample with squamous cells in 2013 with gamma knife x [address] [facility] ED on 10/28/2024 with onset of chest discomfort and palpitations starting morning on day of presentation with sensation of heart racing with onset of heaviness primarily in the left upper chest with some improvement with ED initiated oxygen with associated mild nausea without emesis, dyspnea, lightheadedness, dyspepsia prompting eventual ED evaluation. #1. Chest Pain with post NG-hypotension, improved with IVF with chronic sinus tachycardia: EKG in ED with sinus tachycardia with nonspecific ST-T wave changes with no acute evidence of ischemia, CXR w/ chronic type changes with no acute cardiopulmonary findings otherwise, initial trop 11 with repeat delta 14, D- dimer age equivalent. Will admit to PCU given BP improved following IVFs, had dropped following NG to SBP in the 70s initially, place on a monitored bed to assure no acute myocardial infarction with serial cardiac enzymes and EKGs.if continued serial cardiac enzymes remain unremarkable will pursue a.m. cardiac stress testing. Magnesium level requested. FLP in AM. Continue aspirin. Add back metoprolol and lisinopril once BP improves. Avoid further NG given hypotension following in the ED. #2. CAD: s/p CABG 06/2028 with left internal mammary artery to left anterior descending artery, saphenous vein graft to diagonal branch, posterior descending artery and posterolateral branch, most recent previous echocardiogram noted 01/19/2023 with normal LV size, normal LV systolic function, EF 65%, stage I diastolic dysfunction, PASP 60 mmHg with moderate pulmonary hypertension. Will continue aspirin, statin, as noted temporarily holding metoprolol and lisinopril given hypotension following NG, add back once appropriate. #3. Chronic Kidney Disease Stage IV per GFR trending: Admission BUN/Cr 52/1.86, GFR 28, baseline renal function primarily 1.7-1.9, most recent 10/21/2024 creatinine 1.97, GFR reviewed consistent with stage IV, repeat BMP in AM. #4. Hx Lung Cancer, Hx Breast cancer: Hx Breast cancer status post lumpectomy unclear exact location or type found incidentally with evaluation of Lung Cancer with reportedly positive sputum sample with squamous cells in 2013 with initially wedge resection with eventual follow-up gamma knife x 2, per report considered in remission. #5. Chronic normocytic anemia: Admission hemoglobin 10.4, MCV 88, baseline hemoglobin appears 10-11, will continue to trend. #6. Chronic COPD/asthma with allergic rhinitis: Will hold home inhaler in the interim placed on ATC budesonide therapy especially given tachycardic presentation, PRN albuterol, HOB, IS parameters, continue home fluticasone and montelukast home regimen. #7. Diabetes mellitus type II: Will continue home insulin regimen, ADA diet, accu checks w/ ISS. #8. Hypertension: Given hypotension following NG will temporarily hold hypertensive regimen, add back once appropriate. #9. Hyperlipidemia: Continue home statin regimen. AM FLP. #10. Anxiety and depression: We will continue patient home citalopram regimen. #11. Hypothyroidism: We will continue patient on levothyroxine regimen. #12. GERD: We will continue patient on PPI. #13. DVT prophylaxis: Heparin. #14. CODE status: Patient MARTÍN is her daughers and daughter in law and living will is currently in place. Discussed CODE status at length including difference between FULL code, DNR-CCA and DNR-CC status. Following discussions about the differences in these status, requested Full Code status. Advanced Care Planning Face to Face Time: 16 minutes. Charges/Coding Visit Charges Inpatient E&M: 25183 Init Hosp L2 Procedures Hospitalists Procedures: 00400 Advncd Care Plan 30 Min
--- NOTE | 2024-10-28 14:41 | EKG12_ITS ---
Test Reason : REPEAT Blood Pressure : */* mmHG Vent. Rate : 122 BPM Atrial Rate : * BPM P-R Int : * ms QRS Dur : 62 ms QT Int : 334 ms P-R-T Axes : * 47 66 degrees QTcB Int : 475 ms Accelerated Junctional rhythm Abnormal ECG Confirmed by MICHELLE MORA, JIM ([id number]), photo editor TANVI AMANDA ([id number]) on 10/31/2024 6:36:09 AM Referred By: Confirmed By: JIM MARTINEZ MD
[2024-10-28 15:24] LABS: Magnesium 2.1 mg/dL (1.6-2.6)
--- NOTE | 2024-10-28 15:56 | EKG12_ITS ---
Test Reason : Blood Pressure : */* mmHG Vent. Rate : 127 BPM Atrial Rate : * BPM P-R Int : * ms QRS Dur : 60 ms QT Int : 332 ms P-R-T Axes : * 51 85 degrees QTcB Int : 482 ms Accelerated Junctional rhythm Nonspecific ST and T wave abnormality Abnormal ECG When compared with ECG of 28-Oct-2024 15:02, MANUAL COMPARISON REQUIRED DATA IS UNCONFIRMED Confirmed by MICHELLE MORA, JIM ([id number]), editor city TANVI AMANDA ([id number]) on 10/31/2024 8:35:53 AM Referred By: DARLIN Confirmed By: JIM MARTINEZ MD
[2024-10-28] MEDS: 0.9% Normal Saline (1000mL) 1,000 ML 100 ML IV (16:42)
[2024-10-28 17:12] LABS: Troponin-I HS 18 pg/mL (3.0-54.0)
[2024-10-28 17:23] LABS: Bedside Glucose 93 mg/dL (74-106)
--- NOTE | 2024-10-28 18:34 | ECHOD_ITS ---
Reason For Study: CAD/ASHD Procedure This was a 2D Doppler, Color Flow transthoracic echocardiogram. Exam performed portable in patient room. Left Ventricle Normal LV size. Left ventricular systolic function is normal. The left ventricular ejection fraction is 65 %. Stage 1 diastolic dysfunction. No regional wall motion abnormalities noted. Right Ventricle Normal RV size. Normal systolic function. Atria Normal left atrium. Normal right atrium. Mitral Valve Normal mitral valve. Tricuspid Valve Normal tricuspid valve. Mild (1+) tricuspid valve insufficiency. Pulmonary artery systolic pressure is 28 mmHg. Aortic Valve Trisinus/trileaflet aortic valve. Pulmonic Valve Normal pulmonic valve. Great Vessels Normal aortic root. The pulmonary artery is normal size. Normal inferior vena cava. Pericardium/Pleural No pericardial effusion. MMode/2D Measurements & Calculations LVIDd: 3.4 cm IVSd: 1.0 cm LVOT diam: 2.0 cm LVIDs: 2.0 cm LVPWd: 0.84 cm LVOT area: 3.2 cm2 FS: 41.7 % Ao root diam: 3.2 cm LAV(MOD-bp): 34.1 ml LVAd ap4: 17.3 cm2 LAV(MOD-bp) Indexed: 21.2 ml/m2 LVLd ap4: 6.6 cm LAV(MOD-sp2): 34.7 ml EDV(MOD-sp4): 37.6 ml LAV(MOD-sp4): 30.4 ml EDV(sp4-el): 38.5 ml LVAs ap4: 8.9 cm2 LVLs ap4: 5.4 cm ESV(MOD-sp4): 13.5 ml ESV(sp4-el): 12.3 ml EF(MOD-sp4): 64.2 % EF(sp4-el): 68.1 % SV(MOD-sp4): 24.2 ml SV(sp4-el): 26.2 ml LA A4 area: 13.8 cm2 SI(MOD-sp4): 15.0 ml/m2 LA dimension(2D): 3.5 cm RA A4 area: 14.5 cm2 Time Measurements MV dec time: 0.22 sec Doppler Measurements & Calculations MV E max aguilar: 103.3 cm/sec Lat Peak E' Aguilar: 11.5 cm/sec Med Peak E' Aguilar: 8.0 cm/sec MV A max aguilar: 111.4 cm/sec E/E' lat: 9.0 E/E' med: 12.9 MV E/A: 0.93 MV V2 max: 118.0 cm/sec Ao V2 max: 137.3 cm/sec MV max P.6 mmHg MV dec slope: 484.2 cm/sec2 Ao max P.5 mmHg MV V2 mean: 82.0 cm/sec Ao V2 mean: 90.6 cm/sec MV mean P.0 mmHg Ao mean P.8 mmHg MV V2 VTI: 30.6 cm Ao V2 VTI: 30.0 cm AV (velocity ratio): 0.89 MVA(VTI): 2.8 cm2 OLEKSANDR(I,D): 2.8 cm2 OLEKSANDR(V,D): 3.1 cm2 LV V1 max: 134.5 cm/sec SV(LVOT): 85.4 ml PA V2 max: 82.3 cm/sec LV V1 max P.2 mmHg PA V2 mean: 59.2 cm/sec LV V1 mean P.9 mmHg LV V1 mean: 92.3 cm/sec LV V1 VTI: 26.7 cm TR max aguilar: 248.1 cm/sec TR max P.6 mmHg ECHO/Echo Complete Interpretation Summary Normal LV size. Left ventricular systolic function is normal. The left ventricular ejection fraction is 65 %. Stage 1 diastolic dysfunction. Structurally normal valves. Ordering Physician: Ellen Sim Referring Physician: MIHAI MULLEN Performed By: [facility]
[2024-10-28] MEDS: Budesonide Respules 0.5 MG/2 ML AMPUL.NEB. INHALATION (19:41)
[2024-10-28] MEDS: Heparin Injection (Vial) 5,000 UNIT/ML VIAL 5000 UNIT SC (20:40)
[2024-10-28] MEDS: Fluticasone 0.05% 1 SPRAY NASAL.SRY NASAL (20:40)
[2024-10-28] MEDS: Atorvastatin Calcium 40 MG Tablet PO (20:41)
[2024-10-28] MEDS: Citalopram 20 MG Tablet PO (20:44)
[2024-10-28] MEDS: Insulin Lispro 100 UNIT/ML INSULN.PEN SC (20:53)
[2024-10-28 21:14] LABS: Bedside Glucose 159 mg/dL (74-106)
[2024-10-29 03:00] VITALS: BP 105/41; PULSE 68; RESP 16; TEMP 36.7; O2SAT 95
[2024-10-29 04:11] VITALS: BMI 27.5
[2024-10-29 05:49] LABS: Absolute Lymphocyte Count 1.96 X10^3/uL (0.83-4.51); Absolute Neutrophil Count 2.3 X10^3/uL (2.0-7.7); Basophil# 0.09 X10^3/uL; Basophil% 1.6 % (0-1); Eosinophils% 3.6 % (0-5); Hematocrit 27.7 % (37-47); Hemoglobin 8.9 g/dL (12.0-15.0); Lymphocyte # 1.96 X10^3/ul (0.83-4.51); Lymphocyte % 35.4 % (19-41); Mean Corp Hgb Conc 32.1 g/dL (32-36); Mean Corpuscular Hgb 28.5 pg (27.0-32.0); Mean Corpuscular Volume 88.8 fL (81-99); Mean Platelet Vol. 10.1 fl (6.2-12.0); Monocyte% 18.1 % (0-10); NRBC Flagged by Analyzer 0 % (0-5); Neutrophil # 2.27 X10^3/uL (2.7-7.7); Neutrophil % 40.9 % (47-70); Platelet Count 295 K/mm3 (150-450); RBC Distribution Width CV 15.4 % (11.6-14.6); Red Blood Count 3.12 M/mm3 (4.2-5.4); White Blood Count 5.5 K/mm3 (4.4-11.0)
--- NOTE | 2024-10-29 05:55 | EKG12_ITS ---
Test Reason : CP Blood Pressure : */* mmHG Vent. Rate : 72 BPM Atrial Rate : 72 BPM P-R Int : 168 ms QRS Dur : 66 ms QT Int : 448 ms P-R-T Axes : * 57 19 degrees QTcB Int : 490 ms Normal sinus rhythm Prolonged QT Abnormal ECG When compared with ECG of 28-Oct-2024 16:42, MANUAL COMPARISON REQUIRED DATA IS UNCONFIRMED Confirmed by MICHELLE MORA, JIM ([id number]), design editor TANVI AMANDA ([id number]) on 10/31/2024 8:35:32 AM Referred By: Confirmed By: JIM MARTINEZ MD
[2024-10-29] MEDS: Aspirin E.C. 81 MG Tablet PO (06:10)
[2024-10-29] MEDS: Levothyroxine 100 MCG Tablet PO (06:11)
[2024-10-29 06:54] LABS: Bedside Glucose 71 mg/dL (74-106)
[2024-10-29 07:10] LABS: ALB/GLOB Ratio 0.9 RATIO (0.9-2.4); AST(SGOT) 23 U/L (15-37); Alanine Aminotransfer ALT/SGPT 14 U/L (13-56); Albumin, Serum 3.1 g/dL (3.2-5.0); Alkaline Phosphatase 71 U/L (45-117); Anion Gap 5 (5-15); BUN 53 mg/dL (7-18); BUN/Creat Ratio 28.2 RATIO (10-20); Calcium,Total 9.1 mg/dL (8.5-10.1); Chloride 113 mmol/L (98-107); Cholesterol 144 mg/dL (200); Creatinine, Serum 1.88 mg/dL (0.55-1.02); EST Glomerular Filtration Rate 27 mL/min (>60); Est Glom Filt Rate - Afr Amer 33 mL/min (>60); Estimated Creatinine Clearance 18.93 ml/min; Globulin 3.3 g/dL (2.2-4.2); Glucose 78 mg/dL (74-106); High Density Lipoprotein 64 mg/dL; Potassium 4.6 mmol/L (3.5-5.1); Protein, Total 6.4 g/dL (6.4-8.2); Sodium Level 141 mmol/L (136-145); Triglycerides 114 mg/dL; Very Low Density Lipoprotein 23 mg/dL (5-40)
[2024-10-29 07:14] LABS: Bedside Glucose 94 mg/dL (74-106)
[2024-10-29 07:24] VITALS: PULSE 94; RESP 18; O2SAT 96
[2024-10-29] MEDS: Budesonide Respules 0.5 MG/2 ML AMPUL.NEB. INHALATION (07:24)
[2024-10-29 08:37] LABS: Ferritin 32 ng/mL (8-252); Iron 28 ug/dL (50-170); Iron Binding Capacity,Total 255 ug/dL (250-450)
[2024-10-29] MEDS: Acetaminophen 325 MG Tablet 650 MG PO (09:41)
[2024-10-29 09:42] VITALS: BP 123/63; PULSE 82; RESP 17; TEMP 36.7; O2SAT 99
--- NOTE | 2024-10-29 09:46 | STRESSREP ---
Stress Test Report Pharmacologic myocardial perfusion stress test. 84-year-old lady with a history of chest pain Resting EKG demonstrates sinus rhythm with a rate of 73 bpm. Resting blood pressure is 126/59 mmHg. 0.4 mg of regadenoson was infused per usual protocol followed by rapid intravenous saline flush injection. Continuous EKG monitoring was performed. The maximum heart rate was 93 bpm which was 67% of max impacted heart rate the maximum workload was 1 metabolic equivalent. At rest there were no ST or T wave changes noted to suggest ischemia and at peak infusion nonspecific ST changes were noted which did not meet the criteria for ischemia. No clinical angina is noted. The final blood pressure was 120/50 mmHg. Myocardial perfusion protocol. 10.6 mCi of technetium 99m sestamibi was injected at rest. 0.4 mg of regadenoson was infused per usual protocol. At peak infusion 34.8 mCi of technetium 99m sestamibi was injected stress images were obtained stress and rest images were reconstructed and compared in the short axis vertical long and horizontal long axis. Gated images were also obtained. Perfusion SPECT analysis: Review of the stress images demonstrate normal uptake of tracer noted in all areas of the myocardium. There is significant GI uptake noted on the stress and resting images. The resting images similar demonstrated normal uptake of tracer noted in all areas of the myocardium. No areas of reversibility are noted to suggest ischemia and no previous infarct is noted. Gated SPECT analysis: The gated ejection fraction is 80%.+ Conclusion: Normal pharmacologic myocardial perfusion stress test. Preserved ejection fraction.
[2024-10-29] MEDS: Fluticasone 0.05% 1 SPRAY NASAL.SRY NASAL (10:33)
[2024-10-29] MEDS: Pantoprazole Sodium 20 MG Tablet PO (10:34)
[2024-10-29] MEDS: Montelukast 10 MG Tablet PO (10:34)
[2024-10-29] MEDS: Heparin Injection (Vial) 5,000 UNIT/ML VIAL 5000 UNIT SC (10:34)
[2024-10-29] MEDS: Insulin Glargine-YFGN 100 UNIT/ML Pen 30 UNIT SC (10:35)
--- NOTE | 2024-10-29 11:41 | DCINST_ITS ---
Discharge Instructions Diet Discharge Diet: No restrictions DC O2, CPAP, BIPAP needs Home O2 Discharge instructions: No Dressing / Incision Discharge Activity: No Restrictions Follow Up Care Test Results: Test results from this visit will be discussed in further detail at your follow- up appointment, if applicable. Discharge Plan Admission Admit Date/Time: 10/28/24 14:56 Primary Reason for Your Visit: Chest pain Attending Provider: Harry Rowe Primary Care Provider: Montez Hernandez Consulting Providers: Ellen Sim Instructions Additional Instructions / Restrictions: ? Continue all home medications as normal. Discharge Orders/Prescriptions Prescriptions: Continued aspirin [Adult Low Dose Aspirin] 81 mg tablet,delayed release (DR/EC) 81 mg PO QDAY Qty: 30 3RF levothyroxine 88 mcg capsule 100 mcg PO DAILY citalopram [Celexa] 20 mg tablet 20 mg PO DAILY cyanocobalamin (vitamin B-12) 1,000 mcg capsule 1,000 mcg PO DAILY Incruse Ellipta 62.5 mcg/actuation blister with device 1 inh inhalation DAILY albuterol sulfate 2.5 mg /3 mL (0.083 %) solution for nebulization 2.5 mg inhalation Q4H PRN (Reason: shortness of breath or wheezing) omeprazole 20 mg capsule,delayed release(DR/EC) 20 mg PO DAILY Dupixent Pen 300 mg/2 mL pen injector 300 mg subcut Q2W montelukast 10 MG tablet 10 mg PO DAILY Patient Comments: ALLERGIES fluticasone propionate 1 SPRAY spray,suspension 1 spray NASAL BID Patient Comments: ALLERGIES cholecalciferol (vitamin D3) 1,000 UNIT tablet 1,000 unit PO DAILY Patient Comments: SUPPLEMENT fluticasone propion-salmeterol 1 PUFF inhaler 2 puff IH DAILY Patient Comments: INHALE 2 PUFFS INSTRUCTED TWICE DAILY. USE WITH SPACER. RINSE MOUTHOUT AFTER USE. insulin aspart U-100 100 UNITS/ML insulin pen See Protocol subcut BREAKFAST Protocol: 3. Sliding Scale Insulin Med Dosing Condition: 150-189 mg/dl = 1 unit Condition: 190-229 mg/dl = 2 units Condition: 230-269 mg/dl = 3 units Condition: 270-309 mg/dl = 4 units Condition: 310-349 mg/dl = 5 units Condition: 350-399 mg/dl = 6 units Condition: 400-449 mg/dl = 7 units Condition: Greater than 449 call physician Protocol Text: - Use for Total Daily Dose of Insulin 37-55 units - Obsese, infected, or steroid patients MEDIUM DOSING ALGORITHIM Patient Comments: BLOOD SUGAR Rx Instructions: took 10units this am insulin detemir U-100 100 UNITS/ML insulin pen 30 units subcut DAILY Qty: 1 1RF atorvastatin 40 mg tablet See Rx Instructions .ROUTE .COMPLEX Qty: 90 3RF Dose Instruction: TAKE 1 TABLET BY MOUTH EVERYDAY AT BEDTIME Rx Instructions: TAKE 1 TABLET BY MOUTH EVERYDAY AT BEDTIME lisinopril 2.5 mg tablet 2.5 mg PO DAILY Qty: 90 3RF Patient Comments: TAKE 1 TABLET BY MOUTH EVERY DAY furosemide [Lasix] 40 mg tablet 40 mg PO DAILY Qty: 90 3RF metoprolol tartrate 25 mg tablet 25 mg PO BID Qty: 180 3RF Referrals / Follow Up: Montez Hernandez MD [Primary Care Provider] - Disposition Disposition (needs filled in before D/C Order can be placed): Home, Self Care
--- NOTE | 2024-10-29 11:44 | DS.PCM_ITS ---
Providers Date of Admission: 10/28/24 Date of Discharge: 10/29/24 Primary Care Physician: Dr. Montez Hernandez MD Reason For Visit: CHEST PAIN Diagnosis Discharge Diagnosis (1) Chest pain: Status: Acute Code(s): R07.9 - Chest pain, unspecified Medications at Discharge Home Medications cholecalciferol (vitamin D3) 25 mcg (1,000 unit) tablet 1,000 unit PO DAILY 08/26/16 fluticasone propionate 50 mcg/actuation nasal spray,suspension 1 spray NASAL BID 08/26/16 montelukast 10 mg tablet 10 mg PO DAILY 08/26/16 aspirin 81 mg tablet,delayed release (Adult Low Dose Aspirin) 81 mg PO QDAY #30 tabs 05/19/18 citalopram 20 mg tablet (Celexa) 20 mg PO DAILY 08/19/18 fluticasone propionate 230 mcg-salmeterol 21 mcg/actuation HFA inhaler 2 puff IH DAILY 10/30/19 insulin aspart U-100 100 unit/mL (3 mL) subcutaneous pen See Protocol subcut BREAKFAST diabetes 10/30/19 insulin detemir U-100 100 unit/mL (3 mL) subcutaneous pen 30 units subcut DAILY ##1 11/04/19 cyanocobalamin (vitamin B-12) 1,000 mcg capsule 1,000 mcg PO DAILY 02/10/20 levothyroxine 88 mcg capsule 100 mcg PO DAILY 05/06/22 albuterol sulfate 2.5 mg/3 mL (0.083 %) solution for nebulization 2.5 mg inhalation Q4H PRN shortness of breath or wheezing 01/01/23 umeclidinium 62.5 mcg/actuation blister powder for inhalation (Incruse Ellipta) 1 inh inhalation DAILY 01/01/23 omeprazole 20 mg capsule,delayed release 20 mg PO DAILY 01/22/23 dupilumab 300 mg/2 mL subcutaneous pen injector (Dupixent) 300 mg subcut Q2W 07/20/23 atorvastatin 40 mg tablet See Rx Instructions .Route .COMPLEX #90 tabs 11/18/23 lisinopril 2.5 mg tablet 2.5 mg PO DAILY #90 tabs 12/22/23 furosemide 40 mg tablet (Lasix) 40 mg PO DAILY #90 tabs 01/13/24 metoprolol tartrate 25 mg tablet 25 mg PO BID #180 tabs 01/13/24 Hospital Course Operations None Procedures EKG, Nuclear stress test, Transthoracic echo and - (Chest x-ray) Summary of Care Provided Minutes Spent on Discharge: 35 Hospital Course: Patient is an 84-year-old female who presented [facility] ED on 10/28/2024 with chest pain. Short hospital course as noted below. Patient discharged home in stable condition on 10/29. 1. Chest pain ? Presented with chest pain and palpitations. EKG showed sinus tachycardia, nonspecific ST changes consistent with prior EKGs. Troponin negative. Chest x- ray unremarkable. Patient was given a dose of sublingual nitroglycerin with hypotension to around 80 systolic, improved with IV fluids. Nuclear stress test on 10/29 was unremarkable. Echo on 10/29 showed EF 65%, stage I diastolic dysfunction, PASP 28 mmHg, no valve issues, no other abnormal findings. This notably is slightly improved from prior echo in 2022 that showed moderate pulmonary hypertension. Patient with no chest pain on day of discharge and sinus tachycardia had improved. Stable for discharge home on home medications as noted below with plan for outpatient cardiology follow-up. 2. History of CAD s/p CABG x 3, hypertension, hyperlipidemia ? Follows with outpatient cardiology. Continue home aspirin, statin, Lasix, lisinopril, and Lopressor. 3. Chronic iron deficiency anemia ? Hemoglobin 10.4 on admit, decreased to 8.9 on hospital day 2 after IV fluid resuscitation. Baseline appears to be around 9-10. Iron studies showed low iron with borderline low ferritin of 31. Suspect patient has mix of iron deficiency anemia and some degree of anemia due to chronic kidney disease. Recommended patient discuss with PCP or cardiology about having IV iron infusions done in the near future. 4. CKD stage IV ? Creatinine 1.88 on admit, at baseline. Remained stable at baseline on hospital day 2. Chronic medical conditions: ? COPD: Stable on room air during admission, not in acute exacerbation. Continue home inhalers. ? Type 2 diabetes mellitus: Treated with insulin at reduced dosing during hospitalization. Okay to resume home regimen on discharge. ? Hypothyroidism: Continue home Synthroid. ? GERD: Continue home PPI. ? Anxiety/depression: Stable. Continue home citalopram. ? History of breast cancer s/p lumpectomy, history of lung cancer s/p wedge resection Total clinical time spent by myself addressing the patient's medical issues, reviewing all the data, and collaborating with patient's care team: 35 minutes. Physical Exam Const alert, oriented x3, no apparent distress and average body habitus Constitutional Narrative: Elderly female, sitting up comfortably in bed, conversing normally, in no acute distress. General Appearance: cooperative and comfortable HEENT normocephalic, head/scalp atraumatic, hearing grossly normal bilaterally, nasal mucous membranes and turbinates normal and moist oral mucous membranes Eyes PERRL, EOMs intact bilaterally and conjunctivae normal Neck full ROM Chest inspection of chest normal Resp normal respiratory effort, normal air movement, no use of accessory muscles and clear to auscultation bilaterally Cardio regular rate, regular rhythm, no murmurs and peripheral pulses 2+ throughout GI normal to inspection, nondistended, normoactive bowel sounds, soft to palpation, non-tender and non-distended Back/Spine normal ROM Extremity normal to inspection, full ROM and no pedal edema Skin no rashes or lesions noted Psych mental status grossly normal Weight / BMI Weight Weight: 64 kg Body Mass Index (BMI) 27.5 ABG / Lab / Microbiology Data 10/29/24 04:15 10/29/24 04:15 Laboratory: Laboratory Results - last 24 hr 10/28/24 13:33: Magnesium 2.1 10/28/24 16:40: Troponin I High Sens 18, POC Glucose 93 10/28/24 20:49: POC Glucose 159 H 10/29/24 04:15: WBC 5.5, RBC 3.12 L, Hgb 8.9 L, Hct 27.7 L, MCV 88.8, MCH 28.5, MCHC 32.1, RDW Std Deviation 50.0 H, RDW Coeff of Katelyn 15.4 H, Plt Count 295, MPV 10.1, Immature Gran % (Auto) 0.400, Neut % (Auto) 40.9 L, Lymph % (Auto) 35.4, M edwin % (Auto) 18.1 H, Eos % (Auto) 3.6, Baso % (Auto) 1.6 H, Absolute Neuts (auto) 2.3, Absolute Lymphs (auto) 1.96, Nucleated RBC % 0, Sodium 141, Potassium 4.6, Chloride 113 H, Carbon Dioxide 23.0, Anion Gap 5, BUN 53 H, C reatinine 1.88 H, Estim Creat Clear Calc 18.93, Est GFR (MDRD) Af Amer 33 L, Est GFR (MDRD) Non-Af 27 L, BUN/Creatinine Ratio 28.2 H, Glucose 78, Calcium 9.1, I paul 28 L, TIBC 255, Iron Saturation 11.0 L, Ferritin 32, Total Bilirubin 0.30, AST 23, ALT 14, Alkaline Phosphatase 71, Total Protein 6.4, Albumin 3.1 L, Globulin 3.3, Albumin/Globulin Ratio 0.9, Triglycerides 114, Cholesterol 144, LDL Cholesterol 57, VLDL Cholesterol 23, HDL Cholesterol 64, Folate 9.60 10/29/24 06:10: POC Glucose 71 L 10/29/24 06:56: POC Glucose 94 Radiography Diagnostic Testing: Radiology Impression Echocardiogram 10/28/24 18:34 Interpretation Summary Normal LV size. Left ventricular systolic function is normal. The left ventricular ejection fraction is 65 %. Stage 1 diastolic dysfunction. Structurally normal valves. Ordering Physician: Ellen Sim Referring Physician: MIHAI MULLEN Performed By: [facility] D/C Instructions Discharge Diet: No restrictions DC O2, CPAP, BIPAP Needs Home O2 Discharge instructions: No Meaningful Use Info Meaningful Use Meaningful Use Diagnoses (Choose all that apply): None applicable Ischemic Stroke Statin Dosing Therapy Reference: STATIN DOSE THERAPY REFERENCE: * Patients > 75 years receive moderate or high dose statin therapy. * Patients 75 years or YOUNGER should receive HIGH intensity statin dose unless contraindicated. You will be required to document reason for non-treatment if statin daily dose does not meet guidelines. HIGH DOSE STATIN THERAPY DAILY Atorvastatin > than or = to 40 mg Rosuvastatin > than or = to 20 mg Amlodipine + Atorvastatin > than or = to 2.5/40 mg Ezetimibe + Simvastatin 10/80 mg Simvastatin 80mg Discharge Plan Admission Admit Date/Time: 10/28/24 14:56 Primary Reason for Your Visit: Chest pain Attending Provider: Harry Rowe Primary Care Provider: Montez Hernandez Consulting Providers: Ellen Sim Instructions Additional Instructions / Restrictions: ? Continue all home medications as normal. Discharge Orders/Prescriptions Prescriptions: Continued aspirin [Adult Low Dose Aspirin] 81 mg tablet,delayed release (DR/EC) 81 mg PO QDAY Qty: 30 3RF levothyroxine 88 mcg capsule 100 mcg PO DAILY citalopram [Celexa] 20 mg tablet 20 mg PO DAILY cyanocobalamin (vitamin B-12) 1,000 mcg capsule 1,000 mcg PO DAILY Incruse Ellipta 62.5 mcg/actuation blister with device 1 inh inhalation DAILY albuterol sulfate 2.5 mg /3 mL (0.083 %) solution for nebulization 2.5 mg inhalation Q4H PRN (Reason: shortness of breath or wheezing) omeprazole 20 mg capsule,delayed release(DR/EC) 20 mg PO DAILY Dupixent Pen 300 mg/2 mL pen injector 300 mg subcut Q2W montelukast 10 MG tablet 10 mg PO DAILY Patient Comments: ALLERGIES fluticasone propionate 1 SPRAY spray,suspension 1 spray NASAL BID Patient Comments: ALLERGIES cholecalciferol (vitamin D3) 1,000 UNIT tablet 1,000 unit PO DAILY Patient Comments: SUPPLEMENT fluticasone propion-salmeterol 1 PUFF inhaler 2 puff IH DAILY Patient Comments: INHALE 2 PUFFS INSTRUCTED TWICE DAILY. USE WITH SPACER. RINSE MOUTHOUT AFTER USE. insulin aspart U-100 100 UNITS/ML insulin pen See Protocol subcut BREAKFAST Protocol: 3. Sliding Scale Insulin Med Dosing Condition: 150-189 mg/dl = 1 unit Condition: 190-229 mg/dl = 2 units Condition: 230-269 mg/dl = 3 units Condition: 270-309 mg/dl = 4 units Condition: 310-349 mg/dl = 5 units Condition: 350-399 mg/dl = 6 units Condition: 400-449 mg/dl = 7 units Condition: Greater than 449 call physician Protocol Text: - Use for Total Daily Dose of Insulin 37-55 units - Obsese, infected, or steroid patients MEDIUM DOSING ALGORITHIM Patient Comments: BLOOD SUGAR Rx Instructions: took 10units this am insulin detemir U-100 100 UNITS/ML insulin pen 30 units subcut DAILY Qty: 1 1RF atorvastatin 40 mg tablet See Rx Instructions .ROUTE .COMPLEX Qty: 90 3RF Dose Instruction: TAKE 1 TABLET BY MOUTH EVERYDAY AT BEDTIME Rx Instructions: TAKE 1 TABLET BY MOUTH EVERYDAY AT BEDTIME lisinopril 2.5 mg tablet 2.5 mg PO DAILY Qty: 90 3RF Patient Comments: TAKE 1 TABLET BY MOUTH EVERY DAY furosemide [Lasix] 40 mg tablet 40 mg PO DAILY Qty: 90 3RF metoprolol tartrate 25 mg tablet 25 mg PO BID Qty: 180 3RF Referrals / Follow Up: Montez Hernandez MD [Primary Care Provider] - Disposition Disposition (needs filled in before D/C Order can be placed): Home, Self Care Charges/Coding Visit Charges Inpatient E&M: 14964 Disch Hosp >30min
[2024-10-29 14:13] VITALS: BP 124/55; PULSE 79; RESP 17; TEMP 36.7; O2SAT 100
[2024-10-29 17:30] LABS: Bedside Glucose 102 mg/dL (74-106)
[2024-10-31 08:22] LABS: Vitamin B12 1238 pg/mL (211-911)
== END 2024-10-29 11:44 | disposition home or self-care (01) ==
LOC: ED 15:15 → PCU 15:41
PROVIDERS: Admitting Provider Family Medicine; Emergency Provider Emergency Medicine; PCP Family Medicine; Visit Provider Hospitalist
DX: R07.89 Other chest pain (principal); N18.4 Chronic kidney disease, stage 4 (severe); J44.89 Other specified chronic obstructive pulmonary disease; E11.22 Type 2 diabetes mellitus with diabetic chronic kidney disease; Z79.4 Long term (current) use of insulin; E78.5 Hyperlipidemia, unspecified; I25.10 Atherosclerotic heart disease of native coronary artery without angina pectoris; I12.9 Hypertensive chronic kidney disease with stage 1 through stage 4 chronic kidney disease, or unspecified chronic kidney disease; Z87.891 Personal history of nicotine dependence; R00.2 Palpitations; R06.02 Shortness of breath; R42 Dizziness and giddiness; R11.0 Nausea; K21.9 Gastro-esophageal reflux disease without esophagitis; Z79.51 Long term (current) use of inhaled steroids; Z79.899 Other long term (current) drug therapy; Z79.82 Long term (current) use of aspirin; E03.9 Hypothyroidism, unspecified; Z79.890 Hormone replacement therapy; F41.8 Other specified anxiety disorders
CPT/HCPCS: 36415; 71045; 78452; 80048; 80053; 80061; 81001; 82607; 82728; 82746; 82962; 83540; 83550; 83735; 84484; 85025; 85379; 85610; 85730; 93005; 93017; 93306; 94640; 94668; 96360; 96361; 96372; 99221; 99285; A9500; A4216; G0378; J2785

== ENCOUNTER → 2025-02-06 | Outpatient (CLI) | payer MEDICARE, OTHER, SELFPAY ==
[2025-02-06 18:17] LABS: Hematocrit 31.9 % (37-47); Hemoglobin 10.5 g/dL (12.0-15.0); Mean Corp Hgb Conc 32.9 g/dL (32-36); Mean Corpuscular Hgb 27.6 pg (27.0-32.0); Mean Corpuscular Volume 83.9 fL (81-99); Mean Platelet Vol. 10.2 fl (6.2-12.0); Platelet Count 442 K/mm3 (150-450); RBC Distribution Width CV 13.6 % (11.6-14.6); RBC Distribution Width SD 41.6 fl (35.1-43.9); White Blood Count 15.3 K/mm3 (4.4-11.0)
[2025-02-06 18:46] LABS: ALB/GLOB Ratio 1.2 RATIO (0.9-2.4); AST(SGOT) 19 U/L (<=31); Alanine Aminotransfer ALT/SGPT 7 U/L (<=34); Albumin, Serum 4.3 g/dL (3.4-4.8); Alkaline Phosphatase 88 U/L (35-104); Anion Gap 16 (5-15); BUN 64 mg/dL (4-19); BUN/Creat Ratio 31.9 RATIO (10-20); Calcium,Total 10.3 mg/dL (7.6-11.0); Carbon Dioxide 20.1 mmol/L (21.0-32.0); Chloride 97 mmol/L (98-108); Creatinine, Serum 2.02 mg/dL (0.70-1.20); EST Glomerular Filtration Rate 24 (>60); Globulin 3.5 g/dL (2.2-4.2); Glucose 97 mg/dL (70-99); Iron 76 ug/dL (50-170); Potassium 4.4 mmol/L (3.3-5.1); Protein, Total 7.8 g/dL (5.9-8.4); Sodium Level 133 mmol/L (133-145); Total Bilirubin 0.23 mg/dL (0.00-1.30); Vitamin D,25 Hydroxy 86.6 ng/mL (30-100)
[2025-02-06 18:51] LABS: PTHIN 43 pg/mL (11-61)
[2025-02-06 18:58] LABS: Microalbumin,Random Urine 43.1 mg/L (NO RANGE EST.); Microalbumin:Creatinine Ratio 1048.7 mg/g CRE
[2025-02-07 14:43] LABS: Color, Urine Straw (Yellow); Glucose, Dipstick Normal (Normal); Ketone-Dipstick Negative (Negative); Leukocyte Esterase-Dipstick Negative /ul (Negative); Nitrite-Dipstick Negative (Negative); Occult Blood-Urine Negative /ul (Negative); Protein-Dipstick 15 mg/dl (Negative); Urine Bilirubin Dipstick Negative (Negative); Urine Clarity Clear (Clear); Urine Urobilinogen Normal (Normal)
== END | disposition home or self-care (01) ==
LOC: MTLAB 15:56
PROVIDERS: PCP Family Medicine; Referring Provider Internal Medicine Nephrology; Visit Provider Internal Medicine Nephrology
DX: E11.22 Type 2 diabetes mellitus with diabetic chronic kidney disease (principal); N18.30 Chronic kidney disease, stage 3 unspecified
CPT/HCPCS: 36415; 80053; 81002; 82043; 82306; 82570; 83540; 83970; 84443; 85027

== ENCOUNTER 2025-02-22 14:13 | Inpatient (IN) | payer MEDICARE, OTHER, SELFPAY ==
[2025-02-22] VITALS (10 sets, daily range): BP systolic 81–118; BP diastolic 52–71; PULSE 129–170; RESP 20–36; TEMP 2.7–37.4; O2SAT 35–100; BMI 24.7
--- NOTE | 2025-02-22 16:23 | PCM.HP.STD ---
HPI - General General Date of Admission: 02/22/25 Date of Service: 02/22/25 Chief Complaint: Dyspnea, fatigue, nausea, decreased appetite, cough. HPI Narrative The patient is an 84 y/o F w/ PMHx:Chronic sinus tachycardia, CKD stage IV, Chronic anemia, COPD/Asthma with allergic rhinitis, Anxiety and Depression, GERD, Hypothyroidism, HTN, HLD, Diabetes mellitus type II, CAD s/p CABG, Former tobacco use, Hx Breast cancer status postlumpectomy unclear exact location or type found incidentally with evaluation of Lung Cancer with reportedly positive sputum sample with squamous cells in 2013 with gamma knife x 2 who presents to the [facility] as a direct admission from [facility] on 02/22/25 with history of persistent nausea, fatigue and malaise since Thursday with decreased oral intake and reported weight loss with inability to tolerate anything oral however she has not had any bouts of emesis with no diarrhea nor any abdominal pain and no reported fevers or chills however she has had a recent cough it has been worsening with no recent ill contacts but given debility prompted eventual ED evaluation. She also noted in the outside facility ED that she had been wheezing as well. Workup in the outside ED included T96.4, BP 152/95, heart rate 124, respiratory rate 18, 94% oxygenation however per outside records she reportedly desaturated to less than 88% prompting placement of 2 L nasal cannula CBC with WBC 25.42, hemoglobin 9.8, MCV 84.2, platelet 383 with significant left shift, initial lactic acid 5.3 with repeat 3.9, CMP with sodium 129, potassium 5.4, chloride 93, CO2 18, anion gap 18, BUN/creatinine 49/1.81, glucose 408, hepatic profile not marked appearing, lipase 9, magnesium 1.8, NT proBNP 7817, high-sensitivity troponin 36 with repeat delta troponin 32, rapid SARS COVID/influenza/RSV PCR negative, chest x-ray with worsening consolidation left upper lobe, CT chest with IV contrast w/ significantly worsening salivation within the left upper lobe and also within the left lower lobe, primary consideration pneumonia but unable to exclude malignancy although less likely, spiculated nodularity within the right upper lobe stable compared to prior, newly prominent pericarinal mediastinal lymph nodes nonspecific, CT abdomen pelvis with IV contrast with distal colonic diverticulosis with no acute intra-abdominal finding otherwise, hiatal hernia, urinalysis with clear urine, 2+ glucose, specific gravity 1.020, 2+ hemoglobin, nitrite negative, leukocyte Estrace negative with no marked urine WBCs or RBCs, moderate bacteria noted, follow-up BMP at 12:23 PM with sodium 131, potassium 4.8, chloride 99, CO2 18, anion gap 14, BUN/creatinine 20/1.55, glucose 365, EKG with sinus tachycardia with no acute evidence of ischemia, blood cultures x 2 pending per ED, urine culture pending per ED. In the ED patient was ministered 2 L IV fluid normal saline bolus, IV vancomycin and IV Zosyn, several rounds of antiemetics, DuoNeb therapy. [facility] Medical History Sinus tachycardia CKD (chronic kidney disease), stage IV Former tobacco use COPD with asthma Atherosclerosis of coronary artery of [place] heart without angina pectoris Status post gamma knife treatment Tobacco use Depression Breast cancer Lung cancer Hypothyroidism GERD (gastroesophageal reflux disease) Type 2 diabetes mellitus without complications Hyperlipidemia Home Medications ?Medication ?Instructions ?Recorded ?Last Taken ?Type cholecalciferol (vitamin D3) 25 1,000 unit PO DAILY 08/26/16 08/31/16 History mcg (1,000 unit) tablet fluticasone propionate 50 1 spray NASAL BID 08/26/16 08/31/16 History mcg/actuation nasal spray,suspension montelukast 10 mg tablet 10 mg PO DAILY 08/26/16 08/31/16 History aspirin 81 mg tablet,delayed 81 mg PO QDAY #30 tabs 05/19/18 06/07/18 Rx release (Adult Low Dose Aspirin) citalopram 20 mg tablet (Celexa) 20 mg PO DAILY 08/19/18 Unknown History fluticasone propionate 230 2 puff IH DAILY 10/30/19 Unknown History mcg-salmeterol 21 mcg/actuation HFA inhaler insulin aspart U-100 100 unit/mL See Protocol subcut BREAKFAST 10/30/19 Unknown History (3 mL) subcutaneous pen diabetes insulin detemir U-100 100 unit/mL 30 units subcut DAILY ##1 11/04/19 Unknown Rx (3 mL) subcutaneous pen cyanocobalamin (vitamin B-12) 1,000 mcg PO DAILY 02/10/20 Unknown History 1,000 mcg capsule levothyroxine 88 mcg capsule 100 mcg PO DAILY 05/06/22 Unknown History albuterol sulfate 2.5 mg/3 mL 2.5 mg inhalation Q4H PRN 01/01/23 Unknown History (0.083 %) solution for nebulization shortness of breath or wheezing umeclidinium 62.5 mcg/actuation 1 inh inhalation DAILY 01/01/23 Unknown History blister powder for inhalation (Incruse Ellipta) omeprazole 20 mg capsule,delayed 20 mg PO DAILY 01/22/23 Unknown History release dupilumab 300 mg/2 mL subcutaneous 300 mg subcut Q2W 07/20/23 Unknown History pen injector (Dupixent) lisinopril 2.5 mg tablet 2.5 mg PO DAILY #90 tabs 12/22/23 Unknown Rx furosemide 40 mg tablet (Lasix) 40 mg PO DAILY #90 tabs 01/13/24 Unknown Rx metoprolol tartrate 25 mg tablet 25 mg PO BID #180 tabs 01/13/24 Unknown Rx atorvastatin 40 mg tablet See Rx Instructions .Route 02/08/25 Unknown Rx .COMPLEX #90 tabs Allergy/AdvReac Type Severity Reaction Status Date / Time azithromycin (From Zithromax) AdvReac DOES NOT Verified 10/28/24 10:29 WORK[employer] Family History Father Heart disease CAD (coronary artery disease) Hypertension Myocardial infarction Mother Anxiety and depression Thyroid disorder Alzheimer dementia Surgical History History of cholecystectomy (2018) H/O coronary artery bypass surgery (06/25/18) History of left heart catheterization (06/07/18) History of lung surgery (2013) H/O lumpectomy History of lung biopsy (2013) History of hip replacement H/O total hysterectomy History of appendectomy History of tonsillectomy Social History household members: other details: Her grand-daughter has been living with her. Smoking Status: Former smoker how long ago did patient quit smoking: Quit 2002, smoked 1 ppd since teen until quit. alcohol intake: never substance use type: does not use ROS ROS Narrative Admission Review of Systems: CONSTITUTIONAL: No fever, chills, + decreased oral intake with weight loss weakness or fatigue. HEENT: Eyes: No visual loss, blurred vision, double vision or yellow sclerae. Ears, Nose, Throat: No hearing loss, sneezing, congestion, runny nose or sore throat. SKIN: No rash or itching, lesions, wounds. CARDIOVASCULAR: No chest pain, chest pressure or chest discomfort, palpitations, edema, orthopnea, syncopal events. RESPIRATORY: + Dyspnea, cough productive sputum, intermittent wheezing. No hemoptysis. GASTROINTESTINAL: + Anorexia/lack of appetite, and nausea. No vomiting or diarrhea, abdominal pain, melena, BRBPR. GENITOURINARY: No dysuria, frequency, urgency or retention. NEUROLOGICAL: No headache, dizziness, syncope, paralysis, ataxia, numbness or tingling in the extremities, focal weakness, change in bowel or bladder control, seizure. MUSCULOSKELETAL: + muscle, back pain, joint pain or stiffness. HEMATOLOGIC: + Chronic anemia, easy bleeding/bruising. LYMPHATICS: No enlarged nodes. No history of splenectomy. PSYCHIATRIC: + History of anxiety and depression ENDOCRINOLOGIC: No reports of sweating, cold or heat intolerance. No polyuria or polydipsia. ALLERGIES: + History of asthma, allergic rhinitis. Vital Signs Vital Signs Vital Signs: 02/22/25 16:10 Temperature 99.3 F H Temperature Source Oral Pulse Rate 170 H Respiratory Rate 24 H Blood Pressure 111/71 Blood Pressure Mean 84 Pulse Ox 96 Oxygen Delivery Method Nasal Cannula Oxygen Flow Rate (L/min) 3 Weight Weight: 280 lb 3.32 oz Body Mass Index (BMI) 54.7 Physical Exam Narrative Physical Examination: General: Awake, alert, oriented x 3, remains cooperative, seated upright in PCU bed, no acute distress, fatigued appearing. Skin: Normal color, normal turgor, no icterus, no cyanosis except occasional stage ecchymoses, flushed cheeks. HEENT: AT/NC, EOMI, PERRLA, mildly dry MM, no carotid bruits or JVD noted. Lungs: Diminished, greater bases, left greater than right, mildly coarse, occasional soft wheeze but not severe, mildly increased respiratory rate but no distress. Heart: Tachycardic with regular rhythm; no gallop, rub audible. Abdomen: Soft, NTTP, ND, hyperactive BS, no appreciated HSM. Extremities: No cyanosis, clubbing, or edema. Neurological: Patient awake, alert, oriented as noted, cognitive function intact; pupils equally reactive to light and accommodation, cranial nerves grossly normal, moving all 4 extremities, no focal deficits, strength moderately to severely globally decreased secondary to acute presentation complaints. Psychiatric: Affect appears flat, fatigued, ill-appearing, no acute evidence of depressive or anxiety feelings but does have underlying history. Assessment & Plan Assessment/Plan (1) Sepsis: PLAN: Plan The patient is an 84 y/o F w/ PMHx:Chronic sinus tachycardia, CKD stage IV, Chronic anemia, COPD/Asthma with allergic rhinitis, Anxiety and Depression, GERD, Hypothyroidism, HTN, HLD, Diabetes mellitus type II, CAD s/p CABG, Former tobacco use, Hx Breast cancer status postlumpectomy unclear exact location or type found incidentally with evaluation of Lung Cancer with reportedly positive sputum sample with squamous cells in 2013 with gamma knife x 2 who presents to the [facility] as a direct admission from [facility] on 02/22/25 with history of persistent nausea, fatigue and malaise since Thursday with decreased oral intake and reported weight loss with inability to tolerate anything oral however she has not had any bouts of emesis with no diarrhea nor any abdominal pain and no reported fevers or chills however she has had a recent cough it has been worsening with no recent ill contacts but given debility prompted eventual ED evaluation. #1. Acute Sepsis (Pulmonary Source, Hypoxia, Tachycardia, Leukocytosis, Notable lactic acidosis) secondary to Acute hypoxia secondary to left upper and lower lobe pneumonia with significant malaise, fatigue, intractable nausea with poor oral intake ability, complicated by underlying pulmonary disease with COPD/asthma in addition to history of previous lung cancer: Will admit to PCU, patient already administered 2 L normal saline, will continue judicious IV fluids, will maintain on oxygen with wean as tolerated to room air, continue ATC duonebs, PRN albuterol, maintained on IV Zosyn and Vancomycin, HOB, IS parameters w/ pending sputum cultures, full respiratory viral panel, MRSA screen and urine antigens. Bld cx x 2 obtained in the ED at the outside facility of note. #2. Acute hyponatremia, suspected mild hypovolemic component: Likely related with acute illness, initial outside facility ED CMP with sodium 129 with IV fluids administered with repeat follow-up BMP at 1223 with sodium to 131, will continue to just hydration repeat CMP in a.m. #3. Hyperkalemia, currently corrected: Initial outside facility ED CMP with potassium mildly elevated 5.4, corrected following initial outside facility ED interventions, most recent repeat BMP at 1223 with potassium 4.8, will repeat CMP in AM. #4. Acute on chronic sinus tachycardia: Patient upon current presentation with notable tachycardia, had been 130s at the outside facility, baseline runs 90-120s daily despite continued beta-deyanira therapy, she has missed doses and this may be part of this in addition to infectious process, given current BP check upon arrival appropriate will administer Lopressor 5 mg IV x 1 and reassess blood pressure in the next 30 minutes to 1 hour with administration of her oral metoprolol in addition. #5. CAD: s/p CABG 06/2028 with left internal mammary artery to left anterior descending artery, saphenous vein graft to diagonal branch, posterior descending artery and posterolateral branch, most recent previous echocardiogram noted 01/19/2023 with normal LV size, normal LV systolic function, EF 65%, stage I diastolic dysfunction, PASP 60 mmHg with moderate pulmonary hypertension. Will continue aspirin, statin, metoprolol and lisinopril as BP allows however low threshold to hold if blood pressure decreases, however at outside facility it was normal range. #6. Chronic Kidney Disease Stage IV per GFR trending: Outside ED initial CMP with BUN/Emilio 49/1.81 however because of mild hyperkalemia and hyponatremia this was repeated at 1223 with repeat labs corrected with BUN/creatinine 20/1.55,, baseline renal function primarily 1.7-1.9, repeat BMP in AM. #7. Hx Lung Cancer, Hx Breast cancer: Hx Breast cancer status post lumpectomy unclear exact location or type found incidentally with evaluation of Lung Cancer with reportedly positive sputum sample with squamous cells in 2013 with initially wedge resection with eventual follow-up gamma knife x 2, per report considered in remission. #8. Chronic normocytic anemia: Admission hemoglobin 9.8, MCV 84.2, baseline hemoglobin appears 10-11, will continue to trend. #9. Chronic COPD/asthma with allergic rhinitis: Complicates presentation, will maintain as noted above on ATC budesonide therapy however if persistently tachycardic low threshold to transition to ATC budesonide, PRN albuterol, HOB, IS parameters, continue home fluticasone and montelukast home regimen. #10. Diabetes mellitus type II with hyperglycemia: Outside facility ED with significant hyperglycemia with initial CMP with glucose 408 and repeat at 12:23 PM 365, will continue home insulin regimen, given persistent nausea will maintain on clears initially, maintain on q 6 hours accu checks w/ ISS. #11. Hypertension: Continue patient home metoprolol, lisinopril, PRN hydralazine. Holding lasix. #12. Hyperlipidemia: Continue patient home statin regimen. #13. Anxiety and depression: Continue patient home citalopram regimen. #14. Hypothyroidism: Continue patient home levothyroxine regimen. #15. Former tobacco usage: Encourage continued tobacco cessation. #16. GERD: Maintain on IV PPI while persistent nausea. #17. DVT prophylaxis: Heparin. #18. CODE status: Patient HCPSHARIF is her daughers and daughter in law and living will is currently in place. Full Code status per discussion with daughters. Charges/Coding Visit Charges Inpatient E&M: 11778 Init Hosp L3
[2025-02-22] MEDS: 0.9% Saline Lock 10 ML Syringe IV ×2 (16:39→23:12)
[2025-02-22] MEDS: Metoprolol Tartrate 5 MG/5 ML Vial IV (16:39)
[2025-02-22] MEDS: 0.9% Normal Saline (1000mL) 1,000 ML 100 ML IV (18:05)
[2025-02-22] MEDS: 0.9% Normal Saline (500mL Bag) 500 ML 999 ML IV (18:36)
[2025-02-22] MEDS: Insulin Lispro 100 UNIT/ML INSULN.PEN SC (18:37)
[2025-02-22] MEDS: Metoprolol Tartrate 25 MG Tablet PO ×2 (18:37→22:38)
[2025-02-22 18:38] LABS: Magnesium 1.8 mg/dL (1.5-2.2)
--- NOTE | 2025-02-22 18:38 | PCM.RX.CS ---
Consult Antibiotic Management Pharmacy has been consulted to manage selected antibiotic: Vancomycin Type of Intervention Type of Consult: New start Suspected Infection Suspected Infection: Sepsis Microbiology Microbiology: Microbiology 02/22/25 17:30 Urine, Random Legionella Antigen - Final 02/22/25 17:30 Urine, Random Streptococcus pneumoniae Antigen (M - Final Goal Trough Goal Trough: 15-20 mcg/mL Pharmacy Plan for Drug Dosing Pharmacy Plan for Drug Dosing: NEW START IV VANCOMYCIN Consulting Physician: Dr. Sim Indication: Sepsis Goal Trough: 15-20 SrCr: 1.81 (lab draw from 02/22 at [facility]) CrCl: 17 mL/min (using CrCl calculator and IBW) Comments: Patient had her first dose of 750mg IV x1 in [place] ED 02/22 @1113 Vancomycin Dose: Patient's current CrCl is <20mL/min. Due to this, will not schedule patient on vancomycin at this time. Will hold scheduled dosing and obtain a random level tomorrow morning to assess dosing at that time. Pending Level: *RANDOM* 02/23/25 @0600 Pharmacy Service will continue to monitor and adjust dosing as required.
[2025-02-22 18:45] LABS: Bedside Glucose 198 mg/dL (74-106)
--- NOTE | 2025-02-22 21:09 | RAD_ITS ---
PROCEDURE: CHEST 1 VIEW (PORTABLE) 02/22/2025 REASON FOR EXAM: HYPOXIA TECHNIQUE: Frontal view of the chest. COMPARISON: None FINDINGS: Hardware: Sternotomy wires are present. Heart: Heart size is mildly enlarged. Lungs: Left upper lung field opacification and patchy left mid to lower lung airspace opacities. Right lung is unremarkable. No pneumothorax. Bones: Old left-sided rib fractures. Other: RAD/Chest 1 View (Portable) IMPRESSION: Left upper lung opacification and patchy left mid to lower lung airspace opacit ies, differentials would include effusion versus infiltrates. Reading Location: [facility]
[2025-02-22 21:39] LABS: Absolute Lymphocyte Count 1.56 X10^3/uL (0.83-4.51); Basophil# 0.06 X10^3/uL; Basophil% 0.3 % (0-1); Hematocrit 26.1 % (37-47); Hemoglobin 8.6 g/dL (12.0-15.0); Lymphocyte # 1.56 X10^3/ul (0.83-4.51); Lymphocyte % 6.9 % (19-41); Mean Corpuscular Hgb 27.6 pg (27.0-32.0); Mean Corpuscular Volume 83.7 fL (81-99); Mean Platelet Vol. 9.7 fl (6.2-12.0); Monocyte# 1.34 X10^3/uL; NRBC Flagged by Analyzer 0 % (0-5); Neutrophil % 84.3 % (47-70); POSITIVE MORPHOLOGY YES; Platelet Count 318 K/mm3 (150-450); RBC Distribution Width CV 13.9 % (11.6-14.6); RBC Distribution Width SD 42.1 fl (35.1-43.9); Red Blood Count 3.12 M/mm3 (4.2-5.4); White Blood Count 22.5 K/mm3 (4.4-11.0)
[2025-02-22 22:11] LABS: Anion Gap 11 (5-15); BUN 43 mg/dL (4-19); BUN/Creat Ratio 22.7 RATIO (10-20); Calcium,Total 8.5 mg/dL (7.6-11.0); Carbon Dioxide 17.4 mmol/L (21.0-32.0); Chloride 105 mmol/L (98-108); Creatinine, Serum 1.88 mg/dL (0.70-1.20); EST Glomerular Filtration Rate 26 (>60); Estimated Creatinine Clearance 18.02 ml/min (50-250); Glucose 189 mg/dL (70-99); Lactic Acid 1.6 mmol/L (0.0-2.0); Potassium 4.5 mmol/L (3.3-5.1); Sodium Level 134 mmol/L (133-145)
[2025-02-22] MEDS: Lactated Ringers 1,000 ML 250 ML IV (22:20)
[2025-02-22] MEDS: Pantoprazole Sodium 40 MG in 0.9% Normal Saline (100mL MB+) 100 ML 330 MG IV (22:24)
[2025-02-22] MEDS: Heparin Injection (Vial) 5,000 UNIT/ML VIAL 5000 UNIT SC (22:29)
[2025-02-22] MEDS: Methylprednisolone Sod Succ 40 MG/ML VIAL 20 MG IV (22:31)
[2025-02-22] MEDS: Atorvastatin Calcium 40 MG Tablet PO (22:38)
[2025-02-22 22:44] LABS: Differential Indicated SCAN CRITERIA MET
[2025-02-22] MEDS: Fluticasone 0.05% 1 SPRAY NASAL.SRY NASAL (23:11)
[2025-02-22] MEDS: Piperacil/Tazobactam 3.375 GM in 0.9% Normal Saline (50mL MB+) 50 ML IV (23:12)
--- NOTE | 2025-02-22 23:21 | PCM.HOSP.N ---
Hospitalist Note Notified by nursing that patient had continued sinus tachycardia to the 130s to 140s and blood pressure was running low in the 80s systolic. Evaluated patient at bedside. Patient was fatigued appearing but otherwise sitting back comfortably in bed and conversing normally. She was breathing comfortably on 3 L nasal cannula with saturations in the high 90s. No fluid overload noted on exam. On auscultation, had diminished breath sounds in left upper lung but otherwise good air movement bilaterally throughout with no crackles noted. Had been given 2.5 L of fluids total today (30 cc per kg would be around 1.8 L). Patient has CKD stage IV but noted that she has had very good urine output this afternoon after being given IV fluids. Chest x-ray ordered and showed left upper lung opacification and patchy left mid to lower lung airspace opacities, but no pleural effusions or vascular congestion noted. Stat labs ordered; lactate improved to 1.6 from 3.9 at outside ED, and CBC and BMP otherwise similar to at outside ED. On further chart review, patient completed left upper lobe radiation therapy for lung cancer at the end of September. Given her chest x-ray findings and his reported progressive worsening shortness of breath with dry cough over the past month or so, have some concern for chronic inflammation secondary to radiation therapy. Will treat with low-dose IV Solu-Medrol in addition to broad-spectrum antibiotics. Giving 1 L of IV fluids over 4 hours at this time. Has been given 500 cc thus far and already showing improvement in blood pressure and heart rate. Will continue to monitor closely.
[2025-02-23] VITALS (15 sets, daily range): BP systolic 73–115; BP diastolic 47–68; PULSE 72–129; RESP 15–35; TEMP 35.5–37; O2SAT 92–99; BMI 26.5
[2025-02-23 00:17] LABS: Differential Comment SCANNED
[2025-02-23] MEDS: Insulin Lispro 100 UNIT/ML INSULN.PEN SC ×4 (01:31→17:20)
[2025-02-23 01:46] LABS: Bedside Glucose 170 mg/dL (74-106)
[2025-02-23] MEDS: Piperacil/Tazobactam 3.375 GM in 0.9% Normal Saline (50mL MB+) 50 ML IV ×3 (06:09→22:28)
[2025-02-23] MEDS: 0.9% Saline Lock 10 ML Syringe IV ×6 (06:10→22:38)
[2025-02-23] MEDS: Levothyroxine 100 MCG Tablet PO (06:11)
[2025-02-23 06:19] LABS: Absolute Lymphocyte Count 0.76 X10^3/uL (0.83-4.51); Absolute Neutrophil Count 17.1 X10^3/uL (2.0-7.7); Basophil# 0.03 X10^3/uL; Basophil% 0.2 % (0-1); Hematocrit 24.4 % (37-47); Hemoglobin 7.9 g/dL (12.0-15.0); Lymphocyte # 0.76 X10^3/ul (0.83-4.51); Lymphocyte % 3.9 % (19-41); Mean Corp Hgb Conc 32.4 g/dL (32-36); Mean Corpuscular Hgb 27.6 pg (27.0-32.0); Mean Corpuscular Volume 85.3 fL (81-99); Mean Platelet Vol. 10.3 fl (6.2-12.0); Monocyte# 0.63 X10^3/uL; Monocyte% 3.3 % (0-10); NRBC Flagged by Analyzer 0 % (0-5); Neutrophil # 17.12 X10^3/uL (2.7-7.7); Neutrophil % 88.8 % (47-70); POSITIVE MORPHOLOGY YES; Platelet Count 275 K/mm3 (150-450); RBC Distribution Width CV 13.8 % (11.6-14.6); RBC Distribution Width SD 43.3 fl (35.1-43.9); Red Blood Count 2.86 M/mm3 (4.2-5.4); White Blood Count 19.3 K/mm3 (4.4-11.0)
[2025-02-23 06:40] LABS: ALB/GLOB Ratio 0.8 RATIO (0.9-2.4); AST(SGOT) 37 U/L (<=31); Alanine Aminotransfer ALT/SGPT 19 U/L (<=34); Albumin, Serum 2.5 g/dL (3.4-4.8); Alkaline Phosphatase 93 U/L (35-104); Anion Gap 11 (5-15); BUN 41 mg/dL (4-19); BUN/Creat Ratio 24.1 RATIO (10-20); Calcium,Total 8.2 mg/dL (7.6-11.0); Carbon Dioxide 14.1 mmol/L (21.0-32.0); Chloride 109 mmol/L (98-108); Creatinine, Serum 1.69 mg/dL (0.70-1.20); EST Glomerular Filtration Rate 30 (>60); Glucose 188 mg/dL (70-99); Potassium 4.5 mmol/L (3.3-5.1); Protein, Total 5.5 g/dL (5.9-8.4); Sodium Level 135 mmol/L (133-145); Total Bilirubin 0.35 mg/dL (0.00-1.30)
[2025-02-23 06:41] LABS: Bedside Glucose 192 mg/dL (74-106)
[2025-02-23 06:41] LABS: Differential Indicated SCAN CRITERIA MET
[2025-02-23 06:53] LABS: Vancomycin, Random Level 5.7 ug/mL (0.0-15.0)
--- NOTE | 2025-02-23 07:26 | PCM.RX.CS ---
Consult Antibiotic Management Pharmacy has been consulted to manage selected antibiotic: Vancomycin Type of Intervention Type of Consult: Follow-up Labs Labs: Sodium 135 mmol/L (133-145) 02/23/25 05:32 Potassium 4.5 mmol/L (3.3-5.1) 02/23/25 05:32 Chloride 109 mmol/L (98-108) H 02/23/25 05:32 Carbon Dioxide 14.1 mmol/L (21.0-32.0) L 02/23/25 05:32 Anion Gap 11 (5-15) 02/23/25 05:32 BUN 41 mg/dL (4-19) H 02/23/25 05:32 Creatinine 1.69 mg/dL (0.70-1.20) H 02/23/25 05:32 Est GFR (MDRD) Non-Af 30 (>60) L 02/23/25 05:32 BUN/Creatinine Ratio 24.1 RATIO (10-20) H 02/23/25 05:32 Glucose 188 mg/dL (70-99) H 02/23/25 05:32 Random Vancomycin 5.7 ug/mL (0.0-15.0) 02/23/25 05:32 Microbiology Microbiology: Microbiology 02/22/25 21:05 Mucosa - Nasopharyngeal Respiratory Panel (PCR) - Final 02/22/25 17:30 Nasal Secretion MRSA (PCR) - Final 02/22/25 17:30 Urine, Random Legionella Antigen - Final 02/22/25 17:30 Urine, Random Streptococcus pneumoniae Antigen (M - Final Goal Trough Goal Trough: 15-20 mcg/mL Pharmacy Plan for Drug Dosing Pharmacy Plan for Drug Dosing: VANCOMYCIN LEVEL RECEIVED Current Vancomycin Dose: Had 500mg IV x1 at outside ED 02/22 @1113 Number of Doses Received: 1 Vancomycin Level: 5.7 Hours Since Last Dose: 18hr Renal Function: 1.69/ CrCl 20mL/min Renal Function Trend: improvement from labs yesterday (Scr 1.81/ CrCl 17 mL/min) Lab/Micro: Pending Vancomycin Plan/Comments: Patient had a random trough drawn which resulted in a value of 5.7 (goal 15-20). Patient's renal function is improving. Will place patient on vancomycin 500mg IV Q24hr to start 02/23/25 @0800. Trough prior to 3rd dose of ordered regimen per protocol Pending Level: 4/19/25 @0730 Pharmacy Service will continue to monitor and adjust dosing as required.
[2025-02-23 08:36] LABS: Ferritin 105 ng/mL (22-378)
[2025-02-23] MEDS: Aspirin E.C. 81 MG Tablet PO (08:51)
[2025-02-23] MEDS: Methylprednisolone Sod Succ 40 MG/ML VIAL 20 MG IV ×2 (08:51→17:21)
[2025-02-23] MEDS: Citalopram 20 MG Tablet PO (08:51)
[2025-02-23] MEDS: Fluticasone 0.05% 1 SPRAY NASAL.SRY NASAL (08:52)
[2025-02-23] MEDS: Heparin Injection (Vial) 5,000 UNIT/ML VIAL 5000 UNIT SC ×2 (08:52→22:39)
[2025-02-23] MEDS: Montelukast 10 MG Tablet PO (08:53)
[2025-02-23 09:11] LABS: Iron 10 ug/dL (50-170); Iron Binding Capacity,Unsat 139 ug/dL (228-428)
[2025-02-23] MEDS: Insulin Glargine-YFGN 100 UNIT/ML Pen 20 UNIT SC (09:15)
[2025-02-23] MEDS: Vancomycin IV 500 MG/100 ML BAG 100 MG IV (10:20)
[2025-02-23] MEDS: Pantoprazole Sodium 40 MG in 0.9% Normal Saline (100mL MB+) 100 ML 330 MG IV ×2 (10:24→22:20)
[2025-02-23] MEDS: Ipratropium 0.5 MG/2.5 ML SOLUTION INHALATION ×3 (11:11→20:09)
--- NOTE | 2025-02-23 11:33 | PN.HOSP_ITS ---
Subjective Subjective No issues overnight, she is maintaining her oxygen on 1 L nasal cannula. White count improved from admission at the outside hospital. Was notified today that her blood cultures did come back positive for gram-negative rods. They will notify with sensitivities and identification Objective Data Objective Data Vital Signs: Vital Signs Temp Pulse Resp BP Pulse Ox O2 Del Method O2 Flow Rate 98.3 F 76 18 101/50 L 98 Nasal Cannula 1 02/23/25 10:27 02/23/25 10:27 02/23/25 10:27 02/23/25 10:27 02/23/25 10:27 02/23/25 10:27 02/23/25 10:27 Oxygen Flow Rate (L/min) 1 Oxygen Delivery Method Nasal Cannula Weight: 136 lb 0.403 oz Body Mass Index (BMI) 26.5 Intake & Output: Intake and Output for Last 24 Hours 02/22/25 02/23/25 02/24/25 03:59 03:59 03:59 Intake Total 2190 / 2190 1290 / 1290 Output Total 100 / 100 Balance 2090 / 2090 1290 / 1290 Lab / Micro Data 02/23/25 05:32 02/23/25 05:32 Labs: Laboratory Results - last 24 hr 02/22/25 17:50: Magnesium 1.8 02/22/25 18:08: POC Glucose 198 H 02/22/25 21:25: WBC 22.5 H, RBC 3.12 L, Hgb 8.6 L, Hct 26.1 L, MCV 83.7, MCH 27.6, MCHC 33.0, RDW Std Deviation 42.1, RDW Coeff of Katelyn 13.9, Plt Count 318, MPV 9.7, Immature Gran % (Auto) 2.500 H, Neut % (Auto) 84.3 H, Lymph % (Auto) 6.9 L, [place] % (Auto) 6.0, Eos % (Auto) 0.0, Baso % (Auto) 0.3, Absolute Neuts (auto) 19.0 H, Absolute Lymphs (auto) 1.56, Nucleated RBC % 0, Differential Comment SCANNED, Sodium 134, Potassium 4.5, Chloride 105, Carbon Dioxide 17.4 L, Anion Gap 11, BUN 43 H, Creatinine 1.88 H, Estim Creat Clear Calc 18.02 L, Est GFR (MDRD) Non-Af 26 L, BUN/Creatinine Ratio 22.7 H, Glucose 189 H, Lactic Acid 1.6, Calcium 8.5 02/23/25 01:27: POC Glucose 170 H 02/23/25 05:32: WBC 19.3 H, RBC 2.86 L, Hgb 7.9 L, Hct 24.4 L, MCV 85.3, MCH 27.6, MCHC 32.4, RDW Std Deviation 43.3, RDW Coeff of Katelyn 13.8, Plt Count 275, MPV 10.3, Immature Gran % (Auto) 3.800 H, Neut % (Auto) 88.8 H, Lymph % (Auto) 3.9 L, [place] % (Auto) 3.3, Eos % (Auto) 0.0, Baso % (Auto) 0.2, Absolute Neuts (auto) 17.1 H, Absolute Lymphs (auto) 0.76 L, Nucleated RBC % 0, Sodium 135, Potassium 4.5, Chloride 109 H, Carbon Dioxide 14.1 L, Anion Gap 11, BUN 41 H, C reatinine 1.69 H, Estim Creat Clear Calc 20.70 L, Est GFR (MDRD) Non-Af 30 L, B UN/Creatinine Ratio 24.1 H, Glucose 188 H, Calcium 8.2, Iron 10 L, Iron Saturation 7.0 L, Unsaturated IBC 139 L, Ferritin 105, Total Bilirubin 0.35, AST 37 H, ALT 19, Alkaline Phosphatase 93, Total Protein 5.5 L, Albumin 2.5 L, Globulin 3.0, Albumin/Globulin Ratio 0.8 L, Random Vancomycin 5.7 02/23/25 06:16: POC Glucose 192 H Micro: Microbiology 02/22/25 21:05 Mucosa - Nasopharyngeal Respiratory Panel (PCR) - Final 02/22/25 17:30 Nasal Secretion MRSA (PCR) - Final 02/22/25 17:30 Urine, Random Legionella Antigen - Final 02/22/25 17:30 Urine, Random Streptococcus pneumoniae Antigen (M - Final Radiography Diagnostic Testing: Radiology Impression Chest X-Ray 02/22/25 21:09 IMPRESSION: Left upper lung opacification and patchy left mid to lower lung airspace opacities, differentials would include effusion versus infiltrates. Reading Location: [facility] Physical Exam Narrative General: Alert, Oriented x3, Cooperative, No apparent distress HEENT: Atraumatic, PERRLA, EOMI, Normocephalic Oral: Moist Mucosa Neck: Supple, No JVD Lungs: Diminished, Normal air movement, mild rhonchi, scattered wheeze, No rales Cardiovascular: Regular rate, Regular Rhythm, Normal S1, Normal S2, No murmurs Abdomen: Soft, Non Tender, Non-Distended, No Hepato-splenomegaly Extremities: No edema, Capillary Refill Less than 3 Seconds Skin: No rashes, No breakdown Musculoskeletal: No Tenderness to Palpation of Joints or Extremities Neurological: No focal neurological deficits, Motor Exam 5/5 strength throughout, Sensory exam intact to light touch and pain Psych/Mental Status: Flat Assessment & Plan Assessment/Plan (1) Sepsis: PLAN: Plan 1. Sepsis secondary to pneumonia with gram-negative diane bacteremia ? Continue with antibiotics ? Steroids were started overnight, will monitor as she does have a history of COPD ? Hemoglobin is down to 7.9, her iron is low as is her saturation. However this may just be dilutional given the fluid she received ? Respiratory panel and Legionella and strep antigens are negative ? Sputum culture is pending ? Leukocytosis is improving and lactic acidosis has resolved 2. CAD status post CABG/essential HTN/HLD ? Continue with her home blood pressure medications ? Will monitor make adjustments as necessary ? Continue with her home cholesterol medications ? Will hold Lasix secondary to her need for IV fluids initially 3. 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 Continue with insulin ? Accu-Cheks ACHS ? Will monitor and make adjustments as necessary 4. Hypothyroidism ? Stable ? Continue PPI 5. GERD ? Stable ? Continue with PPI 6. Anxiety/depression ? Stable ? Continue with her home medications 7. Chronic COPD/asthma ? Not necessarily in exacerbation however we will continue with low-dose steroids for now ? Continue with her inhalers 8. Hx Lung Cancer, Hx Breast cancer: Hx Breast cancer status post lumpectomy unclear exact location or type found incidentally with evaluation of Lung Cancer with reportedly positive sputum sample with squamous cells in 2013 with initially wedge resection with eventual follow-up gamma knife x 2, per report considered in remission. DVT: Heparin Charges/Coding Visit Charges Inpatient E&M: 81614 Subs Hosp L2
[2025-02-23 11:42] LABS: Iron Binding Capacity,Total 149 ug/dL (250-450)
[2025-02-23 11:43] LABS: PERCENT IRON SATURATION 6.7 % (13-59)
--- NOTE | 2025-02-23 12:30 | CASEMGMT ---
RN CM Face to Face with patient for initial transition planning/care coordination assessment. RN CM introduced self and role at [facility]. Patient lying in bed, alert and oriented. Patient willing to participate in assessment and is able to answer all questions appropriately. Care providers, pharmacy, and demographics verified. Strata: 2 PCP: David Specialists: Blue, facilities custodian; Tim, Cosmetologist Apprentice; Dinora, oncologist; Tracy, Radiologist; Preferred Pharmacy: [facility] Retail Insurance: [facility], [employer] Prescription Benefit: yes Living Will/HPOA: yes, daughter Natasha Dominguez LNOK: children x5 Living Arrangements: Patient lives alone in a single story home with 4 steps and railing to enter the home. Patient sates she is independent for self care Transportation: children DME/HHC: Patient has cane, walker, rollator, tub bench, nebulizer, and glucometer at home. Patient wishes to discharge home, patient states she would like HHC at discharge, will monitor progress with therapy. Patient states she has no further needs or concerns at this time. CM to follow for discharge planning needs that may arise. Disposition Plan:TBD, anticipate HHC at discharge. Aileen LOVELACE, RN, CM
[2025-02-23 13:05] LABS: Bedside Glucose 231 mg/dL (74-106)
--- NOTE | 2025-02-23 15:34 | CASEMGMT ---
Discharge Planning A list of?HH providers including quality and resource use data and consistent with the patient's preferred geographic region, medical needs, and insurance network was created in [employer] Guide.? This list was provided to the RN TOM. Rachel Garg, Discharge Planning Asst.
--- NOTE | 2025-02-23 15:37 | CASEMGMT ---
RN CM in to discuss discharge planning with patient and daughters at bedside. Patient will be staying at daughter Natasha's house at discharge. Patient and family agreeable to [facility] at discharge, list provided. Patient and family to review list and provide preferences. CM will follow-up in the morning with patient and family regarding choices.
[2025-02-23 17:58] LABS: Bedside Glucose 257 mg/dL (74-106)
[2025-02-23] MEDS: Atorvastatin Calcium 40 MG Tablet PO (22:32)
[2025-02-23] MEDS: Metoprolol Tartrate 25 MG Tablet PO (22:32)
[2025-02-24] VITALS (7 sets, daily range): BP systolic 113–125; BP diastolic 53–61; PULSE 70–79; RESP 14–20; TEMP 36.5–36.7; O2SAT 96–99; BMI 26.3
[2025-02-24] MEDS: Insulin Lispro 100 UNIT/ML INSULN.PEN SC ×5 (00:28→23:40)
[2025-02-24 00:51] LABS: Bedside Glucose 275 mg/dL (74-106)
[2025-02-24] MEDS: Piperacil/Tazobactam 3.375 GM in 0.9% Normal Saline (50mL MB+) 50 ML IV ×3 (05:01→21:27)
[2025-02-24] MEDS: Levothyroxine 100 MCG Tablet PO (05:02)
[2025-02-24 06:42] LABS: Absolute Lymphocyte Count 0.74 X10^3/uL (0.83-4.51); Absolute Neutrophil Count 14.8 X10^3/uL (2.0-7.7); Basophil# 0.03 X10^3/uL; Basophil% 0.2 % (0-1); Hematocrit 23.6 % (37-47); Hemoglobin 7.8 g/dL (12.0-15.0); Lymphocyte # 0.74 X10^3/ul (0.83-4.51); Lymphocyte % 4.6 % (19-41); Mean Corp Hgb Conc 33.1 g/dL (32-36); Mean Corpuscular Hgb 27.5 pg (27.0-32.0); Mean Corpuscular Volume 83.1 fL (81-99); Mean Platelet Vol. 10.4 fl (6.2-12.0); Monocyte# 0.49 X10^3/uL; NRBC Flagged by Analyzer 0 % (0-5); Neutrophil # 14.77 X10^3/uL (2.7-7.7); Neutrophil % 91.3 % (47-70); POSITIVE MORPHOLOGY YES; Platelet Count 303 K/mm3 (150-450); RBC Distribution Width CV 13.9 % (11.6-14.6); RBC Distribution Width SD 41.9 fl (35.1-43.9); Red Blood Count 2.84 M/mm3 (4.2-5.4); White Blood Count 16.2 K/mm3 (4.4-11.0)
[2025-02-24 06:45] LABS: Differential Indicated SCAN CRITERIA MET
[2025-02-24 07:01] LABS: Bedside Glucose 258 mg/dL (74-106)
[2025-02-24 07:14] LABS: Anion Gap 12 (5-15); BUN 39 mg/dL (4-19); BUN/Creat Ratio 26.6 RATIO (10-20); Calcium,Total 8.5 mg/dL (7.6-11.0); Carbon Dioxide 15.5 mmol/L (21.0-32.0); Chloride 107 mmol/L (98-108); Creatinine, Serum 1.46 mg/dL (0.70-1.20); EST Glomerular Filtration Rate 35 (>60); Estimated Creatinine Clearance 23.87 ml/min (50-250); Glucose 265 mg/dL (70-99); Potassium 3.8 mmol/L (3.3-5.1); Sodium Level 135 mmol/L (133-145)
[2025-02-24 07:16] LABS: Differential Comment SCANNED
[2025-02-24] MEDS: 0.9% Saline Lock 10 ML Syringe IV ×2 (08:29→15:06)
[2025-02-24] MEDS: Vancomycin IV 500 MG/100 ML BAG 100 MG IV (08:29)
[2025-02-24] MEDS: Citalopram 20 MG Tablet PO (08:30)
[2025-02-24] MEDS: Methylprednisolone Sod Succ 40 MG/ML VIAL 20 MG IV ×2 (08:30→18:15)
[2025-02-24] MEDS: Aspirin E.C. 81 MG Tablet PO (08:30)
[2025-02-24] MEDS: Insulin Glargine-YFGN 100 UNIT/ML Pen 20 UNIT SC (08:31)
[2025-02-24] MEDS: Heparin Injection (Vial) 5,000 UNIT/ML VIAL 5000 UNIT SC ×2 (08:31→21:22)
[2025-02-24] MEDS: Montelukast 10 MG Tablet PO (08:32)
[2025-02-24] MEDS: Fluticasone 0.05% 1 SPRAY NASAL.SRY NASAL (08:32)
[2025-02-24] MEDS: Metoprolol Tartrate 25 MG Tablet PO ×2 (08:44→21:23)
[2025-02-24] MEDS: Pantoprazole Sodium 40 MG in 0.9% Normal Saline (100mL MB+) 100 ML 330 MG IV (09:53)
--- NOTE | 2025-02-24 11:25 | CASEMGMT ---
Addendum entered by Aileen Diaz 02/24/25 14:39: Patient has been accepted by [facility] and will arrange start of care after patient seen by PCP. secretary office clerk made appt for Tuesday 02/27 for 809, YANIV SANTOS updated HHC. YANIV SANTOS called and updated daughter Natasha and address verified. Daughter agreeable to discharge plan and would prefer [employer] for DME if needed. Will monitor for home oxygen at discharge. Green sheet on chart. Original Note: YANIV SANTOS in to discuss discharge planning. YANIV SANTOS reviewed preferences list for HHC, first choice with [facility]. Patient denied further needs at this time. YANIV SANTOS made referral to [facility], awaiting acceptance.
[2025-02-24] MEDS: Sodium Ferric Gluconat/Sucrose 250 MG in 0.9% Normal Saline (250mL Bag) 250 ML 135 MG IV (11:52)
[2025-02-24 12:25] LABS: Bedside Glucose 252 mg/dL (74-106)
--- NOTE | 2025-02-24 14:06 | PCM.PN.HOSP ---
Subjective Subjective Doing well, feels a bit better. Still little short of breath needing oxygen especially when ambulating Objective Data Objective Data Vital Signs: Vital Signs Temp Pulse Resp BP Pulse Ox O2 Del Method O2 Flow Rate 97.9 F 79 18 125/56 H 96 Room Air 3 02/24/25 08:42 02/24/25 08:44 02/24/25 08:42 02/24/25 08:44 02/24/25 08:42 02/24/25 09:14 02/24/25 09:35 FiO2 1 02/23/25 14:56 Oxygen Flow Rate (L/min) 3 Oxygen Delivery Method Room Air Weight: 134 lb 14.766 oz Body Mass Index (BMI) 26.3 Intake & Output: Intake and Output for Last 24 Hours 02/23/25 02/24/25 02/25/25 03:59 03:59 03:59 Intake Total 2190 / 2190 1600 / 1600 260 / 260 Output Total 100 / 100 Balance 2090 / 2090 1600 / 1600 260 / 260 Lab / Micro Data 02/24/25 06:16 02/24/25 06:16 Labs: Laboratory Results - last 24 hr 02/23/25 17:19: POC Glucose 257 H 02/24/25 00:26: POC Glucose 275 H 02/24/25 06:16: WBC 16.2 H, RBC 2.84 L, Hgb 7.8 L, Hct 23.6 L, MCV 83.1, MCH 27.5, MCHC 33.1, RDW Std Deviation 41.9, RDW Coeff of Katelyn 13.9, Plt Count 303, MPV 10.4, Immature Gran % (Auto) 0.900, Neut % (Auto) 91.3 H, Lymph % (Auto) 4.6 L, [place] % (Auto) 3.0, Eos % (Auto) 0.0, Baso % (Auto) 0.2, Absolute Neuts (auto) 14.8 H, Absolute Lymphs (auto) 0.74 L, Nucleated RBC % 0, Differential Comment SCANNED, Sodium 135, Potassium 3.8, Chloride 107, Carbon Dioxide 15.5 L, Anion Gap 12, BUN 39 H, Creatinine 1.46 H, Estim Creat Clear Calc 23.87 L, Est GFR (MDRD) Non-Af 35 L, BUN/Creatinine Ratio 26.6 H, Glucose 265 H, Calcium 8.5 02/24/25 06:40: POC Glucose 258 H 02/24/25 11:55: POC Glucose 252 H Micro: Microbiology 02/22/25 21:05 Mucosa - Nasopharyngeal Respiratory Panel (PCR) - Final 02/22/25 17:30 Nasal Secretion MRSA (PCR) - Final 02/22/25 17:30 Urine, Random Legionella Antigen - Final 02/22/25 17:30 Urine, Random Streptococcus pneumoniae Antigen (M - Final Physical Exam Narrative General: Alert, Oriented x3, Cooperative, No apparent distress HEENT: Atraumatic, PERRLA, EOMI, Normocephalic Oral: Moist Mucosa Neck: Supple, No JVD Lungs: Diminished, Normal air movement, mild rhonchi, scattered wheeze, No rales Cardiovascular: Regular rate, Regular Rhythm, Normal S1, Normal S2, No murmurs Abdomen: Soft, Non Tender, Non-Distended, No Hepato-splenomegaly Extremities: No edema, Capillary Refill Less than 3 Seconds Skin: No rashes, No breakdown Musculoskeletal: No Tenderness to Palpation of Joints or Extremities Neurological: No focal neurological deficits, Motor Exam 5/5 strength throughout, Sensory exam intact to light touch and pain Psych/Mental Status: Normal affect, appropriate Assessment & Plan Assessment/Plan (1) Sepsis: PLAN: Plan 1. Sepsis secondary to pneumonia with gram-negative diane bacteremia ? Continue with antibiotics, awaiting sensitivities and identification from the outside hospital ? Steroids were started overnight, will monitor as she does have a history of COPD ? Hemoglobin is down to 7.9, however this may just be dilutional given the fluid she received ? Respiratory panel and Legionella and strep antigens are negative ? Sputum culture is pending ? Leukocytosis is improving and lactic acidosis has resolved 2. CAD status post CABG/essential HTN/HLD ? Continue with her home blood pressure medications ? Will monitor make adjustments as necessary ? Continue with her home cholesterol medications ? Will hold Lasix secondary to her need for IV fluids initially 3. 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 Continue with insulin ? Accu-Cheks ACHS ? Will monitor and make adjustments as necessary 4. Hypothyroidism ? Stable ? Continue PPI 5. GERD ? Stable ? Continue with PPI 6. Anxiety/depression ? Stable ? Continue with her home medications 7. Chronic COPD/asthma ? Not necessarily in exacerbation however we will continue with low-dose steroids for now ? Continue with her inhalers 8. Hx Lung Cancer, Hx Breast cancer: Hx Breast cancer status post lumpectomy unclear exact location or type found incidentally with evaluation of Lung Cancer with reportedly positive sputum sample with squamous cells in 2013 with initially wedge resection with eventual follow-up gamma knife x 2, per report considered in remission. DVT: Heparin Charges/Coding Visit Charges Inpatient E&M: 22979 Subs Hosp L2
[2025-02-24 18:39] LABS: Bedside Glucose 239 mg/dL (74-106)
[2025-02-24] MEDS: Atorvastatin Calcium 40 MG Tablet PO (21:22)
[2025-02-24] MEDS: Pantoprazole Sodium 40 MG Tablet PO (21:23)
[2025-02-25] VITALS (8 sets, daily range): BP systolic 117–135; BP diastolic 59–77; PULSE 50–75; RESP 16–17; TEMP 36.6–36.9; O2SAT 93–100; BMI 26.1
[2025-02-25] LABS: Bedside Glucose 236 mg/dL (74-106)
[2025-02-25] MEDS: Piperacil/Tazobactam 3.375 GM in 0.9% Normal Saline (50mL MB+) 50 ML IV ×3 (05:48→21:32)
[2025-02-25] MEDS: Levothyroxine 100 MCG Tablet PO (05:48)
[2025-02-25 05:54] LABS: Absolute Lymphocyte Count 1.02 X10^3/uL (0.83-4.51); Absolute Neutrophil Count 13.6 X10^3/uL (2.0-7.7); Basophil# 0.04 X10^3/uL; Basophil% 0.3 % (0-1); Hematocrit 25.2 % (37-47); Hemoglobin 8.3 g/dL (12.0-15.0); Lymphocyte # 1.02 X10^3/ul (0.83-4.51); Lymphocyte % 6.5 % (19-41); Mean Corp Hgb Conc 32.9 g/dL (32-36); Mean Corpuscular Hgb 26.8 pg (27.0-32.0); Mean Corpuscular Volume 81.3 fL (81-99); Mean Platelet Vol. 9.9 fl (6.2-12.0); Monocyte# 0.91 X10^3/uL; Monocyte% 5.8 % (0-10); NRBC Flagged by Analyzer 0.1 % (0-5); Neutrophil # 13.59 X10^3/uL (2.7-7.7); Neutrophil % 86.7 % (47-70); Platelet Count 331 K/mm3 (150-450); RBC Distribution Width CV 13.9 % (11.6-14.6); RBC Distribution Width SD 41.1 fl (35.1-43.9); White Blood Count 15.7 K/mm3 (4.4-11.0)
[2025-02-25] MEDS: Insulin Lispro 100 UNIT/ML INSULN.PEN SC ×4 (05:58→21:32)
[2025-02-25 07:01] LABS: Bedside Glucose 198 mg/dL (74-106)
[2025-02-25 07:16] LABS: Anion Gap 12 (5-15); BUN 33 mg/dL (4-19); BUN/Creat Ratio 23.5 RATIO (10-20); Carbon Dioxide 19.4 mmol/L (21.0-32.0); Chloride 104 mmol/L (98-108); Creatinine, Serum 1.39 mg/dL (0.70-1.20); EST Glomerular Filtration Rate 38 (>60); Estimated Creatinine Clearance 24.97 ml/min (50-250); Glucose 185 mg/dL (70-99); Potassium 3.4 mmol/L (3.3-5.1); Sodium Level 136 mmol/L (133-145)
[2025-02-25] MEDS: Metoprolol Tartrate 25 MG Tablet PO ×2 (08:53→21:32)
[2025-02-25] MEDS: Pantoprazole Sodium 40 MG Tablet PO ×2 (08:54→21:32)
[2025-02-25] MEDS: Citalopram 20 MG Tablet PO (08:54)
[2025-02-25] MEDS: Montelukast 10 MG Tablet PO (08:54)
[2025-02-25] MEDS: Aspirin E.C. 81 MG Tablet PO (08:54)
[2025-02-25] MEDS: Heparin Injection (Vial) 5,000 UNIT/ML VIAL 5000 UNIT SC ×2 (08:55→21:32)
[2025-02-25] MEDS: Insulin Glargine-YFGN 100 UNIT/ML Pen 20 UNIT SC (08:56)
[2025-02-25] MEDS: 0.9% Saline Lock 10 ML Syringe IV (09:03)
[2025-02-25] MEDS: Methylprednisolone Sod Succ 40 MG/ML VIAL 20 MG IV (09:03)
--- NOTE | 2025-02-25 10:09 | PCM.PN.HOSP ---
Subjective Subjective Doing well, no issues overnight. Maintaining her oxygen saturations on 2 L. Received confirmation that her blood cultures are growing haemophilus influenza currently awaiting sensitivities. With her MRSA being negative as well discontinued vancomycin yesterday Objective Data Objective Data Vital Signs: Vital Signs Temp Pulse Resp BP Pulse Ox O2 Del Method O2 Flow Rate 97.8 F 64 17 135/60 H 96 Nasal Cannula 2 02/25/25 08:00 02/25/25 08:53 02/25/25 08:00 02/25/25 08:00 02/25/25 08:00 02/25/25 08:00 02/25/25 08:00 FiO2 1 02/23/25 14:56 Oxygen Flow Rate (L/min) 2 Oxygen Delivery Method Nasal Cannula Weight: 133 lb 13.129 oz Body Mass Index (BMI) 26.1 Intake & Output: Intake and Output for Last 24 Hours 02/24/25 02/25/25 02/26/25 03:59 03:59 03:59 Intake Total 1600 / 1600 630 / 630 Balance 1600 / 1600 630 / 630 Lab / Micro Data 02/25/25 05:45 02/25/25 06:18 Labs: Laboratory Results - last 24 hr 02/24/25 11:55: POC Glucose 252 H 02/24/25 18:12: POC Glucose 239 H 02/24/25 23:39: POC Glucose 236 H 02/25/25 05:45: WBC 15.7 H, RBC 3.10 L, Hgb 8.3 L, Hct 25.2 L, MCV 81.3, MCH 26.8 L, MCHC 32.9, RDW Std Deviation 41.1, RDW Coeff of Katelyn 13.9, Plt Count 331, MPV 9.9, Immature Gran % (Auto) 0.700, Neut % (Auto) 86.7 H, Lymph % (Auto) 6.5 L, [place] % (Auto) 5.8, Eos % (Auto) 0.0, Baso % (Auto) 0.3, Absolute Neuts (auto) 13.6 H, Absolute Lymphs (auto) 1.02, Nucleated RBC % 0.1 02/25/25 05:57: POC Glucose 198 H 02/25/25 06:18: Sodium 136, Potassium 3.4, Chloride 104, Carbon Dioxide 19.4 L, Anion Gap 12, BUN 33 H, Creatinine 1.39 H, Estim Creat Clear Calc 24.97 L, Est GFR (MDRD) Non-Af 38 L, BUN/Creatinine Ratio 23.5 H, Glucose 185 H, Calcium 9.0 Micro: Microbiology 02/22/25 21:05 Mucosa - Nasopharyngeal Respiratory Panel (PCR) - Final 02/22/25 17:30 Nasal Secretion MRSA (PCR) - Final 02/22/25 17:30 Urine, Random Legionella Antigen - Final 02/22/25 17:30 Urine, Random Streptococcus pneumoniae Antigen (M - Final Physical Exam Narrative General: Alert, Oriented x3, Cooperative, No apparent distress HEENT: Atraumatic, PERRLA, EOMI, Normocephalic Oral: Moist Mucosa Neck: Supple, No JVD Lungs: Diminished, Normal air movement, mild rhonchi, scattered wheeze, No rales Cardiovascular: Regular rate, Regular Rhythm, Normal S1, Normal S2, No murmurs Abdomen: Soft, Non Tender, Non-Distended, No Hepato-splenomegaly Extremities: No edema, Capillary Refill Less than 3 Seconds Skin: No rashes, No breakdown Musculoskeletal: No Tenderness to Palpation of Joints or Extremities Neurological: No focal neurological deficits, Motor Exam 5/5 strength throughout, Sensory exam intact to light touch and pain Psych/Mental Status: Normal affect, appropriate Assessment & Plan Assessment/Plan (1) Sepsis: PLAN: Plan 1. Sepsis secondary to pneumonia with haemophilus influenza bacteremia ? Continue with antibiotics, awaiting sensitivities and identification from the outside hospital ?Transition her steroids to prednisone today ? Respiratory panel and Legionella and strep antigens are negative ? Sputum culture is pending ? Leukocytosis is improving and lactic acidosis has resolved 2. CAD status post CABG/essential HTN/HLD ? Continue with her home blood pressure medications ? Will monitor make adjustments as necessary ? Continue with her home cholesterol medications ? Will hold Lasix secondary to her need for IV fluids initially 3. 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 Continue with insulin ? Accu-Cheks ACHS ? Will monitor and make adjustments as necessary ? Likely component of iron deficiency as well as anemia of chronic disease, there was improvement with IV iron so we will transition to oral iron today 4. Hypothyroidism ? Stable ? Continue PPI 5. GERD ? Stable ? Continue with PPI 6. Anxiety/depression ? Stable ? Continue with her home medications 7. Chronic COPD/asthma ? Not necessarily in exacerbation however we will continue with low-dose steroids for now ? Continue with her inhalers 8. Hx Lung Cancer, Hx Breast cancer: Hx Breast cancer status post lumpectomy unclear exact location or type found incidentally with evaluation of Lung Cancer with reportedly positive sputum sample with squamous cells in 2013 with initially wedge resection with eventual follow-up gamma knife x 2, per report considered in remission. DVT: Heparin Charges/Coding Visit Charges Inpatient E&M: 76444 Subs Hosp L2
[2025-02-25] MEDS: Ferrous Gluconate 324 MG Tablet PO ×2 (11:40→16:59)
[2025-02-25 11:54] LABS: Bedside Glucose 193 mg/dL (74-106)
[2025-02-25 17:19] LABS: Bedside Glucose 200 mg/dL (74-106)
[2025-02-25] MEDS: Atorvastatin Calcium 40 MG Tablet PO (21:32)
[2025-02-26] VITALS (8 sets, daily range): BP systolic 115–133; BP diastolic 43–56; PULSE 54–71; RESP 16–18; TEMP 36.4–36.9; O2SAT 90–97; BMI 25.5
[2025-02-26 00:38] LABS: Bedside Glucose 193 mg/dL (74-106)
[2025-02-26] MEDS: Piperacil/Tazobactam 3.375 GM in 0.9% Normal Saline (50mL MB+) 50 ML IV ×3 (06:13→21:46)
[2025-02-26] MEDS: Levothyroxine 100 MCG Tablet PO (06:13)
[2025-02-26] MEDS: proCHLORPERazine 10 MG/2 ML Vial 5 MG IV (06:13)
[2025-02-26] MEDS: 0.9% Saline Lock 10 ML Syringe IV ×2 (06:13→10:49)
[2025-02-26 06:34] LABS: Absolute Lymphocyte Count 1.17 X10^3/uL (0.83-4.51); Basophil# 0.02 X10^3/uL; Basophil% 0.2 % (0-1); Eosinophil# 0.01 X10^3/uL; Eosinophils% 0.1 % (0-5); Hematocrit 26.1 % (37-47); Hemoglobin 8.6 g/dL (12.0-15.0); Lymphocyte # 1.17 X10^3/ul (0.83-4.51); Lymphocyte % 9.1 % (19-41); Mean Corpuscular Hgb 27.1 pg (27.0-32.0); Mean Corpuscular Volume 82.3 fL (81-99); Mean Platelet Vol. 10.5 fl (6.2-12.0); Monocyte# 1.51 X10^3/uL; Monocyte% 11.8 % (0-10); NRBC Flagged by Analyzer 0 % (0-5); Neutrophil # 9.98 X10^3/uL (2.7-7.7); Neutrophil % 77.8 % (47-70); POSITIVE DIFFERENTIAL YES; Platelet Count 361 K/mm3 (150-450); RBC Distribution Width CV 13.6 % (11.6-14.6); RBC Distribution Width SD 41.2 fl (35.1-43.9); Red Blood Count 3.17 M/mm3 (4.2-5.4); White Blood Count 12.8 K/mm3 (4.4-11.0)
[2025-02-26 06:47] LABS: Anion Gap 11 (5-15); BUN 32 mg/dL (4-19); BUN/Creat Ratio 23.4 RATIO (10-20); Calcium,Total 8.6 mg/dL (7.6-11.0); Carbon Dioxide 20.5 mmol/L (21.0-32.0); Chloride 106 mmol/L (98-108); Creatinine, Serum 1.36 mg/dL (0.70-1.20); EST Glomerular Filtration Rate 39 (>60); Estimated Creatinine Clearance 25.24 ml/min (50-250); Glucose 106 mg/dL (70-99); Sodium Level 138 mmol/L (133-145)
[2025-02-26 07:08] LABS: Bedside Glucose 118 mg/dL (74-106)
[2025-02-26 07:58] LABS: Differential Indicated SCAN CRITERIA MET
[2025-02-26] MEDS: predniSONE 20 MG Tablet 40 MG PO (08:56)
[2025-02-26] MEDS: Aspirin E.C. 81 MG Tablet PO (08:56)
[2025-02-26] MEDS: Fluticasone 0.05% 1 SPRAY NASAL.SRY NASAL (09:02)
[2025-02-26] MEDS: Citalopram 20 MG Tablet PO (09:03)
[2025-02-26] MEDS: Heparin Injection (Vial) 5,000 UNIT/ML VIAL 5000 UNIT SC ×2 (09:03→21:43)
[2025-02-26] MEDS: Pantoprazole Sodium 40 MG Tablet PO ×2 (09:03→21:46)
[2025-02-26] MEDS: Metoprolol Tartrate 25 MG Tablet PO ×2 (09:04→21:43)
[2025-02-26] MEDS: Montelukast 10 MG Tablet PO (09:05)
[2025-02-26] MEDS: Insulin Glargine-YFGN 100 UNIT/ML Pen 20 UNIT SC (09:06)
--- NOTE | 2025-02-26 10:23 | PN.HOSP_ITS ---
Subjective Subjective Doing well and feeling a bit better today. Unfortunately still waiting for sensitivities from the outside hospital and are still not back despite having been 4 days for the blood cultures. Objective Data Objective Data Vital Signs: Vital Signs Temp Pulse Resp BP Pulse Ox O2 Del Method O2 Flow Rate 98.4 F 71 17 115/56 L 95 Nasal Cannula 1 02/26/25 03:00 02/26/25 09:04 02/26/25 03:00 02/26/25 03:00 02/26/25 03:00 02/26/25 06:38 02/26/25 06:38 FiO2 1 02/23/25 14:56 Oxygen Flow Rate (L/min) 1 Oxygen Delivery Method Nasal Cannula Weight: 130 lb 11.746 oz Body Mass Index (BMI) 25.5 Intake & Output: Intake and Output for Last 24 Hours 02/25/25 02/26/25 02/27/25 03:59 03:59 03:59 Intake Total 630 / 630 100 / 100 50 / 50 Balance 630 / 630 100 / 100 50 / 50 Lab / Micro Data 02/26/25 05:35 02/26/25 05:35 Labs: Laboratory Results - last 24 hr 02/25/25 11:29: POC Glucose 193 H 02/25/25 16:57: POC Glucose 200 H 02/25/25 21:22: POC Glucose 193 H 02/26/25 05:35: WBC 12.8 H, RBC 3.17 L, Hgb 8.6 L, Hct 26.1 L, MCV 82.3, MCH 27.1, MCHC 33.0, RDW Std Deviation 41.2, RDW Coeff of Katelyn 13.6, Plt Count 361, MPV 10.5, Immature Gran % (Auto) 1.000 H, Neut % (Auto) 77.8 H, Lymph % (Auto) 9.1 L, [place] % (Auto) 11.8 H, Eos % (Auto) 0.1, Baso % (Auto) 0.2, Absolute Neuts (auto) 10.0 H, Absolute Lymphs (auto) 1.17, Nucleated RBC % 0, Sodium 138, P otassium 3.0 L, Chloride 106, Carbon Dioxide 20.5 L, Anion Gap 11, BUN 32 H, C reatinine 1.36 H, Estim Creat Clear Calc 25.24 L, Est GFR (MDRD) Non-Af 39 L, B UN/Creatinine Ratio 23.4 H, Glucose 106 H, Calcium 8.6 02/26/25 06:26: POC Glucose 118 H Micro: Microbiology 02/22/25 21:05 Mucosa - Nasopharyngeal Respiratory Panel (PCR) - Final 02/22/25 17:30 Nasal Secretion MRSA (PCR) - Final 02/22/25 17:30 Urine, Random Legionella Antigen - Final 02/22/25 17:30 Urine, Random Streptococcus pneumoniae Antigen (M - Final Physical Exam Narrative General: Alert, Oriented x3, Cooperative, No apparent distress HEENT: Atraumatic, PERRLA, EOMI, Normocephalic Oral: Moist Mucosa Neck: Supple, No JVD Lungs: Diminished, Normal air movement, mild rhonchi, scattered wheeze, No rales Cardiovascular: Regular rate, Regular Rhythm, Normal S1, Normal S2, No murmurs Abdomen: Soft, Non Tender, Non-Distended, No Hepato-splenomegaly Extremities: No edema, Capillary Refill Less than 3 Seconds Skin: No rashes, No breakdown Musculoskeletal: No Tenderness to Palpation of Joints or Extremities Neurological: No focal neurological deficits, Motor Exam 5/5 strength throughout, Sensory exam intact to light touch and pain Psych/Mental Status: Normal affect, appropriate Assessment & Plan Assessment/Plan (1) Sepsis: PLAN: Plan 1. Sepsis secondary to pneumonia with haemophilus influenza bacteremia ? Continue with antibiotics, awaiting sensitivities and identification from the outside hospital ?Transition her steroids to prednisone today ? Respiratory panel and Legionella and strep antigens are negative ? Sputum culture is pending ? Leukocytosis is improving and lactic acidosis has resolved 2. CAD status post CABG/essential HTN/HLD ? Continue with her home blood pressure medications ? Will monitor make adjustments as necessary ? Continue with her home cholesterol medications ? Will hold Lasix secondary to her need for IV fluids initially 3. 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 Continue with insulin ? Accu-Cheks ACHS ? Will monitor and make adjustments as necessary ? Likely component of iron deficiency as well as anemia of chronic disease, there was improvement with IV iron so we will transition to oral iron today 4. Hypothyroidism ? Stable ? Continue PPI 5. GERD ? Stable ? Continue with PPI 6. Anxiety/depression ? Stable ? Continue with her home medications 7. Chronic COPD/asthma ? Not necessarily in exacerbation however we will continue with low-dose steroids for now ? Continue with her inhalers 8. Hx Lung Cancer, Hx Breast cancer: Hx Breast cancer status post lumpectomy unclear exact location or type found incidentally with evaluation of Lung Cancer with reportedly positive sputum sample with squamous cells in 2013 with initially wedge resection with eventual follow-up gamma knife x 2, per report considered in remission. DVT: Heparin Charges/Coding Visit Charges Inpatient E&M: 61066 Subs Hosp L2
[2025-02-26] MEDS: Ondansetron 4 MG/2 ML Vial IV (10:55)
[2025-02-26] MEDS: Ferrous Gluconate 324 MG Tablet PO ×2 (11:00→17:47)
[2025-02-26 11:34] LABS: Bedside Glucose 109 mg/dL (74-106)
[2025-02-26 12:30] LABS: Magnesium 1.8 mg/dL (1.5-2.2); Phosphorus 1.7 mg/dL (2.7-4.5)
[2025-02-26 17:13] LABS: Bedside Glucose 233 mg/dL (74-106)
[2025-02-26] MEDS: Insulin Lispro 100 UNIT/ML INSULN.PEN SC ×2 (17:47→23:56)
[2025-02-26] MEDS: Atorvastatin Calcium 40 MG Tablet PO (21:45)
[2025-02-27 00:17] LABS: Bedside Glucose 282 mg/dL (74-106)
[2025-02-27 02:58] VITALS: BP 119/49; PULSE 58; RESP 13; TEMP 36.6; O2SAT 96
[2025-02-27 03:00] VITALS: PULSE 63
[2025-02-27 03:36] VITALS: BMI 25.4
[2025-02-27 06:19] LABS: Anion Gap 10 (5-15); BUN 32 mg/dL (4-19); BUN/Creat Ratio 23.4 RATIO (10-20); Calcium,Total 8.1 mg/dL (7.6-11.0); Carbon Dioxide 20.3 mmol/L (21.0-32.0); Chloride 107 mmol/L (98-108); Creatinine, Serum 1.35 mg/dL (0.70-1.20); EST Glomerular Filtration Rate 39 (>60); Estimated Creatinine Clearance 25.41 ml/min (50-250); Glucose 218 mg/dL (70-99); Sodium Level 137 mmol/L (133-145)
[2025-02-27] MEDS: Levothyroxine 100 MCG Tablet PO (06:33)
[2025-02-27] MEDS: Piperacil/Tazobactam 3.375 GM in 0.9% Normal Saline (50mL MB+) 50 ML IV (06:34)
[2025-02-27] MEDS: Insulin Lispro 100 UNIT/ML INSULN.PEN SC ×2 (06:35→11:37)
[2025-02-27 06:58] LABS: Bedside Glucose 209 mg/dL (74-106)
[2025-02-27 08:50] LABS: Magnesium 1.8 mg/dL (1.5-2.2)
[2025-02-27 08:58] VITALS: BP 141/63; PULSE 72; RESP 16; TEMP 36.5; O2SAT 93
[2025-02-27] MEDS: predniSONE 20 MG Tablet 40 MG PO (08:59)
[2025-02-27 09:00] VITALS: BP 141/63; PULSE 72
[2025-02-27] MEDS: Citalopram 20 MG Tablet PO (09:00)
[2025-02-27] MEDS: Heparin Injection (Vial) 5,000 UNIT/ML VIAL 5000 UNIT SC (09:00)
[2025-02-27] MEDS: Montelukast 10 MG Tablet PO (09:00)
[2025-02-27] MEDS: Metoprolol Tartrate 25 MG Tablet PO (09:00)
[2025-02-27] MEDS: Aspirin E.C. 81 MG Tablet PO (09:00)
[2025-02-27] MEDS: Pantoprazole Sodium 40 MG Tablet PO (09:00)
[2025-02-27] MEDS: Insulin Glargine-YFGN 100 UNIT/ML Pen 20 UNIT SC (09:00)
[2025-02-27] MEDS: Ferrous Gluconate 324 MG Tablet PO (11:35)
--- NOTE | 2025-02-27 11:50 | RAD_ITS ---
PROCEDURE: FOOT MIN 3 VIEWS 02/27/2025 REASON FOR EXAM: PAIN TECHNIQUE: 3 views of the right foot. COMPARISON: None. FINDINGS: Bones: Diffuse osseous demineralization. No obvious acute fracture. Severe hallux valgus deformity with overlapping of the 1st and 2nd digits. Joints: Alignment is grossly maintained. Severe degenerative changes throughout the foot. Soft tissues: Soft tissues are unremarkable. Other: Vascular calcifications. RAD/Foot min 3 Views IMPRESSION: No obvious acute fracture. Severe hallux valgus deformity of the 1st toe, comp atible with bunion deformity. Reading Location: [id number]
[2025-02-27 12:16] LABS: Bedside Glucose 191 mg/dL (74-106)
[2025-02-27 14:39] VITALS: BP 120/56; PULSE 70; RESP 16; TEMP 36.4; O2SAT 97
--- NOTE | 2025-02-27 14:39 | DS.PCM_ITS ---
Providers Date of Admission: 02/22/25 Date of Discharge: 02/27/25 Primary Care Physician: Dr. Montez Hernandez MD Reason For Visit: PNEUMONIA Diagnosis Discharge Diagnosis (1) Sepsis: Status: Acute Code(s): A41.9 - Sepsis, unspecified organism Medications at Discharge Home Medications cholecalciferol (vitamin D3) 25 mcg (1,000 unit) tablet 1,000 unit PO DAILY 08/26/16 fluticasone propionate 50 mcg/actuation nasal spray,suspension 1 spray NASAL BID 08/26/16 montelukast 10 mg tablet 10 mg PO DAILY 08/26/16 aspirin 81 mg tablet,delayed release (Adult Low Dose Aspirin) 81 mg PO QDAY #30 tabs 05/19/18 citalopram 20 mg tablet (Celexa) 20 mg PO DAILY 08/19/18 fluticasone propionate 230 mcg-salmeterol 21 mcg/actuation HFA inhaler 2 puff IH DAILY 10/30/19 insulin aspart U-100 100 unit/mL (3 mL) subcutaneous pen 15 units subcut BREAKFAST diabetes 10/30/19 cyanocobalamin (vitamin B-12) 1,000 mcg capsule 1,000 mcg PO DAILY 02/10/20 albuterol sulfate 2.5 mg/3 mL (0.083 %) solution for nebulization 2.5 mg inhalation Q4H PRN shortness of breath or wheezing 01/01/23 umeclidinium 62.5 mcg/actuation blister powder for inhalation (Incruse Ellipta) 1 inh inhalation DAILY 01/01/23 lisinopril 2.5 mg tablet 2.5 mg PO DAILY #90 tabs 12/22/23 furosemide 40 mg tablet (Lasix) 40 mg PO DAILY #90 tabs 01/13/24 metoprolol tartrate 25 mg tablet 25 mg PO BID #180 tabs 01/13/24 atorvastatin 40 mg tablet See Rx Instructions .Route .COMPLEX #90 tabs 02/08/25 insulin detemir U-100 100 unit/mL (3 mL) subcutaneous pen 60 units subcut DAILY Diabetes 02/22/25 insulin glargine 100 unit/mL (3 mL) subcutaneous pen (Basaglar KwikPen U-100 Insulin) unit subcut 02/22/25 levothyroxine 100 mcg tablet 100 mcg PO DAILY 02/22/25 omeprazole 40 mg capsule,delayed release 40 mg PO DAILY 02/22/25 amoxicillin 500 mg-potassium clavulanate 125 mg tablet 1 tab PO BID #12 tabs 02/27/25 ferrous gluconate 324 mg (37.5 mg iron) tablet 324 mg PO BIDLS #60 tabs 02/27/25 prednisone 10 mg tablet 10 mg PO DAILY #26 tabs 02/27/25 Hospital Course Operations None Procedures - (Chest x-ray/foot x-ray) Summary of Care Provided Minutes Spent on Discharge: 37 Hospital Course: Ms Dover is an 84-year-old white female who presented to the emergency department at [facility] on 02/22/2025 with a chief complaint of shortness of breath, cough, fatigue and decreased appetite. Patient presented to [facility] on 02/22/2025 complaining of persistent nausea, fatigue, malaise that had been ongoing since the Thursday prior to admission. She had reportedly had decreased oral intake and weight loss with inability to tolerate anything oral however had not had any emesis. She had no diarrhea or abdominal pain. She denied fevers and chills however her cough had been worsening. At presentation outside facility she was noted to be wheezing. Vital signs on presentation to [place] ED showed a temperature of 96.4, blood pressure 152/95, heart rate was 124, respiratory rate is 18 oxygen saturation was 94% on room air. She evidently at 1 point desatted to 88% and was placed on 2 L nasal cannula. Her white count was noted to be markedly elevated at 25.4. She had a chronic stable anemia and was found to be iron deficient during her hospitalization and placed on supplemental iron and instructed to take this twice daily with vitamin C and orange juice. She will need a follow-up CBC in the next 6 to 8 weeks to reassess her anemia. Her initial lactic acid on presentation was 5.3 with repeat of 3.9 after oxygen treatment were initiated. Chemistry panel showed mild hyponatremia with a sodium of 129, mild hyperkalemia potassium of 5.4, bicarb was 18 and anion gap was 18. Renal function was elevated at 1.81 and it appears that her baseline is about 1.4. Serum glucose was markedly elevated at 408. BNP was 7817. Troponin was 36 with a delta of 32. COVID/flu/RSV were negative. Chest x-ray showed worsening infiltrate in the left upper lobe and CT of the chest with IV contrast showed infiltrate in the left upper lobe and within the left lower lobe. Spiculated nodularity was noted on the right upper lobe and stable compared to previous. CT of the abdomen pelvis was unremarkable for any acute findings. Her UA was not suggestive of infection but did indicate some dehydration. Blood cultures were obtained emergency department she was placed on Vanco and Zosyn and admitted to the telemetry floor. With time, oxygen was able to be weaned to room air and she needed no oxygen per ambulatory pulse ox prior to discharge. We were notified on 02/23/2025 that her blood cultures did come back with gram-negative rods and were finalized as haemophilus influenza. Unfortunately, sensitivities were still pending at the time of discharge however she had clinically improved significantly on Zosyn so she was transition to renally dose Augmentin at 500 mg p.o. twice daily to complete a 10-day treatment. Primary source was thought to be her pneumonia with bacteremia related to this. She felt back to her baseline at the time of discharge. I did tell her we would continue to watch for her cultures to ensure the haemophilus was sensitive to Augmentin. She already has follow-up with her primary care physician tomorrow. She did complain of some right lateral foot pain prior to discharge. We obtained x-rays and they were unremarkable for any acute findings. Patient states she has had this previously and it typically goes away independently. We did advise her to take Tylenol 1000 mg up to 3 times daily as needed. We did advise to avoid NSAIDs as well. Patient was able to be discharged home in stable condition on 02/27/2025. Discharge diagnoses: Sepsis secondary to haemophilus influenza pneumonia/bacteremia Haemophilus influenza bacteremia Haemophilus influenza pneumonia ROSEANNA Lactic acidosis Hypokalemia Right foot pain with negative imaging Stable right upper lobe mass Elevated BNP secondary to pneumonia/bacteremia CAD History of lung cancer History of breast cancer Hyperlipidemia COPD Vitamin D deficiency Iron deficiency Chronic anemia DM-2 Hypothyroidism Seasonal allergies GERD Depression/anxiety Physical Exam Narrative Patient states overall she is feeling well. Complains of some right lateral foot pain which she has periodically previously. X-rays are negative for fracture. Const alert, oriented x3 and no apparent distress Constitutional Narrative: Very pleasant, elderly, white female, sitting in bed, appears comfortable, nontoxic General Appearance: cooperative, comfortable, well kempt and well developed Orientation / Consciousness: awake, oriented to person, oriented to place and oriented to time Exam Limitations: no limitations HEENT normocephalic, head/scalp atraumatic and moist oral mucous membranes HEENT Narrative: Mild hearing loss, Mallampati 2, no thrush Eyes EOMs intact bilaterally Eyes Narrative: Conjunctiva pallor bilaterally, no scleral icterus Neck supple Neck Narrative: Trachea midline Resp normal respiratory effort, no retractions, no use of accessory muscles and clear to auscultation bilaterally Resp Narrative: Diffusely diminished but clear Auscultation: Negative for rales, rhonchi or wheezes Cardio regular rate, regular rhythm, S1 normal heart sound, S2 normal heart sound, no murmurs, no rub, no gallops and no clicks GI normal to inspection, nondistended, normoactive bowel sounds, soft to palpation and non-tender Extremity no clubbing, cyanosis or edema Extremity Narrative: Tenderness in right lateral foot with no abnormalities in appearance or increased tissue temperature Skin skin turgor normal and no jaundice Neuro oriented x3, moves all extremities and no focal motor deficits Speech: speech normal Psych affect normal Psych Narrative: Very pleasant, appears comfortable, anxious to go home Weight / BMI Weight Weight: 59.2 kg Body Mass Index (BMI) 25.4 ABG / Lab / Microbiology Data 02/26/25 05:35 02/27/25 05:34 Laboratory: Laboratory Results - last 24 hr 02/26/25 16:40: POC Glucose 233 H 02/26/25 23:54: POC Glucose 282 H 02/27/25 05:34: Sodium 137, Potassium 3.0 L, Chloride 107, Carbon Dioxide 20.3 L , Anion Gap 10, BUN 32 H, Creatinine 1.35 H, Estim Creat Clear Calc 25.41 L, Est GFR (MDRD) Non-Af 39 L, BUN/Creatinine Ratio 23.4 H, Glucose 218 H, Calcium 8.1, Magnesium 1.8 02/27/25 06:35: POC Glucose 209 H 02/27/25 11:36: POC Glucose 191 H Microbiology: Microbiology 02/22/25 21:05 Mucosa - Nasopharyngeal Respiratory Panel (PCR) - Final 02/22/25 17:30 Nasal Secretion MRSA (PCR) - Final 02/22/25 17:30 Urine, Random Legionella Antigen - Final 02/22/25 17:30 Urine, Random Streptococcus pneumoniae Antigen (M - Final Radiography Diagnostic Testing: Radiology Impression Foot X-Ray 02/27/25 11:50 IMPRESSION: No obvious acute fracture. Severe hallux valgus deformity of the 1st toe, compatible with bunion deformity. Reading Location: [facility] D/C Instructions Discharge Diet: Low fat / Low cholesterol and 1800 Calorie Control Diet Discharge Activity: Return to Normal Activity and Use Walker DC O2, CPAP, BIPAP Needs Home O2 Discharge instructions: No Meaningful Use Info Meaningful Use Meaningful Use Diagnoses (Choose all that apply): None applicable Ischemic Stroke Statin Dosing Therapy Reference: STATIN DOSE THERAPY REFERENCE: * Patients > 75 years receive moderate or high dose statin therapy. * Patients 75 years or YOUNGER should receive HIGH intensity statin dose unless contraindicated. You will be required to document reason for non-treatment if statin daily dose does not meet guidelines. HIGH DOSE STATIN THERAPY DAILY Atorvastatin > than or = to 40 mg Rosuvastatin > than or = to 20 mg Amlodipine + Atorvastatin > than or = to 2.5/40 mg Ezetimibe + Simvastatin 10/80 mg Simvastatin 80mg Discharge Plan Admission Admit Date/Time: 02/22/25 14:13 Primary Reason for Your Visit: Fatigue/nausea/cough Attending Provider: Rekha Dumont Primary Care Provider: Montez Hernandez Consulting Providers: Ellen Sim; Mike Alves Instructions Additional Instructions / Restrictions: 1. Please complete antibiotics as directed. I will call you if there it needs to be a change due to sensitivity results. Discharge Orders/Prescriptions Prescriptions: New ferrous gluconate 324 mg (37.5 mg iron) Tablet 324 mg PO BIDLS Qty: 60 1RF Rx Instructions: Take with orange juice prednisone 10 mg tablet 10 mg PO DAILY Qty: 26 0RF Rx Instructions: 4 tablets x 2 days, 3 tablets x 3 days, 2 tablets x 3 days, 1 tablet x 3 days and stop amoxicillin-pot clavulanate 500-125 mg tablet 1 tab PO BID Qty: 12 0RF No Action aspirin [Adult Low Dose Aspirin] 81 mg tablet,delayed release (DR/EC) 81 mg PO QDAY Qty: 30 3RF citalopram [Celexa] 20 mg tablet 20 mg PO DAILY cyanocobalamin (vitamin B-12) 1,000 mcg capsule 1,000 mcg PO DAILY Incruse Ellipta 62.5 mcg/actuation blister with device 1 inh inhalation DAILY albuterol sulfate 2.5 mg /3 mL (0.083 %) solution for nebulization 2.5 mg inhalation Q4H PRN (Reason: shortness of breath or wheezing) montelukast 10 MG tablet 10 mg PO DAILY Patient Comments: ALLERGIES fluticasone propionate 1 SPRAY spray,suspension 1 spray NASAL BID Patient Comments: ALLERGIES cholecalciferol (vitamin D3) 1,000 UNIT tablet 1,000 unit PO DAILY Patient Comments: SUPPLEMENT fluticasone propion-salmeterol 1 PUFF inhaler 2 puff IH DAILY Patient Comments: INHALE 2 PUFFS INSTRUCTED TWICE DAILY. USE WITH SPACER. RINSE MOUTHOUT AFTER USE. insulin aspart U-100 100 UNITS/ML insulin pen 15 units subcut BREAKFAST Protocol: 3. Sliding Scale Insulin Med Dosing Condition: 150-189 mg/dl = 1 unit Condition: 190-229 mg/dl = 2 units Condition: 230-269 mg/dl = 3 units Condition: 270-309 mg/dl = 4 units Condition: 310-349 mg/dl = 5 units Condition: 350-399 mg/dl = 6 units Condition: 400-449 mg/dl = 7 units Condition: Greater than 449 call physician Protocol Text: - Use for Total Daily Dose of Insulin 37-55 units - Obsese, infected, or steroid patients MEDIUM DOSING ALGORITHIM Patient Comments: BLOOD SUGAR omeprazole 40 mg capsule,delayed release(DR/EC) 40 mg PO DAILY levothyroxine 100 mcg tablet 100 mcg PO DAILY insulin glargine [Basaglar KwikPen U-100 Insulin] 100 unit/mL (3 mL) insulin pen SUBCUT Patient Comments: INJECT 60 UNITS SUBCUTANEOUSLY (UNDER THE SKIN) IN THE MORNING and 20 UNITS IN THE EVENING insulin detemir U-100 100 UNITS/ML insulin pen 60 units subcut DAILY lisinopril 2.5 mg tablet 2.5 mg PO DAILY Qty: 90 3RF Patient Comments: TAKE 1 TABLET BY MOUTH EVERY DAY furosemide [Lasix] 40 mg tablet 40 mg PO DAILY Qty: 90 3RF metoprolol tartrate 25 mg tablet 25 mg PO BID Qty: 180 3RF atorvastatin 40 mg tablet See Rx Instructions .ROUTE .COMPLEX Qty: 90 3RF Dose Instruction: TAKE 1 TABLET BY MOUTH EVERYDAY AT BEDTIME Rx Instructions: TAKE 1 TABLET BY MOUTH EVERYDAY AT BEDTIME Referrals / Follow Up: Montez Hernandez MD [Primary Care Provider] - 02/28/25 9:50 am Disposition Disposition (needs filled in before D/C Order can be placed): Home, Self Care Charges/Coding Visit Charges Inpatient E&M: 28915 Disch Hosp >30min
--- NOTE | 2025-02-27 14:54 | CASEMGMT ---
Patient has order for discharge. PCP follow-up appt rescheduled for tomorrow at 0950 for [facility] to start of Thursday. YANIV SANTOS in to update patient regarding [facility] start of care and follow-up appt for tomorrow with PCP. Patient states she is took weak and does not want to go to PCP office tomorrow. YANIV SANTOS explained that her PCP requires patient to follow-up with PCP prior to PCP signing for [facility]. Patient states she spoke with nurse last week and they stated she could do a virtual visit. YANIV SANTOS called PCP's office and requested virtual visit. Per office they will keep appt for tomorrow just in case Dr. Hernandez will not approve virtual visit. YANIV SANTOS updated patient, patient voice understanding and is agreeable to plan and had no further questions. Patient denies further needs or help at discharge. YANIV SANTOS updated discharge plan.
--- NOTE | 2025-02-27 15:32 | PHA.DC.MC.R ---
Pharmacy [facility] has performed discharge medication reconciliation and counseling for this patient. 1. Augmentin 500/125mg PO BID x 6 days 2. Ferrous gluconate 324mg PO BIDLS (take with orange juice) 3. Prednisone 40mg PO daily x 2 days, then 30mg x 3 days, then 20mg x 3 days, then 10mg x 3 days The patient's discharge medication list was reviewed for discrepancies and discrepancies were resolved. The patient was counseled on the following discharge medications and changes in medications for homegoing were reviewed. The Reason for Use, instructions for use, and potential side effects were reviewed for all new medications. The patient's questions regarding all of their medications were answered. The patient was able to verbally demonstrate an understanding of their discharge medications. Medications at Discharge Home Medications cholecalciferol (vitamin D3) 25 mcg (1,000 unit) tablet 1,000 unit PO DAILY 08/26/16 fluticasone propionate 50 mcg/actuation nasal spray,suspension 1 spray NASAL BID 08/26/16 montelukast 10 mg tablet 10 mg PO DAILY 08/26/16 aspirin 81 mg tablet,delayed release (Adult Low Dose Aspirin) 81 mg PO QDAY #30 tabs 05/19/18 citalopram 20 mg tablet (Celexa) 20 mg PO DAILY 08/19/18 fluticasone propionate 230 mcg-salmeterol 21 mcg/actuation HFA inhaler 2 puff IH DAILY 10/30/19 insulin aspart U-100 100 unit/mL (3 mL) subcutaneous pen 15 units subcut BREAKFAST diabetes 10/30/19 cyanocobalamin (vitamin B-12) 1,000 mcg capsule 1,000 mcg PO DAILY 02/10/20 albuterol sulfate 2.5 mg/3 mL (0.083 %) solution for nebulization 2.5 mg inhalation Q4H PRN shortness of breath or wheezing 01/01/23 umeclidinium 62.5 mcg/actuation blister powder for inhalation (Incruse Ellipta) 1 inh inhalation DAILY 01/01/23 lisinopril 2.5 mg tablet 2.5 mg PO DAILY #90 tabs 12/22/23 furosemide 40 mg tablet (Lasix) 40 mg PO DAILY #90 tabs 01/13/24 metoprolol tartrate 25 mg tablet 25 mg PO BID #180 tabs 01/13/24 atorvastatin 40 mg tablet See Rx Instructions .Route .COMPLEX #90 tabs 02/08/25 insulin detemir U-100 100 unit/mL (3 mL) subcutaneous pen 60 units subcut DAILY Diabetes 02/22/25 insulin glargine 100 unit/mL (3 mL) subcutaneous pen (Basaglar KwikPen U-100 Insulin) unit subcut 02/22/25 levothyroxine 100 mcg tablet 100 mcg PO DAILY 02/22/25 omeprazole 40 mg capsule,delayed release 40 mg PO DAILY 02/22/25 amoxicillin 500 mg-potassium clavulanate 125 mg tablet 1 tab PO BID #12 tabs 02/27/25 ferrous gluconate 324 mg (37.5 mg iron) tablet 324 mg PO BIDLS #60 tabs 02/27/25 prednisone 10 mg tablet 10 mg PO DAILY #26 tabs 02/27/25
--- NOTE | 2025-03-01 16:45 | CASEMGMT ---
Care Management -Received call from Ariela, pharmacist at [facility] ([phone]) who indicates to have the resulted blood and sputum cultures for this patient who may have been discharged already. -Cultures done at [facility] before patient's transfer to [facility]. -Ariela confirmed fax, to fax results as requested by Dr. Alves, who had treated patient earlier in stay. -Ariela inquired about patient's discharging antibiotic, and for continuity of care of patient, relayed discharging antibiotic. Ariela reports discharging antibiotic prescribed would cover results of cultures. -Ariela faxed results attention to this creative writer. -Contacted Dr. Dumont who was the discharging physician, about culture results received, so physician could also review and ensure patient's discharging medication is appropriate based on culture results. -Per Dr. Dumont's request, sent copies of results via secure backline messaging. -Per Dr. Dumont, patient is covered by prescribed antibiotics at discharge. No further follow up indicated. -Copy of results from [facility] sent to HIM for scanning into patient's medical records. -Naomi Yañez Mechanical Shovel Operator
== END 2025-02-27 15:53 | disposition home health service (06) | DRG 871 ==
PROVIDERS: Family Medicine; Hospitalist; Admitting Provider Family Medicine; PCP Family Medicine; Referring Provider Family Medicine; Visit Provider Internal Medicine
DX: A41.3 Sepsis due to Hemophilus influenzae (principal); J14 Pneumonia due to Hemophilus influenzae; E87.1 Hypo-osmolality and hyponatremia; N18.4 Chronic kidney disease, stage 4 (severe); J44.0 Chronic obstructive pulmonary disease with (acute) lower respiratory infection; N17.9 Acute kidney failure, unspecified; D63.1 Anemia in chronic kidney disease; E11.22 Type 2 diabetes mellitus with diabetic chronic kidney disease; D50.9 Iron deficiency anemia, unspecified; I12.9 Hypertensive chronic kidney disease with stage 1 through stage 4 chronic kidney disease, or unspecified chronic kidney disease; F32.A Depression, unspecified; E03.9 Hypothyroidism, unspecified; E86.0 Dehydration; I25.10 Atherosclerotic heart disease of native coronary artery without angina pectoris; F41.9 Anxiety disorder, unspecified; E78.5 Hyperlipidemia, unspecified; K21.9 Gastro-esophageal reflux disease without esophagitis; E87.6 Hypokalemia; J30.2 Other seasonal allergic rhinitis; E55.9 Vitamin D deficiency, unspecified; M79.671 Pain in right foot; Z79.4 Long term (current) use of insulin; E11.65 Type 2 diabetes mellitus with hyperglycemia; Z11.52 Encounter for screening for COVID-19; Z79.82 Long term (current) use of aspirin; Z92.3 Personal history of irradiation; Z85.118 Personal history of other malignant neoplasm of bronchus and lung; Z95.1 Presence of aortocoronary bypass graft; Z79.890 Hormone replacement therapy; Z79.899 Other long term (current) drug therapy; Z87.891 Personal history of nicotine dependence
CPT/HCPCS: 36415; 71045; 73630; 80048; 80053; 80202; 82728; 82962; 83540; 83550; 83605; 83735; 84100; 85025; 87449; 87633; 87641; 94640; 94668; 97110; 97116; 97162; 97166; 97530; 97535; A4216; J2405; J2916

== ENCOUNTER 2025-03-20 11:24 | Outpatient (CLI) | payer MEDICARE, OTHER, SELFPAY ==
[2025-03-20 15:43] LABS: Absolute Neutrophil Count 8.3 X10^3/uL (2.0-7.7); Basophil# 0.08 X10^3/uL; Basophil% 0.7 % (0-1); Eosinophil# 0.18 X10^3/uL; Eosinophils% 1.5 % (0-5); Hematocrit 25.5 % (37-47); Lymphocyte % 15.4 % (19-41); Mean Corp Hgb Conc 31.4 g/dL (32-36); Mean Corpuscular Hgb 26.4 pg (27.0-32.0); Mean Corpuscular Volume 84.2 fL (81-99); Mean Platelet Vol. 10.5 fl (6.2-12.0); Monocyte# 1.21 X10^3/uL; Monocyte% 10.3 % (0-10); NRBC Flagged by Analyzer 0 % (0-5); Neutrophil # 8.28 X10^3/uL (2.7-7.7); Neutrophil % 70.6 % (47-70); Platelet Count 665 K/mm3 (150-450); RBC Distribution Width CV 15.4 % (11.6-14.6); RBC Distribution Width SD 46.5 fl (35.1-43.9); RET-HE 21.7 pg (30-35); Red Blood Count 3.03 M/mm3 (4.2-5.4); Reticulocyte Count 1.67 % (0.5-1.5); White Blood Count 11.7 K/mm3 (4.4-11.0)
[2025-03-20 16:20] LABS: Anion Gap 15 (5-15); BUN 41 mg/dL (4-19); BUN/Creat Ratio 24.4 RATIO (10-20); Calcium,Total 9.4 mg/dL (7.6-11.0); Carbon Dioxide 19.3 mmol/L (21.0-32.0); Chloride 98 mmol/L (98-108); EST Glomerular Filtration Rate 30 (>60); Glucose 234 mg/dL (70-99); Iron 21 ug/dL (50-170); Iron Binding Capacity,Unsat 170 ug/dL (228-428); Potassium 4.9 mmol/L (3.3-5.1); Sodium Level 132 mmol/L (133-145)
[2025-03-20 16:53] LABS: Ferritin 322 ng/mL (22-378); Vitamin B12 2057 pg/mL (180-914); Vitamin D,25 Hydroxy 90.9 ng/mL (30-100)
[2025-03-20 16:56] LABS: Iron Binding Capacity,Total 191 ug/dL (250-450)
== END 2025-03-20 23:59 | disposition home or self-care (01) ==
LOC: MTLAB 11:28
PROVIDERS: PCP Family Medicine; Referring Provider Family Medicine; Visit Provider Family Medicine
DX: D64.9 Anemia, unspecified (principal); I10 Essential (primary) hypertension; E55.9 Vitamin D deficiency, unspecified
CPT/HCPCS: 36415; 80048; 82306; 82607; 82728; 83540; 83550; 85025; 85045